=== PATIENT | female | born 1975 | race Caucasian/White ===

== ENCOUNTER 2020-12-04 10:48 | Observation (INO) ==
--- NOTE | 2020-11-29 11:26 | Anesthesiology Consultation ---
Date of Service November 29, 2020 Assessment & Plan (1) Encounter for pre-operative examination: COVID Status: As of 11/29 nurse assessment, patient denies travel to endemic area, known exposure/sick contacts, or symptoms of COVID19. Preoperative COVID19 testing completed on 11/28 , results pending. EKG AM DOS (BMI > 40) Chart Review Chart Review: Acceptable Risk for Surgery and Patient NOT seen in Pre Admission Testing History Surgery Operation Date: 12/04/20 15:15 Proposed Procedures p Right Ankle Fracture Open Reduction Internal Fixation - Kal Faulkner, Height/Weight Height: 5 ft 7.5 in Weight: 142.882 kg Allergies Allergy/AdvReac Type Severity Reaction Status Date / Time aripiprazole [From Abiliy] Allergy Severe TARDIVE Verified 11/29/20 10:05 DYSKINESIA--FACIAL TIC strawberry Allergy Mild LARGE Verified 11/29/20 10:05 VOLUMES CAUSE MOUTH ULCERS tomato Allergy Mild LARGE Verified 11/29/20 10:05 VOLUMES CAUSE MOUTH ULCERS Medications Home Medications Medication Instructions Recorded Confirmed Last Taken acyclovir 400 mg PO BID 09/30/19 11/29/20 11/24/20 08:00 albuterol sulfate 2.5 mg INHALATION DIRECTED PRN 09/30/19 11/29/20 Unknown bupropion HCl 150 mg PO QAM 09/30/19 11/29/20 11/24/20 cholecalciferol (vitamin D3) 5,000 unit PO DAILY 09/30/19 11/29/20 11/24/20 [Vitamin D3] citalopram [Celexa] 40 mg PO QAM 09/30/19 11/29/20 11/24/20 cyanocobalamin (vitamin B-12) 1,000 mcg PO QPM 09/30/19 11/29/20 11/23/20 [Vitamin B-12] folic acid 800 mcg PO DAILY 09/30/19 11/29/20 11/24/20 lamotrigine 100 mg PO BID 09/30/19 11/29/20 11/24/20 08:00 levothyroxine 50 mcg PO DAILYBB 09/30/19 11/29/20 11/24/20 lithium carbonate 1,200 mg PO HS 09/30/19 11/29/20 11/23/20 loratadine [Claritin] 10 mg PO QAM 09/30/19 11/29/20 10/08/19 oxcarbazepine [Trileptal] 300 mg PO BID 09/30/19 11/29/20 11/24/20 08:00 pantoprazole [Protonix] 20 mg PO QAM 09/30/19 11/29/20 11/24/20 clobetasol 1 applic TOPICAL DAILY PRN 11/24/20 11/29/20 Unknown nystatin 1 applic TOPICAL DIRECTED PRN 11/24/20 11/29/20 Unknown oxycodone 5 mg PO Q6H PRN #10 tab 11/24/20 11/29/20 Unknown warfarin 10 mg PO QPM 11/24/20 11/29/20 11/23/20 Wheelchair (Manual or Powered) #1 ea 11/28/20 11/28/20 Unknown clonazepam 0.5 - 1 mg PO HS 11/29/20 11/29/20 Unknown Past Medical History Medical History (Updated 11/29/20 @ 11:25 by Redd Finch) Ankle fracture RT Asthma HAS NOT USED INHALER FOR A LONG TIME Back pain Bipolar 2 disorder Compound heterozygous MTHFR mutation [id number] Fracture of fourth metacarpal bone of right hand GERD (gastroesophageal reflux disease) Head injury, closed, without LOC 2013 History of DVT (deep vein thrombosis) 2011 History of pulmonary embolism 2011 (REASON FOR COUMADIN) Hypothyroidism Migraine Morbid obesity Rheumatoid arthritis Sleep apnea CPAP Temporomandibular joint disorder Past Family History Family History (Updated 11/29/20 @ 10:21 by Anna Conteh RN) Mother Family history of diabetes mellitus Other No family history of adverse response to anesthesia Past Surgical History Surgical History (Updated 11/29/20 @ 10:20 by Anna Conteh RN) H/O laparoscopy History of dilatation and curettage History of endometrial ablation [place] teeth removed Social History Smoking Status: Never smoker Hx Alcohol Use: No substance use type: does not use Testing Laboratory Results 11/28/20 WBC: 8.48 H/H: 13.2/40.9 PLATELETS: 220 SODIUM: 139 POTASSIUM: 3.9 CHLORIDE: 105 CO2: 30 BUN: 10 CREATININE: 0.92 GLUCOSE: 93
--- NOTE | 2020-12-04 09:44 | History & Physical Report ---
Date of Service December 04, 2020 Assessment & Plan (1) Ankle fracture: We will proceed with an open reduction internal fixation of the left ankle. Postoperatively she will be placed in a trauma splint. We will see how she is doing postoperatively before we determine if she will stay overnight or not. History of Present Illness Chief Complaint: Left ankle fracture. Primary Care Provider: Aleksandra Feliz MD Rody is a pleasant 45-year-old female who was on a road trip a few days ago. She stopped on the side of the road and walked into the [place]. Unfortunate she slipped on an embankment and twisted her left ankle. She had immediate pain. She went to the emergency room where radiographs demonstrated a left distal fibula fracture with possible syndesmotic injury. She was placed in a splint came to my office. After discussions in the office, she elected to proceed with an open reduction internal fixation of the left ankle Allergies Allergy/AdvReac Type Severity Reaction Status Date / Time aripiprazole [From Abilify] Allergy Severe TARDIVE Verified 11/29/20 10:05 DYSKINESIA--FACIAL TIC strawberry Allergy Mild LARGE Verified 11/29/20 10:05 VOLUMES CAUSE MOUTH ULCERS tomato Allergy Mild LARGE Verified 11/29/20 10:05 VOLUMES CAUSE MOUTH ULCERS Home Medications Medication Instructions Recorded Confirmed Type acyclovir 400 mg PO BID 09/30/19 11/29/20 History albuterol sulfate 2.5 mg INHALATION DIRECTED PRN 09/30/19 11/29/20 History bupropion HCl 150 mg PO QAM 09/30/19 11/29/20 History cholecalciferol (vitamin D3) 5,000 unit PO DAILY 09/30/19 11/29/20 History [Vitamin D3] citalopram [Celexa] 40 mg PO QAM 09/30/19 11/29/20 History cyanocobalamin (vitamin B-12) 1,000 mcg PO QPM 09/30/19 11/29/20 History [Vitamin B-12] folic acid 800 mcg PO DAILY 09/30/19 11/29/20 History lamotrigine 100 mg PO BID 09/30/19 11/29/20 History levothyroxine 50 mcg PO DAILYBB 09/30/19 11/29/20 History lithium carbonate 1,200 mg PO HS 09/30/19 11/29/20 History loratadine [Claritin] 10 mg PO QAM 09/30/19 11/29/20 History oxcarbazepine [Trileptal] 300 mg PO BID 09/30/19 11/29/20 History pantoprazole [Protonix] 20 mg PO QAM 09/30/19 11/29/20 History clobetasol 1 applic TOPICAL DAILY PRN 11/24/20 11/29/20 History nystatin 1 applic TOPICAL DIRECTED PRN 11/24/20 11/29/20 History oxycodone 5 mg PO Q6H PRN #10 tab 11/24/20 11/29/20 Rx warfarin 10 mg PO QPM 11/24/20 11/29/20 History Wheelchair (Manual or Powered) #1 ea 11/29/20 Rx clonazepam 0.5 - 1 mg PO HS 11/29/20 11/29/20 History Past Med/Surg History Medical History Ankle fracture RT Asthma HAS NOT USED INHALER FOR A LONG TIME Back pain Bipolar 2 disorder Compound heterozygous MTHFR mutation [id number] Fracture of fourth metacarpal bone of right hand GERD (gastroesophageal reflux disease) Head injury, closed, without LOC 2014 History of DVT (deep vein thrombosis) 2011 History of pulmonary embolism 2011 (REASON FOR COUMADIN) Hypothyroidism Migraine Morbid obesity Rheumatoid arthritis Sleep apnea CPAP Temporomandibular joint disorder Surgical History H/O laparoscopy History of dilatation and curettage History of endometrial ablation [place] teeth removed Family History Mother Family history of diabetes mellitus Other No family history of adverse response to anesthesia Social History Smoking Status: Never smoker Second Hand Exposure: No; Hx Alcohol Use: No Preferred Language: [place] 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 Physical Exam On physical examination of the left ankle, there is no deformity in the office. She is in a trauma splint. She has motion of her toes. Her toes feel warm.. Constitutional WD/WN, vitals as above Eyes PERRL, conjunctivae normal, anicteric sclerae ENMT external ear and nose normal, oropharynx normal Neck trachea midline, no thyromegaly Respiratory normal respiratory effort Cardiovascular RRR, no murmur, no edema Gastrointestinal (Abdomen) normal bowel sounds, soft, nontender, no hepatosplenomegaly Psychiatric A+Ox3, euthymic affect Results & Data Results & Data Laboratory Results . Diagnostic Findings X-rays of the left ankle do show a fibular fracture. There is also some widening of the syndesmosis.. PG Care Time/CCT Total # of Minutes Spent Total Time Spent with Patient: Total time spent is greater than 50% in coordination of care (as documented) at patient's floor/unit and/or counseling patient: Coding Level of Care Code None Diagnoses Ankle fracture S82.891A Encounter type: initial encounter Fracture type: closed Laterality: right (1) Ankle fracture Encounter type: initial encounter Fracture type: closed Laterality: right Qualified Code(s): S82.891A - Other fracture of right lower leg, initial encounter for closed fracture
[~2020-12-04 10:48] MED LIST: LR 15ML/HR IV SCH; LR 60ML/HR IV SCH; ROPIVACAINE 0.5% 5 MG/ML 30 ML VIAL ONE
[2020-12-04 11:34] LABS: INR 1.1 (0.9-1.1); Partial Thromboplastin Ratio 0.9; Partial Thromboplastin Time 24.2 Seconds (21.0-31.0); Prothrombin Time 10.7 Seconds (9.0-12.0)
[2020-12-04] MEDS ORDERED: fentaNYL citrate 100 MCG/2 ML VIAL IV PRN (13:01)
[2020-12-04] MEDS ORDERED: ONDANSETRON INJ 2 MG/ML 2 ML VIAL IV PRN ×2 (13:01→16:55)
[2020-12-04] MEDS ORDERED: HYDROmorphone INJ 1 MG/ML SYRINGE IV PRN (13:01)
[2020-12-04] MEDS ORDERED: ATROPINE SULFATE 0.1 MG/ML 10ML SYR IV PRN (13:01)
[2020-12-04] MEDS ORDERED: ePHEDrine sulfate 50 MG/ML AMP IV PRN (13:01)
[2020-12-04] MEDS ORDERED: PROPOFOL IV EMULSION 10 MG/ML 20 ML VIAL IV ONE (13:26)
[2020-12-04] MEDS ORDERED: MIDAZOLAM HCL 1 MG/ML 2ML VIAL ONE (13:26)
[2020-12-04] MEDS ORDERED: fentaNYL citrate 100 MCG/2 ML VIAL ONE ×2 (13:26→14:37)
[2020-12-04] MEDS ORDERED: LIDOCAINE HCL 2% 2 ML VIAL/AMP(20MG/ML) INFIL ONE (13:26)
[2020-12-04] MEDS ORDERED: BUPIVACAINE/EPINEPHRINE 0.5% MPF 1:200,000 30 ML VIAL ONE (13:52)
[2020-12-04] MEDS ORDERED: BACITRACIN INJ 50,000 UNIT VIAL ONE (13:52)
[2020-12-04] MEDS ORDERED: DEXAMETHASONE SOD INJ 4 MG/ML VIAL ONE ×2 (14:47→14:48)
[2020-12-04] MEDS ORDERED: ONDANSETRON INJ 2 MG/ML 2 ML VIAL ONE ×2 (14:47)
--- NOTE | 2020-12-04 15:16 | Electrocardiogram Report ---
Test Reason : Blood Pressure : / mmHG Vent. Rate : 083 BPM Atrial Rate : 083 BPM P-R Int : 184 ms QRS Dur : 094 ms QT Int : 410 ms P-R-T Axes : 041 002 041 degrees QTc Int : 481 ms Normal sinus rhythm Diffuse Minor Nonspecific T wave abnormality Abnormal ECG When compared with ECG of 21-FEB-2015 14:44, No significant change Confirmed by Isael Hutson ([id number]) on 12/04/2020 3:15:28 PM Referred By: Kal Faulkner Confirmed By:Isael Hutson
--- NOTE | 2020-12-04 15:48 | Fluoroscopy Report ---
FL ankle RT min 3V RTN CLINICAL HISTORY: Right ankle fracture. Internal fixation. COMPARISON STUDY: Right ankle 11/24/2020. FLUOROSCOPY TIME: 44 seconds. FINDINGS: 5 fluoroscopic spot images of the right ankle demonstrate a lateral cortical plate transfix ed with screws bridging the distal fibular fracture. The hardware appears intact. Alignment is near-a natomic. There are 2 syndesmotic anchors identified. IMPRESSION: Fluoroscopy provided for internal fixation of a right ankle fracture. Alignment is near-a natomic. ACT 112: Negative or not required by law. Electronically signed by: Pritesh Parada M.D. 12/04/2020 3:46 PM
--- NOTE | 2020-12-04 15:54 | Operative Report ---
PG Post Operative Report Pre & Post Diagnosis Operation Date: 12/04/20 13:15 Pre-Op Diagnosis: Distal fibula ankle fracture with syndesmotic injury Post-Op Diagnosis: Distal fibula ankle fracture with syndesmotic injury I identified the patient and participated in the time-out.: Yes Procedure Operation Date: 12/04/20 13:15 Actual Procedures p Open reduction internal fixation of the right fibula with fixation of the syndesmosis (Right) - Kal Faulkner DO Surgeon Kal Faulkner DO Multineedle Shirrer Kal Coleman PAC Estimated Blood Loss 10 Findings Consistent with Post-Op Diagnosis Specimens None Complications none Disposition Disposition: Recovery Room Indications Rody is a pleasant 45-year-old female who fell and fractured her right ankle about a week ago. She came to my office and radiographs demonstrated a fibular shaft fracture with syndesmotic injury. After discussions in the office, she elected proceed with an open reduction internal fixation of the fibula with syndesmotic fixation. Description of Procedure On December 04, 2020 Rody arrived at [facility] for the above procedure. She was seen in the preoperative holding area and the operative extremity was identified and signed. She was given a preoperative antibiotic. She was taken back to the operating room and laid on the table in supine position. She was put under general anesthesia. The right ankle was prepped and draped in sterile fashion. A timeout was done. The patient and the operative extremity was properly identified. A longitudinal incision was made directly over the fibula. Dissection was taken down through the fascia. Care was taken not to disrupt the neurovascular structures. The fibular shaft was exposed. The fracture was reduced with a reduction clamp. A 12 hole Synthes one third tubular locking plate was then placed.Appropriate placement of the plate was checked under fluoroscopic imaging. A locking screw was placed both proximally and distally. I was happy with the overall alignment of the plate. 3 additional locking screws were placed proximally and 2 additional locking screws were placed distally. This gave near anatomic alignment of the fibular shaft. A stress x-ray was done and there was still widening of the syndesmosis. 2 Synthes tight rope buttons were placed across the syndesmosis. These were tightened with the ankle mortise and compression. After the 2 Synthes tight ropes were placed a stress view was done of the ankle and there was no more instability of the syndesmosis. The wounds were then irrigated. The deep fascial layer was closed with #0 Vicryl suture. Skin was closed with 2-0 Vicryl and shi. She was then placed in a trauma splint. She was then extubated and transferred to a hospital bed. She was taken to the post anesthesia care unit in stable condition. She tolerated the procedure well. Kal oCleman PA-C, was present for the entire procedure. He was critical for patient positioning, prepping, draping, retraction exposure, wound closure and application of sterile dressing. I attest to the content of the Intraoperative Record and any orders documented therein. Any exceptions are noted below.
--- NOTE | 2020-12-04 16:53 | Anesthesiology Progress Note ---
Date of Service December 04, 2020 Anesthesia Post Procedure Vital Signs Vital Signs: Temp Pulse Pulse Resp BP Pulse Ox 12/04/20 16:40 37.0 C 85 16 128/75 95 12/04/20 16:30 85 16 129/76 95 12/04/20 16:20 88 17 128/73 96 12/04/20 16:10 88 14 122/83 97 12/04/20 16:04 37.0 C 100 H 15 125/55 L 96 12/04/20 12:22 37.1 C 80 18 134/73 97 12/04/20 11:34 37.5 C 78 18 127/88 98 Pain Intensity Right Knee: Pain Intensity: 3 Right Medial Ankle: Pain Intensity: 3 Transfer of Care Handoff Completed per policy Notes Mental Status: alert / awake / arousable Patient Amnestic to Procedure: Yes Nausea / Vomiting: adequately controlled Pain: adequately controlled Airway Patency, RR, SpO2: stable & adequate BP & HR: stable & adequate Hydration State: stable & adequate Anesthetic Complications: no major complications apparent
[2020-12-04] MEDS ORDERED: NON-FORMULARY MEDICATION (Clobetasol 0.05 % Cream) TOP PRN (16:55)
[2020-12-04] MEDS ORDERED: ALBUTEROL 0.083% NEBU SOLN 3 ML VIAL INH PRN (16:55)
[2020-12-04] MEDS: oxyCODONE/ACETAMINOPHEN 5mg/325mg TAB PO PRN (17:43)
[2020-12-04] MEDS: lamoTRIgine 100 MG TAB PO SCH (20:09)
[2020-12-04] MEDS: WARFARIN SOD 10 MG TAB PO SCH (20:09)
[2020-12-04] MEDS: ACYCLOVIR 400 MG TAB PO SCH (20:10)
[2020-12-04] MEDS: OXcarbazepine 150 MG TABLET PO SCH (20:10)
[2020-12-04] MEDS: clonazePAM 1 MG TAB PO SCH (20:10)
[2020-12-04] MEDS: LITHIUM CARBONATE 300 MG TAB PO SCH (20:11)
[2020-12-04] MEDS: ACETAMINOPHEN 325 MG TAB PO PRN (22:25)
[2020-12-05] MEDS: LEVOTHYROXINE SODIUM 50 MCG TABLET PO SCH (06:00)
[2020-12-05 06:17] LABS: Prothrombin Time 10.5 Seconds (9.0-12.0)
--- NOTE | 2020-12-05 06:42 | Orthopedic Progress Note ---
Date of Service December 05, 2020 Assessment & Plan (1) Status post ORIF of fracture of ankle: Overall she is doing well. She got into much pain in the right ankle. She will be seen by physical therapy today for ambulation. She will be nonweightbearing on that right leg for about 6 weeks. She is on Coumadin for DVT prophylaxis. She can be discharged home later today. She will follow-up in my office in 2 weeks. Nona Fine was seen and examined at bedside this morning. Overall she is doing fairly well. She is having too much pain in the right ankle. Her ankle is elevated. She was able to get some sleep last night. She has no complaints. . Review of Systems All systems reviewed & are unremarkable except as noted in HPI & below. Physical Exam On physical examination of the right ankle, she is able to flex her toes but unable to extend them. The nerve blocks are still working. Her trauma splint is in place. Her right ankle is elevated.. Results & Data Results & Data Laboratory Results . Diagnostic Findings . PG Care Time/CCT Total # of Minutes Spent Total Time Spent with Patient: Total time spent is greater than 50% in coordination of care (as documented) at patient's floor/unit and/or counseling patient: Coding Level of Care Code 78716 Post Operative Follow-Up Diagnoses Status post ORIF of fracture of ankle Z98.890; Z87.81
--- NOTE | 2020-12-05 06:43 | Discharge Summary ---
Date of Service December 05, 2020 Admission HPI (Per Admitting) Rody is a pleasant 45-year-old female who was on a road trip a few days ago. She stopped on the side of the road and walked [place] the [place] Unfortunate she slipped on an embankment and twisted her left ankle. She had immediate pain. She went to the emergency room where radiographs demonstrated a left distal fibula fracture with possible syndesmotic injury. She was placed in a splint came to my office. After discussions in the office, she elected to proceed with an open reduction internal fixation of the left ankle Admission Exam (Per Admitting) On physical examination of the left ankle, there is no deformity in the office. She is in a trauma splint. She has motion of her toes. Her toes feel warm.. Principal Diagnosis Same as "Discharge Diagnosis" noted below under Discharge Instructions. Discharge Exam On physical examination of the right ankle, she is able to flex her toes but unable to extend them. The nerve blocks are still working. Her trauma splint is in place. Her right ankle is elevated.. Discharge Data Consultations 12/04/20 16:55 Consult Case Management - Discharge Planning Routine Procedures Performed Operation Date: 12/04/20 13:15 Actual Procedures p Open reduction internal fixation of the right fibula with fixation of the syndesmosis(Right) - Kal Faulkner DO Ordered Studies 12/04/20 05:00 US - OR guided needle placemen Routine 12/04/20 13:15 FL ankle RT min 3V RTN Routine FL fluoroscopy <1hr Routine Hospital Course (1) Status post ORIF of fracture of ankle: On December 04, 2020 on the end arrived at [facility] and underwent an open reduction internal fixation of her right ankle without complication. She had a general anesthetic. Postoperatively she was placed in a trauma splint and transferred to the general orthopedic floors. Her hospital course was uneventful. On postop day #1 her pain was well controlled. She was able to participate well with physical therapy. She was able to be compliant with the nonweightbearing instructions. She was on Coumadin for DVT prophylaxis. She was then discharged home. She will follow-up with orthopedics in 2 weeks. PG Care Time/CCT Total # of Minutes Spent Total Time Spent with Patient: Total time spent is greater than 50% in coordination of care (as documented) at patient's floor/unit and/or counseling patient: Discharge Plan Discharge Items Patient Disposition: Home - Self-Care Reason For Visit: POST OP Discharge Diagnosis: Status post fixation of the right ankle Activity: As commented below Non-emergency contact: Surgeon Call non-emergency contact if: your wound has increased redness and your wound has increased drainage Follow-up/Referrals: Aleksandra Feliz MD [Primary Care Provider] - Diet: Regular Addtl Attending Provider Instructions: ORTHOPEDIC INSTRUCTIONS Activity Recommendations: Nonweightbearing on the right leg Medications: Continue Coumadin for DVT prophylaxis. Dressing Care: Leave the trauma splint in place until seen in the office at your 2-week follow- up appointment. Showering: You may bathe but do not get the trauma splint wet. Things To Watch For: 1. Drainage from the Splint 2. Change in color of the toes 3. Fever above 102 degrees Fahrenheit. 4. Unusual chest pain or shortness of breath. 5. Call [facility] at with any of the above problems Follow-Up Visit: Follow-up with Dr. Faulkner's PA (Kal Coleman) 2-3 weeks after your day of surgery. He will remove your shi and answer any questions. If you have any additional questions or concerns, Dr Faulkner is usually in the office at the same time and will be available An appointment was probably scheduled when you signed-up for surgery in the office. If you have any questions call Pending Studies at Discharge: No Stand-Alone Forms: My [facility] [employer] [facility], Smoking Cessation Medications and DC Order Prescriptions: Continued (DME) Wheelchair (Manual) Device See Rx Instructions .MEDSUPPLY Qty: 1 RF: 0 nystatin 100,000 unit/gram Ointment 1 applic TOPICAL DIRECTED PRN (Reason: Skin Irritation) RF: 0 clobetasol 0.05 % Cream 1 applic TOPICAL DAILY PRN (Reason: NEEDED) RF: 0 warfarin 5 mg Tablet 10 mg PO QPM RF: 0 clonazepam 1 mg Tablet 0.5 - 1 mg PO HS RF: 0 oxycodone 5 mg tablet 5 mg PO Q6H PRN (Reason: pain) Qty: 30 RF: 0 albuterol sulfate 2.5 mg /3 mL (0.083 %) Solution For Nebulization 2.5 mg INHALATION DIRECTED PRN (Reason: Shortness Of Breath Or Wheezing) RF: 0 citalopram [Celexa] 40 mg Tablet 40 mg PO QAM RF: 0 cyanocobalamin (vitamin B-12) [Vitamin B-12] 1,000 mcg Tablet 1,000 mcg PO QPM RF: 0 oxcarbazepine [Trileptal] 300 mg Tablet 300 mg PO BID RF: 0 acyclovir 400 mg Tablet 400 mg PO BID RF: 0 pantoprazole [Protonix] 20 mg Tablet,Delayed Release (Dr/Ec) 20 mg PO QAM RF: 0 levothyroxine 50 mcg Tablet 50 mcg PO DAILYBB RF: 0 lithium carbonate 300 mg Tablet 1,200 mg PO HS RF: 0 lamotrigine 100 mg tablet 100 mg PO BID RF: 0 loratadine [Claritin] 10 mg Tablet 10 mg PO QAM RF: 0 bupropion HCl 150 mg Tablet Extended Release 24 Hr 150 mg PO QAM RF: 0 folic acid 0.8 mg Capsule 800 mcg PO DAILY RF: 0 cholecalciferol (vitamin D3) [Vitamin D3] 125 mcg (5,000 unit) Tablet 5,000 unit PO DAILY RF: 0 Discharge Orders: Discharge Order (Routine); Ordered 12/05/20 Ordered By: Kal Faulkner Admission Data Admit Date/Time: 12/04/20 16:07 Attending Provider: Kal Faulkner Admit Provider: Kal Faulkner Primary Care Provider: Aleksandra Feliz
[2020-12-05] MEDS: ACYCLOVIR 400 MG TAB PO SCH ×2 (08:37→21:37)
[2020-12-05] MEDS: PANTOprazole 40 MG TAB PO SCH (08:38)
[2020-12-05] MEDS: LORATADINE 10 MG TAB PO SCH (08:38)
[2020-12-05] MEDS: CITALOPRAM 40 MG TAB PO SCH (08:38)
[2020-12-05] MEDS: FOLIC ACID 400 MCG TAB PO SCH (08:39)
[2020-12-05] MEDS: lamoTRIgine 100 MG TAB PO SCH ×2 (08:39→21:35)
[2020-12-05] MEDS: OXcarbazepine 150 MG TABLET PO SCH ×2 (08:40→21:36)
[2020-12-05] MEDS: buPROPion XL 150 MG TABCR PO SCH (08:40)
[2020-12-05] MEDS: oxyCODONE/ACETAMINOPHEN 5mg/325mg TAB PO PRN ×2 (10:33→16:05)
[2020-12-05] MEDS ORDERED: DOCUSATE SODIUM 100 MG CAP PO ONE (11:08)
[2020-12-05] MEDS ORDERED: HYDROmorphone INJ 0.5 MG/0.5 ML SYR IV PRN (12:19)
[2020-12-05] MEDS: HYDROmorphone INJ 1 MG/ML SYRINGE IV PRN ×2 (12:41→20:13)
[2020-12-05] MEDS: WARFARIN SOD 10 MG TAB PO SCH (21:34)
[2020-12-05] MEDS: LITHIUM CARBONATE 300 MG TAB PO SCH (21:36)
[2020-12-05] MEDS: clonazePAM 1 MG TAB PO SCH (21:57)
[2020-12-06] MEDS: oxyCODONE/ACETAMINOPHEN 5mg/325mg TAB PO PRN ×3 (02:52→12:03)
[2020-12-06] MEDS: LEVOTHYROXINE SODIUM 50 MCG TABLET PO SCH (06:03)
[2020-12-06 06:37] LABS: INR 1.1 (0.9-1.1); Prothrombin Time 10.7 Seconds (9.0-12.0)
--- NOTE | 2020-12-06 06:37 | Orthopedic Progress Note ---
Date of Service December 06, 2020 Assessment & Plan (1) Status post ORIF of fracture of ankle: Unfortunate she is having a lot of pain in her right ankle. She will be seen by physical therapy today for ambulation. She will be nonweightbearing on her right ankle. She will likely be nonweightbearing for at least 6 weeks. I am going to give her Dilaudid orally for discharge to home. She is already on Coumadin for DVT prophylaxis. She is to stay nonweightbearing on her right ankle and follow-up in my office in 2 weeks for suture removal. Nona Fine was seen and examined at bedside this morning. Unfortunate she has been having a lot of pain. She was having too much pain yesterday to be discharged home. She said she was having some pain overnight. She said the Percocet is not helping with her pain. She feels better with the Dilaudid. She has had no acute events or other issues.. Review of Systems All systems reviewed & are unremarkable except as noted in HPI & below. Physical Exam On physical examination of the right foot there is some ecchymosis in her toes. She can wiggle her toes. She is feeling in her toes. She has a well fitting splint.. Results & Data Results & Data Laboratory Results . Diagnostic Findings . PG Care Time/CCT Total # of Minutes Spent Total Time Spent with Patient: Total time spent is greater than 50% in coordination of care (as documented) at patient's floor/unit and/or counseling patient: Coding Level of Care Code 50176 Post Operative Follow-Up Diagnoses Status post ORIF of fracture of ankle Z98.890; Z87.81
[2020-12-06] MEDS: FOLIC ACID 400 MCG TAB PO SCH (08:47)
[2020-12-06] MEDS: ACYCLOVIR 400 MG TAB PO SCH (08:47)
[2020-12-06] MEDS: OXcarbazepine 150 MG TABLET PO SCH (08:47)
[2020-12-06] MEDS: buPROPion XL 150 MG TABCR PO SCH (08:48)
[2020-12-06] MEDS: lamoTRIgine 100 MG TAB PO SCH (08:48)
[2020-12-06] MEDS: CITALOPRAM 40 MG TAB PO SCH (08:48)
[2020-12-06] MEDS: PANTOprazole 40 MG TAB PO SCH (08:48)
[2020-12-06] MEDS: LORATADINE 10 MG TAB PO SCH (08:48)
[2020-12-06] MEDS: ACETAMINOPHEN 325 MG TAB PO PRN (11:29)
[2020-12-06] MEDS ORDERED: DOCUSATE SODIUM 100 MG CAP PO ONE (11:30)
== END 2020-12-06 12:55 | disposition home or self-care (01) ==
LOC: 3E 10:48 → ASU 10:48
DX: Z86.711 Personal history of pulmonary embolism; Z79.01 Long term (current) use of anticoagulants; G47.30 Sleep apnea, unspecified; W17.81XA Fall down embankment (hill), initial encounter; S82.491A Other fracture of shaft of right fibula, initial encounter for closed fracture; Z79.890 Hormone replacement therapy; E66.01 Morbid (severe) obesity due to excess calories; Z91.018 Allergy to other foods; F31.81 Bipolar II disorder; J45.909 Unspecified asthma, uncomplicated; E72.12 Methylenetetrahydrofolate reductase deficiency; E03.9 Hypothyroidism, unspecified; Z79.899 Other long term (current) drug therapy; Z86.718 Personal history of other venous thrombosis and embolism; Z88.8 Allergy status to other drugs, medicaments and biological substances

== ENCOUNTER 2023-09-08 23:34 | Inpatient (IN) ==
[2023-09-08] MEDS ORDERED: SODIUM CHLORIDE 0.9% 1,000 ML IV STA (23:48)
[2023-09-09 00:24] LABS: Basophils # (auto) 0.02 K/uL (0.00-0.20); Basophils % (auto) 0.2 %; Eosinophils # (auto) 0.07 K/uL (0.00-0.50); Eosinophils % (auto) 0.5 %; Hematocrit (blood only) 41.5 % (37.0-47.0); Immature Granulocytes # (auto) 0.07 K/uL (0.01-0.20); Immature Granulocytes % (auto) 0.5 %; Lymphocytes # (auto) 0.79 K/uL (1.20-3.40); Mean Corpuscular Hemoglobin 32.4 pg (25.0-34.0); Mean Corpuscular Hgb Conc 33.7 g/dL (32.0-36.0); Mean Corpuscular Volume 96.1 fL (80.0-100.0); Mean Platelet Volume 9.8 fL (9.4-12.4); Monocytes # (auto) 0.88 K/uL (0.11-0.59); Monocytes % (auto) 6.7 %; Neutrophils # (auto) 11.28 K/uL (1.40-6.50); Neutrophils % (auto) 86.1 %; Platelet Count 169 K/uL (130-400); RDW Coefficient of Variation 12.3 % (11.5-14.5); RDW Standard Deviation 43.8 fL (36.4-46.3); Red Blood Count 4.32 M/uL (4.20-5.40); White Blood Count 13.11 K/ul (4.8-10.8)
[2023-09-09 00:42] LABS: Alanine Aminotransferase 21 U/L (7-52); Albumin Globulin Ratio 1.7 (0.9-2); Albumin Level 4.3 gm/dl (3.4-5.0); Alkaline Phosphatase 50 U/L (34-104); Anion Gap 6 (3-11); Aspartate Aminotransferase 18 U/L (13-39); Blood Urea Nitrogen 10 mg/dl (6-23); Calcium 9.6 mg/dl (8.6-10.3); Carbon Dioxide 26 mmol/L (21-32); Chloride 103 mmol/L (98-107); Creatinine Clr Calc Pharmacy 101.4 ml/min; Est GFR (African American) 86.5 ml/min; Est GFR (Non-African American) 74.6 ml/min; Globulin 2.6 gm/dl (2.5-4.0); Glucose 106 mg/dl (70-99(Fasting)); Potassium 3.9 mmol/L (3.5-5.1); Sodium 135 mmol/L (136-145); Total Protein 6.9 gm/dl (6.0-8.3)
--- NOTE | 2023-09-09 00:47 | Emergency Department Note ---
Impression & Plan Aspiration pneumonia, Fever and chills, Shortness of breath ED Provider Note CHIEF COMPLAINT: Cough, shortness of breath, fever/chills HISTORY OF PRESENT ILLNESS: This 48-year-old female patient presents to the emergency department via private vehicle for evaluation of cough, shortness of breath, fever and chills which started earlier this evening. The patient states this morning, she was seen at the surgery center for a colonoscopy. Shortly after receiving anesthesia, the patient vomited and aspirated a small amount of gastric contents/liquid. Patient states her O2 saturation dropped into the 50% and an LMA was placed. She required being bagged. She was ultimately taken to PACU and downgraded to a facemask oxygen and ultimately weaned to room air after she woke up from the anesthesia. The patient's O2 saturation remained in the 90s to 100% on room air for at least 1 hour and was ultimately discharged to home with ER precautions. Patient states after returning home, she developed some shortness of breath, coughing, chest and throat pain, and wheezing. She did a nebulizer treatment at home with some improvement in her symptoms. REVIEW OF SYSTEMS: A 10 system review of systems was performed with positives and pertinent negatives listed in the history of present illness. All other systems were reviewed and are negative. ALLERGIES: Tomato, strawberry, Abilify PHYSICAL EXAM: VITALS: Vitals are noted on the nurse's note and reviewed by myself. Vital signs stable. GENERAL: This is a 48-year-old female, in no acute distress, nondiaphoretic, well-developed well-nourished. SKIN: The skin was without rashes, erythema, edema, or bruising. There is no tenting of the skin. Capillary refill less than 2 seconds. HEAD: Normocephalic atraumatic. EYES: Conjunctivae without injection, sclerae without icterus. NOSE: Patent, turbinates without inflammation or discharge. No sinus tenderness. MOUTH: Mucous membranes moist. Tonsils are not enlarged. Superficial abrasions noted on the hard palate and in the pharynx with mild erythema but no exudate. No active bleeding or discharge. Uvula midline. Airway patent. Tongue does not deviate. NECK: Supple without nuchal rigidity. No lymphadenopathy. No JVD. HEART: Regular rate and rhythm without murmurs gallops or rubs. LUNGS: Clear to auscultation bilaterally without wheezes, rales or rhonchi. No retractions or accessory muscle use. ABDOMEN: Positive bowel sounds x 4. Soft, nontender, without masses or organomegaly. No guarding or rebound tenderness. MUSCULOSKELETAL: No muscle atrophy, erythema, or edema noted. Full range of motion without joint tenderness in all extremities. No tenderness to palpation. Normal gait. Strength 5/5 throughout. NEURO: Patient was alert and oriented to person place and time. No focal neurological deficits. An order was placed for continuous quality assurance monitor body. The monitor showed a normal sinus rhythm at a ventricular rate of 97 bpm, per my interpretation. EKG, per my interpretation: Normal sinus rhythm with a ventricular rate of [address] elevation or depression. No T wave inversion. No significant change when compared to EKG completed 12/04/2020. EMERGENCY DEPARTMENT COURSE: This 48-year-old female patient presents to the emergency department today for evaluation of shortness of breath and chest discomfort after an episode of aspiration and hypoxia during an outpatient colonoscopy. Patient did not have the outpatient colonoscopy completed due to the aspiration. I did review outside medical records including the anesthesiology note from the procedure earlier today which indicated that the patient had an LMA placed, was monitored in PACU and weaned to room air. Work-up completed as above. IV access was obtained, labs were drawn mild leukocytosis of 13,000. No anemia or thrombocytopenia. INR 1.0. Troponin less than 2.3. Renal, hepatic function and electrolytes without significant abnormality. Chest x-ray, per my interpretation: Consolidation in the left lower lobe. The patient was medicated with IV Zosyn. She was medicated with IV fluids while here in the emergency department I discussed case with my attending physician. I discussed the case with the respiratory therapy manager. I discussed the case with Dr. Askew, [facility] hospitalist. He did agree to see and evaluate the patient for admission. Please see hospitalist dictation regarding ongoing management care of this patient Differential diagnosis includes aspiration, reactive airway disease, pneumonia, pneumothorax, COPD, CHF, infections, cardiac ischemia, pulmonary embolism, musculoskeletal, gastrointestinal, as well as other pathologies. I attest that I have personally reviewed the patient's current medication list. Patient was found to have normal blood pressure on screening and does not require follow-up. The chart was completed utilizing Dragon Speech voice recognition software. Grammatical errors, random word insertions, pronoun errors, and incomplete sentences are an occasional consequence of this system due to software limitations, ambient noise, and hardware issues. Any formal questions or concerns about the content, text, or information contained within the body of this dictation should be directly addressed to the provider for clarification. Past Med/Surg History Medical History Morbid obesity Ankle fracture RT Back pain Rheumatoid arthritis GERD (gastroesophageal reflux disease) Hypothyroidism Bipolar 2 disorder Temporomandibular joint disorder Compound heterozygous MTHFR mutation [id number] Migraine Sleep apnea CPAP History of pulmonary embolism 2011 (REASON FOR COUMADIN) History of DVT (deep vein thrombosis) 2011 Asthma HAS NOT USED INHALER FOR A LONG TIME Head injury, closed, without LOC 2013 Fracture of fourth metacarpal bone of right hand Surgical History H/O laparoscopy History of dilatation and curettage History of endometrial ablation Status post ORIF of fracture of ankle (~11/2020) [place] teeth removed Family History Mother Family history of diabetes mellitus Other No family history of adverse response to anesthesia Social History Smoking Status: Never smoker Second Hand Exposure: No; Hx Alcohol Use: No Preferred Language: Icelandic Communication Ability: Effective Spa Director Required: No Beliefs That Will Affect Care: None Current Living Situation: Alone current occupational status: employed Feels Safe at Home: Yes Assistive Devices: Glasses and Walker Allergies Allergies Allergy/AdvReac Type Severity Reaction Status Date / Time aripiprazole [From Abilify] Allergy Severe TARDIVE Verified 03/14/22 02:26 DYSKINESIA--FACIAL TIC strawberry Allergy Mild LARGE Verified 03/14/22 02:26 VOLUMES CAUSE MOUTH ULCERS tomato Allergy Mild LARGE Verified 03/14/22 02:26 VOLUMES CAUSE MOUTH ULCERS Home Meds Home Medications Medication Instructions Recorded Confirmed acyclovir 400 mg tablet 400 mg PO BID 09/30/19 09/09/23 albuterol sulfate 2.5 mg/3 mL 2.5 mg inhalation DIRECTED PRN 09/30/19 09/09/23 (0.083 %) solution for nebulization Shortness Of Breath Or Wheezing bupropion HCl 150 mg 24 hr tablet, 150 mg PO QAM 09/30/19 09/09/23 extended release cholecalciferol (vitamin D3) 125 5,000 unit PO DAILY 09/30/19 09/09/23 mcg (5,000 unit) tablet (Vitamin D3) citalopram 40 mg tablet (Celexa) 40 mg PO QAM 09/30/19 09/09/23 cyanocobalamin (vitamin B-12) 1,000 mcg PO QAM 09/30/19 09/09/23 1,000 mcg tablet (Vitamin B-12) folic acid 0.8 mg capsule 800 mcg PO QAM 09/30/19 09/09/23 lamotrigine 100 mg tablet 100 mg PO BID 09/30/19 09/09/23 lithium carbonate 300 mg tablet 900 mg PO HS 09/30/19 09/09/23 loratadine 10 mg tablet (Claritin) 10 mg PO QAM 09/30/19 09/09/23 oxcarbazepine 300 mg tablet 300 mg PO BID 09/30/19 09/09/23 (Trileptal) warfarin 5 mg tablet 10 mg PO QPM 11/24/20 03/14/22 clonazepam 0.5 mg tablet 0.5 - 1 mg PO HS 03/14/22 09/09/23 spironolactone 50 mg tablet 50 mg PO UD 03/14/22 09/09/23 sumatriptan succinate 50 mg tablet 50 mg PO UD PRN Headache 03/14/22 09/09/23 amoxicillin 875 mg-potassium 1 tab PO BID 09/09/23 09/09/23 clavulanate 125 mg tablet levothyroxine 88 mcg tablet 88 mcg PO DAILYBB 09/09/23 09/09/23 Previous Rx's Medication Instructions Recorded Wheelchair (Manual) #1 ea 11/29/20 Wheeled Walker #1 ea 12/06/20 Results & Data (ED) Vital Signs Vital Signs - 24 hr 09/08/23 23:41 09/09/23 00:00 09/09/23 00:06 Temperature 37.1 C 37.9 C H Temperature Source Temporal Artery Scan Oral Pulse Rate 91 H Pulse Rate [Finger] 99 H Respiratory Rate 14 20 Respiratory Effort / Characteristics Non-Labored Spontaneous Non-Labored Spontaneous Respiratory Depth Normal Normal Blood Pressure 135/75 Blood Pressure [Right Arm] 121/69 Blood Pressure Mean 95 Blood Pressure Mean [Right Arm] 86 Blood Pressure Position [Right Arm] Sitting Pulse Oximetry 97 97 Oxygen Delivery Method Room Air Room Air Sepsis Recent Fever Within 48 Hours No Sepsis New/Unexplained Change in Mental Status No Sepsis Action Taken by Nursing No Action Required 09/09/23 00:11 Temperature Temperature Source Pulse Rate 97 H Pulse Rate [Finger] Respiratory Rate Respiratory Effort / Characteristics Respiratory Depth Blood Pressure Blood Pressure [Right Arm] Blood Pressure Mean Blood Pressure Mean [Right Arm] Blood Pressure Position [Right Arm] Pulse Oximetry Oxygen Delivery Method Sepsis Recent Fever Within 48 Hours Sepsis New/Unexplained Change in Mental Status Sepsis Action Taken by Nursing Laboratory Data 09/09/23 00:12 09/09/23 00:12 Lab Results 09/09/23 Range/Units 00:12 WBC 13.11 H (4.8-10.8) K/ul RBC 4.32 (4.20-5.40) M/uL Hgb 14.0 (12.0-16.0) g/dl Hct 41.5 (37.0-47.0) % MCV 96.1 (80.0-100.0) fL MCH 32.4 (25.0-34.0) pg MCHC 33.7 (32.0-36.0) g/dL RDW Std Deviation 43.8 (36.4-46.3) fL RDW Coeff of [place] 12.3 (11.5-14.5) % Plt Count 169 (130-400) K/uL MPV 9.8 (9.4-12.4) fL Immature Gran % (Auto) 0.5 % Neut % (Auto) 86.1 % Lymph % (Auto) 6.0 % Thomas % (Auto) 6.7 % Eos % (Auto) 0.5 % Baso % (Auto) 0.2 % Neut # (Auto) 11.28 H (1.40-6.50) K/uL Lymph # (Auto) 0.79 L (1.20-3.40) K/uL Thomas # (Auto) 0.88 H (0.11-0.59) K/uL Eos # (Auto) 0.07 (0.00-0.50) K/uL Baso # (Auto) 0.02 (0.00-0.20) K/uL Immature Gran # (Auto) 0.07 (0.01-0.20) K/uL PT 11.4 (9.0-12.0) Seconds INR 1.0 (0.9-1.1) Sodium 135 L (136-145) mmol/L Potassium 3.9 (3.5-5.1) mmol/L Chloride 103 (98-107) mmol/L Carbon Dioxide 26 (21-32) mmol/L Anion Gap 6 (3-11) BUN 10 (6-23) mg/dl Creatinine 0.91 (0.6-1.2) mg/dl Est Cr Clr Drug Dosing 101.4 ml/min Est GFR ( Amer) 86.5 ml/min Est GFR (Non-Af Amer) 74.6 ml/min BUN/Creatinine Ratio 11.0 (10-20) Glucose 106 H (70-99(Fasting)) mg/dl Calcium 9.6 (8.6-10.3) mg/dl Total Bilirubin 1.0 (0.2-1.0) mg/dl AST 18 (13-39) U/L ALT 21 (7-52) U/L Alkaline Phosphatase 50 (34-104) U/L Troponin I High Sens < 2.3 (0-14) pg/ml Total Protein 6.9 (6.0-8.3) gm/dl Albumin 4.3 (3.4-5.0) gm/dl Globulin 2.6 (2.5-4.0) gm/dl Albumin/Globulin Ratio 1.7 (0.9-2) Procalcitonin 0.13 (0-0.5) ng/ml Administered Medications Discontinued Medications Sodium Chloride (Nss) 1,000 mls @ 999 mls/hr IV .Q1H1M STA Stop: 09/09/23 00:48 Last Infusion: 09/09/23 01:16 Dose: Infused Documented By: Admin: 09/09/23 00:11 Dose: 999 mls/hr Documented By: CELINA Discharge Plan Visit Data Chief Complaint: Fever Stated Complaint: FEVER,CHILLS,BODY ACHES,SOB,CHEST TIGHTNESS ED Provider: Amadeo Queen ED Midlevel Provider: Rody Frias Discharge Problem: Aspiration pneumonia, Fever and chills, Shortness of breath Patient Disposition: Admitted As Inpatient Forms Stand Alone Forms: [facility] Prescriptions Prescriptions: No Action (DME) Wheelchair (Manual) Device See Rx Instructions .MEDSUPPLY Qty: 1 0RF Rx Instructions: As directed (DME) Wheeled Walker Misc See Rx Instructions .MEDSUPPLY Qty: 1 0RF Rx Instructions: As directed warfarin 5 mg Tablet 10 mg PO QPM Patient Comments: CHANGES PER COAG CLINIC ([facility]) albuterol sulfate 2.5 mg /3 mL (0.083 %) Solution For Nebulization 2.5 mg INHALATION DIRECTED PRN (Reason: Shortness Of Breath Or Wheezing) citalopram [Celexa] 40 mg Tablet 40 mg PO QAM cyanocobalamin (vitamin B-12) [Vitamin B-12] 1,000 mcg Tablet 1,000 mcg PO QAM oxcarbazepine [Trileptal] 300 mg Tablet 300 mg PO BID acyclovir 400 mg Tablet 400 mg PO BID lithium carbonate 300 mg Tablet 900 mg PO HS lamotrigine 100 mg tablet 100 mg PO BID loratadine [Claritin] 10 mg Tablet 10 mg PO QAM bupropion HCl 150 mg Tablet Extended Release 24 Hr 150 mg PO QAM folic acid 0.8 mg Capsule 800 mcg PO QAM cholecalciferol (vitamin D3) [Vitamin D3] 125 mcg (5,000 unit) Tablet 5,000 unit PO DAILY amoxicillin-pot clavulanate 875-125 mg tablet 1 tab PO BID levothyroxine 88 mcg Tablet 88 mcg PO DAILYBB sumatriptan succinate 50 mg tablet 50 mg PO UD PRN (Reason: Headache) spironolactone 50 mg tablet 50 mg PO UD Rx Instructions: 50 mg in the morning take 100 mg at night clonazepam 0.5 mg tablet 0.5 - 1 mg PO HS Referrals Referrals: Ginna Power MD [Primary Care Provider] -
[2023-09-09 00:49] LABS: Troponin I High Sensitivity < 2.3 pg/ml (0-14)
[2023-09-09 00:59] LABS: Prothrombin Time 11.4 Seconds (9.0-12.0)
[2023-09-09] MEDS ORDERED: PIPERACILLIN/TAZOBACTAM 4.5 GM/120 ML BAG IV ONE (01:25)
[2023-09-09 02:14] LABS: Appearance Urine Clear (Clear); Bacteria Urine Automated Negative (Negative); Bilirubin Urine Negative (Negative); Blood Urine Negative (Negative); Cast Urine Automated 0 /lpf (0-5); Color Urine Yellow; Epithelial Cell Urine Auto 0-5 /lpf (0-5); Glucose Urine UA Negative (Negative); Ketones Urine Negative (Negative); Leukocyte Esterase Urine Trace (Negative); Nitrite Urine Negative (Negative); Protein Urine Negative (Negative); RBC Urine Automated 0-4 /hpf (0-4); Specific Gravity Urine 1.003 (1.000-1.030); Urobilinogen Urine Negative (Negative)
[2023-09-09] MEDS ORDERED: LEVALBUTEROL 1.25 MG/3 ML NEB NEB STA (02:28)
--- NOTE | 2023-09-09 02:59 | History & Physical Report ---
Date of Service September 09, 2023 Assessment & Plan (1) Aspiration pneumonia: Plan: 48-year-old female with past medical history significant for MTHFR mutation, mild intermittent asthma, obstructive sleep apnea on CPAP, chronic allergic rhinitis, morbid obesity, herpes genitalia, history of recurrent vaginitis, HPV infection, endometriosis, anxiety, bipolar 2 disorder, bulimia nervosa, history of PE, depression, who aspirated today when she had anesthesia for colonoscopy. Aspiration Possible aspiration pneumonia History of asthma Having temp spike Cough Chest pain with taking deep breaths Possible mild asthma exasperation IV steroids short course IV Unasyn Nebs [id number] and as needed Close monitor Abnormal EKG A flutter Prolonged QTc We will repeat EKG Follow serial enzymes Echo Consult cardiology Obstructive sleep apnea On CPAP nightly History of MTHFR mutation History of PE Was on Lovenox bridge Restarted Coumadin tonight Follow PT/INR May need Lovenox bridge until INR therapeutic Anxiety Bipolar 2 disorder Bulimia nervosa Continue home medications DVT prophylaxis On Coumadin Follow PT/INR SCDs Disposition med/telemetry Full code History of Present Illness Chief Complaint: Aspiration Primary Care Provider: Ginna Power MD 48-year-old female with past medical history significant for MTHFR mutation, mild intermittent asthma, obstructive sleep apnea on CPAP, chronic allergic rhinitis, morbid obesity, herpes genitalia, history of recurrent vaginitis, HPV infection, endometriosis, anxiety, bipolar 2 disorder, bulimia nervosa, history of PE, depression, who aspirated today when she had anesthesia for colonoscopy. As per anesthesia notes patient vomited a large amount of clear fluid during the procedure and likely had a small amount of aspiration. She had some laryngospasm which was broken by succinylcholine. Her oxygen saturation dropped down to 50% so she was mask ventilated and an LMA placed until she woke up from the anesthetic. Then she was transferred to PACU on facemask oxygen but soon weaned off oxygen to room air. She was given a DuoNeb treatment in the PACU. Her oxygen saturation remained in the high 90s to 100% on room air. And she was discharged home and advised to go to ER if she develops wheezing or fever or short of breath. At home she developed wheezing, had fever, had cough, and was having a lot of chest pain taking deep breaths which prompted her to come to the ER. In ER had temp spike. Saturating okay on room air. Complains of a headache. Some blurred vision. Some runny nose. Sore throat from the procedure today. Did not eat much today. Feeling short of breath. Has some nausea. Has some abdominal discomfort. Currently resting comfortably and hemodynamically stable. Past med history. As mentioned above. Past surgical history. Hemorrhoidectomy. Lab ablation of uterine fibroids. Laparoscopy for endometriosis for biopsy. Sacroiliac joint injection. Social history. Tobacco use vaporizer. Alcohol rarely. As per epic smokes marijuana 4 times per week. Family history. Mother had cervical cancer. Pulmonary embolism. Stroke. Maternal grandmother had a blood disorder. Allergies Allergy/AdvReac Type Severity Reaction Status Date / Time aripiprazole [From [facility]] Allergy Severe TARDIVE Verified 03/14/22 02:26 DYSKINESIA--FACIAL TIC strawberry Allergy Mild LARGE Verified 03/14/22 02:26 VOLUMES CAUSE MOUTH ULCERS tomato Allergy Mild LARGE Verified 03/14/22 02:26 VOLUMES CAUSE MOUTH ULCERS Home Medications Medication Instructions Recorded Confirmed Type acyclovir 400 mg tablet 400 mg PO BID 09/30/19 09/09/23 History albuterol sulfate 2.5 mg/3 mL 2.5 mg inhalation DIRECTED PRN 09/30/19 09/09/23 History (0.083 %) solution for nebulization Shortness Of Breath Or Wheezing bupropion HCl 150 mg 24 hr tablet, 150 mg PO QAM 09/30/19 09/09/23 History extended release cholecalciferol (vitamin D3) 125 5,000 unit PO DAILY 09/30/19 09/09/23 History mcg (5,000 unit) tablet (Vitamin D3) citalopram 40 mg tablet (Celexa) 40 mg PO QAM 09/30/19 09/09/23 History cyanocobalamin (vitamin B-12) 1,000 mcg PO QAM 09/30/19 09/09/23 History 1,000 mcg tablet (Vitamin B-12) folic acid 0.8 mg capsule 800 mcg PO QAM 09/30/19 09/09/23 History lamotrigine 100 mg tablet 100 mg PO BID 09/30/19 09/09/23 History lithium carbonate 300 mg tablet 900 mg PO HS 09/30/19 09/09/23 History loratadine 10 mg tablet (Claritin) 10 mg PO QAM 09/30/19 09/09/23 History oxcarbazepine 300 mg tablet 300 mg PO BID 09/30/19 09/09/23 History (Trileptal) Wheelchair (Manual) #1 ea 11/29/20 09/09/23 Rx Wheeled Walker #1 ea 12/06/20 09/09/23 Rx clonazepam 0.5 mg tablet 0.5 - 1 mg PO HS 03/14/22 09/09/23 History spironolactone 50 mg tablet 50 mg PO UD 03/14/22 09/09/23 History sumatriptan succinate 50 mg tablet 50 mg PO UD PRN Headache 03/14/22 09/09/23 History albuterol sulfate 90 mcg/actuation 2 puff inhalation UD PRN Shortness 09/09/23 09/09/23 History aerosol inhaler Of Breath Or Wheezing amoxicillin 875 mg-potassium 1 tab PO BID 09/09/23 09/09/23 History clavulanate 125 mg tablet enoxaparin 120 mg/0.8 mL 120 mg subcut UD 09/09/23 09/09/23 History subcutaneous syringe levothyroxine 88 mcg tablet 88 mcg PO DAILYBB 09/09/23 09/09/23 History warfarin 10 mg tablet 10 mg PO UD 09/09/23 09/09/23 History Past Med/Surg History Medical History Morbid obesity Ankle fracture RT Back pain Rheumatoid arthritis GERD (gastroesophageal reflux disease) Hypothyroidism Bipolar 2 disorder Temporomandibular joint disorder Compound heterozygous MTHFR mutation [id number] Migraine Sleep apnea CPAP History of pulmonary embolism 2011 (REASON FOR COUMADIN) History of DVT (deep vein thrombosis) 2011 Asthma HAS NOT USED INHALER FOR A LONG TIME Head injury, closed, without LOC 2013 Fracture of fourth metacarpal bone of right hand Surgical History H/O laparoscopy History of dilatation and curettage History of endometrial ablation Status post ORIF of fracture of ankle (~11/2020) [place] teeth removed Family History Mother Family history of diabetes mellitus Other No family history of adverse response to anesthesia Social History Smoking Status: Never smoker Second Hand Exposure: No; Hx Alcohol Use: No Hx Substance Use: No Preferred Language: Ugandan Communication Ability: Effective 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 Head- atraumatic Eyes- PERRL. ENT- oropharynx clear Neck- supple, no JVD. Lungs- diminished b/l breath sounds, no wheezing or crackles. Heart- regular rhythm; no murmur, no gallop. Abdomen- normal bowel sounds, soft, nontender, no distension. Extremities- no pretibial edema, no erythema Neuro- alert, oriented x 3; PERRL, no facial palsy; no dysarthria; moves extremities. Skin- warm & dry Results & Data Results & Data Vital Signs (Past 12 Hours) Vital Signs Temp Pulse Pulse Resp BP BP Pulse Ox 09/09/23 02:00 90 20 121/69 98 09/09/23 00:11 97 H 09/09/23 00:06 99 H 20 121/69 97 09/09/23 00:00 37.9 C H 09/08/23 23:41 37.1 C 91 H 14 135/75 97 O2 Del Method 09/09/23 02:00 Room Air 09/09/23 00:11 09/09/23 00:06 Room Air 09/09/23 00:00 09/08/23 23:41 Room Air Diagnostic Findings Laboratory Results WBC 13.11 K/ul (4.8-10.8) H 09/09/23 00:12 RBC 4.32 M/uL (4.20-5.40) 09/09/23 00:12 Hgb 14.0 g/dl (12.0-16.0) 09/09/23 00:12 Hct 41.5 % (37.0-47.0) 09/09/23 00:12 MCV 96.1 fL (80.0-100.0) 09/09/23 00:12 MCH 32.4 pg (25.0-34.0) 09/09/23 00:12 MCHC 33.7 g/dL (32.0-36.0) 09/09/23 00:12 RDW Std Deviation 43.8 fL (36.4-46.3) 09/09/23 00:12 RDW Coeff of Enrico 12.3 % (11.5-14.5) 09/09/23 00:12 Plt Count 169 K/uL (130-400) 09/09/23 00:12 MPV 9.8 fL (9.4-12.4) 09/09/23 00:12 Immature Gran % (Auto) 0.5 % 09/09/23 00:12 Neut % (Auto) 86.1 % 09/09/23 00:12 Lymph % (Auto) 6.0 % 09/09/23 00:12 [place] % (Auto) 6.7 % 09/09/23 00:12 Eos % (Auto) 0.5 % 09/09/23 00:12 Baso % (Auto) 0.2 % 09/09/23 00:12 Neut # (Auto) 11.28 K/uL (1.40-6.50) H 09/09/23 00:12 Lymph # (Auto) 0.79 K/uL (1.20-3.40) L 09/09/23 00:12 [place] # (Auto) 0.88 K/uL (0.11-0.59) H 09/09/23 00:12 Eos # (Auto) 0.07 K/uL (0.00-0.50) 09/09/23 00:12 Baso # (Auto) 0.02 K/uL (0.00-0.20) 09/09/23 00:12 Immature Gran # (Auto) 0.07 K/uL (0.01-0.20) 09/09/23 00:12 PT 11.4 Seconds (9.0-12.0) 09/09/23 00:12 INR 1.0 (0.9-1.1) 09/09/23 00:12 Sodium 135 mmol/L (136-145) L 09/09/23 00:12 Potassium 3.9 mmol/L (3.5-5.1) 09/09/23 00:12 Chloride 103 mmol/L (98-107) 09/09/23 00:12 Carbon Dioxide 26 mmol/L (21-32) 09/09/23 00:12 Anion Gap 6 (3-11) 09/09/23 00:12 BUN 10 mg/dl (6-23) 09/09/23 00:12 Creatinine 0.91 mg/dl (0.6-1.2) 09/09/23 00:12 Est Cr Clr Drug Dosing 101.4 ml/min 09/09/23 00:12 Est GFR ( Amer) 86.5 ml/min 09/09/23 00:12 Est GFR (Non-Af Amer) 74.6 ml/min 09/09/23 00:12 BUN/Creatinine Ratio 11.0 (10-20) 09/09/23 00:12 Glucose 106 mg/dl (70-99(Fasting)) H 09/09/23 00:12 Calcium 9.6 mg/dl (8.6-10.3) 09/09/23 00:12 Total Bilirubin 1.0 mg/dl (0.2-1.0) 09/09/23 00:12 AST 18 U/L (13-39) 09/09/23 00:12 ALT 21 U/L (7-52) 09/09/23 00:12 Alkaline Phosphatase 50 U/L (34-104) 09/09/23 00:12 Troponin I High Sens < 2.3 pg/ml (0-14) 09/09/23 00:12 Total Protein 6.9 gm/dl (6.0-8.3) 09/09/23 00:12 Albumin 4.3 gm/dl (3.4-5.0) 09/09/23 00:12 Globulin 2.6 gm/dl (2.5-4.0) 09/09/23 00:12 Albumin/Globulin Ratio 1.7 (0.9-2) 09/09/23 00:12 Procalcitonin 0.13 ng/ml (0-0.5) 09/09/23 00:12 Urine Color Yellow 09/09/23 Unknown Urine Appearance Clear (Clear) 09/09/23 Unknown Urine pH 7.0 (4.5-7.5) 09/09/23 Unknown Ur Specific [place] 1.003 (1.000-1.030) 09/09/23 Unknown Urine Protein Negative (Negative) 09/09/23 Unknown Urine Glucose (UA) Negative (Negative) 09/09/23 Unknown Urine Ketones Negative (Negative) 09/09/23 Unknown Urine Blood Negative (Negative) 09/09/23 Unknown Urine Nitrite Negative (Negative) 09/09/23 Unknown Urine Bilirubin Negative (Negative) 09/09/23 Unknown Urine Urobilinogen Negative (Negative) 09/09/23 Unknown Ur Leukocyte Esterase Trace (Negative) H 09/09/23 Unknown Urine WBC (Auto) 1-5 /hpf (0-5) 09/09/23 Unknown Urine RBC (Auto) 0-4 /hpf (0-4) 09/09/23 Unknown U Hyaline Cast (Auto) 0 /lpf (0-5) 09/09/23 Unknown U Epithel Cells (Auto) 0-5 /lpf (0-5) 09/09/23 Unknown Urine Bacteria (Auto) Negative (Negative) 09/09/23 Unknown ECG Additional Comments: ECG. A flutter with a rate of 85. Prolonged QT Code Status & VTE Plan VTE Prophylaxis Plan VTE Prophylaxis will be ordered: Yes
[2023-09-09] MEDS ORDERED: SUMAtriptan succinate 50 MG TAB PO PRN (03:57)
[2023-09-09] MEDS ORDERED: SODIUM CHLORIDE 0.9% 1,000 ML IV SCH (03:57)
[2023-09-09] MEDS ORDERED: LEVALBUTEROL 1.25 MG/3 ML NEB NEB PRN (03:57)
[2023-09-09] MEDS ORDERED: ALBUTEROL HFA 8 GM INHALER INH PRN (03:57)
[2023-09-09] MEDS ORDERED: NITROGLYCERIN SL 0.4 MG/TAB TAB SL PRN (03:57)
[2023-09-09] MEDS ORDERED: ONDANSETRON INJ 2 MG/ML 2 ML VIAL IV PRN (03:57)
[2023-09-09] MEDS: ACETAMINOPHEN 325 MG TAB PO PRN (04:32)
--- NOTE | 2023-09-09 07:04 | XRay Report ---
XR chest 1V portable CLINICAL HISTORY: Fever, aspiration during colonoscopy this am TECHNIQUE: Single frontal radiograph of the chest was obtained. Comparison: Comparison is made to chest radiograph 09/26/2018 FINDINGS: No lines and tubes are seen. The cardiomediastinal silhouette is normal. There is faint airspace opac ity in the left lower lobe, new from prior exam. Previously noted atelectasis in the right lung base has resolved. No evidence of pleural effusion or pneumothorax. IMPRESSION: Left lower lung airspace opacities. which may represent atelectasis, pneumonia, and/or aspiration. ACT 112: Negative or not required by law. Electronically signed by: Liban Juares M.D. 09/09/2023 7:01 AM
[2023-09-09] MEDS: LEVOTHYROXINE SODIUM 88 MCG TABLET PO SCH (07:09)
[2023-09-09] MEDS: LEVALBUTEROL 1.25 MG/3 ML NEB NEB SCH ×4 (07:13→19:31)
[2023-09-09] MEDS: IPRATROPIUM BROMIDE NEB SOLN 0.02% 2.5 ML VIAL INH SCH ×4 (07:13→19:31)
[2023-09-09 07:21] LABS: Hemoglobin 14.8 g/dl (12.0-16.0); Mean Corpuscular Hemoglobin 32.5 pg (25.0-34.0); Mean Corpuscular Hgb Conc 33.6 g/dL (32.0-36.0); Mean Corpuscular Volume 96.7 fL (80.0-100.0); Mean Platelet Volume 9.8 fL (9.4-12.4); Platelet Count 193 K/uL (130-400); RDW Coefficient of Variation 12.7 % (11.5-14.5); RDW Standard Deviation 45.6 fL (36.4-46.3); Red Blood Count 4.55 M/uL (4.20-5.40); White Blood Count 12.46 K/ul (4.8-10.8)
[2023-09-09 07:38] LABS: BUN Creatinine Ratio 8.9 (10-20); Calcium 9.9 mg/dl (8.6-10.3); Creatinine Clr Calc Pharmacy 102.6 ml/min; Est GFR (African American) 87.6 ml/min; Est GFR (Non-African American) 75.6 ml/min; Magnesium 2.2 mg/dl (1.7-2.4); Potassium 4.5 mmol/L (3.5-5.1)
[2023-09-09 07:44] LABS: Troponin I High Sensitivity 2.6 pg/ml (0-14)
[2023-09-09 07:52] LABS: Basophils # (auto) 0.02 K/uL (0.00-0.20); Basophils % (auto) 0.2 %; Eosinophils # (auto) 0.03 K/uL (0.00-0.50); Eosinophils % (auto) 0.2 %; Immature Granulocytes # (auto) 0.05 K/uL (0.01-0.20); Immature Granulocytes % (auto) 0.4 %; Lymphocytes # (auto) 0.47 K/uL (1.20-3.40); Lymphocytes % (auto) 3.8 %; Monocytes # (auto) 0.38 K/uL (0.11-0.59); Neutrophils # (auto) 11.51 K/uL (1.40-6.50); Neutrophils % (auto) 92.4 %
[2023-09-09] MEDS: buPROPion XL 150 MG TABCR PO SCH (08:06)
[2023-09-09] MEDS: lamoTRIgine 100 MG TAB PO SCH ×2 (08:06→20:38)
[2023-09-09] MEDS: SPIRONOLACTONE 25 MG TAB PO SCH (08:06)
[2023-09-09] MEDS: FOLIC ACID 400 MCG TAB PO SCH (08:07)
[2023-09-09] MEDS: LORATADINE 10 MG TAB PO SCH (08:07)
[2023-09-09] MEDS: CYANOCOBALAMIN (B-12) 500 MCG TABLET PO SCH (08:07)
[2023-09-09] MEDS: OXcarbazepine 150 MG TABLET PO SCH ×2 (08:07→20:38)
[2023-09-09] MEDS: CHOLECALCIFEROL 5,000 UNITS 125 MCG TAB PO SCH (08:08)
[2023-09-09] MEDS: ACYCLOVIR 400 MG TAB PO SCH ×2 (08:08→20:37)
[2023-09-09] MEDS: methylPREDNISolone 40 MG in SYRINGE 0 ML IV SCH (08:11)
[2023-09-09] MEDS: AMPICILLIN/SULBACTAM SOD 3,000 MG in SODIUM CHLOR 0.9% MINI-B 100 ML IV SCH ×3 (08:21→19:30)
[2023-09-09] MEDS: CITALOPRAM 40 MG TAB PO SCH (08:23)
[2023-09-09 08:34] LABS: INR 1.1 (0.9-1.1); Prothrombin Time 12.2 Seconds (9.0-12.0)
[2023-09-09] MEDS ORDERED: XOPENEX/ATROVENT 1.25mg/0.5MG NEB COMBO NEB SCH (09:00)
[2023-09-09] MEDS ORDERED: FAMOTIDINE 10 MG TABLET PO PRN (09:36)
--- NOTE | 2023-09-09 10:22 | Electrocardiogram Report ---
Test Reason : Blood Pressure : / mmHG Vent. Rate : 085 BPM Atrial Rate : 255 BPM P-R Int : 000 ms QRS Dur : 092 ms QT Int : 466 ms P-R-T Axes : 077 036 037 degrees QTc Int : 554 ms Poor data quality, interpretation may be adversely affected Baseline artifact Sinus rhythm Borderline ECG When compared with ECG of 04-DEC-2020 11:27, No significant change Confirmed by Isael Hutson ([id number]) on 09/09/2023 10:22:19 AM Referred By: REFERRED SELF Confirmed By:Isael Hutson
--- NOTE | 2023-09-09 10:23 | Electrocardiogram Report ---
Test Reason : Blood Pressure : / mmHG Vent. Rate : 085 BPM Atrial Rate : 085 BPM P-R Int : 192 ms QRS Dur : 096 ms QT Int : 438 ms P-R-T Axes : 019 001 025 degrees QTc Int : 521 ms Normal sinus rhythm Diffuse Minor Nonspecific T wave abnormality Abnormal ECG When compared with ECG of 09-SEP-2023 00:20, No significant change Confirmed by Isael Hutson ([id number]) on 09/09/2023 10:23:17 AM Referred By: REFERRED SELF Confirmed By:Isael Hutson
--- NOTE | 2023-09-09 10:23 | Electrocardiogram Report ---
Test Reason : Blood Pressure : / mmHG Vent. Rate : 090 BPM Atrial Rate : 090 BPM P-R Int : 186 ms QRS Dur : 100 ms QT Int : 396 ms P-R-T Axes : 033 -06 026 degrees QTc Int : 484 ms Normal sinus rhythm Diffuse Minor Nonspecific T wave abnormality When compared with ECG of 09-SEP-2023 00:06, Artifact less pronounced Otherwise no significant change Confirmed by Isael Hutson ([id number]) on 09/09/2023 10:23:00 AM Referred By: REFERRED SELF Confirmed By:Isael Hutson
--- NOTE | 2023-09-09 11:31 | Cardiology Consultation ---
Date of Consultation September 09, 2023 Assessment & Plan (1) Aspiration pneumonia: (2) GERD (gastroesophageal reflux disease): (3) Chest pain at rest: Supervising Physician Co-Signing Physician Notes Attending Staff: Pt seen and evaluated with [facility] staff Concur with observations and plans 48 yo woman presenting post colonoscopy Noted to potentially aspirate Colonoscopy aborted Represented to ED with sore throat and wheezing Initial EKG: question of flutter. Review of EKG - appears to be most consistent with artifact. ECHO performed LVEF 60-65% No WMA No major valvular pathology Normal RV function No mention of pericardial effusion or pulmonary hypertension K+ WNL Troponin - WNL CXR - infiltrate. Plans: LVEF WNL No WMA Concerning EKG appears to be most consistent with artifact. Follow up as needed Ori Fairchild History of Present Illness Reason for Consultation: ? Atrial flutter Requesting Physician: Dr. Askew Attending Physician: Dr. Mays History of Present Illness 48-year-old female, without prior cardiac history, who presented to the [facility] ER with cough, throat and chest discomfort, dyspnea, wheezing, fever and chills after observed aspiration during colonoscopy procedure earlier in the day on 09/08/2023. Symptoms notably improved somewhat following nebulizer treatment prior to presentation. EKG on presentation raised concern for atrial flutter however personal review reveals poor data quality with marked artifact, sinus rhythm at 85 bpm. A 2nd EKG revealed normal sinus at 90 bpm with diffuse minor nonspecific T wave abnormality. A 3rd EKG revealed NSR at 85 with diffuse minor nonspecific T wave abnormality. Telemetry: Sinus throughout, currently in the 80's. TTE: Normal LV systolic function. EF 60-65%. Normal RV function. Normal LA size. No significant valve pathology. No prior cardiac history. Allergies Allergy/AdvReac Type Severity Reaction Status Date / Time aripiprazole [From Abilify] Allergy Severe TARDIVE Verified 03/14/22 02:26 DYSKINESIA--FACIAL TIC strawberry Allergy Mild LARGE Verified 03/14/22 02:26 VOLUMES CAUSE MOUTH ULCERS tomato Allergy Mild LARGE Verified 03/14/22 02:26 VOLUMES CAUSE MOUTH ULCERS Home Medications Medication Instructions Recorded Confirmed Type acyclovir 400 mg tablet 400 mg PO BID 09/30/19 09/09/23 History albuterol sulfate 2.5 mg/3 mL 2.5 mg inhalation DIRECTED PRN 09/30/19 09/09/23 History (0.083 %) solution for nebulization Shortness Of Breath Or Wheezing bupropion HCl 150 mg 24 hr tablet, 150 mg PO QAM 09/30/19 09/09/23 History extended release cholecalciferol (vitamin D3) 125 5,000 unit PO DAILY 09/30/19 09/09/23 History mcg (5,000 unit) tablet (Vitamin D3) citalopram 40 mg tablet (Celexa) 40 mg PO QAM 09/30/19 09/09/23 History cyanocobalamin (vitamin B-12) 1,000 mcg PO QAM 09/30/19 09/09/23 History 1,000 mcg tablet (Vitamin B-12) folic acid 0.8 mg capsule 800 mcg PO QAM 09/30/19 09/09/23 History lamotrigine 100 mg tablet 100 mg PO BID 09/30/19 09/09/23 History lithium carbonate 300 mg tablet 900 mg PO HS 09/30/19 09/09/23 History loratadine 10 mg tablet (Claritin) 10 mg PO QAM 09/30/19 09/09/23 History oxcarbazepine 300 mg tablet 300 mg PO BID 09/30/19 09/09/23 History (Trileptal) Wheelchair (Manual) #1 ea 11/29/20 09/09/23 Rx Wheeled Walker #1 ea 12/06/20 09/09/23 Rx clonazepam 0.5 mg tablet 0.5 - 1 mg PO HS 03/14/22 09/09/23 History spironolactone 50 mg tablet 50 mg PO UD 03/14/22 09/09/23 History sumatriptan succinate 50 mg tablet 50 mg PO UD PRN Headache 03/14/22 09/09/23 History albuterol sulfate 90 mcg/actuation 2 puff inhalation UD PRN Shortness 09/09/23 09/09/23 History aerosol inhaler Of Breath Or Wheezing amoxicillin 875 mg-potassium 1 tab PO BID 09/09/23 09/09/23 History clavulanate 125 mg tablet enoxaparin 120 mg/0.8 mL 120 mg subcut UD 09/09/23 09/09/23 History subcutaneous syringe levothyroxine 88 mcg tablet 88 mcg PO DAILYBB 09/09/23 09/09/23 History warfarin 10 mg tablet 10 mg PO UD 09/09/23 09/09/23 History Patient History Medical History Morbid obesity Ankle fracture RT Back pain Rheumatoid arthritis GERD (gastroesophageal reflux disease) Hypothyroidism Bipolar 2 disorder Temporomandibular joint disorder Compound heterozygous MTHFR mutation [id number] Migraine Sleep apnea CPAP History of pulmonary embolism 2011 (REASON FOR COUMADIN) History of DVT (deep vein thrombosis) 2011 Asthma HAS NOT USED INHALER FOR A LONG TIME Head injury, closed, without LOC 2013 Fracture of fourth metacarpal bone of right hand Surgical History Status post ORIF of fracture of ankle (~11/2020) History of endometrial ablation History of dilatation and curettage H/O laparoscopy Guys teeth removed Family History Mother Family history of diabetes mellitus Other No family history of adverse response to anesthesia Social History Smoking Status: Never smoker Second Hand Exposure: No; Hx Alcohol Use: No Hx Substance Use: No Preferred Language: Latvian Communication Ability: Effective Repair Order Clerk Required: No Beliefs That Will Affect Care: None Current Living Situation: Alone current occupational status: employed Feels Safe at Home: Yes Safety Concerns: Feels Safe At This Time Assistive Devices: CPAP, Walker and Wheelchair Review of Systems Review of Systems: Complete Review of Systems is as stated above, negative, or noncontributory Physical Exam Physical Exam: Obesity JVP at base of neck S1S2 No murmur No C/C/E Warm and perfused Results & Data Vital Signs (Past 12 Hours) Vital Signs Temp Pulse Pulse Resp BP BP Pulse Ox 09/09/23 11:16 80 21 98 09/09/23 10:36 77 18 115/72 93 09/09/23 07:47 09/09/23 07:45 36.9 C 09/09/23 07:15 71 21 98 09/09/23 07:11 83 09/09/23 07:00 78 16 115/72 95 09/09/23 04:10 09/09/23 04:10 84 20 121/69 93 09/09/23 04:02 09/09/23 04:02 90 20 121/69 93 09/09/23 02:00 90 20 121/69 98 09/09/23 00:11 97 H 09/09/23 00:06 99 H 20 121/69 97 09/09/23 00:00 37.9 C H 09/08/23 23:41 37.1 C 91 H 14 135/75 97 Pulse Ox O2 Del Method O2 Del Method FiO2 09/09/23 11:16 Room Air 09/09/23 10:36 Room Air 09/09/23 07:47 Room Air 09/09/23 07:45 09/09/23 07:15 Room Air 09/09/23 07:11 09/09/23 07:00 Room Air 09/09/23 04:10 Room Air 09/09/23 04:10 Room Air 09/09/23 04:02 93 Room Air 09/09/23 04:02 Room Air 09/09/23 02:00 Room Air 09/09/23 00:11 09/09/23 00:06 Room Air 09/09/23 00:00 09/08/23 23:41 Room Air Laboratory Results Cardiac Enzymes 09/09/23 09/09/23 Range/Units 00:12 06:58 AST 18 (13-39) U/L Troponin I High Sens < 2.3 2.6 (0-14) pg/ml Coagulation 09/09/23 09/09/23 Range/Units 00:12 06:58 PT 11.4 12.2 H (9.0-12.0) Seconds CBC 09/09/23 09/09/23 Range/Units 00:12 06:58 WBC 13.11 H 12.46 H (4.8-10.8) K/ul RBC 4.32 4.55 (4.20-5.40) M/uL Hgb 14.0 14.8 (12.0-16.0) g/dl Hct 41.5 44.0 (37.0-47.0) % Plt Count 169 193 (130-400) K/uL Neut # (Auto) 11.28 H 11.51 H (1.40-6.50) K/uL Lymph # (Auto) 0.79 L 0.47 L (1.20-3.40) K/uL [place] # (Auto) 0.88 H 0.38 (0.11-0.59) K/uL Eos # (Auto) 0.07 0.03 (0.00-0.50) K/uL Baso # (Auto) 0.02 0.02 (0.00-0.20) K/uL Comprehensive Metabolic Panel 09/09/23 09/09/23 Range/Units 00:12 06:58 Sodium 135 L 139 (136-145) mmol/L Potassium 3.9 4.5 (3.5-5.1) mmol/L Chloride 103 108 H (98-107) mmol/L Carbon Dioxide 26 26 (21-32) mmol/L BUN 10 8 (6-23) mg/dl Creatinine 0.91 0.90 (0.6-1.2) mg/dl Glucose 106 H 147 H (70-99(Fasting)) mg/dl Calcium 9.6 9.9 (8.6-10.3) mg/dl AST 18 (13-39) U/L ALT 21 (7-52) U/L Alkaline Phosphatase 50 (34-104) U/L Total Protein 6.9 (6.0-8.3) gm/dl Albumin 4.3 (3.4-5.0) gm/dl Intake and Output 09/08/23 09/09/23 09/09/23 22:59 06:59 14:59 Intake Total 1620 / 1620 100 / 100 Balance 1620 / 1620 100 / 100 Intake: IV 1120 / 1120 100 / 100 Ampicillin/Sulbactam Sod 3,000 100 / 100 mg In Sodium Chlor 0.9% Mini-B 100 ml @ 100 mls/hr IV Q6H CANDY Rx#:[id number] Piperacillin/Tazobactam 4.5 gm 120 / 120 In 120 ml @ 240 mls/hr IV NOW ONE Rx#:[id number] Sodium Chloride 0.9% 1,000 ml @ 1000 / 1000 999 mls/hr IV .Q1H1M STA Rx#: [id number] Oral 500 / 500 Other: # Unmeasured Voids 3 Weight 120.1 kg Weight Measurement Method Built in [facility] (1) Aspiration pneumonia Aspiration pneumonia type: due to gastric secretions Laterality: unspecified laterality Lung location: unspecified part of lung Qualified Code(s): J69.0 - Pneumonitis due to inhalation of food and vomit (2) GERD (gastroesophageal reflux disease) Esophagitis presence: esophagitis presence not specified Qualified Code(s): K21.9 - Gastro-esophageal reflux disease without esophagitis
--- NOTE | 2023-09-09 15:10 | Electrocardiogram Report ---
Test Reason : Blood Pressure : / mmHG Vent. Rate : 077 BPM Atrial Rate : 077 BPM P-R Int : 186 ms QRS Dur : 108 ms QT Int : 390 ms P-R-T Axes : 037 001 004 degrees QTc Int : 441 ms Normal sinus rhythm Nonspecific T wave abnormality Anterior leads Abnormal ECG When compared with ECG of 09-SEP-2023 04:04, QT has shortened Confirmed by Isael Hutson ([id number]) on 09/09/2023 3:10:27 PM Referred By: REFERRED SELF Confirmed By:Isael Hutson
[2023-09-09] MEDS ORDERED: WARFARIN SOD 10 MG TAB PO SCH (16:00)
[2023-09-09] MEDS ORDERED: ENOXAPARIN 1 MG/KG SQ SCH (19:15)
[2023-09-09] MEDS ORDERED: ENOXAPARIN INJ 120 MG/0.8 ML SYR SQ SCH (19:15)
[2023-09-09] MEDS ORDERED: clonazePAM 0.5 MG TAB PO SCH (21:00)
[2023-09-09] MEDS ORDERED: clonazePAM 0.25 MG TAB PO SCH (21:00)
[2023-09-09] MEDS ORDERED: LITHIUM CARBONATE 300 MG TAB PO SCH (21:00)
--- NOTE | 2023-09-09 22:19 | Communication Note ---
Date of Service: September 09, 2023 Pt seen in the AM. Had episode of chest pain or tightness, EKG ordered, unremarkable . Requesting pepcid. Also advised that she has been using a Lovenox bridge with her warfarin, requesting. Lovenox bridge ordered, warfarin restarted. Asking to advance diet. Continue to monitor.
[2023-09-10] MEDS: AMPICILLIN/SULBACTAM SOD 3,000 MG in SODIUM CHLOR 0.9% MINI-B 100 ML IV SCH ×2 (01:51→07:42)
[2023-09-10] MEDS: LEVOTHYROXINE SODIUM 88 MCG TABLET PO SCH (06:10)
[2023-09-10 06:27] LABS: Basophils # (auto) 0.02 K/uL (0.00-0.20); Basophils % (auto) 0.2 %; Eosinophils # (auto) 0.27 K/uL (0.00-0.50); Eosinophils % (auto) 2.6 %; Hematocrit (blood only) 37.9 % (37.0-47.0); Hemoglobin 12.7 g/dl (12.0-16.0); Immature Granulocytes # (auto) 0.05 K/uL (0.01-0.20); Immature Granulocytes % (auto) 0.5 %; Lymphocytes # (auto) 1.97 K/uL (1.20-3.40); Lymphocytes % (auto) 19.1 %; Mean Corpuscular Hemoglobin 32.4 pg (25.0-34.0); Mean Corpuscular Hgb Conc 33.5 g/dL (32.0-36.0); Mean Corpuscular Volume 96.7 fL (80.0-100.0); Mean Platelet Volume 10.4 fL (9.4-12.4); Monocytes # (auto) 0.81 K/uL (0.11-0.59); Monocytes % (auto) 7.9 %; Neutrophils # (auto) 7.19 K/uL (1.40-6.50); Neutrophils % (auto) 69.7 %; Platelet Count 171 K/uL (130-400); RDW Coefficient of Variation 13.2 % (11.5-14.5); Red Blood Count 3.92 M/uL (4.20-5.40); White Blood Count 10.31 K/ul (4.8-10.8)
[2023-09-10 06:45] LABS: INR 1.8 (0.9-1.1); Prothrombin Time 19.1 Seconds (9.0-12.0)
[2023-09-10 06:53] LABS: Albumin Globulin Ratio 1.5 (0.9-2); Albumin Level 3.8 gm/dl (3.4-5.0); Bilirubin,Total 0.4 mg/dl (0.2-1.0); Calcium 9.4 mg/dl (8.6-10.3); Creatinine Clr Calc Pharmacy 123.1 ml/min; Est GFR (African American) 109.2 ml/min; Est GFR (Non-African American) 94.3 ml/min; Globulin 2.5 gm/dl (2.5-4.0); Phosphorus 3.2 mg/dl (2.5-4.9); Potassium 3.7 mmol/L (3.5-5.1); Total Protein 6.3 gm/dl (6.0-8.3)
[2023-09-10] MEDS: LEVALBUTEROL 1.25 MG/3 ML NEB NEB SCH ×2 (07:05→11:32)
[2023-09-10] MEDS: IPRATROPIUM BROMIDE NEB SOLN 0.02% 2.5 ML VIAL INH SCH ×2 (07:05→11:32)
[2023-09-10] MEDS: ACETAMINOPHEN 325 MG TAB PO PRN (07:43)
[2023-09-10] MEDS: lamoTRIgine 100 MG TAB PO SCH (08:44)
[2023-09-10] MEDS: methylPREDNISolone 40 MG in SYRINGE 0 ML IV SCH (08:44)
[2023-09-10] MEDS: OXcarbazepine 150 MG TABLET PO SCH (08:44)
[2023-09-10] MEDS: LORATADINE 10 MG TAB PO SCH (08:44)
[2023-09-10] MEDS: CITALOPRAM 40 MG TAB PO SCH (08:44)
[2023-09-10] MEDS: buPROPion XL 150 MG TABCR PO SCH (08:44)
[2023-09-10] MEDS: CHOLECALCIFEROL 5,000 UNITS 125 MCG TAB PO SCH (08:44)
[2023-09-10] MEDS: CYANOCOBALAMIN (B-12) 500 MCG TABLET PO SCH (08:44)
[2023-09-10] MEDS: FOLIC ACID 400 MCG TAB PO SCH (08:44)
[2023-09-10] MEDS: SPIRONOLACTONE 25 MG TAB PO SCH (08:44)
[2023-09-10] MEDS: ACYCLOVIR 400 MG TAB PO SCH (08:44)
[2023-09-10] MEDS ORDERED: ENOXAPARIN INJ 120 MG/0.8 ML SYR SQ SCH (09:30)
--- NOTE | 2023-09-10 13:40 | Discharge Summary ---
Discharge Summary Date of Service September 10, 2023 Notes For Next Care Provider Coumadin clinic follow up needed Medication Changes From Visit Augmentin BID for 8 more days Xoponex nebules for use prn with nebulizer at home Prednisone 40mg daily for 3 more days Admission HPI Per Admitting Provider 48-year-old female with past medical history significant for MTHFR mutation, mild intermittent asthma, obstructive sleep apnea on CPAP, chronic allergic rhinitis, morbid obesity, herpes genitalia, history of recurrent vaginitis, HPV infection, endometriosis, anxiety, bipolar 2 disorder, bulimia nervosa, history of PE, depression, who aspirated today when she had anesthesia for colonoscopy. As per anesthesia notes patient vomited a large amount of clear fluid during the procedure and likely had a small amount of aspiration. She had some laryngospasm which was broken by succinylcholine. Her oxygen saturation dropped down to 50% so she was mask ventilated and an LMA placed until she woke up from the anesthetic. Then she was transferred to PACU on facemask oxygen but soon weaned off oxygen to room air. She was given a DuoNeb treatment in the PACU. Her oxygen saturation remained in the high 90s to 100% on room air. And she was discharged home and advised to go to ER if she develops wheezing or fever or short of breath. At home she developed wheezing, had fever, had cough, and was having a lot of chest pain taking deep breaths which prompted her to come to the ER. In ER had temp spike. Saturating okay on room air. Complains of a headache. Some blurred vision. Some runny nose. Sore throat from the procedure today. Did not eat much today. Feeling short of breath. Has some nausea. Has some abdominal discomfort. Currently resting comfortably and hemodynamically stable. Past med history. As mentioned above. Past surgical history. Hemorrhoidectomy. Lab ablation of uterine fibroids. Laparoscopy for endometriosis for biopsy. Sacroiliac joint injection. Social history. Tobacco use vaporizer. Alcohol rarely. As per epic smokes marijuana 4 times per week. Family history. Mother had cervical cancer. Pulmonary embolism. Stroke. Maternal grandmother had a blood disorder. Principal Dx & Hospital Course #1 = Principal Diagnosis (1) Aspiration pneumonia: 48-year-old female with past medical history significant for MTHFR mutation, mild intermittent asthma, obstructive sleep apnea on CPAP, chronic allergic rhinitis, morbid obesity, herpes genitalia, history of recurrent vaginitis, HPV infection, endometriosis, anxiety, bipolar 2 disorder, bulimia nervosa, history of PE, depression, who aspirated today when she had anesthesia for colonoscopy. Aspiration Possible aspiration pneumonia History of asthma Having temp spike Cough Chest pain with taking deep breaths Possible mild asthma exasperation IV steroids short course IV Unasyn Nebs [id number] and as needed Close monitor Abnormal EKG A flutter Prolonged QTc We will repeat EKG Follow serial enzymes Echo Consult cardiology Obstructive sleep apnea On CPAP nightly History of MTHFR mutation History of PE Was on Lovenox bridge Restarted Coumadin tonight Follow PT/INR May need Lovenox bridge until INR therapeutic Anxiety Bipolar 2 disorder Bulimia nervosa Continue home medications DVT prophylaxis On Coumadin Follow PT/INR SCDs Disposition med/telemetry Full code Updated Medication List Medication Instructions Recorded Confirmed Type acyclovir 400 mg tablet 400 mg PO BID 09/30/19 09/09/23 History albuterol sulfate 2.5 mg/3 mL 2.5 mg inhalation DIRECTED PRN 09/30/19 09/09/23 History (0.083 %) solution for nebulization Shortness Of Breath Or Wheezing bupropion HCl 150 mg 24 hr tablet, 150 mg PO QAM 09/30/19 09/09/23 History extended release cholecalciferol (vitamin D3) 125 5,000 unit PO DAILY 09/30/19 09/09/23 History mcg (5,000 unit) tablet (Vitamin D3) citalopram 40 mg tablet (Celexa) 40 mg PO QAM 09/30/19 09/09/23 History cyanocobalamin (vitamin B-12) 1,000 mcg PO QAM 09/30/19 09/09/23 History 1,000 mcg tablet (Vitamin B-12) folic acid 0.8 mg capsule 800 mcg PO QAM 09/30/19 09/09/23 History lamotrigine 100 mg tablet 100 mg PO BID 09/30/19 09/09/23 History lithium carbonate 300 mg tablet 900 mg PO HS 09/30/19 09/09/23 History loratadine 10 mg tablet (Claritin) 10 mg PO QAM 09/30/19 09/09/23 History oxcarbazepine 300 mg tablet 300 mg PO BID 09/30/19 09/09/23 History (Trileptal) Wheelchair (Manual) #1 ea 11/29/20 09/09/23 Rx Wheeled Walker #1 ea 12/06/20 09/09/23 Rx clonazepam 0.5 mg tablet 0.5 - 1 mg PO HS 03/14/22 09/09/23 History spironolactone 50 mg tablet 50 mg PO UD 03/14/22 09/09/23 History sumatriptan succinate 50 mg tablet 50 mg PO UD PRN Headache 03/14/22 09/09/23 History albuterol sulfate 90 mcg/actuation 2 puff inhalation UD PRN Shortness 09/09/23 09/09/23 History aerosol inhaler Of Breath Or Wheezing amoxicillin 875 mg-potassium 1 tab PO BID 09/09/23 09/09/23 History clavulanate 125 mg tablet enoxaparin 120 mg/0.8 mL 120 mg subcut UD 09/09/23 09/09/23 History subcutaneous syringe levothyroxine 88 mcg tablet 88 mcg PO DAILYBB 09/09/23 09/09/23 History warfarin 10 mg tablet 10 mg PO UD 09/09/23 09/09/23 History amoxicillin 875 mg-potassium 1 tab PO BID #16 tabs 09/10/23 Rx clavulanate 125 mg tablet levalbuterol HCl 1.25 mg/3 mL 1.25 mg (3 mL) NEB QIDR PRN 09/10/23 Rx solution for nebulization shortness of breath or wheezing #75 mL prednisone 20 mg tablet 40 mg (2 x 20 mg) PO DAILY #6 tabs 09/10/23 Rx Hospital Stay Data Consultations 09/09/23 01:36 ED Decision to Admit Stat 09/09/23 08:00 Consult Cardiology Routine Pending Results Patient Have Any Pending Studies at Discharge: No Discharge Instructions Given to Patient (Per Discharging Provider) Ms. Jean Baptiste, You were admitted with trouble breathing after an aspiration event while having a colonoscopy. We treated you with IV antibiotics and we are discharging you with 8 more days of oral antibiotic treatment. We also treated you with IV steroids and we are discharging you with 3 more days of that. You noted that you have a nebulizer at home and we discharged you with xoponex nebules for use at home. You noted that you had your home Lovenox doses and you were arranging follow up with the Coumadin clinic. We tested you and determined that you did not need supplemental oxygen for use at home. Please also keep follow up with your primary care provider, preferably within the next week after discharge. Should your symptoms return or worsen, please do not hesitate to return to the emergency room. It was a pleasure taking care of you during your time here.
[2023-09-10] MEDS ORDERED: WARFARIN SOD 10 MG TAB PO SCH (16:00)
--- OUTSIDE RECORDS SUMMARY | 2023-09-11 00:09 | External Medical Summary | Summary of Care ---
Author Name Unknown Organization [facility] Address [address] [facility] [place] [address] Phone [phone] Care Team Providers Care Radio Adjuster Name Role Phone Ginna Power MD Primary Care Provider [phone] Reason for Visit * Reason Comments Dosage Adjustment Via Phone (anticoag Cl inic) Procedure Encounter Details Date Type Department Care Team (Latest Contact Info) Description 09/04/2023 5:10 PM EST Anticoagulation Pharmacy, [place] [address] [place] [address] [facility] [address] [place] [address] MTHFR mutation (methylenetetrahydro folate reductase)*; History of pulmonary embolism; Coagulation defect (HCC) Allergies Active Allergy Reactions Criticality Noted Date Comments Aripiprazole Neuro complications (Please comment) High 09/30/2019 Tardive dyskinesia Rickman (Diagnostic) Low 03/10/2015 Other reaction(s): STRAWBERRIES/TOMATO ES IN LARGE VOLUMES-ULCERS IIN MOUTH Tomato Low 09/30/2019 documented as of this encounter (statuses as of 09/04/2023) Medications Medication Sig Dispensed Refills Start Date End Date Status CELEXA 40 MG PO TABS Take 1 Tablet by mouth in the morning. 0 Active buPROPion HCl ER (XL) 150 MG Oral Tablet Extended Release 24 HourIndications:Ot her depression Take 1 Tablet by mouth in the morning. 30 Tab 5 10/23/2016 Active lamoTRIgine 100 MG Oral TabletIndications: Bipolar 2 disorder (HCC) Take 1 Tablet by mouth in the morning and 1 Tablet before bedtime. 0 12/24/2016 Active KlonoPIN 0.5 MG Oral Tablet Take 1 Tablet by mouth in the morning. 30 Tab 0 2017 Active acetaminophen (TYLENOL) 500 MG TabletIndications: Acute midline low back pain without sciatica,Pain in both knees, unspecified chronicity Take 2 Tabs by mouth every 8 hours. 100 Tab 0 2017 Active Additional Information Patient taking differently:1,000 mg [id number] PRN, Pain, Fever, Reported on 12/16/2022 Nebulizers (NEBULIZER COMPRESSOR) MISC Inhale via nebulizer. Use as directed. 1 Each 1 10/06/2018 Active albuterol-ipratrop ium (DUONEB) 2.5-0.5 MG/3ML nebulizer solution Inhale 3 mL via nebulizer 4 times a day. 360 Vial 0 04/16/2019 Active loratadine (RA LORATADINE) 10 MG TabletIndications: Chronic frontal sinusitis Take 1 Tab by mouth daily. 90 Tab 0 04/16/2019 Active [place] Carbonate 300 MG Oral Capsule (Eskalith) Take 3 Capsules by mouth at bedtime. 0 12/16/2021 Active Diclofenac Sodium 1 % External Gel (Voltaren) Apply 1 g topically to affected area in the morning and 1 g at noon and 1 g before bedtime. 100 g 3 11/21/2022 Active CPAP every night at bedtime. Autopap 6-10 cm 0 Active Albuterol Sulfate HFA 108 (90 Base) MCG/ACT Inhalation Aerosol SolutionIndication s:Mild intermittent asthma without complication INHALE 2 PUFFS BY MOUTH NEEDED SHORT OF BREATH Strength: 108 (90 BASE) MCG/ACT 25.5 g 1 02/24/2023 Active Multivitamins Oral Capsule Take 1 Capsule by mouth in the morning. 0 Active Probiotic & Acidophilus Ex St Oral Capsule Take 1 Capsule by mouth in the morning and 1 Capsule at noon and 1 Capsule in the evening. Take with meals. 0 Active SUMAtriptan Succinate 50 MG Oral Tablet (Imitrex)Indicatio ns:Migraine variant, intractable TAKE 2 TABLETS AT ONSET MIGRAINE MAY REPEAT 1 TABLET IN 2 HOURS- MAX OF 5 IN 24 HOURS 9 Tablet 1 06/24/2023 Active Warfarin Sodium 10 MG Oral Tablet (Coumadin)Indicati ons:MTHFR mutation (methylenetetrahyd rofolate reductase) Take 1.5 Tablets by mouth every evening. As directed. 135 Tablet 1 07/04/2023 Active Spironolactone 50 MG Oral Tablet (Aldactone)Indicat ions:Hidradenitis 1.5 tablets twice daily w/food 270 Tablet 3 07/04/2023 Active OXcarbazepine 300 MG Oral Tablet (Trileptal) Take 1 Tablet by mouth in the morning and 1 Tablet before bedtime. 0 Active Acyclovir 400 MG Oral Tablet (Zovirax)Indicatio ns:Herpes genitalia Take 1 Tablet by mouth in the morning and 1 Tablet before bedtime. 180 Tablet 3 08/19/2023 Active Levothyroxine Sodium 88 MCG Oral Tablet (Levoxyl) Take 1 Tablet by mouth in the morning. (at least 30 min prior to breakfast or other meds). 30 Tablet 2 09/04/2023 Active Enoxaparin Sodium 120 MG/0.8ML Injection Solution Prefilled Syringe (Lovenox)Indicatio ns:MTHFR mutation (methylenetetrahyd rofolate reductase),History of pulmonary embolism,Coagulati on defect (HCC) Inject full contents of 1 syringe subcutaneously every 12 hours as instructed by anticoagulation clinic for upcoming procedure. 8 mL 0 09/04/2023 Active Hospital, Clinic, or Other Facility Administered Medication Ordered Dose Route Frequency Start Date End Date Status Albuterol Sulfate (Proventil) (2.5 MG/3ML) 0.083% inhalation solution 2.5 mgIndications:Mild intermittent asthma without complication 2.5 mg NEBULIZER ONCE PRN 09/04/2023 09/03/2024 Acti ve albuterol (VENTOLIN HFA/PROVENTIL HFA) inhalerIndications:Mild intermittent asthma without complication 3 Puff IN ONCE 09/04/2023 09/05/2023 Acti ve documented as of this encounter (statuses as of 09/04/2023) Active Problems Problem Noted Date Diagnosed Date Body mass index (BMI) of 40.0 to 44.9 in adult 1 Overview: Per Obesity protocol - Per Obesity protocol - Per Obesity protocol - Per Obesity protocol - - ASCUS with positive high risk HPV cervical 04/23 Vaginal itching 04/23/2023 Recurrent vaginitis 04/23/2023 Chronic allergic rhinitis 11/21/2022 Coagulation defect 11/21/2022 Mild intermittent asthma without complication Cervical high 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 MERYL on CPAP 09/05/2021 Sacroiliac joint disease 09/02/2018 Trochanteric bursitis of both hips 09/02/2018 Mild single current episode of major depressive disorder 09/19/2017 History of pulmonary embolism 07/24/2017 Bulimia nervosa 11/06/2014 MTHFR mutation (methylenetetrahydrofolate reduct ase) 06/03/2013 Endometriosis Anxiety Mild intermittent asthma without complication Bipolar 2 disorder Herpes genitalia HPV (human papilloma virus) infection Asthma flare documented as of this encounter (statuses as of 09/04/2023) Resolved Problems Problem Noted Date Diagnosed Date Resolved Date Body mass index (BMI) of 45. 0 to 49.9 in adult 06/09/2023 08/07/2023 Overview: Per Obesity protocol - Per Obesity protocol - Per Obesity protocol - - Body mass index (BMI) of 50. 0 to 59.9 in adult 04/07/2023 06/12/2023 Overview: Per Obesity protocol - Per Obesity protocol - - Body mass index (BMI) of 45. 0 to 49.9 in adult 01/06/2023 04/10/2023 Overview: Per Obesity protocol - - Chondromalacia patellae, left knee 09/05/2021 04/09/2023 Other fracture of shaft of r ight fibula, initial encounter for closed fracture 09/05/2021 Morbid obesity with BMI of 50.0-59.9, adult 08/03/2018 01/08/2023 Overview: Per Obesity protocol #1 - Body mass index (BMI) of 40. 0 to 44.9 in adult 07/28/2017 08/10/2018 Overview: Per Obesity protocol #1 Gastroesophageal reflux dise ase without esophagitis 12/24/2016 04/09/2023 TMJ (dislocation of temporomandibular joint) 6 11/21/2022 Pulmonary embolus (HCC) (aka PULMONARY EMBOLUS (HCC)) 06/07/2015 07/24/2017 Pulmonary embolism 05/25/2013 7 Pulmonary embolism 3 Depression 09/19/2017 documented as of this encounter (statuses as of 09/04/2023) Immunizations Name Administration Dates Next Due COVID-19 mRNA, LNP-s, No Pre serve, 2-Dose Series (Moderna) 03/06/2021,02/06/2021 HepA Inact/HepB Recomb>=18yrs old 06/02/2012,,08/07/2011 Pneumococcal Conjugate Vacci ne, 20-valent ([id number]) 07/24/2022 Pneumococcal Polysaccharide PPV23 (Pneumovax) 07/29/2013 SEASONAL INFLUENZA, PF, 6 M & Above, IM , (FLULAVAL or FLUZONE) 07/21/2023,07/24/2022,09/05/2021,07/28 Seasonal Influenza Virus Vac cine, Unspecified Formulation 09/05/2021,07/28/2020,07/19/2019,06/27,06/25/2018,07/27/2017,06/25/2017 ,07/25/2016,07/21/2014,07/29/2013 Seasonal Influenza, Quadriva lent, No Preserve, IM 07/19/2019,06/25/2018,07/25/2016,08/17 Seasonal Influenza, Split, I IV3, With Preserve, Inj 06/27/2018,07/27/2017,07/21/2014,07/29 TD, Preservative Free 09/04/2023 TDAP (age 10 and older)(Boostrix) 09/02/2013 documented as of this encounter Social History Tobacco Use Types Packs/Day Years Used Date Smoking Tobacco: Former Vaporizer Smokeless Tobacco: Never Alcohol Use Standard Drinks/Week Comments No 0 (1 standard drink = 0.6 oz pur e alcohol) maybe once a year PHQ-2 Answer Date Recorded PHQ Adult Total Score 10 11/21/2022 Hunger Vital Sign Answer Date Recorded Worried About Running Out of Food in the Last Ye ar Never true 07/28/2020 Ran Out of Food in the Last Year Never true 07/28/2020 Sex and Gender Information Value Date Recorded Sex Assigned at Female 07/28/2020 11:19 AM EDT Gender Identity Female 07/28/2020 11:19 AM EDT Sexual Orientation Bisexual 07/28/2020 11 :19 AM EDT Job Start Date Occupation Industry Not on file Not on file Not on file documented as of this encounter Functional Status Functional Status Response Date of Assess ment Are you deaf or do you have serious difficulty h earing? No 07/22/2018 Are you blind or do you have serious difficulty seeing, even when wearing glasses? No 07/22/2018 Do you have serious difficul ty walking or climbing stairs? (5 years old or older) No 07/22/2018 Do you have difficulty dress ing or bathing? (5 years old or older) No 07/22/2018 Because of a physical, menta l, or emotional condition, do you have difficulty doing errands alone such as visiting a doctor s office or shopping? (15 years old or older) No 07/22/20 18 Cognitive Status Response Date of Assessm ent Because of a physical, menta l, or emotional condition, do you have serious difficulty concentrating, remembering, or making decisions? (5 years old or older No 07/22/2018 documented as of this encounter Progress Notes * Jennifer Chandler, [facility] - 09/04/2023 3:36 PM EST Medication Therapy Disease Management - Anticoagulation Patient: Rody Jean Baptiste | : 1975 Subjective Contacts Type Contact Phone/Fax 09/04/2023 03:54 PM EST Phone (Outgoing) Rody Jean Baptiste (Self) [phone] (M) Spoke to Patient Patient is having a colonoscopy on Sep 08. Patient has MTHFR mutation (methylenetetrahydrofolate reductase) and History of pulmonary embolism and requires Lovenox bridging. Patient used Lovenox in the past. See letters section for specific lovenox bridge instructions. PDF sent to patient for step by step instructions, as well as copy of lovenox bridge letter. Actual Body Weight 120 kg Serum creatinine: 1 mg/dL 08/18/23 0925 Estimated creatinine clearance: 93.4 mL/min Hemoglobin Results: Recent Labs Units 08/18/23 0925 05/19/23 0933 12/17/21 0855 [facility] g/dL 14.1 14.7 13.7 Platelets: Recent Labs Units 08/18/23 0925 05/19/23 0933 12/17/21 0855 PLATELET AUTO - [facility] K/uL 196 222 210 Lovenox Dose: 120 mg Q12 hr Electronically sent Lovenox to [id number] and Sent bridging instructions (letter) to Pt via attachment in [place] Repeat PT/INR in 10 days after procedure, as weekly dose is still being adjusted. Jennifer Chandler [facility] Clinical Pharmacist Medication Therapy Disease Management 09/04/2023, 3:38 PM documented in this encounter Plan of Treatment Upcoming Encounters Date Type Department Care Team (Late st Contact Info) Description 09/08/2023 11:45 AM EST Hospital Encounter ENDO [facility], Endoscopy Room [facility] [address] [place] [phone] Ortiz Arnold MD [address] [place] [phone] 09/08/2023 11:45 AM EST - 09/08/2023 12:15 PM EST Surgery ENDO OSS, Endoscopy Room [facility] [address] [place] [phone] Ortiz Arnold MD [address] [place] [address] COLONOSCOPY FLEXIBLE PROXIMAL DIAGNOSTIC 09/17/2023 1:40 PM EST Anticoagulation Pharm[facility] [place] [address] [place] [address] [facility] [address] 09/23/2023 8:30 AM EST PulmDiagnostic Pulmonary Function Lab, [facility] [address] [facility] [address] [place] [address] [facility] [address] 10/16/2023 7:40 AM EST Laboratory [facility], [place] [address] [facility] [phone] [place], Laboratory [address] [place] [facility] [place] [address] 11/04/2023 11:00 AM EST Imaging Radiology [address] [facility] [address] 01/07/2024 11:15 AM EDT Imaging Radiology [address] [facility] [address] 01/19/2024 11:00 AM EDT Telemedicine [facility] C[facility] [address] [facility] [phone] Lynsey Kam, DO [address] [facility] [address] 02/16/2024 10:30 AM EDT Office Visit [facility] [address] [place] [address] Uri Quintana, DO [address] [facility], [place] [address] 03/04/2024 9:20 AM EDT Office Visit General Internal Medicine [facility] [address] [place] [address] Ginna Power MD [address] [place] [address] 04/23/2024 2:00 PM EDT Office Visit Neurology [facility] [address] [place] [address] Vannesa Crouch, DO [address] [place] [address] 06/11/2024 11:20 AM EDT Office Visit Sleep Disorders Ctr [facility] [address] [place] [phone] Lynsey Kam, DO [address] [place] [address] 07/02/2024 9:40 AM EDT Telemedicine Dermatology [facility] [address] [place] [address] Cece Leary PA-C [address] [facility] [place] [phone] Scheduled Procedures Name Priority Associated Diagnoses Date/Ti me COLONOSCOPY FLEXIBLE PROXIMAL DIAGNOSTIC Special screening for malignant neoplasms, colon 09/08/2023 11:45 AM EST Health Maintenance Due Date Last Done Comments Cologuard 2020 Colonoscopy 2020 Colorectal Cancer Screening 2020 Fecal Occult Blood Test 2020 Sigmoidoscopy 2020 *SPIROMETRY ONCE FOR ASTHMA-ADULT 09/19/2022 Depression, Most Recent Score >= 10 (will fire each visit until score < 10) 11/22/2022 11/21/2022 COVID-19 Vaccine (2022- season) 2023 03/06/2021, 02/06/2021 Mammogram 01/07/2024 01/06/2023, 10/27, 11/07/2020, Additional history exists TSH 08/27/2024 08/27/2023, 01/26, 08/07/2022, Additional history exists Pap Smear 04/23/2026 04/23/2023, 11/28, 07/13/2020, Additional history exists Diabetes Screening 08/18/2026 08/18/2023, 0 05/19/2023, 08/07/2022, Additional history exists Lipid Panel 09/05/2026 09/05/2021, 08/0 06/2018, 12/07/2013 Cervical Cancer Screening 04/23/2028 HPV/Co-Test 04/23/2028 04/23/2023 DTaP,Tdap,and Td Vaccines (3 - Td or Tdap) 09/04/2033 09/04/2023, 09/02/2013 Pneumococcal Vaccine: Pediatrics (0 to 5 Years) and At-Risk Patients (6 to 64 Years) Completed 07/24/2022, 07/29/2013 Influenza Vaccine (FLU shot) Completed , 07/24/2022, 09/05/2021, Additional history exists GARDASIL-HPV IMMUNIZATION SERIES Aged Out No longer eligible based on patient's age to complete this topic MENINGOCOCCAL (MENACTRA/MENVEO) Aged Out No longer eligible based on patient's age to complete this topic documented as of this encounter Medical Devices Not on filedocumented as of this encounter Visit Diagnoses Diagnosis MTHFR mutation (methylenetetrahydrofolate reductase)- Primary Disturbances of sulphur-bearing amino-acid metabolism History of pulmonary embolism Personal history of pulmonary embolism Coagulation defect (HCC) Other and unspecified coagulation defects Special screening for malignant neoplasms, colon documented in this encounter Advance Directives Latest Code Status on File Code Status Date Activated Date Inactivated Comments Full Code 09/19/2020 10:03 AM 09/19/2020 2:36 PM Th is order reflects the patients wishes and were consensually agreed upon. Question Answer Comments Discussion of Advance Directives occurred with: Patient Does the patient have a Living Will? No Does the patient have Health Care Power of Drafter Cartographic? No Code Status History Code Status Date Activated Date Inactivated Comments Full Code 09/19/2020 9:51 AM 09/19/2020 10:03 AM Th is order reflects the patients wishes and were consensually agreed upon. Question Answer Comments Discussion of Advance Directives occurred with: Patient Does the patient have a Living Will? No Does the patient have Health Care Power of Drafter Cartographic? No Full Code 08/18/2020 9:52 AM 08/18/2020 2:40 PM Thi s order reflects the patients wishes and were consensually agreed upon. Question Answer Comments Discussion of Advance Directives occurred with: Patient Does the patient have a Living Will? No Does the patient have Health Care Power of Drafter Cartographic? No Care Teams Radio Adjuster Relationship Specialty Start Date End Date Ginna Power MD [address] [place] [address] PCP - General Internal Medicine 09/04/23 documented as of this encounter"
--- OUTSIDE RECORDS SUMMARY | 2023-09-11 00:10 | External Medical Summary | Summary of Care ---
Author Name Unknown Organization [facility] Address [address] [facility] [place] [address] Phone [phone] Care Team Providers Care Laundrette Owner Name Role Phone Connie Navarro MD Primary Care Provider Reason for Visit * Reason Comments Outpatient Testing Encounter Details Date Type Department Care Team ([facility] st Contact Info) Description 08/27/2023 10:20 AM EDT Laboratory Laboratory, [place] [address] [place] [address] [place], Laboratory [address] [place] [address] Encounter for long-term (current) use of other medications Allergies Active Allergy Reactions Criticality Noted Date Comments Aripiprazole Neuro complications (Please comment) High 09/30/2019 Tardive dyskinesia [place] (Diagnostic) Low 03/10/2015 Other reaction(s): STRAWBERRIES/TOMATO ES IN LARGE VOLUMES-ULCERS IIN MOUTH Tomato Low 09/30/2019 documented as of this encounter (statuses as of 08/27/2023) Medications Medication Sig Dispensed Refills Start Date End Date Status TRILEPTAL 300 MG PO TABS Take 1 Tablet by mouth in the morning and 1 Tablet before bedtime. 0 Active CELEXA 40 MG PO TABS Take 1 [...] Active Additional Information Patient taking differently:1,000 mg [id number] PRN, Pain, Fever, Reported on 12/16/2022 Nebulizers (NEBULIZER COMPRESSOR) MIS Inhale via nebulizer. Use as directed. 1 Each 1 10/06/2018 Active albuterol-ipratrop ium (DUONEB) 2.5-0.5 MG/3ML nebulizer solution Inhale 3 mL via nebulizer 4 times a day. 360 Vial 0 04/16/2019 Active loratadine (RA LORATADINE) 10 MG TabletIndications: Chronic frontal sinusitis Take 1 Tab by mouth daily. 90 Tab 0 04/16/2019 Active [place] Carbonate 300 MG Oral Capsule (Eskalith) Take [...] BASE) MCG/ACT 25.5 g 1 02/24/2023 Active metroNIDAZOLE 0.75 % Vaginal Gel (Metrogel-Vaginal) Insert applicator into the vagina and administer before bed. Use twice a week for 4-6 months. Start after oral metronidazole completed. 140 g 5 04/19/2023 Active Multivitamins Oral Capsule Take 1 Capsule [...] daily w/food 270 Tablet 3 07/04/2023 Active Efinaconazole 10 % External SolutionIndication s:Onychomycosis Apply topically to affected area every evening. Apply to nails daily for 48 weeks. Ensure complete coverage of nail, nailfolds, nailbed, surrounding skin, under surface of nail. 8 mL 6 07/24/2023 Active Terbinafine HCl 250 MG Oral Tablet (Lamisil)Indicatio ns:Onychomycosis Take 1 Tablet by mouth in the morning. For 6 weeks for fingernail fungus. 42 Tablet 0 07/24/2023 Active OXcarbazepine 300 MG Oral Tablet (Trileptal) Take 1 Tablet by mouth in the morning and 1 Tablet before bedtime. 0 Active Levothyroxine Sodium 75 MCG Oral Tablet (Levoxyl)Indicatio ns:Hypothyroidism, unspecified type Take 1 Tablet by mouth daily first thing in the morning. on an empty stomach. 90 Tablet 1 08/16/2023 Active Acyclovir 400 MG Oral Tablet (Zovirax)Indicatio ns:Herpes genitalia Take 1 Tablet by mouth in the morning and 1 Tablet before bedtime. 180 Tablet 3 08/19/2023 Active documented as of this encounter (statuses as of 08/27/2023) Active Problems Problem Noted Date Diagnosed Date [...] mutation (methylenetetrahydrofolate reduct ase) 06/03/2013 Endometriosis Anxiety Asthma Bipolar 2 disorder Herpes genitalia HPV (human papilloma virus) infection Asthma flare documented as of this encounter (statuses as of 08/27/2023) Resolved Problems Problem Noted Date Diagnosed Date [...] as of this encounter (statuses as of 08/27/2023) Immunizations Name Administration Dates Next Due COVID-19 mRNA, LNP-s, No Pre serve, 2-Dose Series (Moderna) 03/06/2021,02/06/2021 HepA Inact/HepB Recomb>=18yrs old 06/02/2012,,08/07/2011 Pneumococcal Conjugate Vacci ne, 20-valent ([id number]) 07/24/2022 Pneumococcal Polysaccharide PPV23 (Pneumovax) 07/29/2013 SEASONAL INFLUENZA, PF, 6 M & Above, IM , (FLULAVAL or FLUZONE) 07/21/2023,07/24/2022,09/05/2021,07/28 Seasonal Influenza Virus Vac cine, Unspecified Formulation 09/05/2021,07/28/2020,07/19/2019,06/27,06/25/2018,07/27/2017,06/25/2017 ,07/25/2016,07/21/2014,07/29/2013 Seasonal Influenza, Quadriva lent, No Preserve, IM 07/19/2019,06/25/2018,07/25/2016,08/17 Seasonal Influenza, Split, I IV3, With Preserve, Inj 06/27/2018,07/27/2017,07/21/2014,07/29 TDAP (age 10 and older)(Boostrix) 09/02/2013 documented [...] No 07/22/2018 documented as of this encounter Plan of Treatment Upcoming Encounters Date Type Department Care Team (Late st Contact Info) Description 2023 3:10 PM EST [facility] [place] [address] [facility] [address] [place] [address] [facility] [address] 09/05/2023 8:00 AM EST Office Visit Family Practice [facility] [address] [place] [address] Connie Navarro MD [address] [place] [address] 11/04/2023 11:00 AM EST Imaging Radiology [facility] [place] [address] [facility] [place] [address] 01/07/2024 11:15 AM EDT Imaging Radiology [address], [place] [address] [facility] [place] [address] 01/19/2024 11:00 AM EDT Telemedicine Sleep Disorders Ctr [facility] [address] [facility] [place] [phone] Lysney Kam, DO [address] [facility] [place] [address] 02/16/2024 10:30 AM EDT Office Visit [facility] [address] [address] Uri Quintana, DO [address] [place] [address] 04/23/2024 2:00 PM EDT Office Visit Neurology [facility] [address] [place] [address] Vannesa Crouch, DO [address] [place] [address] 06/11/2024 11:20 AM EDT Office Visit Sleep Disorders Ctr [facility] [address] [facility] [place] [phone] Lynsey Kam, DO [address] [facility] [place] [address] 07/02/2024 9:40 AM EDT Telemedicine Dermatology [facility] [address] [place] [address] Cece Leary PA-C [address] [place] [phone] (work) Pending Results Name Type Priority Associated Diagnoses Date /Time TSH Lab Routine Encounter for long-term (current) use of other medications 08/27/2023 10:30 AM EDT LITHIUM LEVEL Lab Routine Encounter for long-term (current) use of other medications 08/27/2023 10:30 AM EDT Health Maintenance Due Date Last Done Comments Cologuard 2020 Colonoscopy 2020 Colorectal Cancer Screening 2020 Fecal Occult Blood Test 2020 Sigmoidoscopy 2020 *SPIROMETRY ONCE FOR ASTHMA-ADULT 09/19/2022 Depression, Most Recent Score >= 10 (will fire each visit until score < 10) 11/22/2022 11/21/2022 COVID-19 Vaccine ( season) 2023 03/06/2021, 02/06/2021 DTaP,Tdap,and Td Vaccines (2 - Td or Tdap) 09/02/2023 09/02/2013 Mammogram 01/07/2024 01/06/2023, 10/27, 11/07/2020, Additional history exists TSH 02/19/2024 02/18/2023, 07/27, 07/24/2022, Additional history exists Pap Smear 04/23/2026 04/23/2023, 11/28, 07/13/2020, Additional history exists Diabetes Screening 08/18/2026 08/18/2023, 0 05/19/2023, 08/07/2022, Additional history exists Lipid Panel 09/05/2026 09/05/2021, 08/0 06/2018, 12/07/2013 Cervical Cancer Screening 04/23/2028 HPV/Co-Test 04/23/2028 04/23/2023 Pneumococcal Vaccine: Pediatrics (0 to 5 Years) [...] as of this encounter Visit Diagnoses Diagnosis Encounter for long-term (current) use of other medications documented in this encounter Advance Directives Latest [...] the patient have Health Care Power of Linoleum Tile Layer? No Code Status History Code Status Date Activated Date Inactivated Comments Full Code 09/19/2020 9:51 AM 09/19/2020 10:03 AM Th is order reflects the patients wishes and were consensually agreed upon. Question Answer Comments Discussion of Advance Directives occurred with: Patient Does the patient have a Living Will? No Does the patient have Health Care Power of Linoleum Tile Layer? No Full Code 08/18/2020 9:52 AM 08/18/2020 2:40 PM Thi s order reflects the patients wishes and were consensually agreed upon. Question Answer Comments Discussion of Advance Directives occurred with: Patient Does the patient have a Living Will? No Does the patient have Health Care Power of Linoleum Tile Layer? No Care Teams Laundrette Owner Relationship Specialty Start Date End Date Connie Navarro MD [address] [place] [address] PCP - General Internal Medicine 08/11/23 documented as of this encounter
--- OUTSIDE RECORDS SUMMARY | 2023-09-11 00:10 | External Medical Summary | Summary of Care ---
Author Name Unknown Organization [facility] Address [address] , [place] Care Team Providers Care Machine I Engraver Name Role Phone Ginna Power MD Primary Care Provider [phone] Reason for Visit * Reason Onset Date Comments Colonoscopy 09/04/2023 Encounter Details Date Type Department Care Team (Late st Contact Info) Description 09/04/2023 Telephone Pharmacy, [facility] [place] [address] [facility] [place] [address] [facility] [address] [facility] [phone] Colonoscopy Allergies Active Allergy Reactions Criticality Noted Date Comments Aripiprazole Neuro complications (Please comment) High 09/30/2019 Tardive dyskinesia [place] (Diagnostic) Low 03/10/2015 Other reaction(s): STRAWBERRIES/TOMATO ES IN LARGE VOLUMES-ULCERS IIN MOUTH Tomato Low 09/30/2019 documented as of this encounter (statuses as of 09/04/2023) Medications Medication Sig Dispensed Refills Start Date End Date Status CELEXA 40 MG PO TABS Take 1 Tablet by mouth in the morning. 0 Active buPROPion HCl ER (XL) 150 MG Oral Tablet Extended Release 24 HourIndications:Oth er depression Take 1 Tablet by mouth in the morning. 30 Tab 5 10/23/2016 Active lamoTRIgine 100 MG Oral TabletIndications:B ipolar 2 disorder (HCC) Take 1 Tablet by mouth in the morning and 1 Tablet before bedtime. 0 12/24/2016 Active KlonoPIN 0.5 MG Oral Tablet Take 1 Tablet by mouth in the morning. 30 Tab 0 2017 Active acetaminophen (TYLENOL) 500 MG TabletIndications:A cute midline low back pain without sciatica,Pain in both knees, unspecified chronicity Take 2 Tabs by mouth every 8 hours. 100 Tab 0 2017 Active Additional Information Patient taking differently:1,000 mg [id number] PRN, Pain, Fever, Reported on 12/16/2022 Nebulizers (NEBULIZER COMPRESSOR) [facility] Inhale via nebulizer. Use as directed. 1 Each 1 10/06/2018 Active albuterol-ipratropi um (DUONEB) 2.5-0.5 MG/3ML nebulizer solution Inhale 3 mL via nebulizer 4 times a day. 360 Vial 0 04/16/2019 Active loratadine (RA LORATADINE) 10 MG TabletIndications:C hronic frontal sinusitis Take 1 Tab by mouth daily. 90 Tab 0 04/16/2019 Active [place] Carbonate 300 MG Oral Capsule (Eskalith) Take [...] HFA 108 (90 Base) MCG/ACT Inhalation Aerosol SolutionIndications :Mild intermittent asthma without complication INHALE 2 PUFFS [...] Active SUMAtriptan Succinate 50 MG Oral Tablet (Imitrex)Indication s:Migraine variant, intractable TAKE 2 TABLETS AT ONSET MIGRAINE MAY REPEAT 1 TABLET IN 2 HOURS- MAX OF 5 IN 24 HOURS 9 Tablet 1 06/24/2023 Active Warfarin Sodium 10 MG Oral Tablet (Coumadin)Indicatio ns:MTHFR mutation (methylenetetrahydr ofolate reductase) Take 1.5 Tablets by mouth every evening. As directed. 135 Tablet 1 07/04/2023 Active Spironolactone 50 MG Oral Tablet (Aldactone)Indicati ons:Hidradenitis 1.5 tablets twice daily w/food 270 Tablet 3 07/04/2023 Active OXcarbazepine 300 MG Oral Tablet (Trileptal) Take 1 Tablet by mouth in the morning and 1 Tablet before bedtime. 0 Active Acyclovir 400 MG Oral Tablet (Zovirax)Indication s:Herpes genitalia Take 1 Tablet by mouth in the morning and 1 Tablet before bedtime. 180 Tablet 3 08/19/2023 Active Levothyroxine Sodium 88 MCG Oral Tablet (Levoxyl) Take 1 Tablet by mouth in the morning. (at least 30 min prior to breakfast or other meds). 30 Tablet 2 09/04/2023 Active Hospital, Clinic, or Other Facility [...] old 06/02/2012,,08/07/2011 Pneumococcal Conjugate Vacci ne, 20-valent ([id number]) 07/24/2022 Pneumococcal Polysaccharide PPV23 (Pneumovax) 07/29/2013 SEASONAL [...] No 07/22/2018 documented as of this encounter Miscellaneous Notes * Telephone Encounter - Jennifer Chandler RPh - 09/04/2023 3:35 PM EST Noted. Patient requires lovenox bridging. Will contact patient. Jennifer Chandler PharmD Clinical Pharmacist Medication Therapy Disease Management 09/04/2023, 3:35 PM * Telephone Encounter - Akila Leon fur floor worker - 09/04/2023 3:08 PM EST Caller's name: Rody Preferred call back number(OFFICE NUMBER FOR ): [phone] Reason for call: patient scheduled for Colonoscopy on Friday09/08/2023 and was told to begin holding the warfarin tonight. Akila Leon MA Awning Maker I [facility] (formerly [facility]) [address] [facility] [phone] [place] [address] ext [phone] documented in this encounter Plan of Treatment Upcoming Encounters Date Type Department Care Team (Late st Contact Info) Description 09/04/2023 5:10 PM EST Anticoagulation Pharmacy, [place] [address] [address] [facility], [place] [address] [facility] [address] [facility], [place] [address] MTHFR mutation (methylenetetrahyd rofolate reductase)*; History of pulmonary embolism; Coagulation defect (HCC) 09/08/2023 11:45 AM EST Hospital Encounter ENDO OSS, Endoscopy Room [facility] [address] [facility] [place] [address] Ortiz Arnold MD [address] [place] [address] 09/08/2023 11:45 AM EST - 09/08/2023 12:15 PM EST Surgery ENDO OSSC, Endoscopy Room [facility] [address] [place] [phone] Ortiz Arnold MD [address] [place], [place] [address] COLONOSCOPY FLEXIBLE PROXIMAL DIAGNOSTIC 09/17/2023 1:40 PM EST Anticoagulation Pharmacy, [place] [address] [address] [facility] [address] [facility] [address] [facility], [place] [address] 09/23/2023 8:30 AM EST PulmDiagnostic Pulmonary Function Lab, [facility] [address] [place] [address] [place], [address] [facility] [place] [address] 10/16/2023 7:40 AM EST Laboratory Laboratory, [place] [address] [place] [address] [facility] [address] [place] [address] 11/04/2023 11:00 AM EST Imaging Radiology [facility], [address] [place] [address] 01/07/2024 11:15 AM EDT Imaging Radiology [address], [address] [place] [address] 01/19/2024 11:00 AM EDT Telemedicine Sleep Disorders Ctr [address] [place] [phone] Lynsey Kam, [address] [place] [address] 02/16/2024 10:30 AM EDT Office Visit [address] [address] Uri Quintana, [address] [place] [address] 03/04/2024 9:20 AM EDT Office Visit General Internal Medicine [facility] [address] [place] [address] Ginna Power MD [address] [place] [address] 04/23/2024 2:00 PM EDT Office Visit Neurology [facility] [address] [place] [address] Vannesa Crouch, DO [address] [place] [address] 06/11/2024 11:20 AM EDT Office Visit Sleep Disorders Ctr [address] [place] [phone] Lynsey Kamaret, [address] [place] [address] 07/02/2024 9:40 AM EDT Telemedicine Dermatology [facility] [address] [place] [address] Cece Leary PA-C [address] [facility] [place] [phone] Scheduled Procedures Name Priority Associated Diagnoses Date/Ti [...] Not on filedocumented as of this encounter Advance Directives Latest Code Status on File Code Status Date Activated Date Inactivated Comments Full Code 09/19/2020 10:03 AM 09/19/2020 2:36 PM Th is order reflects the patients wishes and were consensually agreed upon. Question Answer Comments Discussion of Advance Directives occurred with: Patient Does the patient have a Living Will? No Does the patient have Health Care Power of Prop Making Supervisor? No Code Status History Code Status Date Activated Date Inactivated Comments Full Code 09/19/2020 9:51 AM 09/19/2020 10:03 AM Th is order reflects the patients wishes and were consensually agreed upon. Question Answer Comments Discussion of Advance Directives occurred with: Patient Does the patient have a Living Will? No Does the patient have Health Care Power of Prop Making Supervisor? No Full Code 08/18/2020 9:52 AM 08/18/2020 2:40 PM Thi s order reflects the patients wishes and were consensually agreed upon. Question Answer Comments Discussion of Advance Directives occurred with: Patient Does the patient have a Living Will? No Does the patient have Health Care Power of Prop Making Supervisor? No Care Teams Machine I Engraver Relationship Specialty Start Date End Date Ginna Power MD [address] [place] [address], [place] [address] PCP - General Internal Medicine 09/04/23 documented as of this encounter
--- OUTSIDE RECORDS SUMMARY | 2023-09-11 00:10 | External Medical Summary | Summary of Care ---
Author Name Unknown Organization [facility] Address [address] [facility] [place] [address] Phone [phone] Care Team Providers Care Clinical Nurse Reviewer Name Role Phone Connie Navarro MD Primary Care Provider Reason for Visit * Reason Comments Dosage Adjustment In Person (Anticoag Cl inic) Encounter Details Date Type Department Care Team (Latest Contact Info) Description 2023 3:10 PM EST Anticoagulation Pharmacy, [place] [address] [place] [address] [facility] [address] [place] [address] MTHFR mutation (methylenetetrahydro folate reductase)* Allergies Active Allergy Reactions Criticality Noted Date Comments Aripiprazole Neuro complications (Please comment) High 09/30/2019 Tardive dyskinesia [place] (Diagnostic) Low 03/10/2015 Other reaction(s): STRAWBERRIES/TOMATO ES IN LARGE VOLUMES-ULCERS IIN MOUTH Tomato Low 09/30/2019 documented as of this encounter (statuses as of 2023) Medications Medication Sig Dispensed Refills Start Date [...] Active Additional Information Patient taking differently:1,000 mg [id number] PRN, Pain, Fever, Reported on 12/16/2022 Nebulizers (NEBULIZER COMPRESSOR) MIS Inhale via nebulizer. Use as directed. 1 Each 1 10/06/2018 Active albuterol-ipratrop ium (DUONEB) 2.5-0.5 MG/3ML nebulizer solution Inhale 3 mL via nebulizer 4 times a day. 360 Vial 0 04/16/2019 Active loratadine (RA LORATADINE) 10 MG TabletIndications: Chronic frontal sinusitis Take 1 Tab by mouth daily. 90 Tab 0 04/16/2019 Active [place] Carbonate 300 MG Oral Capsule (Eskalith) Take [...] as of this encounter (statuses as of 2023) Active Problems Problem Noted Date Diagnosed Date Body mass index (BMI) of 40.0 to 44.9 in adult 1 Overview: Per Obesity protocol - Per Obesity protocol - Per Obesity protocol - Per Obesity protocol - - ASCUS with positive high risk HPV cervical 06/28 /2023 Vaginal itching 04/23/2023 Recurrent vaginitis 04/23/2023 Chronic [...] as of this encounter (statuses as of 2023) Resolved Problems Problem Noted Date Diagnosed Date [...] as of this encounter (statuses as of 2023) Immunizations Name Administration Dates Next Due COVID-19 mRNA, LNP-s, No Pre serve, 2-Dose Series (Moderna) 03/06/2021,02/06/2021 HepA Inact/HepB Recomb>=18yrs old 06/02/2012,,08/07/2011 Pneumococcal Conjugate Vacci ne, 20-valent ([id number]) 07/24/2022 Pneumococcal Polysaccharide PPV23 (Pneumovax) 07/29/2013 SEASONAL [...] this encounter Progress Notes * Jennifer Chandler, [facility] - 2023 3:08 PM EST Images from the original note were not included. Medication Therapy Disease Management - Anticoagulation Patient: Rody Jean Baptiste | : 1975 Subjective Patient-Reported Symptoms: Patient Findings Negatives: Signs/symptoms of thrombosis, Signs/symptoms of bleeding, Change in health, Change in alcohol use, Change in activity, Upcoming invasive procedure, Missed doses, Extra doses, Change in medications, Change in diet/appetite, Bruising Objective Current Warfarin Dose As of 2023 Warfarin maintenance plan: 10 mg (5 mg x 2) every Sun; 15 mg (5 mg x 3) all other days INR Result As of 2023 INR goal: 2.0-3.0 INR used for dosin.4 (2023) Assessment & Plan Warfarin Plan As of 2023 Full warfarin instructions: 09/01: 20 mg; 09/02: 20 mg; Otherwise 20 mg every Mon, Fri; 15 mg all other days Next INR check: 09/12/2023 Repeat PT/INR in 10 day(s) Weekly dose: increased Additional Dosing Information: Description 10 mg tablets sent to pharmacy 07/04/23 to help reduce patient's pill burden. Counseling given thattablets will now be white. MG ONLY ON COAG CARD Jennifer Chandler [facility] Clinical Pharmacist 2023, 3:08 PM documented in this encounter Plan of Treatment Upcoming Encounters Date Type Department Care Team (Late st Contact Info) Description 09/04/2023 11:40 AM EST Office Visit General Internal Medicine [facility] [address] [place] [address] Ginna Power MD 200 [facility] [address] [place] [address] 09/12/2023 10:20 AM EST Anticoagulation Pharmacy, [place] [address] [place] [address] [facility] [place] [address] 11/04/2023 11:00 AM EST Imaging Radiology [address] [place] [address] 01/07/2024 11:15 AM EDT Imaging Radiology [address] 132 [facility] [place] [address] 01/19/2024 11:00 AM EDT Telemedicine Sleep Disorders Ctr [address] [place] [phone] Lynsey Kam, DO [address] [place] [address] 02/16/2024 10:30 AM EDT Office Visit [facility] [address] [place] [address] Uri Quintana, DO [address], [place] [phone] 04/23/2024 2:00 PM EDT Office Visit Neurology [facility] [address] [place] [address] Vannesa Crouch, DO [address] [place], [place] [phone] 06/11/2024 11:20 AM EDT Office Visit Sleep Disorders Ctr [facility] [address] [place] [phone] Lynsey Kam, DO [address] [place] [address] 07/02/2024 9:40 AM EDT Telemedicine Dermatology [facility] [address] [place] [address] Cece Leary PA-C 200 [facility] [place] [phone] Health Maintenance Due Date Last Done Comments Cologuard 2020 Colonoscopy 2020 Colorectal Cancer Screening 2020 Fecal Occult Blood Test 2020 Sigmoidoscopy 2020 *SPIROMETRY ONCE FOR ASTHMA-ADULT 09/19/2022 Depression, Most Recent Score >= 10 (will fire each visit until score < 10) 11/22/2022 11/21/2022 COVID-19 Vaccine (3 - 2022- season) 2023 03/06/2021, 02/06/2021 DTaP,Tdap,and Td Vaccines (2 - Td or Tdap) 09/02/2023 09/02/2013 Mammogram 01/07/2024 01/06/2023, 10/27, 11/07/2020, Additional history exists TSH 08/27/2024 08/27/2023, 01/26, 08/07/2022, Additional history exists Pap Smear 04/23/2026 04/23/2023, 11/28, 07/13/2020, Additional history exists Diabetes Screening 08/18/2026 08/18/2023, 0 05/19/2023, 08/07/2022, Additional history exists Lipid Panel 09/05/2026 09/05/2021, 08/06/2018, 12/07/2013 Cervical Cancer Screening 04/23/2028 HPV/Co-Test 04/23/2028 [...] Not on filedocumented as of this encounter Procedures Procedure Name Priority Date/Time Associated Diagnosis Comments INR FINGERSTICK, POINT OF CARE STAT 2023 3:14 PM EST MTHFR mutation (methylenetetrahydr ofolate reductase) documented in this encounter Results * INR FINGERSTICK, POINT OF CARE (2023 3:14 PM EST) Fingerstick INR 1.4 INR 3:15 PM EST [facility] 2023 3:14 PM EST 2023 3:15 PM EST Narrative [facility] - 2023 3:15 PM EST Therapeutic ranges for non-operative patients: Prophylaxsis/treatment of DVT: (Range:2.0-3.0) Treatment of pulmonary embolism:(Range:2.0-3.0) Prevention of systemic embolism from: -tissue heart valves -acute myocardial infarction -valvular heart disease -atrial fibrillation (Range: 2.0-3.0) Mechanical prosthetic valves: (Range: 2.5-3.5) Thuan Barajas [facility] LAB POINT OF CAR E TEST DOCKED DEVICE UNSOLICITED RESULTS [facility] [address] [facility] [place] [address] documented in this encounter Visit Diagnoses Diagnosis MTHFR mutation (methylenetetrahydrofolate reductase)- Primary Disturbances of sulphur-bearing amino-acid metabolism documented in this encounter Advance Directives Latest [...] the patient have Health Care Power of Osteologist? No Code Status History Code Status Date Activated Date Inactivated Comments Full Code 09/19/2020 9:51 AM 09/19/2020 10:03 AM Th is order reflects the patients wishes and were consensually agreed upon. Question Answer Comments Discussion of Advance Directives occurred with: Patient Does the patient have a Living Will? No Does the patient have Health Care Power of Osteologist? No Full Code 08/18/2020 9:52 AM 08/18/2020 2:40 PM Thi s order reflects the patients wishes and were consensually agreed upon. Question Answer Comments Discussion of Advance Directives occurred with: Patient Does the patient have a Living Will? No Does the patient have Health Care Power of Osteologist? No Care Teams Clinical Nurse Reviewer Relationship Specialty Start Date End Date Connie Navarro MD [address] [place] [place] [address] PCP - General Internal Medicine 08/11/23 documented as of this encounter"
--- OUTSIDE RECORDS SUMMARY | 2023-09-11 00:10 | External Medical Summary ---
Author Name Unknown Address Unknown Organization [id number]:LABORATORY [facility] - [address] [place] [address] Laboratory Report Ordering Provider Test Date Status PRAFUL SIMMONS 08/27/2023 10:30:16 Final Observation Date Value Abnormality Reference (Units ) Status [place] [Moles/volume] in Blood 08/27/2023 10:30:16 0.7 0.6-1.2 (mmol/L) Final Performing Location LABORATORY [facility] - [address] [place] [address]
--- OUTSIDE RECORDS SUMMARY | 2023-09-11 00:10 | External Medical Summary | Summary of Care ---
Author Name Unknown Organization [facility] Address [address] [place] [address] Phone [phone] Care Team Providers Care Shoe Worker Name Role Phone Connie Navarro MD Primary Care Provider Reason for Referral * Precert (Within 10 days (routine)) - Pending Review Specialty Diagnoses / Procedures Referred By Contac t Referred To Contact Radiology Diagnoses Diplopia Procedures MRI ORBITS WITH/WITHOUT CONTRAST America Brantley MD [address] [place] [address] Referral ID Status Reason Start Date Expiration Date V isits Requested Visits Authorized [id number] Pending Review 08/11/2023 999 999 Reason for Visit * Reason Comments Follow Up Diplopia fu Encounter Details Date Type Department Care Team (Late st Contact Info) Description 08/11/2023 8:00 AM EDT Office Visit [address] [address] Uri Quintana, DO [address] [place], [place] [phone] Diplopia* Allergies Active Allergy Reactions Criticality Noted Date Comments Aripiprazole Neuro complications (Please comment) High 09/30/2019 Tardive dyskinesia [place] (Diagnostic) Low 03/10/2015 Other reaction(s): STRAWBERRIES/TOMATO ES IN LARGE VOLUMES-ULCERS IIN MOUTH Tomato Low 09/30/2019 documented as of this encounter (statuses as of 09/02/2023) Medications Medication Sig Dispensed Refills Start Date End Date Status TRILEPTAL 300 MG PO TABS Take 1 Tablet by mouth in the morning and 1 Tablet before bedtime. 0 Active CELEXA 40 MG PO TABS Take 1 Tablet by mouth in the morning. 0 Active buPROPion HCl ER (XL) 150 MG Oral Tablet Extended Release 24 HourIndications: Other depression Take 1 Tablet by mouth in the morning. 30 Tab 5 6 Active lamoTRIgine 100 MG Oral TabletIndication s:Bipolar 2 disorder (HCC) Take 1 Tablet by mouth in the morning and 1 Tablet before bedtime. 0 7 Active KlonoPIN 0.5 MG Oral Tablet Take 1 Tablet by mouth in the morning. 30 Tab 0 7 Active acetaminophen (TYLENOL) 500 MG TabletIndication s:Acute midline low back pain without sciatica,Pain in both knees, unspecified chronicity Take 2 Tabs by mouth every 8 hours. 100 Tab 0 7 Active Additional Information Patient taking differently:1,000 mg [id number] PRN, Pain, Fever, Reported on 12/16/2022 Nebulizers (NEBULIZER COMPRESSOR) [facility] Inhale via nebulizer. Use as directed. 1 Each 1 8 Active albuterol-ipratr opium (DUONEB) 2.5-0.5 MG/3ML nebulizer solution Inhale 3 mL via nebulizer 4 times a day. 360 Vial 0 9 Active loratadine (RA LORATADINE) 10 MG TabletIndication s:Chronic frontal sinusitis Take 1 Tab by mouth daily. 90 Tab 0 9 Active [place] Carbonate 300 MG Oral Capsule (Eskalith) Take 3 Capsules by mouth at bedtime. 0 2 Active Diclofenac Sodium 1 % External Gel (Voltaren) Apply 1 g topically to affected area in the morning and 1 g at noon and 1 g before bedtime. 100 g 3 3 Active CPAP every night at bedtime. Autopap 6-10 cm 0 Active Albuterol Sulfate HFA 108 (90 Base) MCG/ACT Inhalation Aerosol SolutionIndicati ons:Mild intermittent asthma without complication INHALE 2 PUFFS BY MOUTH NEEDED SHORT OF BREATH Strength: 108 (90 BASE) MCG/ACT 25.5 g 1 3 Active metroNIDAZOLE 0.75 % Vaginal Gel (Metrogel-Vagina l) Insert applicator into the vagina and administer before bed. Use twice a week for 4-6 months. Start after oral metronidazole completed. 140 g 5 3 Active Multivitamins Oral Capsule Take 1 Capsule by mouth in the morning. 0 Active Probiotic & Acidophilus Ex St Oral Capsule Take 1 Capsule by mouth in the morning and 1 Capsule at noon and 1 Capsule in the evening. Take with meals. 0 Active SUMAtriptan Succinate 50 MG Oral Tablet (Imitrex)Indicat ions:Migraine variant, intractable TAKE 2 TABLETS AT ONSET MIGRAINE MAY REPEAT 1 TABLET IN 2 HOURS- MAX OF 5 IN 24 HOURS 9 Tablet 1 3 Active Warfarin Sodium 10 MG Oral Tablet (Coumadin)Indica tions:MTHFR mutation (methylenetetrah ydrofolate reductase) Take 1.5 Tablets by mouth every evening. As directed. 135 Tablet 1 3 Active Spironolactone 50 MG Oral Tablet (Aldactone)Indic ations:Hidradeni tis 1.5 tablets twice daily w/food 270 Tablet 3 3 Active Efinaconazole 10 % External SolutionIndicati ons:Onychomycosi s Apply topically to affected area every evening. Apply to nails daily for 48 weeks. Ensure complete coverage of nail, nailfolds, nailbed, surrounding skin, under surface of nail. 8 mL 6 3 Active Terbinafine HCl 250 MG Oral Tablet (Lamisil)Indicat ions:Onychomycos is Take 1 Tablet by mouth in the morning. For 6 weeks for fingernail fungus. 42 Tablet 0 3 023 Active OXcarbazepine 300 MG Oral Tablet (Trileptal) Take 1 Tablet by mouth in the morning and 1 Tablet before bedtime. 0 Active Levothyroxine Sodium 75 MCG Oral Tablet (Levoxyl)Indicat ions:Hypothyroid ism, unspecified type Take 1 Tablet by mouth daily first thing in the morning. on an empty stomach. 30 Tablet 5 3 023 Discontinued(Re fill) Acyclovir 400 MG Oral Tablet (Zovirax)Indicat ions:Herpes genitalia Take 1 Tablet by mouth in the morning and 1 Tablet before bedtime. 180 Tablet 0 3 023 Discontinued documented as of this encounter (statuses as of 09/02/2023) Active Problems Problem Noted Date Diagnosed Date [...] as of this encounter (statuses as of 09/02/2023) Resolved Problems Problem Noted Date Diagnosed Date [...] as of this encounter (statuses as of 09/02/2023) Immunizations Name Administration Dates Next Due COVID-19 mRNA, LNP-s, No Pre serve, 2-Dose Series (Moderna) 03/06/2021,02/06/2021 HepA Inact/HepB Recomb>=18yrs old 06/02/2012,,08/07/2011 Pneumococcal Conjugate Vacci ne, 20-valent ([id number]) 07/24/2022 Pneumococcal Polysaccharide PPV23 (Pneumovax) 07/29/2013 SEASONAL [...] as of this encounter Progress Notes * Uri Quintana, - 09/02/2023 11:16 PM EST I have discussed the patient's management with the medical trainee and agree with the note. Please refer to the documented findings and plan of care. This patient's visit today consisted of an evaluation. I was present and confirmed the findings of the history and exam. Uri Quintana DO * America Brantley MD - 08/11/2023 9:49 AM EDT 08/11/2023: Resident Neuro HPI: Rody Jean Baptiste is a 47 year old pt who presents for follow up diplopia. Work up unremarkable.No longer noticing diplopia in primary, worse in left gaze Past Ocular History: glasses FOHx: none Eye Medications: none ROS: Refer to HPI, otherwise negative unless noted. Past Medical History: Diagnosis Date Anxiety Asthma flare Bipolar 2 disorder (HCC) Depression Endometriosis Gastroesophageal reflux disease without esophagitis 12/24/2016 Herpes genitalia HPV (human papilloma virus) infection Intention tremor MTHFR mutation on Warfarin Pulmonary embolism (HCC) 04/2013 Sleep apnea, obstructive Outpatient Medications Marked as Taking for the 08/11/23 encounter (Office Visit) with Uri Quintana DO Medication Sig OXcarbazepine 300 MG Oral Tablet (Trileptal) Take 1 Tablet by mouth in the morning and 1 Tablet before bedtime. Past Surgical History: Procedure Laterality Date ANORECTAL EXAM ,DIAG, REQUIRING ANESTHESIA N/A 08/18/2020 ANORECTAL EXAM UNDER ANESTHESIA performed by Moises Mcfarlane MD at [facility] ANORECTAL EXAM ,DIAG, REQUIRING ANESTHESIA N/A 09/19/2020 ANORECTAL EXAM UNDER ANESTHESIA performed by Moises Mcfarlane MD at [facility] D&C.EDU. 2002 HEMORRHOIDECTOMY, SIMPLE, 1 COLUMN N/A 08/18/2020 HEMORRHOIDECTOMY EXTERNAL AND INTERNAL SIMPLE performed by Moises Mcfarlane MD at [facility] HEMORRHOIDECTOMY, SIMPLE, 1 COLUMN N/A 09/19/2020 HEMORRHOIDECTOMY EXTERNAL AND INTERNAL SIMPLE performed by Moises Mcfarlane MD at [facility] LAP ABLATION UTERINE FIBROIDS W/INTRAOP US GUIDE 2014 LAPAROSCOPY;WITH BIOPSY 1997 endometreosis SACROILIAC JOINT INJECT W/GUIDANCE 08/06/2018 INJECTION SACROILIAC JOINT performed by Torito Orta DO at OR [facility] SACROILIAC JOINT INJECT W/GUIDANCE 10/15/2018 INJECTION SACROILIAC JOINT performed by Torito Orta DO at OR [facility] Nursing notes reviewed. Base Eye Exam Visual Acuity (Snellen - Linear) Right Left Dist cc 20/20-2 20/25 Correction: Glasses Tonometry (Non-contact air puff, 9:14 AM) Right Left Pressure 15 14 Pupils Dark Light Shape React APD Right 6 3 Round Brisk None Left 6 3 Round Brisk None Visual Brody (Counting fingers) Right Left Full Full Extraocular Movement Right Left Full Full Additional Tests Color Right Left Ishihara 06/03 88 Keratometry (Automated) K1 Delmont K2 [place]mont Right 44.25 0 44.25 90 Left 44.50 4 45.00 94 Refraction Wearing Rx Sphere Cylinder [place] Add Right -2.50 +0.75 013 +2.00 Left -3.00 +1.25 136 +2.00 Age: 1yr Type: PAL Manifest Refraction (Auto) Sphere Cylinder Delmont Dist VA Right -2.25 +0.50 163 20/30 Left -3.25 +0.75 119 20/30 08/11/23 8PD primary 12PD left gaze 6PD right gaze ASSESSMENT/PLAN ET on left gaze Measuring 8PD - Initially Possibly due to a decompensation of a phoria - MG / Thyroid labs done and were normal, lyme was normal - MRI was done and was normal - refused dilation today - 05/12: 4PD over the right eye, base out prism - 6 PD on right head turn with left gaze - 2PD on right gaze - overall measurements are stable RTC 6 months months or sooner prn. Patient seen and discussed with Dr. Quintana. A/P explained, patient verbalized understanding. Patient understands to f/u immediately with questions, concerns, or any ophthalmic issues. Amreica Brantley MD 08/11/2023 9:50 AM Ophthalmology Resident, PGY-3 documented in this encounter Nursing Notes * Kassie Rehman TECH - 08/11/2023 9:00 AM EDT Rody Jean Baptiste is a 47 year old female who presents for fu diplopia . Last Visit: 05/12/2023 (in office), Visit date not found (telemedicine) She currently states she feels her vision has improved no double vision of lately , states she doesfeel she need to up date her glasses ,at the present time she denies any other eye issues Are you diabetic? No Current Ophthalmic Medications: None Vision ,pressure, color plates, and glasses can be found in ophth exam. documented in this encounter Plan of Treatment Upcoming Encounters Date Type Department Care Team (Late st Contact Info) Description 09/04/2023 11:40 AM EST Office Visit General Internal Medicine [facility] [address] [place] [address] Ginna Power MD [address] [place] [address] 09/12/2023 10:20 AM EST Anticoagulation Pharmacy, [place] [address] [place] [address] [facility] [address] [place] [address] 11/04/2023 11:00 AM EST Imaging Radiology [address] 132 [facility] [place] [address] 01/07/2024 11:15 AM EDT Imaging Radiology [address] [facility] [place] [address] 01/19/2024 11:00 AM EDT Telemedicine Sleep Disorders Ctr [facility] 132 [facility] [place] [phone] Lynsey Kam, [address] [place] [address] 02/16/2024 10:30 AM EDT Office Visit [facility] Eye [facility] [address] [place] [address] Uri Quintana, DO [address] [place], [place] [phone] 04/23/2024 2:00 PM EDT Office Visit Neurology [facility] [address] [place] [address] Vannesa Crouch, DO [address] [place] [address] 06/11/2024 11:20 AM EDT Office Visit Sleep Disorders Ctr [facility] 132 [facility] [place] [phone] Lynsey Kam, 132 [facility] [place] [address] 07/02/2024 9:40 AM EDT Telemedicine Dermatology [facility] [address] [place] [address] Cece Leary PA-C 200 [facility] [place] [phone] Scheduled Orders Name Type Priority Associated Diagnoses Orde r Schedule MRI ORBITS WITH/WITHOUT CONTRAST Medical Imaging Routine Diplopia Ordered: 08/11/2023 Health Maintenance Due Date Last Done Comments Cologuard 2020 Colonoscopy 2020 Colorectal Cancer Screening 2020 Fecal Occult Blood Test 2020 Sigmoidoscopy 2020 *SPIROMETRY ONCE FOR ASTHMA-ADULT 09/19/2022 Depression, Most Recent Score >= 10 (will fire each visit until score < 10) 11/22/2022 11/21/2022 COVID-19 Vaccine (3 - season) 2023 03/06/2021, 02/06/2021 DTaP,Tdap,and Td Vaccines [...] as of this encounter Visit Diagnoses Diagnosis Diplopia- Primary documented in this encounter Advance Directives Latest [...] the patient have Health Care Power of Bowstring Maker? No Code Status History Code Status Date Activated Date Inactivated Comments Full Code 09/19/2020 9:51 AM 09/19/2020 10:03 AM Th is order reflects the patients wishes and were consensually agreed upon. Question Answer Comments Discussion of Advance Directives occurred with: Patient Does the patient have a Living Will? No Does the patient have Health Care Power of Bowstring Maker? No Full Code 08/18/2020 9:52 AM 08/18/2020 2:40 PM Thi s order reflects the patients wishes and were consensually agreed upon. Question Answer Comments Discussion of Advance Directives occurred with: Patient Does the patient have a Living Will? No Does the patient have Health Care Power of Bowstring Maker? No Care Teams Shoe Worker Relationship Specialty Start Date End Date Connie Navarro MD [address] [place] [address] PCP - General Internal Medicine 08/11/23 documented as of this encounter
--- OUTSIDE RECORDS SUMMARY | 2023-09-11 00:10 | External Medical Summary ---
Author Name Unknown Address Unknown Organization K01:LABORATORY [facility] - [address] [place] [address] Laboratory Report Ordering Provider Test Date Status PRAFUL SIMMONS 08/27/2023 10:30:16 Final Observation Date Value Abnormality Reference (Units ) Status TSH 08/27/2023 10:30:16 5.47 Above high normal 0. 27-4.20 (uIU/mL) Final Performing Location LABORATORY [facility] - [address] [place] [address]
--- OUTSIDE RECORDS SUMMARY | 2023-09-11 00:10 | External Medical Summary ---
Author Name Unknown Address Unknown Organization : Laboratory Report Ordering Provider Test Date Status LORRI BARAHONA 2023 15:14:19 Final Therapeutic ranges for non-o perative patients:
Prophylaxsis/treatment of DVT: (Range:2.0-3.0)
Treatment of pulmonary embolism:(Range:2.0-3.0)
Prevention of systemic embolism from:
-tissue heart valves
-acute myocardial infarction
-valvular heart disease
-atrial fibrillation
(Range: 2.0-3.0)
Mechanical prosthetic valves: (Range: 2.5-3.5) Observation Date Value Abnormality Reference (Units ) Status INR in Capillary blood by Coagulation assay 2023 15:14:19 1.4 (INR) Final Performing Location
--- OUTSIDE RECORDS SUMMARY | 2023-09-11 00:11 | External Medical Summary ---
Author Name Unknown Address Unknown Organization K01:LAB[facility]ATORY [facility] - [address] [facility] [address] Laboratory Report Ordering Provider Test Date Status LESTER VILLAGRAN 08/18/2023 09:25:44 Final Observation Date Value Abnormality Reference (Units ) Status BUN 08/18/2023 09:25:44 10 6-20 (mg/dL) Final Creatinine 08/18/2023 09:25:44 1.0 0.5-1.0 (mg/dL) Final Glomerular filtration rate/1.73 sq M.predicted [Volume Rate/Area] in Serum, Plasma or Blood by Creatinine-based formula (CKD-EPI) 08/18/2023 09:25:44 72 >=60 (mL/min) Final eGFR is calculated based on the CKD-EPI 2020 equation SODIUM 08/18/2023 09:25:44 140 135-146 (m mol/L) Final Potassium 08/18/2023 09:25:44 4.7 3.5-5.1 (m mol/L) Final Cl 08/18/2023 09:25:44 104 98-107 (mm ol/L) Final CO2 08/18/2023 09:25:44 26 22-32 (mmo l/L) Final Anion gap 08/18/2023 09:25:44 10 7-15 (mmol /L) Final Glucose 08/18/2023 09:25:44 104 70-120 (mg /dL) Final Albumin 08/18/2023 09:25:44 4.4 3.8-5.0 (g /dL) Final AST (Aspartate aminotransferase) 08/18/2023 09:25:44 14 10-35 (U/L) Final Alk Phos 08/18/2023 09:25:44 58 35-130 (U/ L) Final Bilirubin, Total 08/18/2023 09:25:44 0.5 <=1 .2 (mg/dL) Final Calcium 08/18/2023 09:25:44 9.6 8.4-10.2 ( mg/dL) Final Protein 08/18/2023 09:25:44 6.2 6.0-8.3 (g /dL) Final ALT (Alanine aminotransferase) 08/18/2023 09:25:44 23 10-35 (U/L) Final Performing Location [facility] - [facility] [address]. [facility] [address]
--- OUTSIDE RECORDS SUMMARY | 2023-09-11 00:11 | External Medical Summary | Summary of Care ---
Author Name Unknown Organization [facility] Address [address] [facility] [place] [address] Phone [phone] Care Team Providers Care Pocket Cutter Name Role Phone Connie Navarro MD Primary Care Provider Reason for Visit * Reason Comments Outpatient Testing Encounter Details Date Type Department Care Team (Late st Contact Info) Description 08/18/2023 9:10 AM EDT Laboratory Laboratory, [place] [address] [place] [address] [place] [address] [place] [address] Onychomycosis Allergies Active Allergy Reactions Criticality Noted Date Comments Aripiprazole Neuro complications (Please comment) High 09/30/2019 Tardive dyskinesia [place] (Diagnostic) Low 03/10/2015 Other reaction(s): STRAWBERRIES/TOMATO ES IN LARGE VOLUMES-ULCERS IIN MOUTH Tomato Low 09/30/2019 documented as of this encounter (statuses as of 08/18/2023) Medications Medication Sig Dispensed Refills Start Date [...] Active Additional Information Patient taking differently:1,000 mg [id number] PRN, Pain, Fever, Reported on 12/16/2022 Nebulizers (NEBULIZER COMPRESSOR) MISC Inhale via nebulizer. Use as directed. 1 Each 1 10/06/2018 Active albuterol-ipratrop ium (DUONEB) 2.5-0.5 MG/3ML nebulizer solution Inhale 3 mL via nebulizer 4 times a day. 360 Vial 0 04/16/2019 Active loratadine (RA LORATADINE) 10 MG TabletIndications: Chronic frontal sinusitis Take 1 Tab by mouth daily. 90 Tab 0 04/16/2019 Active [place] Carbonate 300 MG Oral Capsule (Eskalith) Take [...] for fingernail fungus. 42 Tablet 0 07/24/2023 3 Active OXcarbazepine 300 MG Oral Tablet (Trileptal) Take 1 Tablet by mouth in the morning and 1 Tablet before bedtime. 0 Active Acyclovir 400 MG Oral Tablet (Zovirax)Indicatio ns:Herpes genitalia TAKE ONE TABLET BY MOUTH TWICE DAILY 60 Tablet 11 08/14/2023 Active Levothyroxine Sodium 75 MCG Oral Tablet (Levoxyl)Indicatio ns:Hypothyroidism, unspecified type Take 1 Tablet by mouth daily first thing in the morning. on an empty stomach. 90 Tablet 1 08/16/2023 Active documented as of this encounter (statuses as of 08/18/2023) Active Problems Problem Noted Date Diagnosed Date [...] as of this encounter (statuses as of 08/18/2023) Resolved Problems Problem Noted Date Diagnosed Date [...] as of this encounter (statuses as of 08/18/2023) Immunizations Name Administration Dates Next Due COVID-19 mRNA, LNP-s, No Pre serve, 2-Dose Series (Moderna) 03/06/2021,02/06/2021 HepA Inact/HepB Recomb>=18yrs old 06/02/2012,,08/07/2011 Pneumococcal Conjugate Vacci ne, 20-valent ([id number]) 07/24/2022 Pneumococcal Polysaccharide PPV23 (Pneumovax) 07/29/2013 SEASONAL [...] Care Team (Late st Contact Info) Description 08/18/2023 11:10 AM EDT Anticoagulation Pharmacy, [place] [address] [place] [facility] [place] [address] [facility] [address] [address] MTHFR mutation (methylenetetrahydr ofolate reductase)* 2023 3:10 PM EST Anticoagulation Pharmacy, [place] [address] [address] [facility] [address] [address] 09/05/2023 8:00 AM EST Office Visit Family Practice [facility] [address] [facility] [place] [address] Connie Navarro MD [address] [facility] [place] [address] 11/04/2023 11:00 AM EST [facility]st [facility], [place] [address] [facility] [place] [address] 01/07/2024 11:15 AM EDT Imaging Radiology [address], [address] [place] [address] 01/19/2024 11:00 AM EDT Telemedicine Sleep Disorders Ctr [facility] [address] [facility] [place] [phone] Lynsey Kam, DO [address] [facility] [place] [address] 02/16/2024 10:30 AM EDT Office Visit [facility] Eye [address] [address] Uri Quintana, DO [address] [place] [address] 04/23/2024 2:00 PM EDT Office Visit Neurology [facility] [address] [facility] [place] [address] Vannesa Crouch, DO [address] [place] [address] 06/11/2024 11:20 AM EDT Office Visit Sleep Disorders Ctr [facility] [address] [facility] [place] [phone] Lynsey Kam, DO [address] [facility] [place] [address] 07/02/2024 9:40 AM EDT [facility]icine [facility] [place] [address] [place] [address] Cece Leary PA-C [address] [place] [phone] Pending Results Name Type Priority Associated Diagnoses Date /Time CBC WITH WBC DIFFERENTIAL Lab STAT Onychomycosis 08/18/2023 9:25 AM EDT COMPREHENSIVE METABOLIC PANEL Lab STAT Onychomycosis 08/18/2023 9:25 AM EDT CBC Lab STAT Onychomycosis 08/18/2023 9:25 AM EDT DIFFERENTIAL, AUTOMATED Lab STAT Onychomycosis 08/18/2023 9:25 AM EDT Health Maintenance Due Date Last [...] 11/28, 07/13/2020, Additional history exists Diabetes Screening 05/19/2026 05/19/2023, 1 , 08/07/2022, Additional history exists Lipid Panel 09/05/2026 [...] reductase)- Primary Disturbances of sulphur-bearing amino-acid metabolism Onychomycosis Dermatophytosis of nail documented in this encounter Advance Directives Latest [...] the patient have Health Care Power of Roof Bolting Coal Miner? No Code Status History Code Status Date Activated Date Inactivated Comments Full Code 09/19/2020 9:51 AM 09/19/2020 10:03 AM Th is order reflects the patients wishes and were consensually agreed upon. Question Answer Comments Discussion of Advance Directives occurred with: Patient Does the patient have a Living Will? No Does the patient have Health Care Power of Roof Bolting Coal Miner? No Full Code 08/18/2020 9:52 AM 08/18/2020 2:40 PM Thi s order reflects the patients wishes and were consensually agreed upon. Question Answer Comments Discussion of Advance Directives occurred with: Patient Does the patient have a Living Will? No Does the patient have Health Care Power of Roof Bolting Coal Miner? No Care Teams Pocket Cutter Relationship Specialty Start Date End Date Connie Navarro MD [address] [place] [address] PCP - General Internal Medicine 08/11/23 documented as of this encounter
--- OUTSIDE RECORDS SUMMARY | 2023-09-11 00:11 | External Medical Summary ---
Author Name Unknown Address Unknown Organization K01:[facility]ORY [facility] [address] Laboratory Report Ordering Provider Test Date Status LESTER VILLAGRAN 08/18/2023 09:25:44 Final Observation Date Value Abnormality Reference (Units ) Status WBC, Total 08/18/2023 09:25:44 5.90 4.00-10.80 (K/uL) Final RBC 08/18/2023 09:25:44 4.32 3.85-5.15 (M/uL) Final Hemoglobin 08/18/2023 09:25:44 14.1 12.0-15.3 (g/dL) Final HCT 08/18/2023 09:25:44 45.9 Above high normal 36.0-45.2 (%) Final MCV 08/18/2023 09:25:44 106.3 81.5-97.5 (fL) Final MCH 08/18/2023 09:25:44 32.6 27.0-34.0 (pg) Final MCHC 08/18/2023 09:25:44 30.7 32.0-36.0 (g/dL) Final RDW 08/18/2023 09:25:44 13.2 11.5-15.5 (%) Final Platelets 08/18/2023 09:25:44 196 140-400 (K/uL) Final MPV 08/18/2023 09:25:44 10.5 6.6-11.1 (fL) Final Nucleated erythrocytes/100 leukocytes [Ratio] in Blood by Automated count 08/18/2023 09:25:44 0 <=0 (/100 WBCs) Final Performing Location [facility] - [facility] [address] [facility] [address]
--- OUTSIDE RECORDS SUMMARY | 2023-09-11 00:11 | External Medical Summary | Summary of Care ---
Author Name Unknown Organization [facility] Address [address] [place] [address] Phone [phone] Care Team Providers Care Boring Machine Set Up Operator Name Role Phone Connie Navarro MD Primary Care Provider Encounter Details Date Type Department Care Team (Late st Contact Info) Description 08/19/2023 Orders Only Laboratory, [facility] [address] [facility] [place] [phone] Ronal Day, DO [address] [place] [address] Encounter for long-term (current) use of other medications* Allergies Active Allergy Reactions Criticality Noted Date Comments Aripiprazole Neuro complications (Please comment) High 09/30/2019 Tardive dyskinesia [place] (Diagnostic) Low 03/10/2015 Other reaction(s): STRAWBERRIES/TOMATO ES IN LARGE VOLUMES-ULCERS IIN MOUTH Tomato Low 09/30/2019 documented as of this encounter (statuses as of 08/19/2023) Medications Medication Sig Dispensed Refills Start Date [...] Active Additional Information Patient taking differently:1,000 mg [id number] PRN, Pain, Fever, Reported on 12/16/2022 Nebulizers (NEBULIZER COMPRESSOR) [facility] Inhale via nebulizer. Use as directed. 1 Each 1 10/06/2018 Active albuterol-ipratrop ium (DUONEB) 2.5-0.5 MG/3ML nebulizer solution Inhale 3 mL via nebulizer 4 times a day. 360 Vial 0 04/16/2019 Active loratadine (RA LORATADINE) 10 MG TabletIndications: Chronic frontal sinusitis Take 1 Tab by mouth daily. 90 Tab 0 04/16/2019 Active [place] Carbonate 300 MG Oral Capsule (Eskalith) Take [...] as of this encounter (statuses as of 08/19/2023) Active Problems Problem Noted Date Diagnosed Date [...] as of this encounter (statuses as of 08/19/2023) Resolved Problems Problem Noted Date Diagnosed Date [...] as of this encounter (statuses as of 08/19/2023) Immunizations Name Administration Dates Next Due COVID-19 mRNA, LNP-s, No Pre serve, 2-Dose Series (Moderna) 03/06/2021,02/06/2021 HepA Inact/HepB Recomb>=18yrs old 06/02/2012,,08/07/2011 Pneumococcal Conjugate Vacci ne, 20-valent ([id number]) 07/24/2022 Pneumococcal Polysaccharide PPV23 (Pneumovax) 07/29/2013 SEASONAL [...] Description 2023 3:10 PM EST [facility] [place] [address] [facility] [address] [facility] [address] [facility] [place] [address] 09/05/2023 8:00 AM EST Office Visit Family Practice [facility] [address] [place] [address] Connie Navarro MD [address] [place] [address] 11/04/2023 11:00 AM EST Imaging Radiology [facility]st [facility] [place] [address] [facility] [place] [address] 01/07/2024 11:15 AM EDT Imaging Radiology [address], [address] [place] [address] 01/19/2024 11:00 AM EDT [facility] [address] [facility] [place] [phone] Lynsey Kam, DO [address] [facility] [place] [address] 02/16/2024 10:30 AM EDT Office Visit [facility] Eye [address] [address] Uri Quintana, DO [address] [place] [address] 04/23/2024 2:00 PM EDT Office Visit Neurology [facility] [address] [place] [address] Vannesa Crouch, DO [address] [place] [address] 06/11/2024 11:20 AM EDT Office Visit Sleep Disorders Ctr [facility] [place] [address] [facility] [place] [phone] Lynsey Kam, DO [address] [facility] [place] [address] 07/02/2024 9:40 AM EDT Telemedicine Dermatology [facility] [place] [address] [place] [address] Cece Leray PA-C [address] [place] [phone] Scheduled Orders Name Type Priority Associated Diagnoses Orde r Schedule TSH Lab Routine Encounter for long-term (current) use of other medications Expected: 08/19/2023, Expires: 08/19/2024 LITHIUM LEVEL Lab Routine Encounter for long-term (current) use of other medications Expected: 08/19/2023, Expires: 08/19/2024 Health Maintenance Due Date Last Done Comments Cologuard 2020 Colonoscopy 2020 Colorectal Cancer Screening 2020 Fecal Occult Blood Test 2020 Sigmoidoscopy 2020 *SPIROMETRY ONCE FOR ASTHMA-ADULT 09/19/2022 Depression, Most Recent Score >= 10 (will fire each visit until score < 10) 11/22/2022 11/21/2022 COVID-19 Vaccine ( - season) 2023 03/06/2021, 02/06/2021 DTaP,Tdap,and Td [...] Encounter for long-term (current) use of other medications- Primary documented in this encounter Advance Directives [...] the patient have Health Care Power of Etl Software Engineer? No Code Status History Code Status Date Activated Date Inactivated Comments Full Code 09/19/2020 9:51 AM 09/19/2020 10:03 AM Th is order reflects the patients wishes and were consensually agreed upon. Question Answer Comments Discussion of Advance Directives occurred with: Patient Does the patient have a Living Will? No Does the patient have Health Care Power of Etl Software Engineer? No Full Code 08/18/2020 9:52 AM 08/18/2020 2:40 PM Thi s order reflects the patients wishes and were consensually agreed upon. Question Answer Comments Discussion of Advance Directives occurred with: Patient Does the patient have a Living Will? No Does the patient have Health Care Power of Etl Software Engineer? No Care Teams Boring Machine Set Up Operator Relationship Specialty Start Date End Date Connie Navarro MD [address] [place] [address] PCP - General Internal Medicine 08/11/23 documented as of this encounter
--- OUTSIDE RECORDS SUMMARY | 2023-09-11 00:11 | External Medical Summary ---
Author Name Unknown Address Unknown Organization : Laboratory Report Ordering Provider Test Date Status LORRI BARAHONA 08/18/2023 09:16:28 Final Therapeutic ranges for non-o perative patients:
Prophylaxsis/treatment of DVT: (Range:2.0-3.0)
Treatment of pulmonary embolism:(Range:2.0-3.0)
Prevention of systemic embolism from:
-tissue heart valves
-acute myocardial infarction
-valvular heart disease
-atrial fibrillation
(Range: 2.0-3.0)
Mechanical prosthetic valves: (Range: 2.5-3.5) Observation Date Value Abnormality Reference (Units ) Status INR in Capillary blood by Coagulation assay 08/18/2023 09:16:28 1.5 (INR) Final Performing Location
--- OUTSIDE RECORDS SUMMARY | 2023-09-11 00:11 | External Medical Summary | Summary of Care ---
Author Name Unknown Organization [facility] Address [address] [facility] [address] Phone [phone] Care Team Providers Care Rod Hanger Name Role Phone Connie Navarro MD Primary Care Provider Reason for Visit * Reason Comments eRx-Medication Refill Encounter Details Date Type Department Care Team Description 08/13/2023 Refill Family Practice [facility] [address] [place] [id number] Connie Navarro MD [address] [place] [address] Herpes genitalia Allergies Active Allergy Reactions Severity Noted Date Comments Aripiprazole Neuro complications (Please comment) High 09/30/2019 Tardive dyskinesia [place] (Diagnostic) Low 03/10/2015 Other reaction(s): STRAWBERRIES/TOMATOE S IN LARGE VOLUMES-ULCERS IIN MOUTH Tom[place] Low 09/30/2019 documented as of this encounter (statuses as of 08/14/2023) Medications Medication Sig Dispensed Refills Start Date End Date Status TRILEPTAL 300 MG PO TABS Take 1 Tablet by mouth in the morning and 1 Tablet before bedtime. 0 Active CELEXA 40 MG PO TABS Take 1 Tablet by mouth in the morning. 0 Active buPROPion HCl ER (XL) 150 MG Oral Tablet Extended Release 24 HourIndications:O ther depression Take 1 Tablet by mouth in the morning. 30 Tab 5 6 Active lamoTRIgine 100 MG Oral TabletIndications :Bipolar 2 disorder (HCC) Take 1 Tablet by mouth in the morning and 1 Tablet before bedtime. 0 7 Active KlonoPIN 0.5 MG Oral Tablet Take 1 Tablet by mouth in the morning. 30 Tab 0 7 Active acetaminophen (TYLENOL) 500 MG TabletIndications :Acute midline low back pain without sciatica,Pain in both knees, unspecified chronicity Take 2 Tabs by mouth every 8 hours. 100 Tab 0 7 Active Additional Information Patient taking differently:1,000 mg [id number] PRN, Pain, Fever, Reported on 12/16/2022 Nebulizers (NEBULIZER COMPRESSOR) MIS Inhale via nebulizer. Use as directed. 1 Each 1 8 Active albuterol-ipratro pium (DUONEB) 2.5-0.5 MG/3ML nebulizer solution Inhale 3 mL via nebulizer 4 times a day. 360 Vial 0 9 Active loratadine (RA LORATADINE) 10 MG TabletIndications :Chronic frontal sinusitis Take 1 Tab by mouth daily. 90 Tab 0 9 Active [place] Carbonate 300 MG Oral Capsule (Eskalith) Take [...] HFA 108 (90 Base) MCG/ACT Inhalation Aerosol SolutionIndicatio ns:Mild intermittent asthma without complication INHALE 2 PUFFS BY MOUTH NEEDED SHORT OF BREATH Strength: 108 (90 BASE) MCG/ACT 25.5 g 1 3 Active Levothyroxine Sodium 75 MCG Oral Tablet (Levoxyl)Indicati ons:Hypothyroidis m, unspecified type Take 1 Tablet by mouth daily first thing in the morning. on an empty stomach. 30 Tablet 5 3 Active metroNIDAZOLE 0.75 % Vaginal Gel (Metrogel-Vaginal ) Insert applicator into the vagina and administer [...] Active SUMAtriptan Succinate 50 MG Oral Tablet (Imitrex)Indicati ons:Migraine variant, intractable TAKE 2 TABLETS AT ONSET MIGRAINE MAY REPEAT 1 TABLET IN 2 HOURS- MAX OF 5 IN 24 HOURS 9 Tablet 1 3 Active Warfarin Sodium 10 MG Oral Tablet (Coumadin)Indicat ions:MTHFR mutation (methylenetetrahy drofolate reductase) Take 1.5 Tablets by mouth every evening. As directed. 135 Tablet 1 3 Active Spironolactone 50 MG Oral Tablet (Aldactone)Indica tions:Hidradeniti s 1.5 tablets twice daily w/food 270 Tablet 3 3 Active Efinaconazole 10 % External SolutionIndicatio ns:Onychomycosis Apply topically to affected area every evening. Apply to nails daily for 48 weeks. Ensure complete coverage of nail, nailfolds, nailbed, surrounding skin, under surface of nail. 8 mL 6 3 Active Terbinafine HCl 250 MG Oral Tablet (Lamisil)Indicati ons:Onychomycosis Take 1 Tablet by mouth in the morning. For 6 weeks for fingernail fungus. 42 Tablet 0 3 09/04/20 23 Active OXcarbazepine 300 MG Oral Tablet (Trileptal) Take 1 Tablet by mouth in the morning and 1 Tablet before bedtime. 0 Active Acyclovir 400 MG Oral Tablet (Zovirax)Indicati ons:Herpes genitalia TAKE ONE TABLET BY MOUTH TWICE DAILY 60 Tablet 11 3 Active Acyclovir 400 MG Oral Tablet (Zovirax)Indicati ons:Herpes genitalia Take 1 Tablet by mouth in the morning and 1 Tablet before bedtime. 180 Tablet 0 3 08/14/20 23 Discontinued documented as of this encounter (statuses as of 08/14/2023) Active Problems Problem Noted Date Body mass index (BMI) of 40.0 to 44.9 in adult 08/04/2023 Overview: Per Obesity protocol - Per Obesity protocol - Per Obesity protocol - Per Obesity protocol - - ASCUS with positive high risk HPV cervic al 04/23/2023 Vaginal itching 04/23/2023 Recurrent vaginitis 04/23/2023 Chronic allergic rhinitis 11/21/2022 Coagulation defect 11/21/2022 Mild intermittent asthma without complic ation 11/21/2022 Cervical high risk human papillomavirus (HPV) DNA test positive 12/29/2021 Overview: 06/2020 and with ASCUS pap 11/2021 Needs colposcopy. MERYL on CPAP 09/05/2021 Sacroiliac joint disease 09/02/2018 Trochanteric bursitis of both hips 09/02 Mild single current episode of major dep ressive disorder 09/19/2017 History of pulmonary embolism 07/24/2017 Bulimia nervosa 11/06/2014 MTHFR mutation (methylenetetrahydrofolat e reductase) 06/03/2013 Endometriosis Anxiety Asthma Bipolar 2 disorder Herpes genitalia HPV (human papilloma virus) infection Asthma flare documented as of this encounter (statuses as of 08/14/2023) Resolved Problems Problem Noted Date Resolved Date Body mass index (BMI) of 45.0 to 49.9 in adult 0 06/09/2023 08/07/2023 Overview: Per Obesity protocol - Per Obesity protocol - Per Obesity protocol - - Body mass index (BMI) of 50.0 to 59.9 in adult 0 04/07/2023 06/12/2023 Overview: Per Obesity protocol - Per Obesity protocol - - Body mass index (BMI) of 45.0 to 49.9 in adult 0 01/06/2023 04/10/2023 Overview: Per Obesity protocol - - Chondromalacia patellae, left knee 09/05/2021 04/09/2023 Other fracture of shaft of r ight fibula, initial encounter for closed fracture 09/05/2021 04/09/2023 Morbid obesity with BMI of 50.0-59.9, adult 10/0 05/201801/08/2023 Overview: Per Obesity protocol #1 - Body mass index (BMI) of 40.0 to 44.9 in adult 1 08/10/2018 Overview: Per Obesity protocol #1 Gastroesophageal reflux disease without esophagi tis 12/24/2016 04/09/2023 TMJ (dislocation of temporomandibular joint) 11/21/2022 Pulmonary embolus (HCC) (aka PULMONARY EMBOLUS ( HCC)) 06/07/2015 07/24/2017 Pulmonary embolism 05/25/2013 07/24/2017 Pulmonary embolism 07/29/2013 Depression 09/19/2017 documented as of this encounter (statuses as of 08/14/2023) Immunizations Name Administration Dates Next Due COVID-19 mRNA, LNP-s, No Pre serve, 2-Dose Series (Moderna) 03/06/2021,02/06/2021 HepA Inact/HepB Recomb>=18yrs old 06/02/2012,,08/07/2011 Pneumococcal Conjugate Vacci ne, 20-valent ([id number]) 07/24/2022 Pneumococcal Polysaccharide PPV23 (Pneumovax) 07/29/2013 SEASONAL [...] pur e alcohol) maybe once a year Food Insecurity Answer Date Recorded Within the past 12 months, y ou worried that your food would run out before you got money to buy more. Never true 07/28/2020 Within the past 12 months, t he food you bought just didn't last and you didn't have money to get more. Never true 07/28/2020 Sex Assigned at Date Recorded Female 07/28/2020 11:19 AM EDT Job Start Date Occupation Industry [...] encounter Miscellaneous Notes * Telephone Encounter - Kal Bravo [facility] - 08/14/2023 10:37 AM EDTSigned Prescriptions: Disp Refills Acyclovir 400 MG Oral Tablet (Zovirax) 60 Tab*11 Sig: TAKE ONE TABLET BY MOUTH TWICE DAILYAuthorizing Provider: CONNIE NAVARRO User: KAL BRAVO documented in this encounter Plan of Treatment Upcoming Encounters Date Type Specialty Care Team Description 08/18/2023 Anticoagulation Pharmacy [place], [facility] [address] [facility] [place] [address] 09/05/2023 Office Visit Family Medicine Connie Navarro MD [address] [place] [address] 11/04/2023 Imaging Radiology 01/07/2024 Imaging Radiology 01/19/2024 Telemedicine Sleep Disorders Lynsey Kam, DO [address] [place] [address] 02/16/2024 Office Visit Ophthalmology Uri Quintana, DO [address] [place] [address] 04/23/2024 Office Visit Neurology Vannesa Crouch, DO [address] [place] [address] 06/11/2024 Office Visit Sleep Disorders Lynsey Kam, DO [address] [place] [address] 07/02/2024 Telemedicine Dermatology Cece Leary PA-C [address] [place] [phone] Health Maintenance Due Date [...] as of this encounter Visit Diagnoses Diagnosis Herpes genitalia Genital herpes, unspecified documented in this encounter Advance Directives Latest [...] the patient have Health Care Power of Mortgage Loan Assistant? No Code Status History Code Status Date Activated Date Inactivated Comments Full Code 09/19/2020 9:51 AM 09/19/2020 10:03 AM Th is order reflects the patients wishes and were consensually agreed upon. Question Answer Comments Discussion of Advance Directives occurred with: Patient Does the patient have a Living Will? No Does the patient have Health Care Power of Mortgage Loan Assistant? No Full Code 08/18/2020 9:52 AM 08/18/2020 2:40 PM Thi s order reflects the patients wishes and were consensually agreed upon. Question Answer Comments Discussion of Advance Directives occurred with: Patient Does the patient have a Living Will? No Does the patient have Health Care Power of Mortgage Loan Assistant? No Care Teams Rod Hanger Relationship Specialty Start Date End Date Connie Navarro MD [address] [place] [address] PCP - General Internal Medicine 08/11/23 documented as of this encounter
--- OUTSIDE RECORDS SUMMARY | 2023-09-11 00:11 | External Medical Summary | Summary of Care ---
Author Name Unknown Organization [facility] Address [address] [facility] [address] Phone [phone] Care Team Providers Care Wood Flour Miller Name Role Phone Connie Navarro MD Primary Care Provider Reason for Visit * Reason Comments eRx-Medication Refill Encounter Details Date Type Department Care Team (Late st Contact Info) Description [facility] [address] [facility] [place] [address] Alexy Anna PA-C [address] [facility] [place] [address] Vaginal itching; Recurrent vaginitis; Herpes genitalia Allergies Active Allergy Reactions Criticality Noted Date Comments Aripiprazole Neuro complications (Please comment) High 09/30/2019 Tardive dyskinesia [place] (Diagnostic) Low 03/10/2015 Other reaction(s): STRAWBERRIES/TOMATO ES [...] Active Additional Information Patient taking differently:1,000 mg [id number] PRN, Pain, Fever, Reported on 12/16/2022 Nebulizers (NEBULIZER COMPRESSOR) [facility] Inhale via nebulizer. Use as directed. 1 Each 1 8 Active albuterol-ipratr opium (DUONEB) 2.5-0.5 MG/3ML nebulizer solution Inhale 3 mL via nebulizer 4 times a day. 360 Vial 0 9 Active loratadine (RA LORATADINE) 10 MG TabletIndication s:Chronic frontal sinusitis Take 1 Tab by mouth daily. 90 Tab 0 9 Active [place] Carbonate 300 MG Oral Capsule (Eskalith) Take [...] old 06/02/2012,,08/07/2011 Pneumococcal Conjugate Vacci ne, 20-valent ([id number]) 07/24/2022 Pneumococcal Polysaccharide PPV23 (Pneumovax) 07/29/2013 SEASONAL [...] encounter Miscellaneous Notes * Telephone Encounter - Lizeth Galarza LPN - 08/19/2023 9:14 AM EDT Patient saw Dr. Paige for vulvar biopsy as recommended by Dr. Lo if no relief after his advised treatment. Dr. Paige recommended no further irritants to be added, biopsy neg for LS. Patient should follow up with Dr. Lo or schedule New Patient appointment with Dr. Mathew if she wishes to see him. MyG sent * Telephone Encounter - Connie Navarro MD - 08/18/2023 10:45 PM EDT Refused Prescriptions: Disp Refills Clotrimazole 1 % Vaginal Cream 45 g 0 Sig: ADMINISTER ABOUT 5G INTO THE VAGINA AT BEDTIME FOR 7 DAYS.Refused By: Clayton AGUEROon for Refusal: Contraindicated-- * Telephone Encounter - Connie Navarro MD - 08/18/2023 10:42 PM EDT Patient has been following with Loan Reviewer for these concerns. Will defer to them for recommendation. * Addendum Note - Steve Aguero LPN - 08/18/2023 12:08 PM EDTAddended by: STEVE AGUERO on: 08/18/2023 12:08 PM Modules accepted: Orders * Telephone Encounter - Steve Aguero LPN - 08/18/2023 12:04 PM EDT Please review my g message regarding med request. Also asking if acyclovir Rx can be sent to [facility]. * Telephone Encounter - Steve Aguero LPN - 08/14/2023 8:07 AM EDTRefused Prescriptions: Disp Refills Clotrimazole 1 % Vaginal Cream 45 g 0 Sig: ADMINISTER ABOUT 5GINTO THE VAGINA AT BEDTIME FOR 7 DAYS.Refused By: Dayron AGUERO for Refusal: Contraindicated- * Telephone Encounter - Steve Aguero LPN - 08/14/2023 8:07 AM EDT Sent my g * Telephone Encounter - Connie Navarro MD - 08/13/2023 4:20 PM EDT Pending Prescriptions: Disp Refills Clotrimazole 1 % Vaginal Cream [Pharmacy M*45 g 0 Sig: ADMINISTER ABOUT 5G INTO THE VAGINA AT BEDTIME FOR 7 DAYS. * Telephone Encounter - Connie Navarro MD - 08/13/2023 4:19 PM EDT Please get more details regarding patient's request for clotrimazole refill. * Telephone Encounter - Zoila Gilman MD - 08/13/2023 11:34 AM EDTPending Prescriptions: Disp Refills Clotrimazole 1 % Vaginal Cream [Pharmacy M*45 g 0 Sig: ADMINISTER ABOUT 5G INTO THE VAGINA AT BEDTIME FOR 7 DAYS. documented in this encounter Plan of Treatment Upcoming Encounters Date Type Department Care Team (Late st Contact Info) Description 2023 3:10 PM EST Anticoagulation [facility] [place] [address] [facility] [address] [facility] [address] [facility] [address] 09/05/2023 8:00 AM EST Office Visit Family Practice [facility] [address] [facility] [place] [address] Connie Navarro MD [address] [facility] [place] [phone] 11/04/2023 11:00 AM EST Imaging Radiology [facility] [address]st [facility], [address] [place] [address] 01/07/2024 11:15 AM EDT Imaging Radiology [address], [address] [place] [address] 01/19/2024 11:00 AM EDT Telemedicine Sleep Disorders Ctr [facility] [address] [facility] [place] [phone] Lynsey Kam, DO [address] [facility] [place] [address] 02/16/2024 10:30 AM EDT Office Visit [facility] Eye [facility] [address] [place] [address] Uri Quintana, DO [address] [place] [address] 04/23/2024 2:00 PM EDT Office Visit Neurology [facility] [address] [place] [address] Vannesa Crouch, DO [address] [facility] [place] [address] 06/11/2024 11:20 AM EDT Office Visit Sleep Disorders [facility]tr [facility] [address] [place] [phone] Lynsey Kam, DO [address] [place] [address] 07/02/2024 9:40 AM EDT Telemedicine Dermatology [facility] [address] [place] [address] Cece Leary PA-C [address] [place] [...] as of this encounter Visit Diagnoses Diagnosis Vaginal itching Pruritus of genital organs Recurrent vaginitis Vaginitis and vulvovaginitis, unspecified Herpes genitalia Genital herpes, unspecified documented in [...] the patient have Health Care Power of Historic Sites Registrar? No Code Status History Code Status Date Activated Date Inactivated Comments Full Code 09/19/2020 9:51 AM 09/19/2020 10:03 AM Th is order reflects the patients wishes and were consensually agreed upon. Question Answer Comments Discussion of Advance Directives occurred with: Patient Does the patient have a Living Will? No Does the patient have Health Care Power of Historic Sites Registrar? No Full Code 08/18/2020 9:52 AM 08/18/2020 2:40 PM Thi s order reflects the patients wishes and were consensually agreed upon. Question Answer Comments Discussion of Advance Directives occurred with: Patient Does the patient have a Living Will? No Does the patient have Health Care Power of Historic Sites Registrar? No Care Teams Wood Flour Miller Relationship Specialty Start Date End Date Connie Navarro MD [address] [place] [address] PCP - General Internal Medicine 08/11/23 documented as of this encounter
--- OUTSIDE RECORDS SUMMARY | 2023-09-11 00:11 | External Medical Summary | Summary of Care ---
Author Name Unknown Organization [facility] Address [address] [facility] [place] [address] Phone [phone] Care Team Providers Care Atg Architect Name Role Phone Connie Navarro MD Primary Care Provider Reason for Visit * Reason Comments Dosage Adjustment In Person (Anticoag Cl inic) Encounter Details Date Type Department Care Team (Latest Contact Info) Description 08/18/2023 11:10 AM EDT Anticoagulation Pharmacy, [place] [address] [place] [address] [facility] [address] [place] [address] MTHFR mutation (methylenetetrahydro folate reductase)* Allergies Active Allergy Reactions Criticality Noted Date Comments Aripiprazole Neuro complications (Please comment) High 09/30/2019 Tardive dyskinesia [place] (Diagnostic) Low 03/10/2015 Other reaction(s): STRAWBERRIES/TOMATO ES [...] Active Additional Information Patient taking differently:1,000 mg [id number] PRN, Pain, Fever, Reported on 12/16/2022 Nebulizers (NEBULIZER COMPRESSOR) [facility] Inhale via nebulizer. Use as directed. 1 Each 1 10/06/2018 Active albuterol-ipratrop ium (DUONEB) 2.5-0.5 MG/3ML nebulizer solution Inhale 3 mL via nebulizer 4 times a day. 360 Vial 0 04/16/2019 Active loratadine (RA LORATADINE) 10 MG TabletIndications: Chronic frontal sinusitis Take 1 Tab by mouth daily. 90 Tab 0 04/16/2019 Active [place] Carbonate 300 MG Oral Capsule (Eskalith) Take [...] old 06/02/2012,,08/07/2011 Pneumococcal Conjugate Vacci ne, 20-valent ([id number]) 07/24/2022 Pneumococcal Polysaccharide PPV23 (Pneumovax) 07/29/2013 SEASONAL [...] this encounter Progress Notes * Jennifer Chandler, [facility] - 08/18/2023 9:11 AM EDT Images from the original note were not included. Medication Therapy Disease Management - Anticoagulation Patient: Rody Jean Baptiste | : 1975 Subjective Patient-Reported Symptoms: Patient Findings Positives: Change in activity (walking on the treadmill 30 mins per day), Change in medications (started terbinafine; also started Biocidin supplement), Change in diet/appetite (kale and spinnich in her smoothie, but this is not new) Negatives: Signs/symptoms of thrombosis, Signs/symptoms of bleeding, Change in health, Change in alcohol use, Upcoming invasive procedure, Missed doses, Extra doses, Bruising Objective Current Warfarin Dose As of 08/18/2023 Warfarin maintenance plan: 10 mg (5 mg x 2) every Sun; 15 mg (5 mg x 3) all other days INR Result As of 08/18/2023 INR goal: 2.0-3.0 INR used for dosin.5 (08/18/2023) Assessment & Plan Warfarin Plan As of 08/18/2023 Full warfarin instructions: 08/18: 20 mg; 08/19: 20 mg; Otherwise 10 mg every Sun; 15 mg all other days Next INR check: 2023 Repeat PT/INR in 2 week(s) Weekly dose: not changed Additional Dosing Information: Description 10 mg tablets sent to pharmacy 07/04/23 to help reduce patient's pill burden. Counseling given thattablets will now be white. Jennifer Chandler [facility] Clinical Pharmacist 08/18/2023, 9:11 AM documented in this encounter Plan of Treatment Upcoming Encounters Date Type Department Care Team (Late st Contact Info) Description 2023 3:10 PM EST Anticoagulation Pharmacy, [place] [address] [place] [address] [facility] [address] [place] [address] 09/05/2023 8:00 AM EST Office Visit Family Practice [facility] [address] [place] [address] Connie Navarro MD [address] [place] [address] 11/04/2023 11:00 AM EST Imaging Radiology [address] [place] [address] 01/07/2024 11:15 AM EDT Imaging Radiology [address] [place] [address] 01/19/2024 11:00 AM EDT [facility] [address] [facility] [place] [phone] Lynsey Kam, DO [address] [facility] [place] [address] 02/16/2024 10:30 AM EDT Office Visit [facility] [address] [address] Uri Quintana, DO [address] [place] [address] 04/23/2024 2:00 PM EDT Office Visit Neurology [facility] [address] [place] [address] Vannesa Crouch, DO [address] [place], [place] [phone] 06/11/2024 11:20 AM EDT Office Visit Sleep Disorders Ctr [facility] [place] [address] [facility] [place] [phone] Lynsey Kam, DO [address] [facility] [place] [address] 07/02/2024 9:40 AM EDT Telemedicine Dermatology [facility] [address] [place] [address] Cece Leary PA-C [address] [facility] [place] [phone] Health Maintenance Due Date Last Done Comments [...] Comments INR FINGERSTICK, POINT OF CARE STAT 08/18/2023 9:16 AM EDT MTHFR mutation (methylenetetrahydr ofolate reductase) documented in this encounter Results * INR FINGERSTICK, POINT OF CARE (08/18/2023 9:16 AM EDT) Fingerstick INR 1.5 INR 9:18 AM EDT [facility]01 Blood 08/18/2023 9:16 AM EDT 08/18/2023 9:18 AM EDT Narrative [facility]- - 08/18/2023 9:18 AM EDT Therapeutic ranges for non-operative patients: Prophylaxsis/treatment of DVT: (Range:2.0-3.0) Treatment of pulmonary embolism:(Range:2.0-3.0) Prevention of systemic embolism from: -tissue heart valves -acute myocardial infarction -valvular heart disease -atrial fibrillation (Range: 2.0-3.0) Mechanical prosthetic valves: (Range: 2.5-3.5) Thuan Barajas [facility] POINT OF CAR E TEST DOCKED DEVICE UNSOLICITED RESULTS [facility] [address] [place] [address] documented in this encounter Visit Diagnoses Diagnosis [...] the patient have Health Care Power of Tnt Powder Worker? No Code Status History Code Status Date Activated Date Inactivated Comments Full Code 09/19/2020 9:51 AM 09/19/2020 10:03 AM Th is order reflects the patients wishes and were consensually agreed upon. Question Answer Comments Discussion of Advance Directives occurred with: Patient Does the patient have a Living Will? No Does the patient have Health Care Power of Tnt Powder Worker? No Full Code 08/18/2020 9:52 AM 08/18/2020 2:40 PM Thi s order reflects the patients wishes and were consensually agreed upon. Question Answer Comments Discussion of Advance Directives occurred with: Patient Does the patient have a Living Will? No Does the patient have Health Care Power of Tnt Powder Worker? No Care Teams Atg Architect Relationship Specialty Start Date End Date Connie Navarro MD [address] [place] [address] PCP - General Internal Medicine 08/11/23 documented as of this encounter"
--- OUTSIDE RECORDS SUMMARY | 2023-09-11 00:11 | External Medical Summary ---
Author Name Unknown Address Unknown Organization K01:[facility] [place] - [address] [facility] [address] Laboratory Report Ordering Provider Test Date Status LESTER VILLAGRAN 08/18/2023 09:25:44 Final Observation Date Value Abnormality Reference (Units ) Status SYNC LEUKOCYTES IN BLOOD BY AUTOMATED COUNT 08/18/2023 09:25:44 5.90 4.00-10.80 (K/uL) Final Segs 08/18/2023 09:25:44 64.3 40.0-75.0 (%) Final Lymphs % 08/18/2023 09:25:44 22.0 18.0-42.0 (%) Final Monos 08/18/2023 09:25:44 10.2 1.0-11.0 (%) Final Eosinophils 08/18/2023 09:25:44 2.9 0.0-6.0 (%) Final Basos 08/18/2023 09:25:44 0.3 0.0-2.0 (%) Final Immature Granulocyte, Percent 08/18/2023 09:25:44 0.3 0.0-2.0 (%) Final Absolute Segs 08/18/2023 09:25:44 3.79 1.80-7.70 (K/uL) Final Lymphs, absolute 08/18/2023 09:25:44 1.30 1.00-4.80 (K/ul) Final Monos, Abs 08/18/2023 09:25:44 0.60 0.00-1.10 (K/uL) Final Eos, Abs 08/18/2023 09:25:44 0.17 0.00-0.70 (K/uL) Final Basos, Abs 08/18/2023 09:25:44 0.02 0.00-0.20 (K/uL) Final Immature Granulocytes, Number 08/18/2023 09:25:44 0.02 0.00-0.20 (K/uL) Final Performing Location [facility] [place] - [address] [facility] [address]
--- OUTSIDE RECORDS SUMMARY | 2023-09-11 00:11 | External Medical Summary | Summary of Care ---
Author Name Unknown Organization [facility] Address [address] [facility] [address] Phone [phone] Care Team Providers Care Obiee Obia Solution Architect Name Role Phone Connie Navarro MD Primary Care Provider Reason for Visit * Reason Comments eRx-Medication Refill Encounter Details Date Type Department Care Team (Late st Contact Info) Description 08/[facility] [address] [facility] [place] [phone] Alexy Anna PA-C [address] [facility] [place] [address] Vaginal itching; Recurrent vaginitis; Herpes genitalia Allergies Active Allergy Reactions Criticality Noted Date Comments Aripiprazole Neuro complications (Please comment) High 09/30/2019 Tardive dyskinesia [place] (Diagnostic) Low 03/10/2015 Other reaction(s): STRAWBERRIES/TOMATO ES [...] Active Additional Information Patient taking differently:1,000 mg [id number] PRN, Pain, Fever, Reported on 12/16/2022 Nebulizers (NEBULIZER COMPRESSOR) [facility] Inhale via nebulizer. Use as directed. 1 Each 1 8 Active albuterol-ipratr opium (DUONEB) 2.5-0.5 MG/3ML nebulizer solution Inhale 3 mL via nebulizer 4 times a day. 360 Vial 0 9 Active loratadine (RA LORATADINE) 10 MG TabletIndication s:Chronic frontal sinusitis Take 1 Tab by mouth daily. 90 Tab 0 9 Active [place] Carbonate 300 MG Oral Capsule (Eskalith) Take [...] old 06/02/2012,,08/07/2011 Pneumococcal Conjugate Vacci ne, 20-valent ([id number]) 07/24/2022 Pneumococcal Polysaccharide PPV23 (Pneumovax) 07/29/2013 SEASONAL [...] as of this encounter Miscellaneous Notes * Addendum Note - Steve Aguero LPN [...] VAGINA AT BEDTIME FOR 7 DAYS.Refused By: AMY AGUEROeason for Refusal: Contraindicated- * Telephone Encounter - Steve Aguero LPN - 08/14/2023 8:07 AM EDT Sent my g * Telephone Encounter - Connie Navraro MD - 08/13/2023 4:20 PM EDT Pending [...] Description 2023 3:10 PM EST Anticoagulation Pharmacy, [place] [address] [place] [facility] [place] [address] [facility] [address] [place] [address] 09/05/2023 8:00 AM EST Office Visit Family Practice [facility] [address] [place] [address] Connie Navarro MD [address] [place] [address] 11/04/2023 11:00 AM EST Imaging Radiology [address] [place] [address] 01/07/2024 11:15 AM EDT Imaging Radiology [address] [place] [address] 01/19/2024 11:00 AM EDT Telemedicine Sleep Disorders Ctr [facility] [address] [place] [phone] Lynsey Kam DO [address] [place] [address] 02/16/2024 10:30 AM EDT Office Visit [facility] Eye [facility] [address] [place] [address] Uri Quintana, DO [address] [place] [address] 04/23/2024 2:00 PM EDT Office Visit Neurology [facility] [address] [place] [address] Vannesa Crouch, DO [address] [place] [address] 06/11/2024 11:20 AM EDT Office Visit Sleep Disorders Ctr [facility] [address] [place] [phone] Lynsey Kam, DO [address] [place] [address] 07/02/2024 9:40 AM EDT Telemedicine Dermatology [facility] [address] [place] [address] Cece Leary PA-C 200 [facility] [place] [phone] Health Maintenance Due Date Last Done Comments [...] the patient have Health Care Power of Green Chain Worker? No Code Status History Code Status Date Activated Date Inactivated Comments Full Code 09/19/2020 9:51 AM 09/19/2020 10:03 AM Th is order reflects the patients wishes and were consensually agreed upon. Question Answer Comments Discussion of Advance Directives occurred with: Patient Does the patient have a Living Will? No Does the patient have Health Care Power of Green Chain Worker? No Full Code 08/18/2020 9:52 AM 08/18/2020 2:40 PM Thi s order reflects the patients wishes and were consensually agreed upon. Question Answer Comments Discussion of Advance Directives occurred with: Patient Does the patient have a Living Will? No Does the patient have Health Care Power of Green Chain Worker? No Care Teams Obiee Obia Solution Architect Relationship Specialty Start Date End Date Connie Navarro MD [address] [place] [phone] PCP - General Internal Medicine 08/11/23 documented as of this encounter
--- OUTSIDE RECORDS SUMMARY | 2023-09-11 00:11 | External Medical Summary | Summary of Care ---
Author Name Unknown Organization [facility] Address [address] [facility] [place] [address] Phone [phone] Care Team Providers Care Top Cutter Name Role Phone Antonella Navarro MD Primary Care Provider Reason for Visit * Reason Onset Date Comments Medication Refill 08/18/2023 Encounter Details Date Type Department Care Team (Late st Contact Info) Description 08/18/2023 Refill Family Practice [facility] [address] [facility] [place] [address] Aleksandra Feliz MD [address] [place] [address] Herpes genitalia Allergies Active Allergy Reactions Criticality Noted Date Comments Aripiprazole Neuro complications (Please comment) High 09/30/2019 Tardive dyskinesia [place] (Diagnostic) Low 03/10/2015 Other reaction(s): STRAWBERRIES/TOMATO ES [...] 5 10/23/2016 Active lamoTRIgine 100 MG Oral TabletIndications :Bipolar 2 disorder (HCC) Take 1 Tablet by mouth in the morning and 1 Tablet before bedtime. 0 12/24/2016 Active KlonoPIN 0.5 MG Oral Tablet Take 1 Tablet by mouth in the morning. 30 Tab 0 2017 Active acetaminophen (TYLENOL) 500 MG TabletIndications :Acute midline low back pain without sciatica,Pain in both knees, unspecified chronicity Take 2 Tabs by mouth every 8 hours. 100 Tab 0 2017 Active Additional Information Patient taking differently:1,000 mg [id number] PRN, Pain, Fever, Reported on 12/16/2022 Nebulizers (NEBULIZER COMPRESSOR) [facility] Inhale via nebulizer. Use as directed. 1 Each 1 10/06/2018 Active albuterol-ipratro pium (DUONEB) 2.5-0.5 MG/3ML nebulizer solution Inhale 3 mL via nebulizer 4 times a day. 360 Vial 0 04/16/2019 Active loratadine (RA LORATADINE) 10 MG TabletIndications :Chronic frontal sinusitis Take 1 Tab by mouth daily. 90 Tab 0 04/16/2019 Active [place] Carbonate 300 MG Oral Capsule (Eskalith) Take [...] 02/24/2023 Active metroNIDAZOLE 0.75 % Vaginal Gel (Metrogel-Vaginal [...] 07/04/2023 Active Spironolactone 50 MG Oral Tablet (Aldactone)Indica tions:Hidradeniti s 1.5 tablets twice daily w/food 270 Tablet 3 07/04/2023 Active Efinaconazole 10 % External SolutionIndicatio ns:Onychomycosis [...] 08/16/2023 Active Acyclovir 400 MG Oral Tablet (Zovirax)Indicati ons:Herpes genitalia Take 1 Tablet by mouth in the morning and 1 Tablet before bedtime. 180 Tablet 3 08/19/2023 Active Acyclovir 400 MG Oral Tablet (Zovirax)Indicati ons:Herpes genitalia TAKE ONE TABLET BY MOUTH TWICE DAILY 60 Tablet 11 08/14/2023 3 Discontinu ed(Refill) documented as of this encounter (statuses as [...] old 06/02/2012,,08/07/2011 Pneumococcal Conjugate Vacci ne, 20-valent ([id number]) 07/24/2022 Pneumococcal Polysaccharide PPV23 (Pneumovax) 07/29/2013 SEASONAL [...] encounter Miscellaneous Notes * Telephone Encounter - Jenniffer Friedman, [facility] - 08/19/2023 7:41 AM EDTSigned Prescriptions: Disp Refills Acyclovir 400 MG Oral Tablet (Zovirax) 180 Ta*3 Sig: Take 1 Tablet by mouth in the morning and 1 Tablet before bedtime.Authorizing Provider: ANTONELLA NAVARRO User: JENNIFFER ARENAS documented in this encounter Plan of Treatment Upcoming Encounters Date Type Department Care Team (Late st Contact Info) Description 2023 3:10 PM EST [facility]ticoagulation [facility] [place] [address] [facility] [address] [facility] [address] [facility] [address] 09/05/2023 8:00 AM EST Office Visit Family Practice [facility] 132 [facility] [place] [address] Antonella Navarro MD 132 [facility] [place] [phone] 11/04/2023 11:00 AM EST Imaging Radiology [address] 132 [facility] [place] [address] 01/07/2024 11:15 AM EDT Imaging Radiology [address] [place] [address] 01/19/2024 11:00 AM EDT Telemedicine Sleep Disorders Ctr [facility] 132 [facility] [place] [phone] Lynsey Kam, DO [address] [place] [address] 02/16/2024 10:30 AM EDT Office Visit [facility] [address] [place] [address] Uri Quintana, DO [address] [place] [address] 04/23/2024 2:00 PM EDT Office Visit Neurology [facility] [address] [place] [address] Vannesa Crouch, DO [address] [facility] [place] [address] 06/11/2024 11:20 AM EDT Office Visit Sleep Disorders Ctr [facility] [address] [place] [phone] Lynsey Kam, DO [address] [place] [address] 07/02/2024 9:40 AM EDT Telemedicine Dermatology [facility] [address] [place] [address] Cece Leary PA-C [address] [place] [...] the patient have Health Care Power of Petroleum Refining Equipment Operator? No Code Status History Code Status Date Activated Date Inactivated Comments Full Code 09/19/2020 9:51 AM 09/19/2020 10:03 AM Th is order reflects the patients wishes and were consensually agreed upon. Question Answer Comments Discussion of Advance Directives occurred with: Patient Does the patient have a Living Will? No Does the patient have Health Care Power of Petroleum Refining Equipment Operator? No Full Code 08/18/2020 9:52 AM 08/18/2020 2:40 PM Thi s order reflects the patients wishes and were consensually agreed upon. Question Answer Comments Discussion of Advance Directives occurred with: Patient Does the patient have a Living Will? No Does the patient have Health Care Power of Petroleum Refining Equipment Operator? No Care Teams Top Cutter Relationship Specialty Start Date End Date Antonella Navarro MD [address] [address] PCP - General Internal Medicine 08/11/23 documented as of this encounter
--- OUTSIDE RECORDS SUMMARY | 2023-09-11 00:11 | External Medical Summary | Summary of Care ---
Author Name Unknown Organization [facility] Address [address] [facility] [address] Phone [phone] Care Team Providers Care Guest Relations Receptionist Name Role Phone Connie Navarro MD Primary Care Provider Reason for Visit * Reason Comments eRx-Medication Refill Encounter Details Date Type Department Care Team (Late st Contact Info) Description [facility] [address] [facility] [place] [address] Alexy Anna PA-C 174 [facility] [place] [address] Vaginal itching; Recurrent vaginitis; Herpes genitalia Allergies Active Allergy Reactions Criticality Noted Date Comments Aripiprazole Neuro complications (Please comment) High 09/30/2019 Tardive dyskinesia [place] (Diagnostic) Low 03/10/2015 Other reaction(s): STRAWBERRIES/TOMATO ES [...] Active Additional Information Patient taking differently:1,000 mg [id number] PRN, Pain, Fever, Reported on 12/16/2022 Nebulizers (NEBULIZER COMPRESSOR) [facility] Inhale via nebulizer. Use as directed. 1 Each 1 8 Active albuterol-ipratr opium (DUONEB) 2.5-0.5 MG/3ML nebulizer solution Inhale 3 mL via nebulizer 4 times a day. 360 Vial 0 9 Active loratadine (RA LORATADINE) 10 MG TabletIndication s:Chronic frontal sinusitis Take 1 Tab by mouth daily. 90 Tab 0 9 Active [place] Carbonate 300 MG Oral Capsule (Eskalith) Take [...] old 06/02/2012,,08/07/2011 Pneumococcal Conjugate Vacci ne, 20-valent ([id number]) 07/24/2022 Pneumococcal Polysaccharide PPV23 (Pneumovax) 07/29/2013 SEASONAL [...] encounter Miscellaneous Notes * Telephone Encounter - Connie Navarro MD - 08/18/2023 10:45 PM EDT Refused Prescriptions: Disp Refills Clotrimazole 1 % Vaginal Cream 45 g 0 Sig: ADMINISTER ABOUT 5G INTO THE VAGINA AT BEDTIME FOR 7 DAYS.Refused By: Dayron AGUERO for Refusal: Contraindicated-- * Telephone Encounter - Connie Navarro MD - 08/18/2023 10:42 PM EDT Patient has been following with Roof Mechanic for these concerns. Will defer to them [...] 7 DAYS.Refused By: AMY AGUEROeason for Refusal: Contraindicated-- * Telephone Encounter - Steve Aguero LPN [...] Description 2023 3:10 PM EST [facility], [place] [address] [facility] [phone] [place] [address] [facility] [phone] 09/05/2023 8:00 AM EST Office Visit Family Practice [facility] 132 [facility] [place] [address] Connie Navarro MD 132 [facility] [place] [phone] 11/04/2023 11:00 AM EST Imaging Radiology [facility] 1st [facility], [address] [place] [address] 01/07/2024 11:15 AM EDT Imaging Radiology [address], [address] [place] [address] 01/19/2024 11:00 AM EDT Telemedicine Sleep Disorders Ctr [address] [phone] Lynsey Kam, DO 132 [facility] [address] 02/16/2024 10:30 AM EDT Office Visit [facility] Eye [address] [address] Uri Quintana, DO [address] [place] [address] 04/23/2024 2:00 PM EDT Office Visit Neurology [facility] 200 [place] [address] Vannesa Crouch, DO [address] [place] [address] 06/11/2024 11:20 AM EDT Office Visit Sleep Disorders Ctr [facility] 132 [facility] [place] [phone] Lynsey Kam, DO 132 [facility] [place] [address] 07/02/2024 9:40 AM EDT Telemedicine Dermatology [facility] [place] [address] [place] [address] Cece Leary PA-C [address] [place] [phone] Health Maintenance Due Date Last Done Comments [...] the patient have Health Care Power of Nurse Intern? No Code Status History Code Status Date Activated Date Inactivated Comments Full Code 09/19/2020 9:51 AM 09/19/2020 10:03 AM Th is order reflects the patients wishes and were consensually agreed upon. Question Answer Comments Discussion of Advance Directives occurred with: Patient Does the patient have a Living Will? No Does the patient have Health Care Power of Nurse Intern? No Full Code 08/18/2020 9:52 AM 08/18/2020 2:40 PM Thi s order reflects the patients wishes and were consensually agreed upon. Question Answer Comments Discussion of Advance Directives occurred with: Patient Does the patient have a Living Will? No Does the patient have Health Care Power of Nurse Intern? No Care Teams Guest Relations Receptionist Relationship Specialty Start Date End Date Connie Navarro MD 132 [facility] [place] [phone] PCP - General Internal Medicine 08/11/23 documented as of this encounter
--- OUTSIDE RECORDS SUMMARY | 2023-09-11 00:12 | External Medical Summary | Summary of Care ---
Author Name Unknown Organization [facility] Address [address] [address] Phone [phone] Care Team Providers Care Crosscutter Name Role Phone Aleksandra Feliz MD Primary Care Provider + Reason for Visit * Reason Comments Other Fingernail fungus Encounter Details Date Type Department Care Team Description 07/24/2023 [facility] [place], [address] [place] [address] [id number] Alexy Anna PA-C [address] [place] [id number] Onychomycosis* Allergies Active Allergy Reactions Severity Noted Date Comments Aripiprazole Neuro complications (Please comment) High 09/30/2019 Tardive dyskinesia [place] (Diagnostic) Low 03/10/2015 Other reaction(s): STRAWBERRIES/TOMATOE S IN LARGE VOLUMES-ULCERS IIN MOUTH Tomato Low 09/30/2019 documented as of this encounter (statuses as of 07/24/2023) Medications Medication Sig Dispensed Refills Start Date End Date Status TRILEPTAL 300 MG PO TABS twice daily 0 Active CELEXA 40 MG PO TABS 1 tab daily 0 Active buPROPion HCl ER (XL) 150 [...] Active Additional Information Patient taking differently:1,000 mg [id number] PRN, Pain, Fever, Reported on 12/16/2022 Nebulizers (NEBULIZER COMPRESSOR) [facility] [place] Inhale via nebulizer. Use as directed. 1 Each 1 10/06/2018 Active albuterol-ipratrop ium (DUONEB) 2.5-0.5 MG/3ML nebulizer solution Inhale 3 mL via nebulizer 4 times a day. 360 Vial 0 04/16/2019 Active loratadine (RA LORATADINE) 10 MG TabletIndications: Chronic frontal sinusitis Take 1 Tab by mouth daily. 90 Tab 0 04/16/2019 Active [place] Carbonate 300 MG Oral Capsule (Eskalith) Take [...] BASE) MCG/ACT 25.5 g 1 02/24/2023 Active Levothyroxine Sodium 75 MCG Oral Tablet (Levoxyl)Indicatio ns:Hypothyroidism, unspecified type Take 1 Tablet by mouth daily first thing in the morning. on an empty stomach. 30 Tablet 5 02/24/2023 Active metroNIDAZOLE 0.75 % Vaginal Gel (Metrogel-Vaginal) Insert applicator into the vagina and administer before bed. Use twice a week for 4-6 months. Start after oral metronidazole completed. 140 g 5 04/19/2023 Active Acyclovir 400 MG Oral Tablet (Zovirax)Indicatio ns:Herpes genitalia Take 1 Tablet by mouth in the morning and 1 Tablet before bedtime. 180 Tablet 0 05/21/2023 Active Multivitamins Oral Capsule Take 1 Capsule [...] fungus. 42 Tablet 0 07/24/2023 3 Active documented as of this encounter (statuses as of 07/24/2023) Active Problems Problem Noted Date Body mass index (BMI) of 45.0 to 49.9 in adult 06/09/2023 Overview: Per Obesity protocol - Per Obesity [...] as of this encounter (statuses as of 07/24/2023) Resolved Problems Problem Noted Date Resolved Date Body mass index (BMI) of 50.0 to [...] as of this encounter (statuses as of 07/24/2023) Immunizations Name Administration Dates Next Due COVID-19 mRNA, LNP-s, No Pre serve, 2-Dose Series (Moderna) 03/06/2021,02/06/2021 HepA Inact/HepB Recomb>=18yrs old 06/02/2012,,08/07/2011 Pneumococcal Conjugate Vacci ne, 20-valent (Vitpydu99) 07/24/2022 Pneumococcal Polysaccharide PPV23 (Pneumovax) 07/29/2013 Seasonal Influenza Virus Vac cine, Unspecified Formulation 09/05/2021,07/28/2020,07/19/2019,06/27,06/25/2018,07/27/2017,06/25/2017 ,07/25/2016,07/21/2014,07/29/2013 Seasonal Influenza, PF, 6 mo ns & Above, IM , (Flulaval) 07/21/2023,07/24/2022,09/05/2021,07/28 Seasonal Influenza, Quadriva lent, No Preserve, IM 07/19/2019,06/25/2018,07/25/2016,08/17 Seasonal Influenza, Split, I IV3, With Preserve, Inj 06/27/2018,07/27/2017,07/21/2014,07/29 TDAP (age 10 and older)(Boostrix) 09/02/2013 documented as of this encounter Social History Tobacco Use Types Packs/Day Years Used Date Smoking Tobacco: Former Vaporizer Smokeless Tobacco: Never Tobacco Cessation:Counseling Given: Not Answered Alcohol Use Standard Drinks/Week Comments No 0 [...] on file documented as of this encounter Last Filed Vital Signs Vital Sign Reading Time Taken Comments Blood Pressure 118/60 07/24/2023 3:06 PM EDT Pulse 70 07/24/2023 3:06 PM EDT Temperature 36.6 C (97.8 F) 07/24/2023 3:06 PM ED T Respiratory Rate 20 07/24/2023 3:06 PM EDT Oxygen Saturation 99% 07/24/2023 3:06 PM EDT Inhaled Oxygen Concentration - - Weight 131 kg (288 lb 12.8 oz) 07/24/2023 3:06 P M EDT Height 170.2 cm (5' 7") 07/24/2023 3:06 PM EDT Body Mass Index 45.23 07/24/2023 3:06 PM EDT documented in this encounter Functional Status Functional Status Response [...] No 07/22/2018 documented as of this encounter Patient Instructions * Patient Instructions* Alexy Anna PA-C - 07/24/2023 3:44 PM EDT Topical efinaconazole for 48 weeks. Oral terbinafine daily for 6 weeks. Labs in 2-4 weeks Follow-up- with PCP if no improvement in 4-6 weeks. Sooner if worsens. ER if acutely worsens. documented in this encounter Progress Notes * Alexy Anna PA-C - 07/24/2023 3:49 PM EDT Nursing Notes: Nereydapablito Gutiérrez, [employer] 07/24/23 1508 Signed Rody Jean Baptiste is a 47 year old female who presents to walk-in clinic today complaining of Chief Complaint Patient presents with Other Fingernail fungus Main Symptoms:fingernail fungus Cause: unknown How lon days when she took nail [place] off she noticed it Tried: nothing Pt accompanied by: self Subjective Rody Jean Baptiste is a 47 year old female that presents for Other (Fingernail fungus) The patient reports that she was wearing black nailpolish for several weeks. She took it off two days ago and noticed that several of her nails on both hands had pitting, lifting, discolorations, some were sore. She believes she has a fungal infection of her nails. Denies f/s/ch. She notes that she had previously helped her boyfriend cut his toenails and notes that he has "a really bad fungal infection." Of note, I saw the patient in March 2023 for recurrent yeast infection that failed topical tx and diflucan. Was successfully treated with itraconazole. Objective BP 118/60 | Pulse 70 | Temp 36.6 C (97.8 F) (Tympanic) | Resp 20 | Ht 1.702 m (5' 7") | Wt 131 kg (288 lb 12.8 oz) | SpO2 99% | BMI 45.23 kg/m | BSA 2.49 m Body mass index is 45.23 kg/m. BP Readings from Last 3 Encounters: 07/24/23 118/60 07/22/23 126/85 06/11/23 128/74 Wt Readings from Last 3 Encounters: 07/24/23 131 kg (288 lb 12.8 oz) 07/22/23 132 kg (290 lb 14.4 oz) 06/11/23 130.6 kg (288 lb) Physical Exam Vitals and nursing note reviewed. Constitutional: General: She is not in acute distress. Appearance: She is well-developed. She is not ill-appearing, toxic-appearing or diaphoretic. HENT: Head: Normocephalic and atraumatic. Eyes: Extraocular Movements: Extraocular movements intact. Neck: Vascular: No JVD. Trachea: No tracheal deviation. Cardiovascular: Rate and Rhythm: Normal rate and regular rhythm. Pulses: Radial pulses are 2+ on the right side and 2+ on the left side. Heart sounds: Normal heart sounds. No murmur heard. No friction rub. No gallop. Pulmonary: Effort: No accessory muscle usage. Breath sounds: No decreased breath sounds, wheezing, rhonchi or rales. Chest: Chest wall: No mass, deformity, tenderness or crepitus. Abdominal: General: Bowel sounds are normal. Palpations: Abdomen is soft. There is no hepatomegaly or splenomegaly. Tenderness: There is no abdominal tenderness. There is no guarding or rebound. Musculoskeletal: General: Normal range of motion. Cervical back: Normal range of motion and neck supple. Right lower leg: No tenderness. No edema. Left lower leg: No tenderness. No edema. Skin: General: Skin is warm and dry. Capillary Refill: Capillary refill takes less than 2 seconds. Nails: There is no clubbing. Comments: +fungal disease, [id number], on several digits of bilateral hands Neurological: General: No focal deficit present. Mental Status: She is alert and oriented to person, place, and time. Psychiatric: Mood and Affect: Mood normal. Mood is not anxious. Behavior: Behavior normal. Behavior is not agitated. Assessment and plan 1. Onychomycosis With h/o resistant/recurrent fungal infections in past, will do topical + oral tx Will get labs in a few weeks to check liver - Efinaconazole 10 % External Solution; Apply topically to affected area every evening. Apply to nails daily for 48 weeks. Ensure complete coverage of nail, nailfolds, nailbed, surrounding skin, under surface of nail. Dispense: 8 mL; Refill: 6 - Terbinafine HCl 250 MG Oral Tablet (Lamisil); Take 1 Tablet by mouth in the morning. For 6 weeks for fingernail fungus. Dispense: 42 Tablet; Refill: 0 - CBC WITH WBC DIFFERENTIAL; Future - COMPREHENSIVE METABOLIC PANEL; Future Follow up Topical efinaconazole for 48 weeks. Oral terbinafine daily for 6 weeks. Labs in 2-4 weeks Follow-up- with PCP if no improvement in 4-6 weeks. Sooner if worsens. ER if acutely worsens. Total time today including reviewing chart before the visit, pertinent labs, imaging reports, face to face time, and documentation time was 30 minutes. The above was discussed and understanding was expressed. Alexy Anna PA-C documented in this encounter Nursing Notes * Nereyda Gutiérrez LPN - 07/24/2023 3:04 PM EDT Rody Jean Baptiste is a 47 year old female who presents to walk-in clinic today complaining of Chief Complaint Patient presents with Other Fingernail fungus Main Symptoms:fingernail fungus Cause: unknown How lon days when she took nail [place] off she noticed it Tried: nothing Pt accompanied by: self documented in this encounter Plan of Treatment Upcoming Encounters Date Type Specialty Care Team Description 07/25/2023 Office Visit Neurology Vannesa Crouch, DO [address] [place] [address] 08/11/2023 Office Visit Ophthalmology Uri Quintana, DO [address] [place] [address] 08/18/2023 [id number] [place] [address] 09/05/2023 Office Visit Family Medicine Connie Navarro MD [address] [place] [id number] 01/07/2024 Imaging Radiology 01/19/2024 Telemedicine Sleep Disorders Lynsey Kam DO [address] [place] [id number] 06/11/2024 Office Visit Sleep Disorders Lynsey Kam DO [address] [place] [id number] 07/02/2024 Telemedicine Dermatology Cece Leary PA-C [address] [place] [id number] Scheduled Orders Name Type Priority Associated Diagnoses Orde r Schedule CBC WITH WBC DIFFERENTIAL Lab STAT Onychomycosis Expected: 07/24/2023, Expires: 08/23/2023 COMPREHENSIVE METABOLIC PANEL Lab STAT Onychomycosis Expected: 07/24/2023, Expires: 08/23/2023 Health Maintenance Due Date Last Done Comments Cologuard 2020 Colonoscopy 2020 Colorectal Cancer Screening 2020 Fecal Occult Blood Test 2020 Sigmoidoscopy 2020 COVID-19 Vaccine (3 - Moderna series) 05/01/2021 03/06/2021, 02/06/2021 *SPIROMETRY ONCE FOR ASTHMA-ADULT 09/19/2022 Depression, Most Recent Score >= 10 (will fire each visit until score < 10) 11/22/2022 11/21/2022 DTaP,Tdap,and Td Vaccines (2 - Td or [...] as of this encounter Visit Diagnoses Diagnosis Onychomycosis- Primary Dermatophytosis of nail documented in this encounter [...] the patient have Health Care Power of Baler? No Code Status History Code Status Date Activated Date Inactivated Comments Full Code 09/19/2020 9:51 AM 09/19/2020 10:03 AM Th is order reflects the patients wishes and were consensually agreed upon. Question Answer Comments Discussion of Advance Directives occurred with: Patient Does the patient have a Living Will? No Does the patient have Health Care Power of Baler? No Full Code 08/18/2020 9:52 AM 08/18/2020 2:40 PM Thi s order reflects the patients wishes and were consensually agreed upon. Question Answer Comments Discussion of Advance Directives occurred with: Patient Does the patient have a Living Will? No Does the patient have Health Care Power of Baler? No Care Teams Crosscutter Relationship Specialty Start Date End Date Aleksandra Feliz MD [address] [place] [address] PCP - General Internal Medicine 07/24/23 documented as of this encounter
--- OUTSIDE RECORDS SUMMARY | 2023-09-11 00:12 | External Medical Summary ---
Author Name Unknown Address Unknown Organization [id number]:[facility] [place] - [address] [place] [address] Laboratory Report Ordering Provider Test Date Status SHELLY REYNOLDS 07/25/2023 15:00:38 Final Deficient: <20 ng/mL
Ins ufficient: 20-29 ng/mL
Recommended/Optimum:30-50 ng/mL

Vitamin D intoxication is rare. If suspicious of Vitamin D toxicity, evaluation of serum Calcium and PTH is recommended. Observation Date Value Abnormality Reference (Units ) Status 25-OH Vitamin D total 07/25/2023 15:00:38 42 >19 (ng/mL) Final Performing Location [facility] [place] - [address] [place] [address]
--- OUTSIDE RECORDS SUMMARY | 2023-09-11 00:12 | External Medical Summary | Summary of Care ---
Author Name Unknown Organization [facility] Address [address] [place] [address] Phone [phone] Care Team Providers Care Belt Sewer Name Role Phone Ginna Power MD Primary Care Provider [phone] Reason for Visit * Reason Comments NEW PATIENT Encounter Details Date Type Department Care Team Description 07/22/2023 Office Visit Neurology, [facility] [address] [place] [address] Mahendra Del Valle MD [address] [place] [address] Drug-induced tremor* Allergies Active Allergy Reactions Severity Noted Date Comments Aripiprazole Neuro complications (Please comment) High 09/30/2019 Tardive dyskinesia [place] (Diagnostic) Low 03/10/2015 Other reaction(s): STRAWBERRIES/TOMATOE S IN LARGE VOLUMES-ULCERS IIN MOUTH Tomato Low 09/30/2019 documented as of this encounter (statuses as of 07/23/2023) Medications Medication Sig Dispensed Refills Start Date [...] Active Additional Information Patient taking differently:1,000 mg [id number] PRN, Pain, Fever, Reported on 12/16/2022 Nebulizers (NEBULIZER COMPRESSOR) [facility] [place] Inhale via nebulizer. Use as directed. 1 Each 1 10/06/2018 Active albuterol-ipratrop ium (DUONEB) 2.5-0.5 MG/3ML nebulizer solution Inhale 3 mL via nebulizer 4 times a day. 360 Vial 0 04/16/2019 Active loratadine (RA LORATADINE) 10 MG TabletIndications: Chronic frontal sinusitis Take 1 Tab by mouth daily. 90 Tab 0 04/16/2019 Active [place] Carbonate 300 MG Oral Capsule (Eskalith) Take [...] Active Levothyroxine Sodium 75 MCG Oral Tablet (Levoxyl)[place] ns:Hypothyroidism, unspecified type Take 1 Tablet by mouth daily first thing in the morning. on an empty stomach. 30 Tablet 5 02/24/2023 Active metroNIDAZOLE 0.75 % Vaginal Gel (Metrogel-Vaginal) Insert applicator into the vagina and administer before bed. Use twice a week for 4-6 months. Start after oral metronidazole completed. 140 g 5 04/19/2023 Active Acyclovir 400 MG Oral Tablet (Zovirax)[place] ns:Herpes genitalia Take 1 Tablet by mouth [...] daily w/food 270 Tablet 3 07/04/2023 Active documented as of this encounter (statuses as of 07/23/2023) Active Problems Problem Noted Date Body mass [...] as of this encounter (statuses as of 07/23/2023) Resolved Problems Problem Noted Date Resolved Date [...] Morbid obesity with BMI of 50.0-59.9, adult 1005/201801/08/2023 Overview: Per Obesity protocol #1 - Body [...] as of this encounter (statuses as of 07/23/2023) Immunizations Name Administration Dates Next Due COVID-19 mRNA, LNP-s, No Pre serve, 2-Dose Series (Moderna) 03/06/2021,02/06/2021 HepA Inact/HepB Recomb>=18yrs old 06/02/2012,,08/07/2011 Pneumococcal Conjugate Vacci ne, 20-valent ([id number]) 07/24/2022 Pneumococcal Polysaccharide PPV23 (Pneumovax) 07/29/2013 Seasonal [...] Types Packs/Day Years Used Date Smoking Tobacco: Never Smokeless Tobacco: Never Tobacco Cessation:Counseling Given: Not [...] Sign Reading Time Taken Comments Blood Pressure 126/85 07/22/2023 3:40 PM EDT Pulse 66 07/22/2023 3:40 PM EDT Temperature 36.9 C (98.5 F) 07/22/2023 3:40 PM ED T Respiratory Rate - - Oxygen Saturation 98% 07/22/2023 3:40 PM EDT Inhaled Oxygen Concentration - - Weight 132 kg (290 lb 14.4 oz) 07/22/2023 3:40 P M EDT Height - - Body Mass Index 45.56 06/11/2023 10:11 AM EDT documented in this encounter Functional Status [...] this encounter Patient Instructions * Patient Instructions* Mahendra Del Valle MD - 07/22/2023 4:12 PM EDT Call us back for a new appointment if you experience frequent falls, tremor gets worse and worse, or you become slower and stiffer. For a better communication, please call my nurse, Saige Portillo at: [phone]. documented in this encounter Progress Notes * Mahendra Del Valle MD - 07/22/2023 3:52 PM EDT Neurology Outpatient New Visit Movement Disorders Subspecialty [facility] Ref: GINNA POWER[[id number]] [address] [place] [address] (office) [phone] (fax) PCP: GINNA POWER [address] [place] [address] [phone] History provided by: patient, History of Present Illness: Ms. Rody Jean Baptiste is a 47 year old RH female, who presents on 07/22/2023 for the Chief Complaint Patient presents with NEW PATIENT Cc: tremors Onset 2-3 years Initial location hands How was the onset of the tremors? Slowly Progression over time - Slowly getting worse? yes ; has it been stable for the past 6 months? Better since her fungus infection was treated. Her Li was reduced from [address] to 900. How/ when is it present mainly with with action ? Like Eating or drinking, or with holding? Not at rest Things that make it worse or better - not sure; Does alcohol help? - she does not drink; Associated symptoms - not at this time - like slow movements (getting out of a chair, turning in bed at night, putting the seat belt), stiffness no, balance issues - better now, no recent falls. Meds ever tried? no FHx of tremors, and/or parkinsonism? no H/o depression/anxiety? Yes; H/o constipation? No; How often do you get a Bowel Movement? yes 1/day? D Do you drink coffee? Yes in the morning. Any h/x exposure to [place], Valproic Acid, Haldol, Reglan, Risperidone, Compazine? When? And for how long? Do they still take it? When do they stopped? - yes to [place] - for many years; She was having a fungus infection - she does better now, her memory got better. As per HPI otherwise all 14 systems reviewed and are negative. Current Outpatient Medications Medication Sig Dispense Refill TRILEPTAL 300 MG PO TABS twice daily CELEXA 40 MG PO TABS 1 tab daily buPROPion HCl ER (XL) 150 MG Oral Tablet Extended Release 24 Hour Take 1 Tablet by mouth in the morning. 30 Tab 5 lamoTRIgine 100 MG Oral Tablet Take 1 Tablet by mouth in the morning and 1 Tablet before bedtime. KlonoPIN 0.5 MG Oral Tablet Take 1 Tablet by mouth in the morning. 30 Tab 0 Nebulizers (NEBULIZER COMPRESSOR) MISC Inhale via nebulizer. Use as directed. 1 Each 1 albuterol-ipratropium (DUONEB) 2.5-0.5 MG/3ML nebulizer solution Inhale 3 mL via nebulizer 4 times a day. 360 Vial 0 loratadine (RA LORATADINE) 10 MG Tablet Take 1 Tab by mouth daily. 90 Tab 0 [place] Carbonate 300 MG Oral Capsule (Eskalith) Take 3 Capsules by mouth at bedtime. Diclofenac Sodium 1 % External Gel (Voltaren) Apply 1 g topically to affected area in the morning and 1 g at noon and 1 g before bedtime. 100 g 3 Albuterol Sulfate HFA 108 (90 Base) MCG/ACT Inhalation Aerosol Solution INHALE 2 PUFFS BY MOUTH NEEDED SHORT OF BREATH Strength: 108 (90 BASE) MCG/ACT 25.5 g 1 Levothyroxine Sodium 75 MCG Oral Tablet (Levoxyl) Take 1 Tablet by mouth daily first thing in the morning. on an empty stomach. 30 Tablet 5 metroNIDAZOLE 0.75 % Vaginal Gel (Metrogel-Vaginal) Insert applicator into the vagina and administer before bed. Use twice a week for 4-6 months. Start after oral metronidazole completed. 140 g 5 Acyclovir 400 MG Oral Tablet (Zovirax) Take 1 Tablet by mouth in the morning and 1 Tablet before bedtime. 180 Tablet 0 Multivitamins Oral Capsule Take 1 Capsule by mouth in the morning. Probiotic & Acidophilus Ex St Oral Capsule Take 1 Capsule by mouth in the morning and 1 Capsuleat noon and 1 Capsule in the evening. Take with meals. SUMAtriptan Succinate 50 MG Oral Tablet (Imitrex) TAKE 2 TABLETS AT ONSET MIGRAINE MAY REPEAT 1 TABLET IN 2 HOURS- MAX OF 5 IN 24 HOURS 9 Tablet 1 Warfarin Sodium 10 MG Oral Tablet (Coumadin) Take 1.5 Tablets by mouth every evening. As directed. 135 Tablet 1 Spironolactone 50 MG Oral Tablet (Aldactone) 1.5 tablets twice daily w/food 270 Tablet 3 acetaminophen (TYLENOL) 500 MG Tablet Take 2 Tabs by mouth every 8 hours. (Patient taking differently: Take 2 Tablets by mouth every 8 hours as needed for Pain or Fever.) 100 Tab 0 CPAP every night at bedtime. Autopap 6-10 cm No current facility-administered medications for this visit. Past Medical History: Diagnosis Date Anxiety Asthma flare Bipolar 2 disorder (HCC) Depression Endometriosis Gastroesophageal reflux disease without esophagitis 12/24/2016 Herpes genitalia HPV (human papilloma virus) infection Intention tremor MTHFR mutation on Warfarin Pulmonary embolism (HCC) 04/2013 Sleep apnea, obstructive Family History Problem Relation Age of Onset Cervical Cancer Mother Stroke Mother Pulmonary embolism Mother multiple Blood Disorder Grandmother (Maternal) Arthritis Brother (Half) Ankylosis Spondylitis, half sib on maternal side Blood Disorder Cousin (Unspecified) MTHFR Breast Cancer No significant family history Social History Tobacco Use Smoking Status Never Smokeless Tobacco Never Social History Substance and Sexual Activity Alcohol Use No Comment: maybe once a year Social History Substance and Sexual Activity Drug Use Yes Frequency: 4.0 times per week Types: Marijuana Comment: MEDICIAL Review of patient's allergies indicates: Allergen Reactions Aripiprazole Neuro complications (Please comment) Tardive dyskinesia [place] (Diagnostic) Other reaction(s): STRAWBERRIES/TOMATOES IN LARGE VOLUMES-ULCERS IIN MOUTH Tomato Filed Vitals: 07/22/23 1540 BP: 126/85 Pulse: 66 Temp: 36.9 C (98.5 F) SpO2: 98% Weight: 132 kg (290 lb 14.4 oz) Examination: Gen: well-developed, well-nourished. Resp: breathing nonlabored on room air. MS: Alert, oriented x3. Naming, repetition, fluency and comprehension intact. Follows multi-step commands. Recalled 3/3 items at 5 minutes. CN: Visual ortiz intact. EOMI, no nystagmus. Face symmetric. no hypomimia. no hypophonia. Hard of hearing no. Tongue protrudes midline. Shoulder shrug symmetric. Motor: strength normal, tone normal, bulk intact, tremor postural/actio n L>R. Finger taps with foot and heel taps w/o clear decremental response. Sensation: Normal light touch, temperature, vibration in all extremities. Coordination: [id number]-bz-ldny and zrtn-[id number]-aqog without dysmetria bilaterally. Rapid alternating movements were intact. Reflexes: DTRs symmetric. Gait: Able to arise from chair without using arms. Posture upright. Gait is steady, with normal base, strides, gait speed, arm swing, and turns. Vit D Metabolism Labs Phosphorus Date Value Ref Range Status 08/07/2022 2.8 2.5 - 4.8 mg/dL Final Calcium Date Value Ref Range Status 05/19/2023 9.4 8.4 - 10.2 mg/dL Final 08/07/2022 9.4 8.4 - 10.2 mg/dL Final 12/14/2019 8.9 8.4 - 10.2 mg/dL Final 06/04/2018 9.1 8.4 - 10.2 mg/dL Final No results found for: PTH No results found for: [id number] No results found for: [id number] No results found for: [id number] 25OH VITAMIN D TOTAL (ng/mL) Date Value 02/27/2015 29 25-Hydroxy Vitamin D (ng/mL) Date Value 08/07/2022 44 Vitamin D Level Interpretation deficient: <20 ng/ml insufficient: 20-30 ng/ml normal: 31-100 ng/ml Vitamin Labs Vitamin B12 Date Value Ref Range Status 07/24/2022 980 232-1,245 pg/mL Final 09/05/2021 972 232-1,245 pg/mL Final 05/31/2020 1,325 (H) 232 - 1,245 pg/mL Final 11/01/2014 852 211 - 946 pg/mL Final No results found for: METHYL Homocysteine Date Value Ref Range Status 11/01/2014 6.0 5.0 - 15.0 umol/L Final 12/07/2013 5.8 5.0 - 15.0 umol/L Final No results found for: FOLATE Immunologic, Endocrinologic & Infectious Labs No results found for: ESR No results found for: LOW SENSITIVITY CRP TSH Date Value Ref Range Status 02/18/2023 3.78 0.27 - 4.20 uIU/mL Final 08/07/2022 2.72 0.27 - 4.20 uIU/mL Final 05/31/2020 2.01 0.27 - 4.2 uIU/mL Final 12/14/2019 4.25 (H) 0.27 - 4.2 uIU/mL Final No results found for: THYROID No results found for: THYROGLOBULIN No results found for: ANTI YURI JIMMIE SCREEN Date Value Ref Range Status 06/03/2013 NEGATIVE Final Rheumatoid Factor Date Value Ref Range Status 06/03/2013 10 <14 IU/ml Final No results found for: SSA No results found for: ORESTES No results found for: ENZYME Hepatitis A Antibody IgM Date Value Ref Range Status 01/01/2014 NEGATIVE NEG Final Hepatitis B Core Antibodies IgG and IgM Date Value Ref Range Status 07/19/2017 NEGATIVE NEG Final Hepatitis B Core Antibody IgM Date Value Ref Range Status 01/01/2014 NEGATIVE NEG Final Hepatitis B Surface Antibody, Qualitative Date Value Ref Range Status 07/13/2020 48.4 mIU/mL Final 06/26/2018 77.70 mIU/mL Final Hepatitis B Surface Antigen Date Value Ref Range Status 12/17/2021 Negative Negative Final 07/13/2020 NEGATIVE NEG Final 07/07/2019 NEGATIVE NEG Final Hepatitis C Antibody Date Value Ref Range Status 12/17/2021 Negative Negative Final 07/13/2020 NEGATIVE NEG Final 07/07/2019 NEGATIVE NEG Final Lyme Disease Antibody Screen Date Value Ref Range Status 02/18/2023 Negative Negative Final Comment: Lyme screen negative, per CDC guidelines Western blot testing not ordered. No results found for: RPR No results found for: FTA-ABS No results found for: VDRL No results found for: ZIC4 Miscellaneous Labs No results found for: COPPER No results found for: CERULO Ferritin Date Value Ref Range Status 12/17/2021 29 13 - 150 ng/mL Final Comment: Postmenopausal women have higher ferritin levels than pre-menopausal women. The above reference interval is based on pre-menopausal women. 11/01/2014 9.5 (L) 13 - 150 ng/mL Final No results found for: MANGANESE [place] Level Date Value Ref Range Status 07/24/2022 1.2 0.6 - 1.2 mmol/L Final 03/13/2021 0.7 0.6 - 1.2 mmol/L Final 12/14/2019 0.8 0.6 - 1.2 mmol/L Final 01/25/2019 0.8 0.6 - 1.2 mmol/L Final No results found for: VALPROIC No results found for: FREE VALPROIC No results found for: MYCODE Impression & Plan: Drug-induced tremor (Primary) - improved since Li was decreased from 1200 to 900. Follow Up: Return if symptoms worsen or fail to improve. During this visit, total time spent taking the history and physical exam (when possible), reviewingthe labs when necessary, prior medical records, and documenting the current chart 34 min > 50% spent on counseling - regarding possible differential diagnosis, investigation methods, what to do inthe future, and potential treatment options. Please be aware of any errors regarding the spelling or even different words, probably due to the dictation, using the Modal Fluency Direct. documented in this encounter Plan of Treatment Upcoming Encounters Date Type Specialty Care Team Description 07/24/2023 Office Visit Gynecology Obstetrics Tremayne Lo MD [address] [place] [id number] 07/25/2023 Office Visit Neurology Vannesa Crouch, DO [address] [place] [address] 08/11/2023 Office Visit Ophthalmology Uri Quintana, DO [address] [place] [address] 08/18/2023 [facility] [address] [place] [address] 09/05/2023 Office Visit Family Medicine Connie Navarro MD [address] [place] [id number] 01/07/2024 Imaging Radiology 01/19/2024 Telemedicine Sleep Disorders Lynsey Kam, DO [address] [place] [id number] 06/11/2024 Office Visit Sleep Disorders Lynsey Kam, DO [address] [place] [address] 07/02/2024 Telemedicine Dermatology Cece Leary PA-C [address] [...] as of this encounter Visit Diagnoses Diagnosis Drug-induced tremor- Primary Abnormal involuntary movements documented in this encounter Advance Directives Latest [...] the patient have Health Care Power of Holter Technician? No Code Status History Code Status Date Activated Date Inactivated Comments Full Code 09/19/2020 9:51 AM 09/19/2020 10:03 AM Th is order reflects the patients wishes and were consensually agreed upon. Question Answer Comments Discussion of Advance Directives occurred with: Patient Does the patient have a Living Will? No Does the patient have Health Care Power of Holter Technician? No Full Code 08/18/2020 9:52 AM 08/18/2020 2:40 PM Thi s order reflects the patients wishes and were consensually agreed upon. Question Answer Comments Discussion of Advance Directives occurred with: Patient Does the patient have a Living Will? No Does the patient have Health Care Power of Holter Technician? No Care Teams Belt Sewer Relationship Specialty Start Date End Date Ginna Power MD [address] [facility] [place] [address] PCP - General Internal Medicine 09/05/21 documented as of this encounter
--- OUTSIDE RECORDS SUMMARY | 2023-09-11 00:12 | External Medical Summary | Summary of Care ---
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 to follow with psychiatry, continues Li, OCB , clonazepam, lamotrigine and bupropion; she is complaint with CPAP. 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 Last B12 (06/2022) and folate (06/2022) were normal. Last vitamin D (07/2022) was normal. Physical exam was normal today except for fine posture tremor in L hand, intermittent disconjugate gaze/convergence insufficiency u/l; and subtle weakness of L hip flexion. ICD-10-CM 1. Subjective cognitive impairment R41.89 2. Vitamin D deficiency E55.9 3. 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 | For: Clinic Visit Attestation: I spent a total of 60 minutes coordinating, documenting, and providing care for this patient excluding time spent in the performance of separately billed services or time spent by another provider/QHP. This note was completed using the dictation program Fluency Direct. As such, there may be misspellings, word substitutions, or other variations that should not change the essence of the clinical content of this encounter note.If there is need for further clarification, please direct questions to me. Vannesa Crouch DO Cognitive and Behavioral Neurology [facility] 07/25/2023 documented in this encounter Nursing Notes * Lucille Smith LPN - 07/25/2023 1:59 PM EDT Patient verified identity by spelling of last name and date. Chief Complaint Patient presents with Follow Up documented in this encounter Plan of Treatment Upcoming Encounters Date Type Specialty Care Team Description 08/11/2023 Office Visit Ophthalmology Uri Quintana, DO [address], [place] [id number] 08/18/2023 Anticoagulation Pharmacy [facility] [address] [place] [address] 09/05/2023 Office Visit Family Medicine Connie Navarro MD [address] [place] [phone] 01/07/2024 Imaging Radiology 01/19/2024 Telemedicine Sleep Disorders Lynsey Kam, DO [address] [place] [address] 04/23/2024 Office Visit Neurology Vannesa Crouch, DO [address] [place] [address] 06/11/2024 Office Visit Sleep Disorders Lynsey Kam, DO [address] [place] [phone] 07/02/2024 Telemedicine Dermatology Cece Leary PA-C [address] [facility] [place] [phone] Pending Results Name Type Priority Associated Diagnoses Date /Time FOLIC ACID Lab Routine 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) 07/25/2023 3:00 PM EDT 25-HYDROXY VITAMIN D Lab Routine Vitamin D deficiency 07/25/2023 3:00 PM EDT Scheduled Orders Name Type Priority Associated Diagnoses Orde r Schedule 25-HYDROXY VITAMIN D Lab Routine Vitamin D deficiency Expected: 07/26/2023, Expires: 07/25/2024 Health Maintenance Due Date Last Done Comments [...] as of this encounter Visit Diagnoses Diagnosis Subjective cognitive impairment- Primary Vitamin D deficiency Unspecified vitamin D deficiency 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 No Code Status History Code Status Date Activated Date Inactivated Comments Full Code 09/19/2020 9:51 AM 09/19/2020 10:03 AM Th is order reflects the patients wishes and were consensually agreed upon. Question Answer Comments Discussion of Advance Directives occurred with: Patient Does the patient have a Living Will? No Does the patient have Health Care Power of Rn Heart? No Full Code 08/18/2020 9:52 AM 08/18/2020 2:40 PM Thi s order reflects the patients wishes and were consensually agreed upon. Question Answer Comments Discussion of Advance Directives occurred with: Patient Does the patient have a Living Will? No Does the patient have Health Care Power of Rn Heart? No Care Teams Electric Motor Controls Assembler Relationship Specialty Start Date End Date Aleksandra Feliz MD [address] [place] [address] PCP - General Internal Medicine 07/24/23 documented as of this encounter
--- OUTSIDE RECORDS SUMMARY | 2023-09-11 00:12 | External Medical Summary | Summary of Care ---
Author Name Unknown Organization [facility] Address [address] [place] [address] Phone [phone] Care Team Providers Care System Engineer Name Role Phone Connie Navarro MD Primary Care Provider Reason for Referral * Precert (Within 10 days (routine)) - Pending Review Specialty Diagnoses / Procedures Referred By Contac t Referred To Contact Radiology Diagnoses Diplopia Procedures MRI ORBITS WITH/WITHOUT CONTRAST America Brantley MD [address] [place] [address] Referral ID Status Reason Start Date Expiration Date V isits Requested Visits Authorized [id number] Pending Review 08/11/2023 999 999 Reason for Visit * Reason Comments Follow Up Diplopia fu Encounter Details Date Type Department Care Team Description 08/11/2023 Office Visit [facility] [address] [place] [address] Uri Quintana, DO [address] [place] [address] Diplopia* Allergies Active Allergy Reactions Severity Noted Date Comments Aripiprazole Neuro complications (Please comment) High 09/30/2019 Tardive dyskinesia [place] (Diagnostic) Low 03/10/2015 Other reaction(s): STRAWBERRIES/TOMATOE S IN LARGE VOLUMES-ULCERS IIN MOUTH [place] Low 09/30/2019 documented as of this encounter (statuses as of 08/11/2023) Medications Medication Sig Dispensed Refills Start Date [...] Active Additional Information Patient taking differently:1,000 mg [id number] PRN, Pain, Fever, Reported on 12/16/2022 Nebulizers (NEBULIZER COMPRESSOR) MIS Inhale via nebulizer. Use as directed. 1 Each 1 10/06/2018 Active albuterol-ipratrop ium (DUONEB) 2.5-0.5 MG/3ML nebulizer solution Inhale 3 mL via nebulizer 4 times a day. 360 Vial 0 04/16/2019 Active loratadine (RA LORATADINE) 10 MG TabletIndications: Chronic frontal sinusitis Take 1 Tab by mouth daily. 90 Tab 0 04/16/2019 Active [place] Carbonate 300 MG Oral Capsule (Eskalith) Take [...] and 1 Tablet before bedtime. 0 Active documented as of this encounter (statuses as of 08/11/2023) Active Problems Problem Noted Date Body mass [...] as of this encounter (statuses as of 08/11/2023) Resolved Problems Problem Noted Date Resolved Date [...] as of this encounter (statuses as of 08/11/2023) Immunizations Name Administration Dates Next Due COVID-19 mRNA, LNP-s, No Pre serve, 2-Dose Series (Moderna) 03/06/2021,02/06/2021 HepA Inact/HepB Recomb>=18yrs old 06/02/2012,,08/07/2011 Pneumococcal Conjugate Vacci ne, 20-valent ([id number]) 07/24/2022 Pneumococcal Polysaccharide PPV23 (Pneumovax) 07/29/2013 SEASONAL [...] as of this encounter Progress Notes * America Brantley MD - 08/11/2023 9:49 AM EDT 08/11/2023: Resident Neuro HPI: Rody Jean Baptiste is a 47 year old pt who presents for follow up diplopia. Work up unremarkable.No longer noticing diplopia in primary, worse in left gaze Past Ocular History: glasses FOHx: none Eye Medications: none ROS: Refer to [facility], otherwise negative unless noted. Past Medical History: [...] Moises Mcfarlane MD at [facility]. 2002 HEMORRHOIDECTOMY, SIMPLE, 1 COLUMN N/A 08/18/2020 [...] Torito Orta DO at [facility] Nursing notes reviewed. Base Eye Exam [...] Full Additional Tests Color Right Left [place] 8/8 8/8 Keratometry (Automated) K1 [place] K2 [place] Right 44.25 0 44.25 90 Left 44.50 4 45.00 94 Refraction Wearing Rx Sphere Cylinder [place] Add Right -2.50 +0.75 013 +2.00 Left -3.00 +1.25 136 +2.00 Age: 1yr Type: PAL Manifest Refraction (Auto) Sphere Cylinder [place] Dist [place] Right -2.25 +0.50 163 20/30 [...] with questions, concerns, or any ophthalmic issues. America Brantley MD 08/11/2023 9:50 AM Ophthalmology Resident, PGY-3 documented in this encounter Nursing Notes * IDALIA Quick - 08/11/2023 9:00 AM EDT Rody Jean [...] Date Type Specialty Care Team Description 08/18/2023 [facility] [address] [facility] [address] 09/05/2023 Office Visit Family Medicine Connie Navarro MD [address] [place] [phone] 11/04/2023 Imaging Radiology 01/07/2024 Imaging Radiology 01/19/2024 Telemedicine Sleep Disorders Lynsey Kam, DO [address] [place] [phone] 02/16/2024 Office Visit Ophthalmology Uri Quintana, DO [address] [place], [place] [phone] 04/23/2024 Office Visit Neurology Vannesa Crouch, DO [address] [place], [place] [phone] 06/11/2024 Office Visit Sleep Disorders Lynsey Kam, DO [address] [place] [address] 07/02/2024 Telemedicine Dermatology Cece Leary PA-C [address] [place] [phone] Scheduled Orders Name Type Priority Associated Diagnoses [...] the patient have Health Care Power of Grape Cutter? No Code Status History Code Status Date Activated Date Inactivated Comments Full Code 09/19/2020 9:51 AM 09/19/2020 10:03 AM Th is order reflects the patients wishes and were consensually agreed upon. Question Answer Comments Discussion of Advance Directives occurred with: Patient Does the patient have a Living Will? No Does the patient have Health Care Power of Grape Cutter? No Full Code 08/18/2020 9:52 AM 08/18/2020 2:40 PM Thi s order reflects the patients wishes and were consensually agreed upon. Question Answer Comments Discussion of Advance Directives occurred with: Patient Does the patient have a Living Will? No Does the patient have Health Care Power of Grape Cutter? No Care Teams System Engineer Relationship Specialty Start Date End Date Connie Navarro MD [address] [place] [phone] PCP - General Internal Medicine 08/11/23 documented as of this encounter
--- OUTSIDE RECORDS SUMMARY | 2023-09-11 00:12 | External Medical Summary ---
Author Name Unknown Address Unknown Organization K01:[facility] [facility] [address] [facility] [address] Laboratory Report Ordering Provider Test Date Status SHELLY REYNOLDS 07/25/2023 15:00:38 Final Observation Date Value Abnormality Reference (Units ) Status Folic Acid 07/25/2023 15:00:38 >20.0 >4.5 (ng/ mL) Final Performing Location [facility] [place] [facility] [address] [facility] [address]
--- OUTSIDE RECORDS SUMMARY | 2023-09-11 00:12 | External Medical Summary | Summary of Care ---
Author Name Unknown Organization [facility] Address [address] [facility] [address] Phone [phone] Care Team Providers Care Construction Driver Name Role Phone Connie Navarro MD Primary Care Provider Reason for Visit * Reason Comments eRx-Medication Refill Encounter Details Date Type Department Care Team Description [facility] [address] [facility] [place] [address] Alexy Anna PA-C [address] [place] [address] Vaginal itching; Recurrent vaginitis Allergies Active Allergy Reactions Severity Noted Date Comments Aripiprazole Neuro complications (Please comment) High 09/30/2019 Tardive dyskinesia [place] (Diagnostic) Low 03/10/2015 Other reaction(s): STRAWBERRIES/TOMATOE S [...] Active Additional Information Patient taking differently:1,000 mg [id number] PRN, Pain, Fever, Reported on 12/16/2022 Nebulizers (NEBULIZER COMPRESSOR) MISC Inhale via nebulizer. Use as directed. 1 Each 1 10/06/2018 Active albuterol-ipratrop ium (DUONEB) 2.5-0.5 MG/3ML nebulizer solution Inhale 3 mL via nebulizer 4 times a day. 360 Vial 0 04/16/2019 Active loratadine (RA LORATADINE) 10 MG TabletIndications: Chronic frontal sinusitis Take 1 Tab by mouth daily. 90 Tab 0 04/16/2019 Active [place] Carbonate 300 MG Oral Capsule (Eskalith) Take [...] old 06/02/2012,,08/07/2011 Pneumococcal Conjugate Vacci ne, 20-valent ([id number]) 07/24/2022 Pneumococcal Polysaccharide PPV23 (Pneumovax) 07/29/2013 SEASONAL [...] encounter Miscellaneous Notes * Telephone Encounter - Bonnie Aguero LPN - 08/14/2023 8:07 AM EDTRefused Prescriptions: Disp Refills Clotrimazole 1 % Vaginal Cream 45 g 0 Sig: ADMINISTER ABOUT 5G INTO THE VAGINA AT BEDTIME FOR 7 DAYS.Refused By: AMY AGUEROeason for Refusal: Contraindicated-- * Telephone Encounter - Bonnie Aguero LPN - 08/14/2023 8:07 AM EDT [...] Specialty Care Team Description 08/18/2023 Anticoagulation Pharmacy [place] [address] 09/05/2023 Office Visit Family Medicine Connie Navarro MD [address] [place] [phone] 11/04/2023 Imaging Radiology 01/07/2024 Imaging Radiology 01/19/2024 Telemedicine Sleep Disorders Lynsey Kam, DO [address] [place] [phone] 02/16/2024 Office Visit Ophthalmology Uri Quintana, DO [address] [facility], [place] [phone] 04/23/2024 Office Visit Neurology Vannesa Crouch, DO [address] [place] [facility] [address] 06/11/2024 Office Visit Sleep Disorders Lynsey Kam, DO [address] [place] [phone] 07/02/2024 Telemedicine Dermatology Cece Leary PA-C [address] [facility] [place] [phone] Health Maintenance Due Date [...] organs Recurrent vaginitis Vaginitis and vulvovaginitis, unspecified documented in this encounter Advance Directives [...] the patient have Health Care Power of Quality Assurance Practice Manager? No Code Status History Code Status Date Activated Date Inactivated Comments Full Code 09/19/2020 9:51 AM 09/19/2020 10:03 AM Th is order reflects the patients wishes and were consensually agreed upon. Question Answer Comments Discussion of Advance Directives occurred with: Patient Does the patient have a Living Will? No Does the patient have Health Care Power of Quality Assurance Practice Manager? No Full Code 08/18/2020 9:52 AM 08/18/2020 2:40 PM Thi s order reflects the patients wishes and were consensually agreed upon. Question Answer Comments Discussion of Advance Directives occurred with: Patient Does the patient have a Living Will? No Does the patient have Health Care Power of Quality Assurance Practice Manager? No Care Teams Construction Driver Relationship Specialty Start Date End Date Connie Navarro MD [address] [place] [phone] PCP - General Internal Medicine 08/11/23 documented as of this encounter
--- OUTSIDE RECORDS SUMMARY | 2023-09-11 00:12 | External Medical Summary | Summary of Care ---
Author Name Unknown Organization [facility] Address [address] [place] [place] [place] [address] Phone [phone] Care Team Providers Care Head Of Marketing Analytics Name Role Phone Aleksandra Feliz MD Primary Care Provider + Reason for Visit * Reason Comments Outpatient Testing Encounter Details Date Type Department Care Team Description 07/25/2023 Laboratory Laboratory [facility] [address] [place] [address] [place], Lab Scenery [address] [place] [address] Vitamin D deficiency Allergies Active Allergy Reactions Severity Noted Date Comments Aripiprazole Neuro complications (Please comment) High 09/30/2019 Tardive dyskinesia [place] (Diagnostic) Low 03/10/2015 Other reaction(s): STRAWBERRIES/TOMATOE S [...] Active Additional Information Patient taking differently:1,000 mg [id number] PRN, Pain, Fever, Reported on 12/16/2022 Nebulizers (NEBULIZER COMPRESSOR) [facility] Inhale via nebulizer. Use as directed. 1 Each 1 10/06/2018 Active albuterol-ipratrop ium (DUONEB) 2.5-0.5 MG/3ML nebulizer solution Inhale 3 mL via nebulizer 4 times a day. 360 Vial 0 04/16/2019 Active loratadine (RA LORATADINE) 10 MG TabletIndications: Chronic frontal sinusitis Take 1 Tab by mouth daily. 90 Tab 0 04/16/2019 Active [place] Carbonate 300 MG Oral Capsule (Eskalith) Take [...] old 06/02/2012,,08/07/2011 Pneumococcal Conjugate Vacci ne, 20-valent ([id number]) 07/24/2022 Pneumococcal Polysaccharide PPV23 (Pneumovax) 07/29/2013 SEASONAL [...] Visit Ophthalmology Uri Quintana, DO [address] [place] [address] 08/18/2023 [facility] [address] [place] [address] 09/05/2023 Office Visit Family Medicine Connie Navarro MD [address] [place] [phone] 01/07/2024 Imaging Radiology 01/19/2024 Telemedicine Sleep Disorders Lynsey Kam, DO [address] [place] [phone] 04/23/2024 Office Visit Neurology Vannesa Crouch, DO [address] [place] [address] 06/11/2024 Office Visit Sleep Disorders Lynsey Kam, [address] [place] [phone] 07/02/2024 Telemedicine Dermatology Cece Leary PA-C [address] [facility] [place] [phone] Pending Results Name Type Priority Associated Diagnoses Date /Time 25-HYDROXY VITAMIN D Lab Routine Vitamin D deficiency 07/25/2023 3:00 PM EDT Health Maintenance Due Date Last Done [...] as of this encounter Visit Diagnoses Diagnosis Vitamin D deficiency Unspecified vitamin D deficiency documented in this encounter Advance Directives Latest [...] the patient have Health Care Power of [place] Pot Tender? No Code Status History Code Status Date Activated Date Inactivated Comments Full Code 09/19/2020 9:51 AM 09/19/2020 10:03 AM Th is order reflects the patients wishes and were consensually agreed upon. Question Answer Comments Discussion of Advance Directives occurred with: Patient Does the patient have a Living Will? No Does the patient have Health Care Power of [place]yan[place] Pot Tender? No Full Code 08/18/2020 9:52 AM 08/18/2020 2:40 PM Thi s order reflects the patients wishes and were consensually agreed upon. Question Answer Comments Discussion of Advance Directives occurred with: Patient Does the patient have a Living Will? No Does the patient have Health Care Power of [place]yan[place] Pot Tender? No Care Teams Head Of Marketing Analytics Relationship Specialty Start Date End Date Aleksandra Feliz MD [address] [facility] [place] [place] [address] PCP - General Internal Medicine 07/24/23 documented as of this encounter
--- OUTSIDE RECORDS SUMMARY | 2023-09-11 00:12 | External Medical Summary | Summary of Care ---
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 Use as directed. 1 Each 1 10/06/2018 Active albuterol-ipratrop ium (DUONEB) 2.5-0.5 MG/3ML nebulizer solution Inhale 3 mL via nebulizer 4 times a day. 360 Vial 0 04/16/2019 Active loratadine (RA LORATADINE) 10 MG TabletIndications: Chronic frontal sinusitis Take 1 Tab by mouth daily. 90 Tab 0 04/16/2019 Active [place] Carbonate 300 MG Oral Capsule (Eskalith) Take [...] as of this encounter (statuses as of 07/29/2023) Active Problems Problem Noted Date Body mass [...] as of this encounter (statuses as of 07/29/2023) Resolved Problems Problem Noted Date Resolved Date [...] as of this encounter (statuses as of 07/29/2023) Immunizations Name Administration Dates Next Due COVID-19 mRNA, LNP-s, No Pre serve, 2-Dose Series (Moderna) 03/06/2021,02/06/2021 HepA Inact/HepB Recomb>=18yrs old 06/02/2012,,08/07/2011 Pneumococcal Conjugate Vacci ne, 20-valent ([id number]) 07/24/2022 Pneumococcal Polysaccharide PPV23 (Pneumovax) 07/29/2013 SEASONAL [...] Crouch, DO - 07/25/2023 2:00 PM EDT [facility] Return Visit Patient: [...] mutation (on chronic warfarin). Has psychiatrist (Dr. Day). 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 Scheduling was difficult with [employer]. Has not gone to [facility]. 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 Tremor: much improved after decreasing Li from 1200 to 900 mg daily. Psychiatrist is aware. Still on OCB Remains on warfarin for MTHFR mutation (C677T mutation and one copy of [id number] mutation (tested at [facility] in 2012). INR therapeutic OBJECTIVE Medical history, [...] ANORECTAL EXAM UNDER ANESTHESIA performed by Moises Mcfralane MD at [facility] ANORECTAL EXAM ,DIAG, REQUIRING ANESTHESIA N/A 09/19/2020 ANORECTAL EXAM UNDER ANESTHESIA performed by Moises Mcfarlane MD at [facility] D&C.[facility]. 2002 HEMORRHOIDECTOMY, SIMPLE, 1 COLUMN N/A 08/18/2020 HEMORRHOIDECTOMY EXTERNAL AND INTERNAL SIMPLE performed by Moises Mcfarlane MD at [facility] HEMORRHOIDECTOMY, SIMPLE, 1 COLUMN N/A 09/19/2020 HEMORRHOIDECTOMY EXTERNAL AND INTERNAL SIMPLE performed by Moises Mcfarlane MD at [facility] LAP ABLATION UTERINE FIBROIDS W/INTRAOP US GUIDE 2014 LAPAROSCOPY;WITH BIOPSY 1996 endometreosis SACROILIAC JOINT INJECT W/GUIDANCE 08/06/2018 INJECTION SACROILIAC JOINT performed by Torito Orta DO at [facility] SACROILIAC JOINT INJECT W/GUIDANCE 10/15/2018 INJECTION SACROILIAC JOINT performed by Torito Orta DO at [facility] Social History Socioeconomic History Marital status: [...] Concern Not on file 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 30 Tablet 5 [place] Carbonate 300 MG Oral Capsule (Eskalith) Take [...] in the morning. Nebulizers (NEBULIZER COMPRESSOR) [facility] Inhale via nebulizer. Use as directed. 1 [...] Vannesa Crouch DO Cognitive and Behavioral Neurology [facility] 07/25/2023 documented in this encounter Nursing Notes * Lucille Smith LPN - 07/25/2023 1:59 PM EDT Patient verified identity by spelling of last name and date. Chief Complaint Patient presents with Follow Up documented in this encounter Plan of Treatment Upcoming Encounters Date Type Specialty Care Team Description 08/11/2023 Office Visit Ophthalmology Uri Quintana, DO [address] [place], [place] [id number] 08/18/2023 Anticoagulation Pharmacy [facility] [address] [place] [address] 09/05/2023 Office Visit Family Medicine Connie Navarro MD [address] [place] [address] 01/07/2024 Imaging Radiology 01/19/2024 Telemedicine Sleep Disorders Lynsey Kam, DO [address] [place] [address] 04/23/2024 Office Visit Neurology Vannesa Crouch, DO [address] [place] [address] 06/11/2024 Office Visit Sleep Disorders Lynsey Kam, DO [address] [place] [phone] 07/02/2024 Telemedicine Dermatology Cece Leary PA-C [address] [facility] [place] [address] Health Maintenance Due [...] Procedure Name Priority Date/Time Associated Diagnosis Comments FOLIC ACID Routine 07/25/2023 3:00 PM EDT 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 If suspicious of Vitamin D toxicity, evaluation of serum Calcium and PTH is recommended. Vannesa Crouch DO LAB BLOOD ORDERABLE S Performing Organization Address City/[facility]/ZIP Co de Phone Number LABORATORY [address] [address] * FOLIC ACID (07/25/2023 3:00 PM EDT) Folic Acid >20.0 >4.5 ng/mL 07/26/2023 6:15 AM EDT [facility] Blood Venous blood specimen / Unknown Venipuncture / Unknown 07/25/2023 3:00 PM EDT 07/25/2023 3:00 PM EDT Vannesa Crouch DO LAB BLOOD ORDERABLE S Performing Organization Address [facility] Co de Phone Number [facility]ATORY [facility] [address] [place] [address] documented in this encounter Visit Diagnoses Diagnosis Subjective cognitive [...] the patient have Health Care Power of Tire Beader Maker? No Code Status History Code Status Date Activated Date Inactivated Comments Full Code 09/19/2020 9:51 AM 09/19/2020 10:03 AM Th is order reflects the patients wishes and were consensually agreed upon. Question Answer Comments Discussion of Advance Directives occurred with: Patient Does the patient have a Living Will? No Does the patient have Health Care Power of Tire Beader Maker? No Full Code 08/18/2020 9:52 AM 08/18/2020 2:40 PM Thi s order reflects the patients wishes and were consensually agreed upon. Question Answer Comments Discussion of Advance Directives occurred with: Patient Does the patient have a Living Will? No Does the patient have Health Care Power of Tire Beader Maker? No Care Teams Sap Business Objects Consultant Relationship Specialty Start Date End Date Aleksandra Feliz MD [address] [facility] [place] [address] PCP - General Internal Medicine 07/24/23 documented as of this encounter
--- OUTSIDE RECORDS SUMMARY | 2023-09-11 00:13 | External Medical Summary | Summary of Care ---
Author Name Unknown Organization [facility] Address [address] [facility] [place] [address] Phone [phone] Care Team Providers Care Skating Rink Manager Name Role Phone Ginna Power MD Primary Care Provider [phone] Encounter Details Date Type Department Care Team Description 07/21/2023 Immunization Ancillary Department, [place] [address] [place] [address] [place] [address] [place] [address] Arrived Allergies Active Allergy Reactions Severity Noted Date Comments Aripiprazole Neuro complications (Please comment) High 09/30/2019 Tardive dyskinesia [place] (Diagnostic) Low 03/10/2015 Other reaction(s): STRAWBERRIES/TOMATOE S IN LARGE VOLUMES-ULCERS IIN MOUTH Tomato Low 09/30/2019 documented as of this encounter (statuses as of 07/21/2023) Medications Medication Sig Dispensed Refills Start Date [...] Active Additional Information Patient taking differently:1,000 mg [id number] PRN, Pain, Fever, Reported on 12/16/2022 Nebulizers (NEBULIZER COMPRESSOR) [facility] Inhale via nebulizer. Use as directed. 1 Each 1 10/06/2018 Active albuterol-ipratrop ium (DUONEB) 2.5-0.5 MG/3ML nebulizer solution Inhale 3 mL via nebulizer 4 times a day. 360 Vial 0 04/16/2019 Active loratadine (RA LORATADINE) 10 MG TabletIndications: Chronic frontal sinusitis Take 1 Tab by mouth daily. 90 Tab 0 04/16/2019 Active [place] Carbonate 300 MG Oral Capsule (Eskalith) Take [...] as of this encounter (statuses as of 07/21/2023) Active Problems Problem Noted Date Body mass [...] as of this encounter (statuses as of 07/21/2023) Resolved Problems Problem Noted Date Resolved Date [...] Morbid obesity with BMI of 50.0-59.9, adult 05/201801/08/2023 Overview: Per Obesity protocol #1 - [...] as of this encounter (statuses as of 07/21/2023) Immunizations Name Administration Dates Next Due COVID-19 mRNA, LNP-s, No Pre serve, 2-Dose Series (Moderna) 03/06/2021,02/06/2021 HepA Inact/HepB Recomb>=18yrs old 06/02/2012,,08/07/2011 Pneumococcal Conjugate Vacci ne, 20-valent ([id number]) 07/24/2022 Pneumococcal Polysaccharide PPV23 (Pneumovax) 07/29/2013 Seasonal [...] Date Smoking Tobacco: Never Smokeless Tobacco: Never Alcohol Use Standard Drinks/Week [...] No 07/22/2018 documented as of this encounter Nursing Notes * Kayla Huizar LPN - 07/21/2023 11:23 AM EDT Pre-Administration Time Out Procedure Performed: Yes Patient Identified (Ask Name/Date of ): Yes Does the patient have a fever greater than 101 degrees today? No Patient allergic to latex? No Has the patient ever fainted after receiving an injection? No VFC Stock: No Immunization(s) verified: Yes, Immunization Name: Flu, VIS Sheet(s) given: Yes Verified Side and Site: Yes Verified Shot(s) with Parent(s)/Patient: Yes documented in this encounter Plan of Treatment Upcoming Encounters Date Type Specialty Care Team Description 07/22/2023 Office Visit Neurology Mahendra Del Valle MD [address] [place] [address] 07/24/2023 Office Visit Gynecology Obstetrics Tremayne Lo MD [address] [place] [address] 07/25/2023 Office Visit Neurology Vannesa Crouch, DO [address] [place] [address] 08/11/2023 Office Visit Ophthalmology Uri Quintana, DO [address] [place] [address] 08/18/[address] [address] 09/05/2023 Office Visit Family Medicine Connie Navarro MD [address] [place], [place] [address] [address] 01/07/2024 Imaging Radiology 01/19/2024 Telemedicine Sleep Disorders Lynsey Kam, DO [address] [place] [phone] 06/11/2024 Office Visit Sleep Disorders Lynsey Kam, DO [address] [place] [address] 07/02/2024 Telemedicine Dermatology Cece Leary PA-C [address] [...] Cervical Cancer Screening 04/23/2028 HPV/Co-Test 04/23/2028 04/23/2023 Hepatitis C Screening Completed 12/17/2021 , 07/13/2020, 07/07/2019, Additional history exists Pneumococcal Vaccine: Pediatrics (0 to 5 Years) [...] the patient have Health Care Power of Application Chemist? No Code Status History Code Status Date Activated Date Inactivated Comments Full Code 09/19/2020 9:51 AM 09/19/2020 10:03 AM Th is order reflects the patients wishes and were consensually agreed upon. Question Answer Comments Discussion of Advance Directives occurred with: Patient Does the patient have a Living Will? No Does the patient have Health Care Power of Application Chemist? No Full Code 08/18/2020 9:52 AM 08/18/2020 2:40 PM Thi s order reflects the patients wishes and were consensually agreed upon. Question Answer Comments Discussion of Advance Directives occurred with: Patient Does the patient have a Living Will? No Does the patient have Health Care Power of Application Chemist? No Care Teams Skating Rink Manager Relationship Specialty Start Date End Date Ginna Power MD [address] [place] [address] [place] [address] PCP - General Internal Medicine 09/05/21 documented as of this encounter
--- OUTSIDE RECORDS SUMMARY | 2023-09-11 00:13 | External Medical Summary | Summary of Care ---
Author Name Unknown Organization [facility] Address [address] [facility] [place] [address] Phone [phone] Care Team Providers Care Dry Charge Process Attendant Name Role Phone Ginna Power MD Primary Care Provider [phone] Reason for Visit * Reason Comments Follow Up Encounter Details Date Type Department Care Team Description 07/04/2023 Telemedicine Dermatology [facility] [address] [facility] [place] [address] Kasia Holliday MD [address] [facility] [address] Hidradenitis*; Unwanted hair Allergies Active Allergy Reactions Severity Noted Date Comments Aripiprazole Neuro complications (Please comment) High 09/30/2019 Tardive dyskinesia [place] (Diagnostic) Low 03/10/2015 Other reaction(s): STRAWBERRIES/TOMATOE S IN LARGE VOLUMES-ULCERS IIN MOUTH Tomato Low 09/30/2019 documented as of this encounter (statuses as of 07/07/2023) Medications Medication Sig Dispensed Refills Start Date [...] Active Additional Information Patient taking differently:1,000 mg [id number] PRN, Pain, Fever, Reported on 12/16/2022 Nebulizers (NEBULIZER COMPRESSOR) [facility] Inhale via nebulizer. Use as directed. 1 Each 1 8 Active albuterol-ipratr opium (DUONEB) 2.5-0.5 MG/3ML nebulizer solution Inhale 3 mL via nebulizer 4 times a day. 360 Vial 0 9 Active loratadine (RA LORATADINE) 10 MG TabletIndication s:Chronic frontal sinusitis Take 1 Tab by mouth daily. 90 Tab 0 9 Active [place] Carbonate 300 MG Oral Capsule (Eskalith) Take [...] metronidazole completed. 140 g 5 3 Active Acyclovir 400 MG Oral Tablet (Zovirax)Indicat ions:Herpes genitalia Take 1 Tablet by mouth in the morning and 1 Tablet before bedtime. 180 Tablet 0 3 Active Multivitamins Oral Capsule Take 1 [...] daily w/food 270 Tablet 3 3 Active Clobetasol Propionate 0.05 % External Cream (Temovate) Apply 1 Application Dosing Unit topically to affected area in the morning and 1 Application Dosing Unit before bedtime. To affected area for up to two weeks.. 30 g 1 3 023 Discontinued Spironolactone 50 MG Oral Tablet (Aldactone)Indic ations:Hidradeni tis TAKE 1 TABLET BY MOUTH TWICE DAILY WITH FOOD 180 Tablet 0 3 023 Discontinued(Re fill) Pantoprazole Sodium 20 MG Oral Tablet Delayed Release (Protonix) TAKE 1 TABLET BY MOUTH DAILY 90 Tablet 1 3 023 Discontinued(Sammy españa preference/disc ontinuation) Spironolactone 50 MG Oral Tablet (Aldactone)Indic ations:Hidradeni tis TAKE 1 TABLET BY MOUTH TWICE DAILY WITH FOOD 180 Tablet 3 3 023 Discontinued(Re fill) documented as of this encounter (statuses as of 07/07/2023) Active Problems Problem Noted Date Body mass [...] as of this encounter (statuses as of 07/07/2023) Resolved Problems Problem Noted Date Resolved Date [...] as of this encounter (statuses as of 07/07/2023) Immunizations Name Administration Dates Next Due COVID-19 mRNA, LNP-s, No Pre serve, 2-Dose Series (Moderna) 03/06/2021,02/06/2021 HepA Inact/HepB Recomb>=18yrs old 06/02/2012,,08/07/2011 Pneumococcal Conjugate Vacci ne, 20-valent ([id number]) 07/24/2022 Pneumococcal Polysaccharide PPV23 (Pneumovax) 07/29/2013 Seasonal Influenza Virus Vac cine, Unspecified Formulation 09/05/2021,07/28/2020,07/19/2019,06/27,06/25/2018,07/27/2017,06/25/2017 ,07/25/2016,07/21/2014,07/29/2013 Seasonal Influenza, PF, 6 mo ns & Above, IM , (Flulaval) 07/24/2022,09/05/2021,07/28/2020 Seasonal Influenza, Quadriva lent, No Preserve, IM [...] as of this encounter Progress Notes * Kasia Holliday MD - 07/04/2023 4:03 PM EDT After connecting to the patient via [employer], the patient verified their identity with their date of and verbally consented to evaluation and management of their condition through telemedicine. This visit was performed through Telemedicine during the COVID-19 Health Crisis during a state of National Emergency. The patient is aware that we will bill their insurance for this visit following Medicare guidelines, but they may be responsible for some or all of the visit charges if their insurance deems this "non-covered". If pt was a minor, N/A was present. Patient location: HOME. I was in a hospital or clinic location. After connecting through [employer],patient was verified with two unique identifiers. Patient (or authorized legal warehouse representative) was then informed that this was a Telemedicine visit and being conducted confidentially over secure lines. Methods to assure confidentiality were taken. Patient acknowledged consent and understanding of pr ivacy and security of the Telemedicine visit. The patient agreed to participate. This is an established patient evaluated in my specialty within the past three years yes Visit Disposition: Routine follow-up Total call duration was 16 minutes. SUBJECTIVE: History of Present Illness: Rody Jean Baptiste is a 47 year old female seen today for follow up of several issues. Date Last Appointment: 03/20/2022 (in office), Visit date not found (telemedicine). Hx facial hair, pt could not con't hair laser b/c of cost. Hx HS ad acne, on spironolactone, generally improved, groin still sometimes flares. 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 HEME/LYMPH: No new or enlarging lumps or bumps. MEDICA TIONS: Current Outpatient Medications Medication Sig Dispense Refill Spironolactone 50 MG Oral Tablet (Aldactone) 1.5 tablets twice daily w/food 270 Tablet 3 TRILEPTAL 300 MG PO TABS twice daily [...] mouth in the morning. 30 Tab 0 acetaminophen (TYLENOL) 500 MG Tablet Take 2 Tabs by mouth every 8 hours. (Patient taking differently: Take 2 Tablets by mouth every 8 hours as needed for Pain or Fever.) 100 Tab 0 Nebulizers (NEBULIZER COMPRESSOR) [facility] Inhale via nebulizer. Use as directed. 1 Each 1 albuterol-ipratropium (DUONEB) 2.5-0.5 MG/3ML nebulizer solution Inhale 3 mL via nebulizer 4 times a day. 360 Vial 0 loratadine (RA LORATADINE) 10 MG Tablet Take 1 Tab by mouth daily. 90 Tab 0 [place] Carbonate 300 MG Oral Capsule (Eskalith) Take 3 Capsules by mouth at bedtime. Diclofenac Sodium 1 % External Gel (Voltaren) Apply 1 g topically to affected area in the morning and 1 g at noon and 1 g before bedtime. 100 g 3 CPAP every night at bedtime. Autopap 6-10 cm Albuterol Sulfate HFA 108 (90 Base) MCG/ACT [...] 1 Tablet before bedtime. 180 Tablet 0 Pantoprazole Sodium 20 MG Oral Tablet Delayed Release (Protonix) TAKE 1 TABLET BY MOUTH DAILY (Patient not taking: Reported on 06/05/2023) 90 Tablet 1 Multivitamins Oral Capsule Take 1 Capsule by [...] No current facility-administered medications for this visit. ALLERG IES: Aripiprazole, [place] (diagnostic), and Tomato OBJECTIVE: GEN: Healthy, alert, no distress, appears oriented, pleasant, and cooperative. SKIN: Detailed exam of hair, face including lids and lips, and neck completed 9images or video reviewed) and are normal except: 1. Limited exam, some hyperpigmentation; pt notes skin is recently shaved ASSESS MENT/PLAN: 1. Unwanted hair, HS/acne, PCOS cluster likely - pt aware of risks jenn and natural history, con't spironolactone, increase to 75 mg twice daily w/food, discussed SEs, mild soaps, defer other topicalsor hair laser. *Pt will call if any recalcitrant HS or acne flares or any SEs Follow-up: 9-12 months refills There were no barriers tolearning and no other pain was related to today's visit. The patient and/or person accompanying patient demonstrates understanding of the visit and treatment. Kasia Holliday MD 07/04/2023 4:12 PM Ref: SELF[[id number]] NO STREET ADDRESS AVAILABLE None (office) None (fax) PCP: [place] [address] [phone] documented in this encounter Plan of Treatment Upcoming Encounters Date Type Specialty Care Team Description 07/21/2023 [id number] [place] [address] 07/22/2023 Office Visit Neurology Mahendra Del Valle MD [address] [place] [address] 07/24/2023 Office Visit Gynecology Obstetrics Tremayne Lo MD [address] [place] [address] 07/25/2023 Office Visit Neurology Vannesa Crouch, [address] [place] [address] 08/11/2023 Office Visit Ophthalmology Uri Quintana, DO [address] [place] [address] 09/05/2023 Office Visit Family Medicine Connie Navarro MD [address] [place] [address] 01/07/2024 Imaging Radiology 01/19/2024 Telemedicine Sleep Disorders Lynsey Kam DO [address] [place] [address] 06/11/2024 Office Visit Sleep Disorders Lynsey Kam, DO [address] [place] [address] Health Maintenance Due Date Last Done Comments Cologuard 2020 Colonoscopy 2020 Colorectal Cancer Screening 2020 Fecal Occult Blood Test 2020 Sigmoidoscopy 2020 COVID-19 Vaccine (3 - Moderna series) 05/01/2021 03/06/2021, 02/06/2021 *SPIROMETRY ONCE FOR ASTHMA-ADULT 09/19/2022 Depression, Most Recent Score >= 10 (will fire each visit until score < 10) 11/22/2022 11/21/2022 Influenza Vaccine (FLU shot) (#1) 2023 07/24/2022, 09/05/2021, 09/05/2021, Additional history exists DTaP,Tdap,and Td Vaccines (2 - Td or [...] (6 to 64 Years) Completed 07/24/2022, 07/29/2013 GARDASIL-HPV IMMUNIZATION SERIES Aged Out No longer eligible based on patient's age to complete this topic MENINGOCOCCAL (MENACTRA/MENVEO) Aged Out No longer eligible based on patient's age to complete this topic documented as of this encounter Medical Devices Not on filedocumented as of this encounter Visit Diagnoses Diagnosis Hidradenitis- Primary Unwanted hair Unspecified disease of hair and hair follicles documented in this encounter Advance Directives Latest [...] the patient have Health Care Power of Hand Sprayer? No Code Status History Code Status Date Activated Date Inactivated Comments Full Code 09/19/2020 9:51 AM 09/19/2020 10:03 AM Th is order reflects the patients wishes and were consensually agreed upon. Question Answer Comments Discussion of Advance Directives occurred with: Patient Does the patient have a Living Will? No Does the patient have Health Care Power of Hand Sprayer? No Full Code 08/18/2020 9:52 AM 08/18/2020 2:40 PM Thi s order reflects the patients wishes and were consensually agreed upon. Question Answer Comments Discussion of Advance Directives occurred with: Patient Does the patient have a Living Will? No Does the patient have Health Care Power of Hand Sprayer? No Care Teams Dry Charge Process Attendant Relationship Specialty Start Date End Date Ginna Power MD [address] [facility] [place] [address] PCP - General Internal Medicine 09/05/21 documented as of this encounter
--- OUTSIDE RECORDS SUMMARY | 2023-09-11 00:13 | External Medical Summary | Summary of Care ---
Author Name Unknown Organization [facility] Address [address] [facility] [address] Phone [phone] Care Team Providers Care Collection Systems Technician Name Role Phone Ginna Power MD Primary Care Provider [phone] Reason for Visit * Reason Comments Dosage Adjustment In Person (Anticoag Cl inic) Encounter Details Date Type Department Care Team Description 07/04/2023 Anticoagulation Pharmacy, [place] [address] [place] [address] [facility] [address] [place] [address] MTHFR mutation (methylenetetrahydrof olate reductase)* Allergies Active Allergy Reactions Severity Noted Date Comments Aripiprazole Neuro complications (Please comment) High 09/30/2019 Tardive dyskinesia [place] (Diagnostic) Low 03/10/2015 Other reaction(s): STRAWBERRIES/TOMATOE S IN LARGE VOLUMES-ULCERS IIN MOUTH Tomato Low 09/30/2019 documented as of this encounter (statuses as of 07/05/2023) Medications Medication Sig Dispensed Refills Start Date [...] Active Additional Information Patient taking differently:1,000 mg [id number] PRN, Pain, Fever, Reported on 12/16/2022 Nebulizers (NEBULIZER COMPRESSOR) MIS Inhale via nebulizer. Use as directed. 1 Each 1 8 Active albuterol-ipratr opium (DUONEB) 2.5-0.5 MG/3ML nebulizer solution Inhale 3 mL via nebulizer 4 times a day. 360 Vial 0 9 Active loratadine (RA LORATADINE) 10 MG TabletIndication s:Chronic frontal sinusitis Take 1 Tab by mouth daily. 90 Tab 0 9 Active [place] Carbonate 300 MG Oral Capsule (Eskalith) Take [...] As directed. 135 Tablet 1 3 Active Warfarin Sodium 5 MG Oral Tablet (Coumadin)Indica tions:MTHFR mutation (methylenetetrah ydrofolate reductase) TAKE 2 TABLETS DAILY 180 Tablet 1 3 023 Discontinued Clobetasol Propionate 0.05 % External Cream (Temovate) [...] 1 3 023 Discontinued(Sammy españa preference/disc ontinuation) documented as of this encounter (statuses as of 07/05/2023) Active Problems Problem Noted Date Body mass [...] as of this encounter (statuses as of 07/05/2023) Resolved Problems Problem Noted Date Resolved Date [...] as of this encounter (statuses as of 07/05/2023) Immunizations Name Administration Dates Next Due COVID-19 mRNA, LNP-s, No Pre serve, 2-Dose Series (Moderna) 03/06/2021,02/06/2021 HepA Inact/HepB Recomb>=18yrs old 06/02/2012,,08/07/2011 Pneumococcal Conjugate Vacci ne, 20-valent ([id number]) 07/24/2022 Pneumococcal Polysaccharide PPV23 (Pneumovax) 07/29/2013 Seasonal [...] as of this encounter Progress Notes * Jake Chandler, [facility] - 07/04/2023 10:24 AM EDT Medication Therapy Disease Management - Anticoagulation Patient: Rody Jean Baptiste | : 1975 Subjective Patient-Reported Symptoms: Patient Findings Positives: Missed doses (missed a 15 mg dose earlier this week- Friday), Change in diet/appetite (eating more kale/spinnich but less brussel sprouts) Negatives: Signs/symptoms of thrombosis, Signs/symptoms of bleeding, Change in health, Change in alcohol use, Change in activity, Upcoming invasive procedure, Extra doses, Change in medications, Bruising Objective Current Warfarin Dose As of 07/04/2023 Warfarin maintenance plan: 10 mg (5 mg x 2) every Sun; 15 mg (5 mg x 3) all other days INR Result As of 07/04/2023 INR goal: 2.0-3.0 INR used for dosin.1 (07/04/2023) Assessment & Plan Warfarin Plan As of 07/04/2023 Full warfarin instructions: 10 mg every Sun; 15 mg all other days Next INR check: 07/21/2023 Repeat PT/INR in 3 week(s) Weekly dose: not changed Additional Dosing Information: Description 10 mg tablets sent to pharmacy 07/04/23 to help reduce patient's pill burden. Counseling given thattablets will now be white. Jake Chandler RP Clinical Pharmacist 07/04/2023, 10:24 AM documented in this encounter Miscellaneous Notes * Addendum Note - Jake Chandler RPh - 07/05/2023 9:38 AM EDTAddended by: JAKE CHANDLER on: 07/05/2023 09:38 AM Modules accepted: Orders documented in this encounter Plan of Treatment Upcoming Encounters Date Type Specialty Care Team Description 07/21/2023 Anticoagulation Pharmacy [address] [address] 07/22/2023 Office Visit Neurology Mahendra Del Valle MD [address] [place] [address] 07/24/2023 Office Visit Gynecology Obstetrics Tremayne Lo MD [address] [place] [address] 07/25/2023 Office Visit Neurology Vannesa Crouch, DO [address] [place] [address] 08/11/2023 Office Visit Ophthalmology Uri Quintana, DO [address] [place] [address] 09/05/2023 Office Visit Family Medicine Connie Navarro MD [address] [facility] [place] [address] 01/07/2024 Imaging Radiology 01/19/2024 Telemedicine Sleep Disorders KamLynsey kinsey, DO [address] [place] [id number] 06/11/2024 Office Visit Sleep Disorders Kam Lynsey Sydni, DO [address] [place] [phone] Health Maintenance Due Date Last Done Comments [...] Comments INR FINGERSTICK, POINT OF CARE STAT 07/04/2023 10:27 AM EDT MTHFR mutation (methylenetetrahydr ofolate reductase) documented in this encounter Results * INR FINGERSTICK, POINT OF CARE (07/04/2023 10:27 AM EDT) Fingerstick INR 2.1 INR 10:30 AM EDT [facility] Blood 07/04/2023 10:2 7 AM EDT 07/04/2023 10:30 AM EDT Narrative [facility] - 07/04/2023 10:30 AM EDT Therapeutic ranges for non-operative patients: Prophylaxsis/treatment of DVT: (Range:2.0-3.0) Treatment of pulmonary embolism:(Range:2.0-3.0) Prevention of systemic embolism from: -tissue heart valves -acute myocardial infarction -valvular heart disease -atrial fibrillation (Range: 2.0-3.0) Mechanical prosthetic valves: (Range: 2.5-3.5) Thuan Barajas [facility] LAB POINT OF CAR E TEST DOCKED DEVICE UNSOLICITED RESULTS [facility] [place] [address] [place] [address] documented in this encounter Visit Diagnoses [...] the patient have Health Care Power of Restoration Officer? No Code Status History Code Status Date Activated Date Inactivated Comments Full Code 09/19/2020 9:51 AM 09/19/2020 10:03 AM Th is order reflects the patients wishes and were consensually agreed upon. Question Answer Comments Discussion of Advance Directives occurred with: Patient Does the patient have a Living Will? No Does the patient have Health Care Power of Restoration Officer? No Full Code 08/18/2020 9:52 AM 08/18/2020 2:40 PM Thi s order reflects the patients wishes and were consensually agreed upon. Question Answer Comments Discussion of Advance Directives occurred with: Patient Does the patient have a Living Will? No Does the patient have Health Care Power of Restoration Officer? No Care Teams Collection Systems Technician Relationship Specialty Start Date End Date Ginna Power MD [address] [place] [address] PCP - General Internal Medicine 09/05/21 documented as of this encounter"
--- OUTSIDE RECORDS SUMMARY | 2023-09-11 00:13 | External Medical Summary ---
Author Name Unknown Address Unknown Organization : Laboratory Report Ordering Provider Test Date Status LORRI BARAHONA 07/21/2023 10:55:58 Final Therapeutic ranges for non-o perative patients:
Prophylaxsis/treatment of DVT: (Range:2.0-3.0)
Treatment of pulmonary embolism:(Range:2.0-3.0)
Prevention of systemic embolism from:
-tissue heart valves
-acute myocardial infarction
-valvular heart disease
-atrial fibrillation
(Range: 2.0-3.0)
Mechanical prosthetic valves: (Range: 2.5-3.5) Observation Date Value Abnormality Reference (Units ) Status INR in Capillary blood by Coagulation assay 07/21/2023 10:55:58 2.3 (INR) Final Performing Location
--- OUTSIDE RECORDS SUMMARY | 2023-09-11 00:13 | External Medical Summary | Summary of Care ---
Author Name Unknown Organization [facility] Address [address] [facility] [place] [address] Phone [phone] Care Team Providers Care Accounts Payable Coordinator Name Role Phone Ginna Power MD Primary Care Provider [phone] Reason for Visit * Reason Comments Dosage Adjustment In Person (Anticoag Cl inic) Encounter Details Date Type Department Care Team Description 07/21/2023 Anticoagulation Pharmacy, [place] [address] [place] [address] [facility] [address] [place] [address] MTHFR mutation (methylenetetrahydrof olate reductase)* Allergies Active Allergy Reactions Severity Noted Date Comments Aripiprazole Neuro complications (Please comment) High 09/30/2019 Tardive dyskinesia [place] (Diagnostic) Low 03/10/2015 Other reaction(s): STRAWBERRIES/TOMATOE S [...] Active Additional Information Patient taking differently:1,000 mg [id number] PRN, Pain, Fever, Reported on 12/16/2022 Nebulizers (NEBULIZER COMPRESSOR) MISC Inhale via nebulizer. Use as directed. 1 Each 1 10/06/2018 Active albuterol-ipratrop ium (DUONEB) 2.5-0.5 MG/3ML nebulizer solution Inhale 3 mL via nebulizer 4 times a day. 360 Vial 0 04/16/2019 Active loratadine (RA LORATADINE) 10 MG TabletIndications: Chronic frontal sinusitis Take 1 Tab by mouth daily. 90 Tab 0 04/16/2019 Active [place] Carbonate 300 MG Oral Capsule (Eskalith) Take [...] old 06/02/2012,,08/07/2011 Pneumococcal Conjugate Vacci ne, 20-valent ([id number]) 07/24/2022 Pneumococcal Polysaccharide PPV23 (Pneumovax) 07/29/2013 Seasonal [...] of this encounter Progress Notes * Jennifer Chandler RPh - 07/21/2023 10:52 AM EDT Medication Therapy Disease Management - Anticoagulation Patient: Rody Jean Baptiste | : 1975 Subjective Patient-Reported Symptoms: Patient Findings Negatives: Signs/symptoms of thrombosis, Signs/symptoms of bleeding, Change in health, Change in alcohol use, Change in activity, Upcoming invasive procedure, Missed doses, Extra doses, Change in medications, Change in diet/appetite, Bruising Objective Current Warfarin Dose As of 07/21/2023 Warfarin maintenance plan: 10 mg (5 mg x 2) every Sun; 15 mg (5 mg x 3) all other days INR Result As of 07/21/2023 INR goal: 2.0-3.0 INR used for dosin.3 (07/21/2023) Assessment & Plan Warfarin Plan As of 07/21/2023 Full warfarin instructions: 10 mg every Sun; 15 mg all other days No change documented: Jennifer Chandler RPh Next INR check: 08/18/2023 Repeat PT/INR in 4 week(s) Weekly dose: not changed Additional Dosing Information: Description 10 mg tablets sent to pharmacy 07/04/23 to help reduce patient's pill burden. Counseling given thattablets will now be white. Jennifer Chandler RPh Clinical Pharmacist 07/21/2023, 10:52 AM documented in this encounter Plan of Treatment Upcoming Encounters Date Type Specialty Care Team Description 07/21/2023 Immunization Ancillary [place] [address] [place] [address] Arrived 07/22/2023 Office Visit Neurology Mahendra Del Valle MD [address] [place] [address] 07/24/2023 Office Visit Gynecology Obstetrics Tremayne Lo MD [address] [place] [address] 07/25/2023 Office Visit Neurology Mona Crouchkristina Erum, DO [address] [place] [address] 08/11/2023 Office Visit Ophthalmology Ky Quintanaguilhermeike Aranda, DO [address] [place] [address] 08/18/2023 [place] [id number] [place] [address] 09/05/2023 Office Visit Family Medicine NavarroConnie MD [address] [place] [address] 01/07/2024 Imaging Radiology 01/19/2024 Telemedicine Sleep Disorders Lynsey Kam DO [address] [place] [address] 06/11/2024 Office Visit Sleep Disorders Lynsey Kam DO [address] [place] [address] 07/02/2024 Telemedicine Dermatology Cece Leary PA-C [address] [...] 11/21/2022 Influenza Vaccine (FLU shot) (#1) 2023 07/21/2023, 07/24/2022, 09/05/2021, Additional history exists DTaP,Tdap,and Td Vaccines [...] Comments INR FINGERSTICK, POINT OF CARE STAT 07/21/2023 10:55 AM EDT MTHFR mutation (methylenetetrahydr ofolate reductase) documented in this encounter Results * INR FINGERSTICK, POINT OF CARE (07/21/2023 10:55 AM EDT) Fingerstick INR 2.3 INR 10:57 AM EDT [facility] [place] 56 Blood 07/21/2023 10:5 5 AM EDT 07/21/2023 10:57 AM EDT Narrative [facility] [place] 56- - 07/21/2023 10:57 AM EDT Therapeutic ranges for non-operative patients: Prophylaxsis/treatment of DVT: (Range:2.0-3.0) Treatment of pulmonary embolism:(Range:2.0-3.0) Prevention of systemic embolism from: -tissue heart valves -acute myocardial infarction -valvular heart disease -atrial fibrillation (Range: 2.0-3.0) Mechanical prosthetic valves: (Range: 2.5-3.5) Thuan Barajas [facility] LAB POINT OF CAR E TEST DOCKED DEVICE UNSOLICITED RESULTS [facility] [place] [address] [place] [address] documented in this encounter Visit Diagnoses Diagnosis [...] the patient have Health Care Power of Database Marketing Specialist? No Code Status History Code Status Date Activated Date Inactivated Comments Full Code 09/19/2020 9:51 AM 09/19/2020 10:03 AM Th is order reflects the patients wishes and were consensually agreed upon. Question Answer Comments Discussion of Advance Directives occurred with: Patient Does the patient have a Living Will? No Does the patient have Health Care Power of Database Marketing Specialist? No Full Code 08/18/2020 9:52 AM 08/18/2020 2:40 PM Thi s order reflects the patients wishes and were consensually agreed upon. Question Answer Comments Discussion of Advance Directives occurred with: Patient Does the patient have a Living Will? No Does the patient have Health Care Power of Database Marketing Specialist? No Care Teams Accounts Payable Coordinator Relationship Specialty Start Date End Date Ginna Power MD [address] [facility] [place] [address] PCP - General Internal Medicine 09/05/21 documented as of this encounter"
--- OUTSIDE RECORDS SUMMARY | 2023-09-11 00:13 | External Medical Summary | Summary of Care ---
Author Name Unknown Organization [facility] Address [address] [facility] [place] [address] Phone [phone] Care Team Providers Care Rawhide Trimmer Name Role Phone Ginna Power MD Primary Care Provider [phone] Reason for Visit * Reason Onset Date Comments Appointment 07/07/2023 Encounter Details Date Type Department Care Team Description 07/07/2023 Telephone Dermatology [facility] Jessica Jolly [address] [place] [address] Kasia Holliday MD [address] [facility] [address] Appointment Allergies Active Allergy Reactions Severity Noted Date Comments Aripiprazole Neuro complications (Please comment) High 09/30/2019 Tardive dyskinesia [place] (Diagnostic) Low 03/10/2015 Other reaction(s): STRAWBERRIES/TOMATOE S IN LARGE VOLUMES-ULCERS IIN MOUTH Tomato Low 09/30/2019 documented as of this encounter (statuses as of 07/14/2023) Medications Medication Sig Dispensed Refills Start Date [...] Active Additional Information Patient taking differently:1,000 mg [id number] PRN, Pain, Fever, Reported on 12/16/2022 Nebulizers (NEBULIZER COMPRESSOR) [facility] Inhale via nebulizer. Use as directed. 1 Each 1 10/06/2018 Active albuterol-ipratrop ium (DUONEB) 2.5-0.5 MG/3ML nebulizer solution Inhale 3 mL via nebulizer 4 times a day. 360 Vial 0 04/16/2019 Active loratadine (RA LORATADINE) 10 MG TabletIndications: Chronic frontal sinusitis Take 1 Tab by mouth daily. 90 Tab 0 04/16/2019 Active [place] Carbonate 300 MG Oral Capsule (Eskalith) Take [...] 04/19/2023 Active Acyclovir 400 MG Oral Tablet (Zovirax)Cirilotio ns:Herpes genitalia Take 1 Tablet by mouth [...] as of this encounter (statuses as of 07/14/2023) Active Problems Problem Noted Date Body mass [...] as of this encounter (statuses as of 07/14/2023) Resolved Problems Problem Noted Date Resolved Date [...] as of this encounter (statuses as of 07/14/2023) Immunizations Name Administration Dates Next Due COVID-19 mRNA, LNP-s, No Pre serve, 2-Dose Series (Moderna) 03/06/2021,02/06/2021 HepA Inact/HepB Recomb>=18yrs old 06/02/2012,,08/07/2011 Pneumococcal Conjugate Vacci ne, 20-valent ([id number]) 07/24/2022 Pneumococcal Polysaccharide PPV23 (Pneumovax) 07/29/2013 Seasonal [...] encounter Miscellaneous Notes * Telephone Encounter - MERYL Morrison - 07/10/2023 11:49 AM EDT Called patient, left message to return call. * Telephone Encounter - MERYL Morrison - 07/07/2023 1:33 PM EDT Called patient, left message to return call. * Telephone Encounter - MERYL Morrison - 07/07/2023 1:33 PM EDT Kasia Holliday MD [facility] Dermatology Scheduling Pool/Class 9-12 months HS refills, can be virtual - Cece? documented in this encounter Plan of Treatment Upcoming Encounters Date Type Specialty Care Team Description 07/21/2023 Anticoagulation Pharmacy [facility] [address] [place] [address] 07/22/2023 Office Visit Neurology Mahendra Del Valle MD [address] [place] [address] 07/24/2023 Office Visit Gynecology Obstetrics Tremayne Lo MD [address] [place] [address] 07/25/2023 Office Visit Neurology Vannesa Crouch DO [address] [place] [address] 08/11/2023 Office Visit Ophthalmology Uri Quintana, DO [address] [facility] [place] [address] 09/05/2023 Office Visit Family Medicine Connie Navarro MD [address] [place] [address] 01/07/2024 Imaging Radiology 01/19/2024 Telemedicine Sleep Disorders Lynsey Kam DO [address] [place] [address] 06/11/2024 Office Visit Sleep Disorders Lynsey Kam DO [address] [place] [address] Health Maintenance Due Date Last Done Comments [...] the patient have Health Care Power of Reinsurance Claim Analyst? No Code Status History Code Status Date Activated Date Inactivated Comments Full Code 09/19/2020 9:51 AM 09/19/2020 10:03 AM Th is order reflects the patients wishes and were consensually agreed upon. Question Answer Comments Discussion of Advance Directives occurred with: Patient Does the patient have a Living Will? No Does the patient have Health Care Power of Reinsurance Claim Analyst? No Full Code 08/18/2020 9:52 AM 08/18/2020 2:40 PM Thi s order reflects the patients wishes and were consensually agreed upon. Question Answer Comments Discussion of Advance Directives occurred with: Patient Does the patient have a Living Will? No Does the patient have Health Care Power of Reinsurance Claim Analyst? No Care Teams Rawhide Trimmer Relationship Specialty Start Date End Date Ginna Power MD [address] [place] [address] PCP - General Internal Medicine 09/05/21 documented as of this encounter
--- OUTSIDE RECORDS SUMMARY | 2023-09-11 00:13 | External Medical Summary | Summary of Care ---
Author Name Unknown Organization [facility] Address [address] [facility] [place] [address] Phone [phone] Care Team Providers Care Photographer'S Model Name Role Phone Ginna Power MD Primary Care Provider [phone] Reason for Visit * Reason Comments Dosage Adjustment In Person (Anticoag Cl inic) Encounter Details Date Type Department Care Team Description 07/04/2023 Anticoagulation Pharmacy, [place] [address] [place] [address] [facility] [address] [place] [address] MTHFR mutation (methylenetetrahydrof olate reductase)* Allergies Active Allergy Reactions Severity Noted Date Comments Aripiprazole Neuro complications (Please comment) High 09/30/2019 Tardive dyskinesia [place] (Diagnostic) Low 03/10/2015 Other reaction(s): STRAWBERRIES/TOMATOE S IN LARGE VOLUMES-ULCERS IIN MOUTH Tomato Low 09/30/2019 documented as of this encounter (statuses as of 07/04/2023) Medications Medication Sig Dispensed Refills Start Date [...] Active Additional Information Patient taking differently:1,000 mg [id number] PRN, Pain, Fever, Reported on 12/16/2022 Nebulizers (NEBULIZER COMPRESSOR) MISC Inhale via nebulizer. Use as directed. 1 Each 1 8 Active albuterol-ipratro pium (DUONEB) 2.5-0.5 MG/3ML nebulizer solution Inhale 3 mL via nebulizer 4 times a day. 360 Vial 0 9 Active loratadine (RA LORATADINE) 10 MG TabletIndications :Chronic frontal sinusitis Take 1 Tab by mouth daily. 90 Tab 0 9 Active [place] Carbonate 300 MG Oral Capsule (Eskalith) Take [...] metronidazole completed. 140 g 5 3 Active Clobetasol Propionate 0.05 % External Cream (Temovate) Apply 1 Application Dosing Unit topically to affected area in the morning and 1 Application Dosing Unit before bedtime. To affected area for up to two weeks.. 30 g 1 3 Active Additional Information Patient not taking.Reported on 06/11/2023 Spironolactone 50 MG Oral Tablet (Aldactone)Indica tions:Hidradeniti s TAKE 1 TABLET BY MOUTH TWICE DAILY WITH FOOD 180 Tablet 0 3 Active Acyclovir 400 MG Oral Tablet (Zovirax)Indicati ons:Herpes genitalia Take 1 Tablet by mouth in the morning and 1 Tablet before bedtime. 180 Tablet 0 3 Active Pantoprazole Sodium 20 MG Oral Tablet Delayed Release (Protonix) TAKE 1 TABLET BY MOUTH DAILY 90 Tablet 1 3 Active Additional Information Patient not taking.Reported on 06/05/2023 Multivitamins Oral Capsule Take 1 Capsule by [...] Active Warfarin Sodium 5 MG Oral Tablet (Coumadin)Indicat ions:MTHFR mutation (methylenetetrahy drofolate reductase) TAKE 2 TABLETS DAILY 180 Tablet 1 3 07/04/20 23 Discontinued documented as of this encounter (statuses as of 07/04/2023) Active Problems Problem Noted Date Body mass [...] as of this encounter (statuses as of 07/04/2023) Resolved Problems Problem Noted Date Resolved Date [...] Morbid obesity with BMI of 50.0-59.9, adult 100 05/201801/08/2023 Overview: Per Obesity protocol #1 - [...] as of this encounter (statuses as of 07/04/2023) Immunizations Name Administration Dates Next Due COVID-19 mRNA, LNP-s, No Pre serve, 2-Dose Series (Moderna) 03/06/2021,02/06/2021 HepA Inact/HepB Recomb>=18yrs old 06/02/2012,,08/07/2011 Pneumococcal Conjugate Vacci ne, 20-valent ([id number]) 07/24/2022 Pneumococcal Polysaccharide PPV23 (Pneumovax) 07/29/2013 Seasonal [...] Progress Notes * Jennifer Chandler, [facility] - 07/04/2023 10:24 AM EDT Medication Therapy [...] be white. Jennifer Chandler RPh Clinical Pharmacist 07/04/2023, 10:24 AM documented in this encounter Plan of Treatment Upcoming Encounters Date Type Specialty Care Team Description 07/04/2023 Telemedicine Dermatology Kasia Holliday MD [address] [place] [address] 07/21/2023 Anticoagulation Pharmacy [address] [address] 07/22/2023 Office Visit Neurology Mahendra Del Valle MD [address] [place] [address] 07/24/2023 Office Visit Gynecology Obstetrics Tremayne Lo MD [address] [place] [address] 07/25/2023 Office Visit Neurology Vannesa Crouch, DO [address] [place] [address] 08/11/2023 Office Visit Ophthalmology Uri Quintana, DO [address] [place] [address] 09/05/2023 Office Visit Family Medicine Connie Navarro MD [address] [place] [address] 01/07/2024 Imaging Radiology 01/19/2024 Telemedicine Sleep Disorders Lynsey Kam, [address] [place] [address] 06/11/2024 Office Visit Sleep Disorders Lynsey Kam, DO [address] [place] [address] Health Maintenance Due Date Last Done Comments [...] INR 2.1 INR 10:30 AM EDT [facility] Blood 07/04/2023 10:2 7 AM EDT 07/04/2023 10:30 AM EDT Narrative [facility] - 07/04/2023 10:30 AM EDT Therapeutic ranges for non-operative patients: Prophylaxsis/treatment of DVT: (Range:2.0-3.0) Treatment of pulmonary embolism:(Range:2.0-3.0) Prevention of systemic embolism from: -tissue heart valves -acute myocardial infarction -valvular heart disease -atrial fibrillation (Range: 2.0-3.0) Mechanical prosthetic valves: (Range: 2.5-3.5) Thuan Barajas [facility] LAB POINT OF CAR E TEST DOCKED DEVICE UNSOLICITED RESULTS [facility] [address] [place] [address] documented in this encounter Visit [...] the patient have Health Care Power of Medical Center Manager? No Code Status History Code Status Date Activated Date Inactivated Comments Full Code 09/19/2020 9:51 AM 09/19/2020 10:03 AM Th is order reflects the patients wishes and were consensually agreed upon. Question Answer Comments Discussion of Advance Directives occurred with: Patient Does the patient have a Living Will? No Does the patient have Health Care Power of Medical Center Manager? No Full Code 08/18/2020 9:52 AM 08/18/2020 2:40 PM Thi s order reflects the patients wishes and were consensually agreed upon. Question Answer Comments Discussion of Advance Directives occurred with: Patient Does the patient have a Living Will? No Does the patient have Health Care Power of Medical Center Manager? No Care Teams Photographer'S Model Relationship Specialty Start Date End Date Ginna Power MD [address] [facility] [place] [address] PCP - General Internal Medicine 09/05/21 documented as of this encounter"
--- OUTSIDE RECORDS SUMMARY | 2023-09-11 00:13 | External Medical Summary ---
Author Name Unknown Address Unknown Organization : Laboratory Report Ordering Provider Test Date Status LORRI BARAHONA 07/04/2023 10:27:37 Final Therapeutic ranges for non-o perative patients:
Prophylaxsis/treatment of DVT: (Range:2.0-3.0)
Treatment of pulmonary embolism:(Range:2.0-3.0)
Prevention of systemic embolism from:
-tissue heart valves
-acute myocardial infarction
-valvular heart disease
-atrial fibrillation
(Range: 2.0-3.0)
Mechanical prosthetic valves: (Range: 2.5-3.5) Observation Date Value Abnormality Reference (Units ) Status INR in Capillary blood by Coagulation assay 07/04/2023 10:27:37 2.1 (INR) Final Performing Location
--- OUTSIDE RECORDS SUMMARY | 2023-09-11 00:13 | External Medical Summary | Summary of Care ---
Author Name Unknown Organization [facility] Address [address] [facility] [place] [address] Phone [phone] Care Team Providers Care Facility Environmental Technician Name Role Phone Ginna Power MD Primary Care Provider [phone] Encounter Details Date Type Department Care Team Description 07/21/2023 Immunization Ancillary Department, [place] [address] [place] [address] [place] [address] [place] [address] Arrived Allergies Active Allergy Reactions Severity Noted Date Comments Aripiprazole Neuro complications (Please comment) High 09/30/2019 Tardive dyskinesia [place] (Diagnostic) Low 03/10/2015 Other reaction(s): STRAWBERRIES/TOMATOE S [...] Active Additional Information Patient taking differently:1,000 mg EefdO2I PRN, Pain, Fever, Reported on 12/16/2022 Nebulizers [...] mouth daily. 90 Tab 0 04/16/2019 Active [place] Carbonate 300 MG Oral Capsule (Eskalith) Take [...] old 06/02/2012,,08/07/2011 Pneumococcal Conjugate Vacci ne, 20-valent ([id number]) 07/24/2022 Pneumococcal Polysaccharide PPV23 (Pneumovax) 07/29/2013 Seasonal [...] Neurology Mahendra Del Valle MD [address] [place] [address] 07/24/2023 Office Visit Gynecology Obstetrics Tremayne Lo MD [address] [place] [address] 07/25/2023 Office Visit Neurology Vannesa Crouch, DO [address] [place] [address] 08/11/2023 Office Visit Ophthalmology Uri Quintana, DO [address] [place] [address] 08/18/[address] [address] 09/05/2023 Office Visit Family Medicine Connie Navarro MD [address] [place], [place] [address] [address] 01/07/2024 Imaging Radiology 01/19/2024 Telemedicine Sleep Disorders Lynsey Kam, DO [address] [place] [address] 06/11/2024 Office Visit Sleep Disorders Lynsey Kam, DO [address] [place] [address] 07/02/2024 Telemedicine Dermatology Cece Leary PA-C [address] [...] the patient have Health Care Power of Save All Operator? No Code Status History Code Status Date Activated Date Inactivated Comments Full Code 09/19/2020 9:51 AM 09/19/2020 10:03 AM Th is order reflects the patients wishes and were consensually agreed upon. Question Answer Comments Discussion of Advance Directives occurred with: Patient Does the patient have a Living Will? No Does the patient have Health Care Power of Save All Operator? No Full Code 08/18/2020 9:52 AM 08/18/2020 2:40 PM Thi s order reflects the patients wishes and were consensually agreed upon. Question Answer Comments Discussion of Advance Directives occurred with: Patient Does the patient have a Living Will? No Does the patient have Health Care Power of Save All Operator? No Care Teams Facility Environmental Technician Relationship Specialty Start Date End Date Ginna Power MD [address] [place] [address] [place] [address] PCP - General Internal Medicine 09/05/21 documented as of this encounter
--- OUTSIDE RECORDS SUMMARY | 2023-09-11 00:14 | External Medical Summary | Summary of Care ---
Author Name Unknown Organization [facility] [address] [facility] [address] Phone [phone] Care Team Providers Care Transmitter Tester Name Role Phone Ginna Power MD Primary Care Provider [phone] Reason for Referral * (Within 10 days (routine)) - Authorized Specialty Diagnoses / Procedures Referred By Contac t Referred To Contact Diagnoses Diarrhea, unspecified type Procedures HLA TYPING FOR CELIAC DISEASE Connie Navarro MD [address] [employer] [place] [id number] Referral ID Status Reason Start Date Expiration Date V isits Requested Visits Authorized [id number] Authorized 06/06/2023 999 999 Reason for Visit * Reason Onset Date Comments Test Results 06/06/2023 Encounter Details Date Type Department Care Team Description 06/06/2023 Telephone Family Practice [facility] [address] [place] [address] Connie Navarro MD [address] [place] [address] Test Results Allergies Active Allergy Reactions Severity Noted Date Comments Aripiprazole Neuro complications (Please comment) High 09/30/2019 Tardive dyskinesia [place] (Diagnostic) Low 03/10/2015 Other reaction(s): STRAWBERRIES/TOMATOE S IN LARGE VOLUMES-ULCERS IIN MOUTH Tomato Low 09/30/2019 documented as of this encounter (statuses as of 06/06/2023) Medications Medication Sig Dispensed Refills Start Date [...] Active Additional Information Patient taking differently:1,000 mg [id number] PRN, Pain, Fever, Reported on 12/16/2022 Nebulizers (NEBULIZER COMPRESSOR) [facility] Inhale via nebulizer. Use as directed. 1 Each 1 10/06/2018 Active albuterol-ipratrop ium (DUONEB) 2.5-0.5 MG/3ML nebulizer solution Inhale 3 mL via nebulizer 4 times a day. 360 Vial 0 04/16/2019 Active loratadine (RA LORATADINE) 10 MG TabletIndications: Chronic frontal sinusitis Take 1 Tab by mouth daily. 90 Tab 0 04/16/2019 Active [place] Carbonate 300 MG Oral Capsule (Eskalith) Take 3 Capsules by mouth at bedtime. 0 12/16/2021 Active Diclofenac Sodium 1 % External Gel (Voltaren) Apply 1 g topically to affected area in the morning and 1 g at noon and 1 g before bedtime. 100 g 3 11/21/2022 Active CPAP every night at bedtime. 0 Active Albuterol Sulfate HFA 108 (90 Base) MCG/ACT Inhalation Aerosol SolutionIndication s:Mild intermittent asthma without complication INHALE 2 PUFFS BY MOUTH NEEDED SHORT OF BREATH Strength: 108 (90 BASE) MCG/ACT 25.5 g 1 02/24/2023 Active Warfarin Sodium 5 MG Oral Tablet (Coumadin)Indicati ons:MTHFR mutation (methylenetetrahyd rofolate reductase) TAKE 2 TABLETS DAILY 180 Tablet 1 02/25/2023 Active Levothyroxine Sodium 75 MCG Oral Tablet (Levoxyl)Indicatio ns:Hypothyroidism, unspecified type Take 1 Tablet by mouth daily first thing in the morning. on an empty stomach. 30 Tablet 5 02/24/2023 Active SUMAtriptan Succinate 50 MG Oral Tablet (Imitrex)Indicatio ns:Migraine variant, intractable TAKE 2 TABLETS AT ONSET MIGRAINE MAY REPEAT 1 TABLET IN 2 HOURS- MAX OF 5 IN 24 HOURS 9 Tablet 1 03/26/2023 Active metroNIDAZOLE 0.75 % Vaginal Gel (Metrogel-Vaginal) Insert applicator into the vagina and administer before bed. Use twice a week for 4-6 months. Start after oral metronidazole completed. 140 g 5 04/19/2023 Active Clobetasol Propionate 0.05 % External Cream (Temovate) Apply 1 Application Dosing Unit topically to affected area in the morning and 1 Application Dosing Unit before bedtime. To affected area for up to two weeks.. 30 g 1 04/23/2023 Active Spironolactone 50 MG Oral Tablet (Aldactone)Indicat ions:Hidradenitis TAKE 1 TABLET BY MOUTH TWICE DAILY WITH FOOD 180 Tablet 0 05/20/2023 Active Acyclovir 400 MG Oral Tablet (Zovirax)Indicatio ns:Herpes genitalia Take 1 Tablet by mouth in the morning and 1 Tablet before bedtime. 180 Tablet 0 05/21/2023 Active Pantoprazole Sodium 20 MG Oral Tablet Delayed Release (Protonix) TAKE 1 TABLET BY MOUTH DAILY 90 Tablet 1 05/21/2023 Active Additional Information Patient not taking.Reported on 06/05/2023 Itraconazole 100 MG Oral Capsule (Sporanox) Take 1 Capsule by mouth in the morning and 1 Capsule before bedtime. 0 Active Multivitamins Oral Capsule Take 1 Capsule by mouth in the morning. 0 Active Probiotic & Acidophilus Ex St Oral Capsule Take 1 Capsule by mouth in the morning and 1 Capsule at noon and 1 Capsule in the evening. Take with meals. 0 Active documented as of this encounter (statuses as of 06/06/2023) Active Problems Problem Noted Date ASCUS with positive high risk HPV cervic al 04/23/2023 Vaginal itching 04/23/2023 Recurrent vaginitis 04/23/2023 Body mass index (BMI) of 50.0 to 59.9 in adult 04/07/2023 Overview: Per Obesity protocol - Per Obesity protocol - - Chronic allergic rhinitis 11/21/2022 Coagulation defect 11/21/2022 [...] as of this encounter (statuses as of 06/06/2023) Resolved Problems Problem Noted Date Resolved Date [...] as of this encounter (statuses as of 06/06/2023) Immunizations Name Administration Dates Next Due COVID-19 mRNA, LNP-s, No Pre serve, 2-Dose Series (Moderna) 03/06/2021,02/06/2021 HepA Inact/HepB Recomb>=18yrs old 06/02/2012,,08/07/2011 Pneumococcal Conjugate Vacci ne, 20-valent ([id number]) 07/24/2022 Pneumococcal Polysaccharide PPV23 (Pneumovax) 07/29/2013 Seasonal Influenza Virus Vac cine, Unspecified Formulation 09/05/2021,07/28/2020,07/19/2019,06/27,06/25/2018,07/27/2017,06/25/2017 ,07/25/2016,07/21/2014,07/29/2013 Seasonal Influenza, Quadriva lent, No Preserve, 6 Mons & Above, IM 07/24/2022,09/05/2021,07/28/2020 Seasonal Influenza, Quadriva lent, No Preserve, [...] Encounters Date Type Specialty Care Team Description 06/10/2023 Office Visit Sleep Disorders Sherita Coelho, DO [address] [place] [address] 06/10/2023 Office Visit Internal Medicine Ginna Power MD [address] [place] [address] 06/11/2023 Office Visit Gynecology Obstetrics Grace Paieg MD [address] [place] [address] 07/04/2023 Telemedicine Dermatology Kasia Holliday MD [address] [place] [address] 07/22/2023 Office Visit Neurology Mahendra Del Valle MD [address] [place] [address] 07/24/2023 Office Visit Gynecology Obstetrics Tremayne Lo MD [address] [place] [address] 07/25/2023 Office Visit Neurology Vannesa Crouch, DO [address] [place] [address] 08/11/2023 Office Visit Ophthalmology Uri Quintana, DO [address] [place] [address] 09/05/2023 Office Visit Family Medicine Connie Navarro MD [address] [place] [address] 01/07/2024 Imaging Radiology 01/19/2024 Telemedicine Sleep Disorders Lynsey Kam, DO [address] [place] [address] Scheduled Orders Name Type Priority Associated Diagnoses Orde r Schedule HLA TYPING FOR CELIAC DISEASE Lab Routine Diarrhea, unspecified type Expected: 06/06/2023, Expires: 06/06/2024 Health Maintenance Due Date Last Done Comments [...] as of this encounter Visit Diagnoses Diagnosis Diarrhea, unspecified type- Primary documented in this encounter Advance Directives [...] the patient have Health Care Power of Robotic Machine Tender Production? No Code Status History Code Status Date Activated Date Inactivated Comments Full Code 09/19/2020 9:51 AM 09/19/2020 10:03 AM Th is order reflects the patients wishes and were consensually agreed upon. Question Answer Comments Discussion of Advance Directives occurred with: Patient Does the patient have a Living Will? No Does the patient have Health Care Power of Robotic Machine Tender Production? No Full Code 08/18/2020 9:52 AM 08/18/2020 2:40 PM Thi s order reflects the patients wishes and were consensually agreed upon. Question Answer Comments Discussion of Advance Directives occurred with: Patient Does the patient have a Living Will? No Does the patient have Health Care Power of Robotic Machine Tender Production? No Care Teams Transmitter Tester Relationship Specialty Start Date End Date Ginna Power MD [address] [facility] [place] [address] PCP - General Internal Medicine 09/05/21 documented as of this encounter
--- OUTSIDE RECORDS SUMMARY | 2023-09-11 00:14 | External Medical Summary ---
Author Name Unknown Address Unknown Organization [id number]:[facility] [address] [place] [address] Laboratory Report Ordering Provider Test Date Status LORRI BARAHONA 06/10/2023 11:01:42 Final Warfarin Therapy
INR: 2 .0-3.0 conventional anticoagulation
INR: 2.5- 3.5 high intensity anticoagulation Observation Date Value Abnormality Reference (Units ) Status PT 06/10/2023 11:01:42 21.7 Above high normal 11 .6-15.2 (seconds) Final INR 06/10/2023 11:01:42 1.9 Above high normal 0. 8-1.2 Final Performing Location [facility] [address] [place] [address]
--- OUTSIDE RECORDS SUMMARY | 2023-09-11 00:14 | External Medical Summary | Summary of Care ---
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 Encounter Details Date Type Department Care Team Description 06/11/2023 Office Visit Gynecology/Obstetrics [facility] 132 [facility] [place] [address] Grace Paige MD 400 [facility] [place] [address] Recurrent vaginitis*; Vaginal itching Allergies Active Allergy Reactions Severity Noted Date Comments Aripiprazole Neuro complications (Please comment) High 09/30/2019 Tardive dyskinesia [place] (Diagnostic) Low 03/10/2015 Other reaction(s): STRAWBERRIES/TOMATOE S IN LARGE VOLUMES-ULCERS IIN MOUTH Tomato Low 09/30/2019 documented as of this encounter (statuses as of 06/11/2023) Medications Medication Sig Dispensed Refills Start Date [...] Active Additional Information Patient taking differently:1,000 mg [id number] PRN, Pain, Fever, Reported on 12/16/2022 Nebulizers (NEBULIZER COMPRESSOR) [facility] via nebulizer. Use as directed. 1 Each 1 10/06/2018 Active albuterol-ipratrop ium (DUONEB) 2.5-0.5 MG/3ML nebulizer solution Inhale 3 mL via nebulizer 4 times a day. 360 Vial 0 04/16/2019 Active loratadine (RA LORATADINE) 10 MG TabletIndications: Chronic frontal sinusitis Take 1 Tab by mouth daily. 90 Tab 0 04/16/2019 Active [place] Carbonate 300 MG Oral Capsule (Eskalith) Take [...] two weeks.. 30 g 1 04/23/2023 Active Additional Information Patient not taking.Reported on 06/11/2023 Spironolactone 50 MG Oral Tablet (Aldactone)Indicat ions:Hidradenitis [...] as of this encounter (statuses as of 06/11/2023) Active Problems Problem Noted Date ASCUS with [...] and with ASCUS pap 11/2021 Needs colposcopy. MREYL on CPAP 09/05/2021 Sacroiliac joint disease 09/02/2018 Trochanteric bursitis of both hips 09/02 Mild single current episode of major dep ressive disorder 09/19/2017 History of pulmonary embolism 07/24/2017 Bulimia nervosa 11/06/2014 MTHFR mutation (methylenetetrahydrofolat e reductase) 06/03/2013 Endometriosis Anxiety Asthma Bipolar 2 disorder Herpes genitalia HPV (human papilloma virus) infection Asthma flare documented as of this encounter (statuses as of 06/11/2023) Resolved Problems Problem Noted Date Resolved Date [...] as of this encounter (statuses as of 06/11/2023) Immunizations Name Administration Dates Next Due COVID-19 mRNA, LNP-s, No Pre serve, 2-Dose Series (Moderna) 03/06/2021,02/06/2021 HepA Inact/HepB Recomb>=18yrs old 06/02/2012,,08/07/2011 Pneumococcal Conjugate Vacci ne, 20-valent ([id number]) 07/24/2022 Pneumococcal Polysaccharide PPV23 (Pneumovax) 07/29/2013 Seasonal [...] Sign Reading Time Taken Comments Blood Pressure 128/74 06/11/2023 10:11 AM EDT Pulse - - Temperature - - Respiratory Rate - - Oxygen Saturation - - Inhaled Oxygen Concentration - - Weight 130.6 kg (288 lb) 06/11/2023 10:11 AM EDT Height 170.2 cm (5' 7") 06/11/2023 10:11 AM EDT Body Mass Index 45.11 06/11/2023 10:11 AM EDT documented in this [...] as of this encounter Progress Notes * Grace Paige MD - 06/11/2023 10:00 AM EDT HPI: 47 year old here today for vulvar biopsy due to recurrent vaginitis/vulvar irritation Informed consent obtained discussing benefits, risks and alternative. Risks including but not limited to infection, bleeding, pain or discomfort, inability to obtain enough tissue resulting in the need for further biopsy or surgery, missing cancer or precancer cells Procedure Patient was placed in lithotomy position. A time out was performed by Dilip Paige prior to procedure. She is not allergic to betadine or latex. Patient voids to her left labia where most of her discomfortis, injected 2 mls of local lidocaine. #4 punch biopsy taken. Hemostasis achieved with 3-0 Vicryl and silver nitrate sticks. EBL minimal. All instruments removed. Automatic Quilling Machine Operator Documentation Provider requested music therapist public school system. Name of music therapist public school system: Radha Bishop LPN She tolerated procedure without difficulty. Patient instructed to call for severe pain, heavy bleeding. She will be notified of pathology results. Grace Paige MD, Ph.D., FACOG [address] [place] [address] [address] [facility] [place] [address] 06/11/2023 10:30 AM This chart was completed in part utilizing Fluency Speech Voice Recognition Software. Grammatical errors, random word insertions, prounoun errors, and incomplete sentences are an occasional consequence of this system due to software limitations, ambient noise, and hardware issues. Any formal questions or concerns about the content, text, or information contained within the body of this dictation should be directly addressed to the provider for clarification. documented in this encounter Nursing Notes * Paulette Bishop LPN - 06/11/2023 10:12 AM EDT Vulvar bx. documented in this encounter Plan of Treatment Upcoming Encounters Date Type Specialty Care Team Description 06/25/2023 Anticoagulation Pharmacy [address] [address] 07/04/2023 Telemedicine Dermatology Kasia Holliday MD [address] [place] [address] 07/22/2023 Office Visit Neurology Mahendra Del Valle MD [address] [place] [address] 07/24/2023 Office Visit Gynecology Obstetrics Tremayne Lo MD [address] [place] [address] 07/25/2023 Office Visit Neurology Vannesa Crouch, [address] [place] [address] 08/11/2023 Office Visit Ophthalmology Uri Quintana, DO [address] [place] [address] 09/05/2023 Office Visit Family Medicine Connie Navarro MD [address] [place] [address] 01/07/2024 Imaging Radiology 01/19/2024 Telemedicine Sleep Disorders Lynsey Kam, [address] [place] [address] 06/11/2024 Office Visit Sleep Disorders Lynsey Kam DO [address] [place] [address] Pending Results Name Type Priority Associated Diagnoses Date /Time SURGICAL PATHOLOGY Pathology Routine Recurrent vaginitis Vaginal itching 06/11/2023 10:38 AM EDT Health Maintenance Due Date Last [...] as of this encounter Visit Diagnoses Diagnosis Recurrent vaginitis- Primary Vaginitis and vulvovaginitis, unspecified Vaginal itching Pruritus of genital organs documented in this encounter Advance Directives Latest [...] the patient have Health Care Power of C Software Developer? No Code Status History Code Status Date Activated Date Inactivated Comments Full Code 09/19/2020 9:51 AM 09/19/2020 10:03 AM Th is order reflects the patients wishes and were consensually agreed upon. Question Answer Comments Discussion of Advance Directives occurred with: Patient Does the patient have a Living Will? No Does the patient have Health Care Power of C Software Developer? No Full Code 08/18/2020 9:52 AM 08/18/2020 2:40 PM Thi s order reflects the patients wishes and were consensually agreed upon. Question Answer Comments Discussion of Advance Directives occurred with: Patient Does the patient have a Living Will? No Does the patient have Health Care Power of C Software Developer? No Care Teams Mold Machine Operator Relationship Specialty Start Date End Date Ginna Power MD 200 [place] [address] PCP - General Internal Medicine 09/05/21 documented as of this encounter
--- OUTSIDE RECORDS SUMMARY | 2023-09-11 00:14 | External Medical Summary | Summary of Care ---
Author Name Unknown Organization [facility] Address [address] [facility] [address] Phone [phone] Care Team Providers Care Branch Store Manager Name Role Phone Ginna Power MD Primary Care Provider [phone] Encounter Details Date Type Department Care Team Description 06/16/2023 Telephone Gynecology/Obstetrics [facility] 132 [facility] [place] [address] Grace Paige MD 400 [facility] [place] [address] Allergies Active Allergy Reactions Severity Noted Date Comments Aripiprazole Neuro complications (Please comment) High 09/30/2019 Tardive dyskinesia [place] (Diagnostic) Low 03/10/2015 Other reaction(s): STRAWBERRIES/TOMATOE S IN LARGE VOLUMES-ULCERS IIN MOUTH Tomato Low 09/30/2019 documented as of this encounter (statuses as of 06/20/2023) Medications Medication Sig Dispensed Refills Start Date [...] Active Additional Information Patient taking differently:1,000 mg [id number] PRN, Pain, Fever, Reported on 12/16/2022 Nebulizers (NEBULIZER COMPRESSOR) [facility] Inhale via nebulizer. Use as directed. 1 Each 1 10/06/2018 Active albuterol-ipratrop ium (DUONEB) 2.5-0.5 MG/3ML nebulizer solution Inhale 3 mL via nebulizer 4 times a day. 360 Vial 0 04/16/2019 Active loratadine (RA LORATADINE) 10 MG TabletIndications: Chronic frontal sinusitis Take 1 Tab by mouth daily. 90 Tab 0 04/16/2019 Active [place] Carbonate 300 MG Oral Capsule (Eskalith) Take [...] as of this encounter (statuses as of 06/20/2023) Active Problems Problem Noted Date Body mass [...] as of this encounter (statuses as of 06/20/2023) Resolved Problems Problem Noted Date Resolved Date [...] as of this encounter (statuses as of 06/20/2023) Immunizations Name Administration Dates Next Due COVID-19 mRNA, LNP-s, No Pre serve, 2-Dose Series (Moderna) 03/06/2021,02/06/2021 HepA Inact/HepB Recomb>=18yrs old 06/02/2012,,08/07/2011 Pneumococcal Conjugate Vacci ne, 20-valent ([id number]) 07/24/2022 Pneumococcal Polysaccharide PPV23 (Pneumovax) 07/29/2013 Seasonal [...] encounter Miscellaneous Notes * Telephone Encounter - Sumi Stein RN - 06/20/2023 11:06 AM EDT Patient called and made aware. Verbalized understanding. * Telephone Encounter - Lizeth Galarza LPN - 06/16/2023 3:30 PM EDT left message for patient to call office * Telephone Encounter - Lizeth Galarza LPN - 06/16/2023 2:50 PM EDT ----- Message from Grace Paige MD sent at 06/16/2023 2:44 PM EDT ----- Please let patient know vulvar biopsy was negative for lichens. Shows contact dermatitis, and due to chronic itch cycle. Would recommend avoiding any additional irritants, patient can follow-up with her provider as already scheduled Thank you ----- Message ----- From: Camilla Foreman Automated Processing Sent: 06/16/2023 11:54 AM EDT To: Grace Paige MD documented in this encounter Plan of Treatment Upcoming Encounters Date Type Specialty Care Team Description 06/25/2023 [facility] [place] [address] 07/04/2023 Telemedicine Dermatology Kasia Holliday MD [address] [place] [address] 07/22/2023 Office Visit Neurology Mahendra Del Valle MD [address] [place] [address] 07/24/2023 Office Visit Gynecology Obstetrics Tremayne Lo MD [address] [place] [address] 07/25/2023 Office Visit Neurology Vannesa Crouch, DO [address] [place] [address] 08/11/2023 Office Visit Ophthalmology Uri Quintana, DO [address] [place] [address] 09/05/2023 Office Visit Family Medicine Connie Navarro MD [address] [place] [address] 01/07/2024 Imaging Radiology 01/19/2024 Telemedicine Sleep Disorders Lynsey Kam DO [address] [place] [address] 06/11/2024 Office Visit Sleep Disorders Lynsey Kam DO [address] [place] [address] Health Maintenance Due Date Last Done Comments [...] the patient have Health Care Power of Dairy Inspector? No Code Status History Code Status Date Activated Date Inactivated Comments Full Code 09/19/2020 9:51 AM 09/19/2020 10:03 AM Th is order reflects the patients wishes and were consensually agreed upon. Question Answer Comments Discussion of Advance Directives occurred with: Patient Does the patient have a Living Will? No Does the patient have Health Care Power of Dairy Inspector? No Full Code 08/18/2020 9:52 AM 08/18/2020 2:40 PM Thi s order reflects the patients wishes and were consensually agreed upon. Question Answer Comments Discussion of Advance Directives occurred with: Patient Does the patient have a Living Will? No Does the patient have Health Care Power of Dairy Inspector? No Care Teams Branch Store Manager Relationship Specialty Start Date End Date Ginna Power MD [address] [place] [address] PCP - General Internal Medicine 09/05/21 documented as of this encounter
--- OUTSIDE RECORDS SUMMARY | 2023-09-11 00:14 | External Medical Summary | Summary of Care ---
Author Name Unknown Organization [facility] Address [address] [facility] [address] Phone [phone] Care Team Providers Care Shear Operator Automatic Name Role Phone Ginna Power MD Primary Care Provider [phone] Reason for Visit * Reason Comments Dosage Adjustment Via Phone (anticoag Cl inic) Encounter Details Date Type Department Care Team Description 06/10/2023 Anticoagulation Pharmacy, [place] [address] [place] [address] [facility] [address] [place] [address] MTHFR mutation (methylenetetrahydrof olate reductase)* Allergies Active Allergy Reactions Severity Noted Date Comments Aripiprazole Neuro complications (Please comment) High 09/30/2019 Tardive dyskinesia [place] (Diagnostic) Low 03/10/2015 Other reaction(s): STRAWBERRIES/TOMATOE S IN LARGE VOLUMES-ULCERS IIN MOUTH Tomato Low 09/30/2019 documented as of this encounter (statuses as of 06/10/2023) Medications Medication Sig Dispensed Refills Start Date [...] Active Additional Information Patient taking differently:1,000 mg [id number] PRN, Pain, Fever, Reported on 12/16/2022 Nebulizers (NEBULIZER COMPRESSOR) [facility] Inhale via nebulizer. Use as directed. 1 Each 1 10/06/2018 Active albuterol-ipratrop ium (DUONEB) 2.5-0.5 MG/3ML nebulizer solution Inhale 3 mL via nebulizer 4 times a day. 360 Vial 0 04/16/2019 Active loratadine (RA LORATADINE) 10 MG TabletIndications: Chronic frontal sinusitis Take 1 Tab by mouth daily. 90 Tab 0 04/16/2019 Active [place] Carbonate 300 MG Oral Capsule (Eskalith) Take [...] as of this encounter (statuses as of 06/10/2023) Active Problems Problem Noted Date ASCUS with [...] as of this encounter (statuses as of 06/10/2023) Resolved Problems Problem Noted Date Resolved Date [...] as of this encounter (statuses as of 06/10/2023) Immunizations Name Administration Dates Next Due COVID-19 mRNA, LNP-s, No Pre serve, 2-Dose Series (Moderna) 03/06/2021,02/06/2021 HepA Inact/HepB Recomb>=18yrs old 06/02/2012,,08/07/2011 Pneumococcal Conjugate Vacci ne, 20-valent ([id number]) 07/24/2022 Pneumococcal Polysaccharide PPV23 (Pneumovax) 07/29/2013 Seasonal [...] this encounter Progress Notes * Jennifer Chandler [facility] - 06/10/2023 2:22 PM EDT Agree with plan as documented. Jennifer Chandler [facility] Clinical Pharmacist 06/10/2023, 2:22 PM * Martín Wilson, Pharmacy Motorcycle Deliverer - 06/10/2023 1:42 PM EDT Images from the original note were [...] Bruising Objective Current Warfarin Dose As of 06/10/2023 Warfarin maintenance plan: 10 mg (5 mg x 2) every Sun, Tue, Linda; 15 mg (5 mg x 3) all other days INR Result As of 06/10/2023 INR goal: 2.0-3.0 INR used for dosin.9 (06/10/2023) Assessment & Plan Warfarin Plan As of 06/10/2023 Full warfarin instructions: 10 mg every Sun; 15 mg all other days Next INR check: Dosing regimen change communicated via MyG Repeat PT/INR in 2 week(s) Weekly dose: increased Additional Dosing Information: Martín Wilson, Pharmacy Motorcycle Deliverer Clinical Pharmacist 06/10/2023, 1:42 PM documented in this encounter Plan of Treatment Upcoming Encounters Date Type Specialty Care Team Description 06/11/2023 Office Visit Gynecology Obstetrics Grace Paige MD [address] [place], [place] [phone] 06/25/[address] [address] 07/04/2023 Telemedicine Dermatology Kasia Holliday MD [address] [place] [address] 07/22/2023 Office Visit Neurology Mahendra Del Valle MD [address] [place] [address] 07/24/2023 Office Visit Gynecology Obstetrics Tremayne Lo MD [address] [place] [address] 07/25/2023 Office Visit Neurology Vannesa Crouch, DO [address] [place] [address] 08/11/2023 Office Visit Ophthalmology Uri Quintana, DO [address] [place] [address] 09/05/2023 Office Visit Family Medicine Connie Navarro MD [address] [place] [address] 01/07/2024 Imaging Radiology 01/19/2024 Telemedicine Sleep Disorders Lynsey Kam DO [address] [place] [address] 06/11/2024 Office Visit Sleep Disorders Lynsey Kam DO [address] [place] [address] Health Maintenance Due Date Last Done Comments [...] the patient have Health Care Power of Glove Machine Operator? No Code Status History Code Status Date Activated Date Inactivated Comments Full Code 09/19/2020 9:51 AM 09/19/2020 10:03 AM Th is order reflects the patients wishes and were consensually agreed upon. Question Answer Comments Discussion of Advance Directives occurred with: Patient Does the patient have a Living Will? No Does the patient have Health Care Power of Glove Machine Operator? No Full Code 08/18/2020 9:52 AM 08/18/2020 2:40 PM Thi s order reflects the patients wishes and were consensually agreed upon. Question Answer Comments Discussion of Advance Directives occurred with: Patient Does the patient have a Living Will? No Does the patient have Health Care Power of Glove Machine Operator? No Care Teams Shear Operator Automatic Relationship Specialty Start Date End Date Ginna Power MD [address] [place] [address] PCP - General Internal Medicine 09/05/21 documented as of this encounter"
--- OUTSIDE RECORDS SUMMARY | 2023-09-11 00:14 | External Medical Summary | Summary of Care ---
Author Name Unknown Organization [facility] Address [address] [facility] [place] [address] Phone [phone] Care Team Providers Care Skiver Welt End Name Role Phone Ginna Power MD Primary Care Provider [phone] Reason for Referral * (Within 10 days (routine)) - Authorized Specialty Diagnoses / Procedures Referred By Contac t Referred To Contact Diagnoses Diarrhea, unspecified type Procedures HLA TYPING FOR CELIAC DISEASE Connie Navarro MD [address] [place] [address] Referral ID Status Reason Start Date Expiration Date V isits Requested Visits Authorized [id number] Authorized 06/06/2023 999 999 Reason for Visit * Reason Onset Date Comments Test Results 06/06/2023 Encounter Details Date Type Department Care Team Description 06/06/2023 Telephone Family Practice [facility] [address] [place] [address] Connie Navarro MD [address] [place] [address] Test Results Allergies Active Allergy Reactions Severity Noted Date Comments Aripiprazole Neuro complications (Please comment) High 09/30/2019 Tardive dyskinesia [place] (Diagnostic) Low 03/10/2015 Other reaction(s): STRAWBERRIES/TOMATOE S [...] Active Additional Information Patient taking differently:1,000 mg [id number] PRN, Pain, Fever, Reported on 12/16/2022 Nebulizers (NEBULIZER COMPRESSOR) [facility] [place] Inhale via nebulizer. Use as directed. 1 Each 1 10/06/2018 Active albuterol-ipratro pium (DUONEB) 2.5-0.5 MG/3ML nebulizer solution Inhale 3 mL via nebulizer 4 times a day. 360 Vial 0 04/16/2019 Active loratadine (RA LORATADINE) 10 MG TabletIndications :Chronic frontal sinusitis Take 1 Tab by mouth daily. 90 Tab 0 04/16/2019 Active [place] Carbonate 300 MG Oral Capsule (Eskalith) Take [...] 03/26/2023 Active metroNIDAZOLE 0.75 % Vaginal Gel (Metrogel-Vaginal [...] 04/23/2023 Active Spironolactone 50 MG Oral Tablet (Aldactone)Indica tions:Hidradeniti s TAKE 1 TABLET BY MOUTH TWICE DAILY WITH FOOD 180 Tablet 0 05/20/2023 Active Acyclovir 400 MG Oral Tablet (Zovirax)Indicati [...] the evening. Take with meals. 0 Active Itraconazole 100 MG Oral Capsule (Sporanox) Take 1 Capsule by mouth in the morning and 1 Capsule before bedtime. 0 3 Discontinu ed(Patient preference /discontin uation) documented as of this encounter (statuses as [...] old 06/02/2012,,08/07/2011 Pneumococcal Conjugate Vacci ne, 20-valent ([id number]) 07/24/2022 Pneumococcal Polysaccharide PPV23 (Pneumovax) 07/29/2013 Seasonal [...] Visit Gynecology Obstetrics Grace Paige MD [address] [place] [address] 06/25/2023 Anticoagulation Pharmacy [facility] [address] [place], [place] [phone] 07/04/2023 Telemedicine Dermatology Kasia Holliday MD [address] [place] [address] 07/22/2023 Office Visit Neurology Mahendra Del Valle MD [address] [place] [address] 07/24/2023 Office Visit Gynecology Obstetrics Tremayne Lo MD [address] [place] [address] 07/25/2023 Office Visit Neurology Tahmina Crouchsvenkristina Erum, DO [address] [place] [address] 08/11/2023 Office Visit Ophthalmology Uri Quintana, DO [address] [place], [place] [phone] 09/05/2023 Office Visit Family Medicine Connie Navarro MD [address] [place] [address] 01/07/2024 Imaging Radiology 01/19/2024 Telemedicine Sleep Disorders Lynsey Kam DO [address] [place] [address] 06/11/2024 Office Visit Sleep Disorders Lynsey Kam DO [address] [place] [address] Pending Results Name Type Priority Associated Diagnoses Date /Time HLA TYPING FOR CELIAC DISEASE Lab Routine Diarrhea, unspecified type 06/10/2023 11:01 AM EDT Scheduled Orders Name Type Priority Associated [...] Visit Diagnoses Diagnosis Diarrhea, unspecified type- Primary Recurrent vaginitis- Primary Vaginitis and vulvovaginitis, unspecified [...] the patient have Health Care Power of Agriculture Worker? No Code Status History Code Status Date Activated Date Inactivated Comments Full Code 09/19/2020 9:51 AM 09/19/2020 10:03 AM Th is order reflects the patients wishes and were consensually agreed upon. Question Answer Comments Discussion of Advance Directives occurred with: Patient Does the patient have a Living Will? No Does the patient have Health Care Power of Agriculture Worker? No Full Code 08/18/2020 9:52 AM 08/18/2020 2:40 PM Thi s order reflects the patients wishes and were consensually agreed upon. Question Answer Comments Discussion of Advance Directives occurred with: Patient Does the patient have a Living Will? No Does the patient have Health Care Power of Agriculture Worker? No Care Teams Skiver Welt End Relationship Specialty Start Date End Date Ginna Power MD [address] [place] [address] PCP - General Internal Medicine 09/05/21 documented as of this encounter
--- OUTSIDE RECORDS SUMMARY | 2023-09-11 00:14 | External Medical Summary | Summary of Care ---
Author Name Unknown Organization [facility] Address [address] [facility] [place] [address] Phone [phone] Care Team Providers Care Television Host Name Role Phone Ginna Power MD Primary Care Provider [phone] Reason for Visit * Reason Comments Follow Up Encounter Details Date Type Department Care Team Description 06/10/2023 Office Visit Sleep Disorders Ctr [facility] [address] [place] [phone] Sherita Coelho, [address] [place] [address] Obstructive sleep apnea* Allergies Active Allergy Reactions Severity Noted Date Comments Aripiprazole Neuro complications (Please comment) High 09/30/2019 Tardive dyskinesia [place] (Diagnostic) Low 03/10/2015 Other reaction(s): STRAWBERRIES/TOMATOE S [...] Active Additional Information Patient taking differently:1,000 mg [id number] PRN, Pain, Fever, Reported on 12/16/2022 Nebulizers (NEBULIZER COMPRESSOR) [facility] Inhale via nebulizer. Use as directed. 1 Each 1 10/06/2018 Active albuterol-ipratro pium (DUONEB) 2.5-0.5 MG/3ML nebulizer solution Inhale 3 mL via nebulizer 4 times a day. 360 Vial 0 04/16/2019 Active loratadine (RA LORATADINE) 10 MG TabletIndications :Chronic frontal sinusitis Take 1 Tab by mouth daily. 90 Tab 0 04/16/2019 Active [place] Ol[place]o Carbonate 300 MG Oral Capsule (Eskalith) Take [...] morning and 1 Capsule before bedtime. 0 Discontinu ed(Patient preference /discontin uation) documented as [...] old 06/02/2012,,08/07/2011 Pneumococcal Conjugate Vacci ne, 20-valent ([id number]) 07/24/2022 Pneumococcal Polysaccharide PPV23 (Pneumovax) 07/29/2013 Seasonal [...] Sign Reading Time Taken Comments Blood Pressure 120/80 06/10/2023 10:42 AM EDT Pulse 95 06/10/2023 10:42 AM EDT Temperature - - Respiratory Rate 16 06/10/2023 10:42 AM EDT Oxygen Saturation 98% 06/10/2023 10:42 AM EDT Inhaled Oxygen Concentration - - Weight 130.6 kg (288 lb) 06/10/2023 10:42 AM EDT Height 170.2 cm (5' 7") 06/10/2023 10:42 AM EDT Body Mass Index 45.11 06/10/2023 10:42 AM EDT documented in this encounter Functional [...] as of this encounter Progress Notes * Sherita Coelho, - 06/10/2023 10:47 AM EDT Sleep Medicine Follow-Up Clinic Note HISTORY: Ms./Mr. Rody Jean Baptiste is a 47 year old female w/ a pmh of asthma, chronic allergic rhinits, and Bipolar 2 disorder who is in clinic today for follow up of Obstructive Sleep Apnea. Ms. Jean Baptiste continues to use her PAP regularly and with improvement in sleep. Her current mask is working well (previously tried TELEVISION WRITER with was uncomfortable). Denies significant leak, prolonged facialmarks from mask, aerophagia, worsening of baseline dry eyes/nose/mouth, and feeling the pressure istoo much or too little. Split night Polysomnogram 02/18/18: AHI 24 (CMS/medicare criteria used) PAP 6cmH20 PLMI 0 Sleep Schedule Bedtime: 11p-1a MERCEDEZ: 5 mins WASO: No nocturia Wake time: 6-8 am [place] Sleepiness Scale Question 06/10/2023 10:41 AM EDT - Filed by Yoanna Vizcarra LPN What is the chance you will doze off in the following situation? Sitting and reading No chance of dozing Watching TV No chance of dozing Sitting inactive in a public place, such as a theater or meeting No chance of dozing As a passenger in a car for an hour without a break No chance of dozing Lying down to rest in the afternoon when circumstances permit No chance of dozing When sitting and talking to someone No chance of dozing When sitting quietly after lunch without alcohol No chance of dozing In a car, while stopped for a few minutes in traffic No chance of dozing Score (range: 0 - 24) 0 PAP Compliance: Report date: 05/06/23 to 06/04/23 % total days used: 100% % days used > 4 hours: 90% Average hours a day: 6 hours 28 mins Large leak: 13 AHI: 0.4/hr 95% pressure: 8 cmH20 Equipment: DME Provider is [facility] 6-10 cmH20 Patient Active Problem List Diagnosis Code MTHFR mutation (methylenetetrahydrofolate reductase) Z15.89 Endometriosis N80.9 Anxiety F41.9 Asthma J45.909 Bipolar 2 disorder (HCC) F31.81 Herpes genitalia A60.00 HPV (human papilloma virus) infection B97.7 Asthma flare J45.901 Bulimia nervosa F50.2 History of pulmonary embolism Z86.711 Mild single current episode of major depressive disorder ([facility]) F32.0 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 Trochanteric bursitis of both hips M70.61, M70.62 MERYL on CPAP G47.33, Z99.89 Cervical high risk human papillomavirus (HPV) DNA test positive R87.810 Chronic allergic rhinitis J30.9 Coagulation defect ([facility]) D68.9 Mild intermittent asthma without complication J45.20 Body mass index (BMI) of 50.0 to 59.9 in adult ([facility]) Z68.43 ASCUS with positive high risk HPV cervical R87.610, R87.810 Vaginal itching N89.8 Recurrent vaginitis N76.0 Outpatient Medications Marked as Taking for the 06/10/23 encounter (Office Visit) with Sherita Coelho, Medication Sig Multivitamins Oral Capsule Take 1 Capsule by mouth in the morning. Probiotic & Acidophilus Ex St Oral Capsule Take 1 Capsule by mouth in the morning and 1 Capsuleat noon and 1 Capsule in the evening. Take with meals. Acyclovir 400 MG Oral Tablet (Zovirax) Take 1 Tablet by mouth in the morning and 1 Tablet before bedtime. Spironolactone 50 MG Oral Tablet (Aldactone) TAKE 1 TABLET BY MOUTH TWICE DAILY WITH FOOD Clobetasol Propionate 0.05 % External Cream (Temovate) Apply 1 Application Dosing Unit topically toaffected area in the morning and 1 Application Dosing Unit before bedtime. To affected area for up to two weeks.. metroNIDAZOLE 0.75 % Vaginal Gel (Metrogel-Vaginal) Insert applicator into the vagina and administer before bed. Use twice a week for 4-6 months. Start after oral metronidazole completed. SUMAtriptan Succinate 50 MG Oral Tablet (Imitrex) TAKE 2 TABLETS AT ONSET MIGRAINE MAY REPEAT 1 TABLET IN 2 HOURS- MAX OF 5 IN 24 HOURS Warfarin Sodium 5 MG Oral Tablet (Coumadin) TAKE 2 TABLETS DAILY Albuterol Sulfate HFA 108 (90 Base) MCG/ACT Inhalation Aerosol Solution INHALE 2 PUFFS BY MOUTH NEEDED SHORT OF BREATH Strength: 108 (90 BASE) MCG/ACT Levothyroxine Sodium 75 MCG Oral Tablet (Levoxyl) Take 1 Tablet by mouth daily first thing in the morning. on an empty stomach. CPAP every night at bedtime. Autopap 6-10 cm Diclofenac Sodium 1 % External Gel (Voltaren) Apply 1 g topically to affected area in the morning and 1 g at noon and 1 g before bedtime. Olmito And Olmito Carbonate 300 MG Oral Capsule (Eskalith) Take 3 Capsules by mouth at bedtime. albuterol-ipratropium (DUONEB) 2.5-0.5 MG/3ML nebulizer solution Inhale 3 mL via nebulizer 4 times a day. loratadine (RA LORATADINE) 10 MG Tablet Take 1 Tab by mouth daily. Nebulizers (NEBULIZER COMPRESSOR) MISC Inhale via nebulizer. Use as directed. acetaminophen (TYLENOL) 500 MG Tablet Take 2 Tabs by mouth every 8 hours. (Patient taking differently: Take 2 Tablets by mouth every 8 hours as needed for Pain or Fever.) KlonoPIN 0.5 MG Oral Tablet Take 1 Tablet by mouth in the morning. lamoTRIgine 100 MG Oral Tablet Take 1 Tablet by mouth in the morning and 1 Tablet before bedtime. buPROPion HCl ER (XL) 150 MG Oral Tablet Extended Release 24 Hour Take 1 Tablet by mouth in the morning. CELEXA 40 MG PO TABS 1 tab daily TRILEPTAL 300 MG PO TABS twice daily PHYSICAL EXAM: BP 120/80 | Pulse 95 | Resp 16 | Ht 1.702 m (5' 7") | Wt 130.6 kg (288 lb) | SpO2 98% | BMI 45.11 kg/m | BSA 2.48 m Constitutional: Alert, oriented in no acute distress Skin: no markings on face where mask fits Chest: Normal respiratory effort at rest Neuro: Normal speech and comprehension Psych: Appropriate mood and affect ASSESSMENT/PLAN: Obstructive Sleep Apnea Encouraged continued use of PAP every night, all night and for naps. Continue PAP at current setting Recommended routine cleaning and change of supplies as needed. Even a mild to moderate weight loss should result in significant improvement in the patients nocturnal respiratory events. Exercise should be undertaken daily, with respect given to any orthopedic limitations. Physical therapy or physical medicine consultation may be warranted. Strenuous exercise, which activates the sympathetic nervous system (adrenaline system) not only helps with weight loss, glucose, and mood, but also improves sleep quality, and upper respiratory muscle tone during sleep. Avoid driving, operating heavy machinery or engaging in any activity that requires full alertness if feeling sleepy, drowsy or otherwise impaired. Follow-up with Sleep Medicine in 1 year. Sherita Coelho DO I spent a total of 30-39 minutes (exact time 30 mins) on the date of service in preparation, delivery, and documentation of the care provided to Rody Jean Baptiste excluding any time spent in the performance of separately billed services. 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 autopap What is your current CPAP/BiPAP pressure? 6-10 cm Do you use a humidifier: yes How many hours do you use CPAP/BiPAP per night: 7 Are you using oxygen: no [place] Sleepiness Scale Question 06/10/2023 10:41 AM EDT - Filed by Yoanna Vizcarra LPN What is the chance you will doze off in the following situation? Sitting and reading No chance of dozing Watching TV No chance of dozing Sitting inactive in a public place, such as a theater or meeting No chance of dozing As a passenger in a car for an hour without a break No chance of dozing Lying down to rest in the afternoon when circumstances permit No chance of dozing When sitting and talking to someone No chance of dozing When sitting quietly after lunch without alcohol No chance of dozing In a car, while stopped for a few minutes in traffic No chance of dozing Score (range: 0 - 24) 0 Yoanna Vizcarra LPN 06/10/2023 10:38 AM documented in this encounter Plan of Treatment Upcoming Encounters Date Type Specialty Care Team Description 06/10/2023 Anticoagulation Pharmacy [facility] [address] [facility] [place], [facility] [place] [address] MTHFR mutation (methylenetetrahyd rofolate reductase)* 06/11/2023 Office Visit Gynecology Obstetrics Grace Paige MD [address] [place] [address] 06/25/2023 Anticoagulation Pharmacy [facility] [address] [facility] [place], [facility] [place] [address] 07/04/2023 Telemedicine Dermatology Kasia Holliday MD [address] [place] [address] 07/22/2023 Office Visit Neurology Mahendra Del Valle MD [address] [place] [address] 07/24/2023 Office Visit Gynecology Obstetrics Tremayne Lo MD [address] [place] [address] 07/25/2023 Office Visit Neurology Vannesa Crouch, DO [address] [place] [address] 08/11/2023 Office Visit Ophthalmology Uri Quintana, DO [address] [place], [place] [phone] 09/05/2023 Office Visit Family Medicine Connie Navarro MD [address] [place] [address] 01/07/2024 Imaging Radiology 01/19/2024 Telemedicine Sleep Disorders Lynsey Kam DO [address] [place] [address] 06/11/2024 Office Visit Sleep Disorders Lynsey Kam DO [address] [place] [address] Health Maintenance Due Date Last Done Comments [...] as of this encounter Visit Diagnoses Diagnosis Obstructive sleep apnea- Primary Obstructive sleep apnea (adult) (pediatric) MTHFR mutation (methylenetetrahydrofolate reductase)- Primary Disturbances of [...] the patient have Health Care Power of Palliative Nurse? No Code Status History Code Status Date Activated Date Inactivated Comments Full Code 09/19/2020 9:51 AM 09/19/2020 10:03 AM Th is order reflects the patients wishes and were consensually agreed upon. Question Answer Comments Discussion of Advance Directives occurred with: Patient Does the patient have a Living Will? No Does the patient have Health Care Power of Palliative Nurse? No Full Code 08/18/2020 9:52 AM 08/18/2020 2:40 PM Thi s order reflects the patients wishes and were consensually agreed upon. Question Answer Comments Discussion of Advance Directives occurred with: Patient Does the patient have a Living Will? No Does the patient have Health Care Power of Palliative Nurse? No Care Teams Television Host Relationship Specialty Start Date End Date Ginna Power MD [address] [place] [address] PCP - General Internal Medicine 09/05/21 documented as of this encounter
--- OUTSIDE RECORDS SUMMARY | 2023-09-11 00:14 | External Medical Summary | Summary of Care ---
Author Name Unknown Organization [facility] Address [address] [facility] [place] [address] Phone [phone] Care Team Providers Care Auto Suspension And Steering Mechanic Name Role Phone Ginna Power MD Primary Care Provider Reason for Visit * Reason Comments Outpatient Testing * (Within 10 days (routine)) - Authorized Specialty Diagnoses / Procedures Referred By Contac t Referred To Contact Diagnoses Diarrhea, unspecified type Procedures HLA TYPING FOR CELIAC DISEASE Connie Navarro MD [address] [place] [address] Referral ID Status Reason Start Date Expiration Date V isits Requested Visits Authorized [id number] Authorized 06/06/2023 999 999 Encounter Details Date Type Department Care Team Description 06/10/2023 Laboratory Laboratory, [facility] [address] [facility] [place] [address] RiveraMikayla pelaez [facility] [address] [facility] [place] [address] MTHFR mutation (methylenetetrahydrofo late reductase); Diarrhea, unspecified type Allergies Active Allergy Reactions Severity Noted Date Comments Aripiprazole Neuro complications (Please comment) High 09/30/2019 Tardive dyskinesia [place] (Diagnostic) Low 03/10/2015 Other reaction(s): STRAWBERRIES/TOMATOE S [...] Active Additional Information Patient taking differently:1,000 mg [id number] PRN, Pain, Fever, Reported on 12/16/2022 Nebulizers (NEBULIZER COMPRESSOR) [facility] Inhale via nebulizer. Use as directed. 1 Each 1 10/06/2018 Active albuterol-ipratrop ium (DUONEB) 2.5-0.5 MG/3ML nebulizer solution Inhale 3 mL via nebulizer 4 times a day. 360 Vial 0 04/16/2019 Active loratadine (RA LORATADINE) 10 MG TabletIndications: Chronic frontal sinusitis Take 1 Tab by mouth daily. 90 Tab 0 04/16/2019 Active [place] Carbonate 300 MG Oral Capsule (Eskalith) Take [...] old 06/02/2012,,08/07/2011 Pneumococcal Conjugate Vacci ne, 20-valent ([id number]) 07/24/2022 Pneumococcal Polysaccharide PPV23 (Pneumovax) 07/29/2013 Seasonal [...] Visit Gynecology Obstetrics Grace Paige MD [address] [place], [place] [phone] 06/20/[address] [id number] 07/04/2023 Telemedicine Dermatology Kasia Holliday MD [address] [place] [address] 07/22/2023 Office Visit Neurology Mahendra Del Valle MD [address] [place] [address] 07/24/2023 Office Visit Gynecology Obstetrics Tremayne Lo MD [address] [place], [place] [phone] 07/25/2023 Office Visit Neurology Vannesa Crouch DO [address] [place] [address] 08/11/2023 Office Visit Ophthalmology Uri Quintana, DO [address] [facility] [place] [place] [address] 09/05/2023 Office Visit Family Medicine Connie Navarro MD [address] [place] [address] 01/07/2024 Imaging Radiology 01/19/2024 Telemedicine Sleep Disorders Lynsey Kam, [address] [place] [address] 06/11/2024 Office Visit Sleep Disorders Lynsey Kam, [address] [place] [address] Pending Results Name Type Priority Associated Diagnoses Date /Time PT INR Lab Routine MTHFR mutation (methylenetetrahydrofolate reductase) 06/10/2023 11:01 AM EDT HLA TYPING FOR CELIAC DISEASE Lab Routine Diarrhea, unspecified type 06/10/2023 11:01 AM EDT Health Maintenance Due Date Last [...] encounter Visit Diagnoses Diagnosis 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 No Code Status History Code Status Date Activated Date Inactivated Comments Full Code 09/19/2020 9:51 AM 09/19/2020 10:03 AM Th is order reflects the patients wishes and were consensually agreed upon. Question Answer Comments Discussion of Advance Directives occurred with: Patient Does the patient have a Living Will? No Does the patient have Health Care Power of Sweet Potato Disintegrator? No Full Code 08/18/2020 9:52 AM 08/18/2020 2:40 PM Thi s order reflects the patients wishes and were consensually agreed upon. Question Answer Comments Discussion of Advance Directives occurred with: Patient Does the patient have a Living Will? No Does the patient have Health Care Power of Sweet Potato Disintegrator? No Care Teams Auto Suspension And Steering Mechanic Relationship Specialty Start Date End Date Ginna Power MD [address] [facility] [place] [address] PCP - General Internal Medicine 09/05/21 documented as of this encounter
--- OUTSIDE RECORDS SUMMARY | 2023-09-11 00:14 | External Medical Summary | Summary of Care ---
Author Name Unknown Organization [facility] Address [address] [facility] [address] Phone [phone] Care Team Providers Care Chenille Machine Operator Name Role Phone Ginna Power MD Primary Care Provider [phone] Reason for Visit * Reason Comments eRx-Medication Refill Encounter Details Date Type Department Care Team Description 06/23/2023 Refill General Internal Medicine [facility] [place] [address] [facility] [place] [phone] Ginna Power MD [address] [place] [address] Migraine variant, intractable Allergies Active Allergy Reactions Severity Noted Date Comments Aripiprazole Neuro complications (Please comment) High 09/30/2019 Tardive dyskinesia [place] (Diagnostic) Low 03/10/2015 Other reaction(s): STRAWBERRIES/TOMATOE S IN LARGE VOLUMES-ULCERS IIN MOUTH [place] Low 09/30/2019 documented as of this encounter (statuses as of 06/24/2023) Medications Medication Sig Dispensed Refills Start Date [...] Active Additional Information Patient taking differently:1,000 mg [id number] PRN, Pain, Fever, Reported on 12/16/2022 Nebulizers (NEBULIZER COMPRESSOR) [facility] Inhale via nebulizer. Use as directed. 1 Each 1 8 Active albuterol-ipratro pium (DUONEB) 2.5-0.5 MG/3ML nebulizer solution Inhale 3 mL via nebulizer 4 times a day. 360 Vial 0 9 Active loratadine (RA LORATADINE) 10 MG TabletIndications :Chronic frontal sinusitis Take 1 Tab by mouth daily. 90 Tab 0 9 Active [employer] Carbonate 300 MG Oral Capsule (Eskalith) Take [...] BASE) MCG/ACT 25.5 g 1 3 Active Warfarin Sodium 5 MG Oral Tablet (Coumadin)Indicat ions:MTHFR mutation (methylenetetrahy drofolate reductase) TAKE 2 TABLETS DAILY 180 Tablet 1 3 Active Levothyroxine Sodium 75 MCG [...] 24 HOURS 9 Tablet 1 3 Active SUMAtriptan Succinate 50 MG Oral Tablet (Imitrex)Indicati ons:Migraine variant, intractable TAKE 2 TABLETS AT ONSET MIGRAINE MAY REPEAT 1 TABLET IN 2 HOURS- MAX OF 5 IN 24 HOURS 9 Tablet 1 3 06/24/20 23 Discontinued documented as of this encounter (statuses as of 06/24/2023) Active Problems Problem Noted Date Body mass [...] as of this encounter (statuses as of 06/24/2023) Resolved Problems Problem Noted Date Resolved Date [...] as of this encounter (statuses as of 06/24/2023) Immunizations Name Administration Dates Next Due COVID-19 mRNA, LNP-s, No Pre serve, 2-Dose Series (Moderna) 03/06/2021,02/06/2021 HepA Inact/HepB Recomb>=18yrs old 06/02/2012,,08/07/2011 Pneumococcal Conjugate Vacci ne, 20-valent ([id number]) 07/24/2022 Pneumococcal Polysaccharide PPV23 (Pneumovax) 07/29/2013 Seasonal [...] encounter Miscellaneous Notes * Telephone Encounter - Amelie Bravo RPh - 06/24/2023 10:01 AM EDTSigned Prescriptions: Disp Refills SUMAtriptan Succinate 50 MG Oral Tablet (I*9 Tabl*1 Sig: TAKE 2 TABLETS AT ONSET MIGRAINE MAY REPEAT 1 TABLET IN 2 HOURS- MAX OF 5 IN 24 HOURSAuthorizing Provider: Lilian POWER User: AMELIE BRAVO documented in this encounter Plan of Treatment Upcoming Encounters Date Type Specialty Care Team Description 07/04/2023 Telemedicine Dermatology Kasia Holliday MD [address] [place] [address] 07/22/2023 Office Visit Neurology Mahendra Del Valle MD [address] [place] [address] 07/24/2023 Office Visit Gynecology Obstetrics Tremayne Lo MD [address] [place] [address] 07/25/2023 Office Visit Neurology Willa Vannesa Danielson, DO [address] [place] [address] 08/11/2023 Office Visit Ophthalmology Uri Quintana, DO [address] [place] [address] 09/05/2023 Office Visit Family Medicine Connie Navarro MD [address] [place] [address] 01/07/2024 Imaging Radiology 01/19/2024 Telemedicine Sleep Disorders Lynsey Kam DO [address] [place] [address] 06/11/2024 Office Visit Sleep Disorders Lynsey Kam DO [address] [place] [address] Health Maintenance Due Date Last Done Comments [...] Additional history exists Lipid Panel 09/05/2026 09/05/2021, 06/2018, 12/07/2013 Cervical Cancer Screening 04/23/2028 HPV/Co-Test [...] as of this encounter Visit Diagnoses Diagnosis Migraine variant, intractable Variants of migraine, not elsewhere classified, with intractable migraine, so stated, without mention of status migrainosus documented in this encounter Advance Directives Latest [...] the patient have Health Care Power of Histopathologist? No Code Status History Code Status Date Activated Date Inactivated Comments Full Code 09/19/2020 9:51 AM 09/19/2020 10:03 AM Th is order reflects the patients wishes and were consensually agreed upon. Question Answer Comments Discussion of Advance Directives occurred with: Patient Does the patient have a Living Will? No Does the patient have Health Care Power of Histopathologist? No Full Code 08/18/2020 9:52 AM 08/18/2020 2:40 PM Thi s order reflects the patients wishes and were consensually agreed upon. Question Answer Comments Discussion of Advance Directives occurred with: Patient Does the patient have a Living Will? No Does the patient have Health Care Power of Histopathologist? No Care Teams Chenille Machine Operator Relationship Specialty Start Date End Date Ginna Power MD [address] [place] [address] PCP - General Internal Medicine 09/05/21 documented as of this encounter
--- OUTSIDE RECORDS SUMMARY | 2023-09-11 00:14 | External Medical Summary ---
Author Name Unknown Address Unknown Organization : Laboratory Report Ordering Provider Test Date Status JENNY BERMAN 06/10/2023 11:01:42 Final Observation Date Value Abnormality Reference (Units ) Status HLA Ag [Interpretation] 06/10/2023 11:01:42 SEE BELOW Final The patient does not have th e HLA-DQ variants
associated with celiac disease.
More than 97% of celiac patients carry either
HLA-DQ2(DQA1*05/DQB1*02) or HLA-DQ8(DQA1*03/DQB1*0302)
or both. Genetic counseling as needed. HLA-DQ2 [Presence] 06/10/2023 11:01:42 Negative Final HLA-DQ8 [Presence] 06/10/2023 11:01:42 Negative Final HLA-DQA1 [Presence] 06/10/2023 11:01:42 03 Final HLA-DQA1 [Presence] 06/10/2023 11:01:42 04 Final HLA-DQB1 [Presence] 06/10/2023 11:01:42 0301 Final HLA-DQB1 [Presence] 06/10/2023 11:01:42 0402 Final RESULTS REVIEWED BY: 06/10/2023 11:01:42 SEE BELOW Final Sridevi Cullen, Ph.D., [facility] Director,
Molecular Genetics.
Typing performed by PCR and hybridization with sequence
specific oligonucleotide probes (SSO) using the
FDA-cleared LABType(R) SSO Kit.

Test Performed at:
[facility]
[address]
[place] [address]
Pritesh Harrell M.D., Ph.D.,Director of Laboratories Performing Location
--- OUTSIDE RECORDS SUMMARY | 2023-09-11 00:14 | External Medical Summary | Summary of Care ---
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 Details Date Type Department Care Team Description 06/11/2023 Office Visit Gynecology/Obstetrics [facility] [address] [facility] [place] [address] Grace Paige MD [address] [facility] [place] [address] Recurrent vaginitis*; Vaginal itching Allergies Active Allergy Reactions Severity Noted Date Comments Aripiprazole Neuro complications (Please comment) High 09/30/2019 Tardive dyskinesia [place] (Diagnostic) Low 03/10/2015 Other reaction(s): STRAWBERRIES/TOMATOE S [...] Active Additional Information Patient taking differently:1,000 mg [id number] PRN, Pain, Fever, Reported on 12/16/2022 Nebulizers (NEBULIZER COMPRESSOR) [facility] [place] Inhale via nebulizer. Use as directed. 1 Each 1 10/06/2018 Active albuterol-ipratrop ium (DUONEB) 2.5-0.5 MG/3ML nebulizer solution Inhale 3 mL via nebulizer 4 times a day. 360 Vial 0 04/16/2019 Active loratadine (RA LORATADINE) 10 MG TabletIndications: Chronic frontal sinusitis Take 1 Tab by mouth daily. 90 Tab 0 04/16/2019 Active [place] Carbonate 300 MG Oral Capsule (Eskalith) Take [...] old 06/02/2012,,08/07/2011 Pneumococcal Conjugate Vacci ne, 20-valent ([id number]) 07/24/2022 Pneumococcal Polysaccharide PPV23 (Pneumovax) 07/29/2013 Seasonal [...] nitrate sticks. EBL minimal. All instruments removed. Certified Wellness Program Coordinator Documentation Provider requested word processor technician. Name of word processor technician: Radha Bishop LPN She tolerated procedure without difficulty. Patient instructed to call for severe pain, heavy bleeding. She will be notified of pathology results. Grace Paige MD, Ph.D., FACOG [address] [place] [address] [address] [facility] [place] [address] 06/11/2023 10:30 AM This [...] Specialty Care Team Description 06/25/2023 Anticoagulation Pharmacy [address] [address] 07/04/2023 Telemedicine Dermatology Kasia Holliday MD [address] [place] [address] 07/22/2023 Office Visit Neurology Mahendra Del Valle MD [address] [place] [address] 07/24/2023 Office Visit Gynecology Obstetrics Tremayne Lo MD [address] [place] [address] 07/25/2023 Office Visit Neurology Vannesa Crouch, [address] [place] [address] 08/11/2023 Office Visit Ophthalmology Uri Quintana, DO [address] [place] [address] 09/05/2023 Office Visit Family Medicine Connie Navarro MD [address] [place] [phone] 01/07/2024 Imaging Radiology 01/19/2024 Telemedicine Sleep Disorders Lynsey Kam, [address] [place] [address] 06/11/2024 Office Visit Sleep Disorders Lynsey Kam DO [address] [place] [address] Pending Results Name Type Priority Associated Diagnoses [...] the patient have Health Care Power of Bundle Tier And Labeler? No Code Status History Code Status Date Activated Date Inactivated Comments Full Code 09/19/2020 9:51 AM 09/19/2020 10:03 AM Th is order reflects the patients wishes and were consensually agreed upon. Question Answer Comments Discussion of Advance Directives occurred with: Patient Does the patient have a Living Will? No Does the patient have Health Care Power of Bundle Tier And Labeler? No Full Code 08/18/2020 9:52 AM 08/18/2020 2:40 PM Thi s order reflects the patients wishes and were consensually agreed upon. Question Answer Comments Discussion of Advance Directives occurred with: Patient Does the patient have a Living Will? No Does the patient have Health Care Power of Bundle Tier And Labeler? No Care Teams Tracer Clerk Relationship Specialty Start Date End Date Ginna Power MD [address] [place] [address] PCP - General Internal Medicine 09/05/21 documented as of this encounter
--- OUTSIDE RECORDS SUMMARY | 2023-09-11 00:14 | External Medical Summary | Summary of Care ---
Author Name Unknown Organization [facility] [address] [facility] [address] Phone [phone] Care Team Providers Care Ring Facer Name Role Phone Ginna Power MD Primary Care Provider [phone] Reason for Referral * (Within 10 days (routine)) - Authorized Specialty Diagnoses / Procedures Referred By Contac t Referred To Contact Diagnoses Diarrhea, unspecified type Procedures HLA TYPING FOR CELIAC DISEASE Connie Navarro MD [address] [place] [phone] Referral ID Status Reason Start Date Expiration Date V isits Requested Visits Authorized [id number] Authorized 06/06/2023 999 999 Reason for Visit * Reason Onset Date Comments Test Results 06/06/2023 Encounter Details Date Type Department Care Team Description 06/06/2023 Telephone Family Practice [facility] [address] [place] [address] Connie Navarro MD [address] [place] [address] Test Results Allergies Active Allergy Reactions Severity Noted Date Comments Aripiprazole Neuro complications (Please comment) High 09/30/2019 Tardive dyskinesia [place] (Diagnostic) Low 03/10/2015 Other reaction(s): STRAWBERRIES/TOMATOE S [...] Active Additional Information Patient taking differently:1,000 mg [id number] PRN, Pain, Fever, Reported on 12/16/2022 Nebulizers (NEBULIZER COMPRESSOR) [facility] [place] Inhale via nebulizer. Use as directed. 1 Each 1 10/06/2018 Active albuterol-ipratro pium (DUONEB) 2.5-0.5 MG/3ML nebulizer solution Inhale 3 mL via nebulizer 4 times a day. 360 Vial 0 04/16/2019 Active loratadine (RA LORATADINE) 10 MG TabletIndications :Chronic frontal sinusitis Take 1 Tab by mouth daily. 90 Tab 0 04/16/2019 Active [place] Carbonate 300 MG Oral Capsule (Eskalith) Take [...] old 06/02/2012,,08/07/2011 Pneumococcal Conjugate Vacci ne, 20-valent ([id number]) 07/24/2022 Pneumococcal Polysaccharide PPV23 (Pneumovax) 07/29/2013 Seasonal [...] encounter Miscellaneous Notes * Telephone Encounter - TAWANNA Landeros - 06/11/2023 11:41 AM EDT Lab(s) still pending documented in this encounter Plan of Treatment Upcoming Encounters Date Type Specialty Care Team Description 06/25/2023 Anticoagulation Pharmacy [facility] [address] [place] [address] 07/04/2023 Telemedicine Dermatology Kasia Holliday MD [address] [place] [address] 07/22/2023 Office Visit Neurology Mahendra Del Valle MD [address] [place] [address] 07/24/2023 Office Visit Gynecology Obstetrics Tremayne Lo MD [address] [place] [address] 07/25/2023 Office Visit Neurology Willa Vannesa Danielson, DO [address] [place] [address] 08/11/2023 Office Visit Ophthalmology Uri Quintana, DO [address] [place] [address] 09/05/2023 Office Visit Family Medicine NavarroConnie escalona MD [address] [place] [phone] 01/07/2024 Imaging Radiology 01/19/2024 Telemedicine Sleep Disorders Lynsey Kam, DO [address] [place] [address] 06/11/2024 Office Visit Sleep Disorders Lynsey Kam, [address] [place] [address] Pending Results Name Type Priority Associated Diagnoses [...] the patient have Health Care Power of Malariologist? No Code Status History Code Status Date Activated Date Inactivated Comments Full Code 09/19/2020 9:51 AM 09/19/2020 10:03 AM Th is order reflects the patients wishes and were consensually agreed upon. Question Answer Comments Discussion of Advance Directives occurred with: Patient Does the patient have a Living Will? No Does the patient have Health Care Power of Malariologist? No Full Code 08/18/2020 9:52 AM 08/18/2020 2:40 PM Thi s order reflects the patients wishes and were consensually agreed upon. Question Answer Comments Discussion of Advance Directives occurred with: Patient Does the patient have a Living Will? No Does the patient have Health Care Power of Malariologist? No Care Teams Ring Facer Relationship Specialty Start Date End Date [facility]inna Power MD [facility] [address] PCP - General Internal Medicine 09/05/21 documented as of this encounter
--- OUTSIDE RECORDS SUMMARY | 2023-09-11 00:15 | External Medical Summary ---
Author Name Unknown Address Unknown Organization K01:[facility] [place] [facility] [address] [place] [address] Laboratory Report Ordering Provider Test Date Status ANTONELLAJENNY 06/05/2023 09:12:56 Final Observation Date Value Abnormality Reference (Units ) Status Tissue transglutaminase IgA Ab [Presence] in Serum by Immunoassay 06/05/2023 09:12:56 Negative Negative Final Tissue transglutaminase IgA Ab [Units/volume] in Serum by Immunoassay 06/05/2023 09:12:56 <0.2 <7 (U/mL) Final Performing Location LAB[facility]ATORY [facility] [place] [address]
--- OUTSIDE RECORDS SUMMARY | 2023-09-11 00:15 | External Medical Summary | Summary of Care ---
Author Name Unknown Organization [facility] Address [address] [place] [facility] [place] [address] Phone [phone] Care Team Providers Care Ring Striker Name Role Phone Ginna Power MD Primary Care Provider [phone] Reason for Visit * Reason Comments Outpatient Testing Encounter Details Date Type Department Care Team Description 05/19/2023 Laboratory Laboratory, [place] [address] [place] [address] [place] [address] [place] [address] Encounter for long-term (current) use of other medications; MTHFR mutation (methylenetetrahydrofol ate reductase); Memory change Allergies Active Allergy Reactions Severity Noted Date Comments Aripiprazole Neuro complications (Please comment) High 09/30/2019 Tardive dyskinesia [place] (Diagnostic) Low 03/10/2015 Other reaction(s): STRAWBERRIES/TOMATOE S IN LARGE VOLUMES-ULCERS IIN MOUTH Tomato Low 09/30/2019 documented as of this encounter (statuses as of 05/19/2023) Medications Medication Sig Dispensed Refills Start Date End Date Status VITAMIN B-12 500 MCG PO TABS 2 tablets daily 0 07/29/2013 Active TRILEPTAL 300 MG PO TABS twice daily 0 Active CELEXA 40 MG PO TABS 1 tab daily 0 Active FOLIC ACID 1 MG PO TABS 800 mcg 30 Tab 11 03/29/2014 Active Cholecalciferol (VITAMIN D3) 5000 UNITS Tablet Take 1 Capsule by mouth in the [...] Active Additional Information Patient taking differently:1,000 mg [id number] PRN, Pain, Fever, Reported on 12/16/2022 Nebulizers (NEBULIZER COMPRESSOR) [facility] Inhale via nebulizer. Use as directed. 1 Each 1 10/06/2018 Active albuterol-ipratrop ium (DUONEB) 2.5-0.5 MG/3ML nebulizer solution Inhale 3 mL via nebulizer 4 times a day. 360 Vial 0 04/16/2019 Active loratadine (RA LORATADINE) 10 MG TabletIndications: Chronic frontal sinusitis Take 1 Tab by mouth daily. 90 Tab 0 04/16/2019 Active [place] Carbonate 300 MG Oral Capsule (Eskalith) Take 3 Capsules by mouth at bedtime. 0 12/16/2021 Active Pantoprazole Sodium 20 MG Oral Tablet Delayed Release (Protonix) TAKE ONE TABLET BY MOUTH DAILY. 90 Tablet 0 09/02/2022 Active Diclofenac Sodium 1 % External Gel [...] BASE) MCG/ACT 25.5 g 1 02/24/2023 Active Acyclovir 400 MG Oral Tablet (Zovirax)Indicatio ns:Herpes genitalia Take 1 Tablet by mouth in the morning and 1 Tablet before bedtime. 180 Tablet 0 02/25/2023 Active Warfarin Sodium 5 MG Oral Tablet (Coumadin)Indicati ons:MTHFR mutation (methylenetetrahyd rofolate reductase) TAKE 2 TABLETS DAILY 180 Tablet 1 02/25/2023 Active Spironolactone 50 MG Oral Tablet (Aldactone)Indicat ions:Hidradenitis 1 tablet twice daily w/food 180 Tablet 0 02/24/2023 Active Levothyroxine Sodium 75 MCG Oral [...] two weeks.. 30 g 1 04/23/2023 Active documented as of this encounter (statuses as of 05/19/2023) Active Problems Problem Noted Date ASCUS with [...] as of this encounter (statuses as of 05/19/2023) Resolved Problems Problem Noted Date Resolved Date [...] as of this encounter (statuses as of 05/19/2023) Immunizations Name Administration Dates Next Due COVID-19 mRNA, LNP-s, No Pre serve, 2-Dose Series (Moderna) 03/06/2021,02/06/2021 HepA Inact/HepB Recomb>=18yrs old 06/02/2012,,08/07/2011 Pneumococcal Conjugate Vacci ne, 20-valent ([id number]) 07/24/2022 Pneumococcal Polysaccharide PPV23 (Pneumovax) 07/29/2013 Seasonal [...] Encounters Date Type Specialty Care Team Description 05/19/2023 [facility] [address] [place] [address] 06/10/2023 Office Visit Sleep Disorders Sherita Coelho, [address] [place] [address] 06/10/2023 Office Visit Internal Medicine Ginna Power MD [address] [place] [address] 06/20/2023 Office Visit Family Medicine Connie Navarro MD [address] [place] [address] 07/22/2023 Office Visit Neurology Mahendra Del Valle MD [address] [place] [address] 07/24/2023 Office Visit Gynecology Obstetrics Tremayne Lo MD [address] [place] [address] 07/25/2023 Office Visit Neurology Vannesa Crouch, DO [address] [place] [address] 08/11/2023 Office Visit Ophthalmology Uri Quintana DO [address] [place] [address] 01/07/2024 Imaging Radiology 01/19/2024 Telemedicine Sleep Disorders Lynsey Kam, DO [address] [place] [address] Pending Results Name Type Priority Associated Diagnoses Date /Time CBC Lab Routine Encounter for long-term (current) use of other medications 05/19/2023 9:33 AM EDT PT INR Lab Routine MTHFR mutation (methylenetetrahydrofola te reductase) 05/19/2023 9:33 AM EDT COMPREHENSIVE METABOLIC PANEL Lab Routine Memory change 05/19/2023 9:33 AM EDT Health Maintenance Due Date Last [...] 02/19/2024 02/18/2023, 07/27, 07/24/2022, Additional history exists Diabetes Screening 08/07/2025 08/07/2022, 1 , 07/24/2022, Additional history exists Lipid Panel 09/05/2026 09/05/2021, 08/0 06/2018, 12/07/2013 Pap Smear 04/23/2028 04/23/2023, /10/2021, 07/13/2020, Additional history exists Hepatitis C Screening Completed 12/17/2021 , 07/13/2020, [...] for long-term (current) use of other medications MTHFR mutation (methylenetetrahydrofolate reductase) Disturbances of sulphur-bearing amino-acid metabolism Memory change Memory loss documented in this encounter Advance Directives Latest [...] the patient have Health Care Power of Sewing Machine Maintenance Mechanic? No Code Status History Code Status Date Activated Date Inactivated Comments Full Code 09/19/2020 9:51 AM 09/19/2020 10:03 AM Th is order reflects the patients wishes and were consensually agreed upon. Question Answer Comments Discussion of Advance Directives occurred with: Patient Does the patient have a Living Will? No Does the patient have Health Care Power of Sewing Machine Maintenance Mechanic? No Full Code 08/18/2020 9:52 AM 08/18/2020 2:40 PM Thi s order reflects the patients wishes and were consensually agreed upon. Question Answer Comments Discussion of Advance Directives occurred with: Patient Does the patient have a Living Will? No Does the patient have Health Care Power of Sewing Machine Maintenance Mechanic? No Care Teams Ring Striker Relationship Specialty Start Date End Date Ginan Power MD [address] [place] [address], [place] [address] PCP - General Internal Medicine 09/05/21 documented as of this encounter
--- OUTSIDE RECORDS SUMMARY | 2023-09-11 00:15 | External Medical Summary ---
Author Name Unknown Address Unknown Organization : Laboratory Report Ordering Provider Test Date Status LORRI BARAHONA 05/27/2023 10:57:42 Final Therapeutic ranges for non-o perative patients:
Prophylaxsis/treatment of DVT: (Range:2.0-3.0)
Treatment of pulmonary embolism:(Range:2.0-3.0)
Prevention of systemic embolism from:
-tissue heart valves
-acute myocardial infarction
-valvular heart disease
-atrial fibrillation
(Range: 2.0-3.0)
Mechanical prosthetic valves: (Range: 2.5-3.5) Observation Date Value Abnormality Reference (Units ) Status INR in Capillary blood by Coagulation assay 05/27/2023 10:57:42 1.6 (INR) Final Performing Location
--- OUTSIDE RECORDS SUMMARY | 2023-09-11 00:15 | External Medical Summary | Summary of Care ---
Author Name Unknown Organization [facility] Address [address] [facility] [place] [address] Phone [phone] Care Team Providers Care Seed Mill Superintendent Name Role Phone Ginna Hester MD Primary Care Provider [phone] Reason for Visit * Reason Comments eRx-Medication Refill Encounter Details Date Type Department Care Team Description 05/20/2023 Refill General Internal Medicine Jose Shanae [place] [address] [facility] [place] [id number] Aleksandra Feliz MD [address] [place] [address] Allergies Active Allergy Reactions Severity Noted Date Comments Aripiprazole Neuro complications (Please comment) High 09/30/2019 Tardive dyskinesia [place] (Diagnostic) Low 03/10/2015 Other reaction(s): STRAWBERRIES/TOMATOE S IN LARGE VOLUMES-ULCERS IIN MOUTH Tomato Low 09/30/2019 documented as of this encounter (statuses as of 05/21/2023) Medications Medication Sig Dispensed Refills Start Date End Date Status VITAMIN B-12 500 MCG PO TABS 2 tablets daily 0 3 Active TRILEPTAL 300 MG PO TABS twice daily 0 Active CELEXA 40 MG PO TABS 1 tab daily 0 Active FOLIC ACID 1 MG PO TABS 800 mcg 30 Tab 11 4 Active Cholecalciferol (VITAMIN D3) 5000 UNITS Tablet [...] Active Additional Information Patient taking differently:1,000 mg [id number] PRN, Pain, Fever, Reported on 12/16/2022 Nebulizers (NEBULIZER COMPRESSOR) [facility] [place]hale via nebulizer. Use as directed. 1 Each 1 8 Active albuterol-ipratro pium (DUONEB) 2.5-0.5 MG/3ML nebulizer solution Inhale 3 mL via nebulizer 4 times a day. 360 Vial 0 9 Active loratadine (RA LORATADINE) 10 MG TabletIndications :Chronic frontal sinusitis Take 1 Tab by mouth daily. 90 Tab 0 9 Active [place] Carbonate 300 MG Oral Capsule (Eskalith) Take 3 Capsules by mouth at bedtime. 0 2 Active Diclofenac Sodium 1 % External Gel (Voltaren) Apply 1 g topically to affected area in the morning and 1 g at noon and 1 g before bedtime. 100 g 3 3 Active CPAP every night at bedtime. 0 Active Albuterol Sulfate HFA 108 (90 Base) MCG/ACT Inhalation Aerosol SolutionIndicatio ns:Mild intermittent asthma without complication INHALE 2 PUFFS BY MOUTH NEEDED SHORT OF BREATH Strength: 108 (90 BASE) MCG/ACT 25.5 g 1 3 Active Acyclovir 400 MG Oral Tablet (Zovirax)Indicati ons:Herpes genitalia Take 1 Tablet by mouth in the morning and 1 Tablet before bedtime. 180 Tablet 0 3 Active Warfarin Sodium 5 MG Oral Tablet (Coumadin)Indicat ions:MTHFR mutation (methylenetetrahy drofolate reductase) TAKE 2 TABLETS DAILY 180 Tablet 1 3 Active Levothyroxine Sodium 75 MCG Oral Tablet (Levoxyl)Indicati ons:Hypothyroidis m, unspecified type Take 1 Tablet by mouth daily first thing in the morning. on an empty stomach. 30 Tablet 5 3 Active SUMAtriptan Succinate 50 MG Oral Tablet (Imitrex)Indicati ons:Migraine variant, intractable TAKE 2 TABLETS AT ONSET MIGRAINE MAY REPEAT 1 TABLET IN 2 HOURS- MAX OF 5 IN 24 HOURS 9 Tablet 1 3 Active metroNIDAZOLE 0.75 % Vaginal [...] two weeks.. 30 g 1 3 Active Spironolactone 50 MG Oral Tablet (Aldactone)Indica tions:Hidradeniti s TAKE 1 TABLET BY MOUTH TWICE DAILY WITH FOOD 180 Tablet 0 3 Active Pantoprazole Sodium 20 MG Oral Tablet Delayed Release (Protonix) TAKE 1 TABLET BY MOUTH DAILY 90 Tablet 1 3 Active Pantoprazole Sodium 20 MG Oral Tablet Delayed Release (Protonix) TAKE ONE TABLET BY MOUTH DAILY. 90 Tablet 0 2 05/21/20 23 Discontinued documented as of this encounter (statuses as of 05/21/2023) Active Problems Problem Noted Date ASCUS with [...] as of this encounter (statuses as of 05/21/2023) Resolved Problems Problem Noted Date Resolved Date [...] as of this encounter (statuses as of 05/21/2023) Immunizations Name Administration Dates Next Due COVID-19 mRNA, LNP-s, No Pre serve, 2-Dose Series (Moderna) 03/06/2021,02/06/2021 HepA Inact/HepB Recomb>=18yrs old 06/02/2012,,08/07/2011 Pneumococcal Conjugate Vacci ne, 20-valent ([id number]) 07/24/2022 Pneumococcal Polysaccharide PPV23 (Pneumovax) 07/29/2013 Seasonal [...] encounter Miscellaneous Notes * Telephone Encounter - Danelle Bishop [facility] - 05/21/2023 1:21 PM EDTSigned Prescriptions: Disp Refills Pantoprazole Sodium 20 MG Oral Tablet Yvonne*90 Tab*1 Sig: TAKE 1 TABLET BY MOUTH DAILYAuthorizing Provider: Lilian HESTER User: DANELLE BISHOP-------- documented in this encounter Plan of Treatment Upcoming Encounters Date Type Specialty Care Team Description 05/27/2023 [facility] [address] [address] 06/05/2023 Office Visit Family Medicine Connie Navarro MD [address] [place] [address] 06/10/2023 Office Visit Sleep Disorders Sherita Coelho DO [address] [place] [address] 06/10/2023 Office Visit Internal Medicine Ginna Hester MD [address] [place] [address], [place] [address] 07/04/2023 Telemedicine Dermatology Kasia Holliday MD [address] [place] [address] 07/22/2023 Office Visit Neurology Mahendra Del Valle MD [address] [place] [address] 07/24/2023 Office Visit Gynecology Obstetrics Tremayne Lo MD [address] [place] [address] 07/25/2023 Office Visit Neurology Vannesa Crouch, DO [address] [place], [place] [address] 08/11/2023 Office Visit Ophthalmology Uri Quintana, DO [address] [place], [place] [phone] 01/07/2024 Imaging Radiology 01/19/2024 Telemedicine Sleep Disorders Lynsey Kam, DO [address] [place] [address] Health Maintenance Due Date Last Done Comments [...] 07/27, 07/24/2022, Additional history exists Diabetes Screening 05/19/2026 05/19/2023, 1 , 08/07/2022, Additional history exists Lipid Panel 09/05/2026 09/05/2021, 08/0 06/2018, 12/07/2013 Pap Smear 04/23/2028 04/23/2023, 11/28, 07/13/2020, Additional history exists Hepatitis C Screening [...] the patient have Health Care Power of Band Shover? No Code Status History Code Status Date Activated Date Inactivated Comments Full Code 09/19/2020 9:51 AM 09/19/2020 10:03 AM Th is order reflects the patients wishes and were consensually agreed upon. Question Answer Comments Discussion of Advance Directives occurred with: Patient Does the patient have a Living Will? No Does the patient have Health Care Power of Band Shover? No Full Code 08/18/2020 9:52 AM 08/18/2020 2:40 PM Thi s order reflects the patients wishes and were consensually agreed upon. Question Answer Comments Discussion of Advance Directives occurred with: Patient Does the patient have a Living Will? No Does the patient have Health Care Power of Band Shover? No Care Teams Seed Mill Superintendent Relationship Specialty Start Date End Date Ginna Hester MD [address] [place] [address] PCP - General Internal Medicine 09/05/21 documented as of this encounter
--- OUTSIDE RECORDS SUMMARY | 2023-09-11 00:15 | External Medical Summary | Summary of Care ---
Author Name Unknown Organization [facility] Address [address] [facility] [address] Phone [phone] Care Team Providers Care Meteorologist Liaison Name Role Phone Ginna Hester MD Primary Care Provider [phone] Reason for Visit * Reason Comments eRx-Medication Refill Encounter Details Date Type Department Care Team Description 05/20/2023 Refill General Internal Medicine [facility] [place] [address] [facility] [place] [id number] Ginna Hester MD [address] [place] [address] Herpes genitalia Allergies Active Allergy Reactions Severity Noted Date Comments Aripiprazole Neuro complications (Please comment) High 09/30/2019 Tardive dyskinesia [place] (Diagnostic) Low 03/10/2015 Other reaction(s): STRAWBERRIES/TOMATOE S [...] Active Additional Information Patient taking differently:1,000 mg [id number] PRN, Pain, Fever, Reported on 12/16/2022 Nebulizers (NEBULIZER COMPRESSOR) [facility] Inhale via nebulizer. Use as directed. 1 Each 1 8 Active albuterol-ipratro pium (DUONEB) 2.5-0.5 MG/3ML nebulizer solution Inhale 3 mL via nebulizer 4 times a day. 360 Vial 0 9 Active loratadine (RA LORATADINE) 10 MG TabletIndications :Chronic frontal sinusitis Take 1 Tab by mouth daily. 90 Tab 0 9 Active [place] Carbonate 300 MG Oral Capsule (Eskalith) Take [...] MOUTH DAILY 90 Tablet 1 3 Active Acyclovir 400 MG Oral Tablet (Zovirax)Indicati ons:Herpes genitalia Take 1 Tablet by mouth in the morning and 1 Tablet before bedtime. 180 Tablet 0 3 05/21/20 23 Discontinued documented as of this [...] old 06/02/2012,,08/07/2011 Pneumococcal Conjugate Vacci ne, 20-valent ([id number]) 07/24/2022 Pneumococcal Polysaccharide PPV23 (Pneumovax) 07/29/2013 Seasonal [...] encounter Miscellaneous Notes * Telephone Encounter - Debra Albarran RP - 05/21/2023 2:55 PM EDT RX authorized. Zero refills given until upcoming OV in 05/2023 Thank you, Debra Albarran [facility] Clinical Pharmacist TelePharmacy 05/21/23 2:54 PM [phone] * Telephone Encounter - Debra Albarran RP - 05/21/2023 2:55 PM EDTSigned Prescriptions: Disp Refills Acyclovir 400 MG Oral Tablet (Zovirax) 180 Ta*0 Sig: Take 1 Tablet by mouth in the morning and 1 Tablet before bedtime. Authorizing Provider: GINNA HESTER User: DEBRA ALBARRAN documented in this encounter Plan of Treatment Upcoming Encounters Date Type Specialty Care Team Description 05/27/2023 [facility] [place], [address] [address] 06/05/2023 Office Visit Family Medicine Connie Navarro MD [address] [place] [phone] 06/10/2023 Office Visit Sleep Disorders Sherita Coelho, DO [address] [place] [address] 06/10/2023 Office Visit Internal Medicine Ginna Hester MD [address] [place] [address] 07/04/2023 Telemedicine Dermatology Kasia Holliday MD [address] [place], [place] [phone] 07/22/2023 Office Visit Neurology Mahendra Del Valle MD [address] [place] [address] 07/24/2023 Office Visit Gynecology Obstetrics Tremayne Lo MD [address] [place] [address] 07/25/2023 Office Visit Neurology Vannesa Crouch, DO [address] [place] [address] 08/11/2023 Office Visit Ophthalmology Uri Quintana, DO [address] [place], [place] [address] 01/07/2024 Imaging Radiology 01/19/2024 Telemedicine Sleep Disorders Lynsey Kam, DO [address] [place] [phone] Health Maintenance Due Date Last Done Comments HPV/Co-Test 2005 Cologuard 2020 Colonoscopy 2020 Colorectal Cancer Screening [...] 02/19/2024 02/18/2023, 07/27, 07/24/2022, Additional history exists Cervical Cancer Screening 04/23/2026 Pap Smear 04/23/2026 04/23/2023, 11/28, 07/13/2020, Additional history exists Diabetes Screening 05/19/2026 05/19/2023, 1 , 08/07/2022, Additional history exists Lipid Panel 09/05/2026 09/05/2021, 08/0 06/2018, 12/07/2013 Hepatitis C Screening Completed 12/17/2021 , 07/13/2020, [...] the patient have Health Care Power of Business Integration Analyst? No Code Status History Code Status Date Activated Date Inactivated Comments Full Code 09/19/2020 9:51 AM 09/19/2020 10:03 AM Th is order reflects the patients wishes and were consensually agreed upon. Question Answer Comments Discussion of Advance Directives occurred with: Patient Does the patient have a Living Will? No Does the patient have Health Care Power of Business Integration Analyst? No Full Code 08/18/2020 9:52 AM 08/18/2020 2:40 PM Thi s order reflects the patients wishes and were consensually agreed upon. Question Answer Comments Discussion of Advance Directives occurred with: Patient Does the patient have a Living Will? No Does the patient have Health Care Power of Business Integration Analyst? No Care Teams Meteorologist Liaison Relationship Specialty Start Date End Date Ginna Hester MD [address] [place] [address] PCP - General Internal Medicine 09/05/21 documented as of this encounter
--- OUTSIDE RECORDS SUMMARY | 2023-09-11 00:15 | External Medical Summary ---
Author Name Unknown Address Unknown Organization [id number]:[facility] [place] [address] [facility] [address] Laboratory Report Ordering Provider Test Date Status KACIE ANSARI 05/19/2023 09:33:00 Final Observation Date Value Abnormality Reference (Units ) Status BUN 05/19/2023 09:33:00 10 6-20 (mg/dL) Final Creatinine 05/19/2023 09:33:00 0.9 0.5-1.0 (mg/dL) Final Glomerular filtration rate/1.73 sq M.predicted [Volume Rate/Area] in Serum, Plasma or Blood by Creatinine-based formula (CKD-EPI) 05/19/2023 09:33:00 83 >=60 (mL/min) Final eGFR is calculated based on the CKD-EPI 2020 equation SODIUM 05/19/2023 09:33:00 137 135-146 (m mol/L) Final Potassium 05/19/2023 09:33:00 4.6 3.5-5.1 (m mol/L) Final Cl 05/19/2023 09:33:00 101 98-107 (mm ol/L) Final CO2 05/19/2023 09:33:00 23 22-32 (mmo l/L) Final Anion gap 05/19/2023 09:33:00 13 7-15 (mmol /L) Final Glucose 05/19/2023 09:33:00 107 70-120 (mg /dL) Final Albumin 05/19/2023 09:33:00 4.5 3.8-5.0 (g /dL) Final AST (Aspartate aminotransferase) 05/19/2023 09:33:00 20 10-35 (U/L) Final Alk Phos 05/19/2023 09:33:00 60 35-130 (U/ L) Final Bilirubin, Total 05/19/2023 09:33:00 0.4 <=1 .2 (mg/dL) Final Calcium 05/19/2023 09:33:00 9.4 8.4-10.2 ( mg/dL) Final Protein 05/19/2023 09:33:00 6.7 6.0-8.3 (g /dL) Final ALT (Alanine aminotransferase) 05/19/2023 09:33:00 33 10-35 (U/L) Final Performing Location [facility] [place] [facility] [address] [facility] [address]
--- OUTSIDE RECORDS SUMMARY | 2023-09-11 00:15 | External Medical Summary | Summary of Care ---
Author Name Unknown Organization [facility] Address [address] [place] [address] Phone [phone] Care Team Providers Care Strategic Procurement Manager Name Role Phone Ginna Power MD Primary Care Provider [phone] Reason for Visit * Reason Comments Follow Up Diplopia F/U. Encounter Details Date Type Department Care Team Description 05/12/2023 Office Visit [address] [phone] Uri Quintana, DO [address] [place], [place] [phone] Diplopia* Allergies Active Allergy Reactions Severity Noted Date Comments Aripiprazole Neuro complications (Please comment) High 09/30/2019 Tardive dyskinesia [place] (Diagnostic) Low 03/10/2015 Other reaction(s): STRAWBERRIES/TOMATOE S IN LARGE VOLUMES-ULCERS IIN MOUTH Tomato Low 09/30/2019 documented as of this encounter (statuses as of 05/12/2023) Medications Medication Sig Dispensed Refills Start Date [...] Active Additional Information Patient taking differently:1,000 mg [id number] PRN, Pain, Fever, Reported on 12/16/2022 Nebulizers (NEBULIZER COMPRESSOR) [facility] Inhale via nebulizer. Use as directed. 1 Each 1 10/06/2018 Active albuterol-ipratrop ium (DUONEB) 2.5-0.5 MG/3ML nebulizer solution Inhale 3 mL via nebulizer 4 times a day. 360 Vial 0 04/16/2019 Active loratadine (RA LORATADINE) 10 MG TabletIndications: Chronic frontal sinusitis Take 1 Tab by mouth daily. 90 Tab 0 04/16/2019 Active [place] Carbonate 300 MG Oral Capsule (Eskalith) Take [...] as of this encounter (statuses as of 05/12/2023) Active Problems Problem Noted Date ASCUS with [...] as of this encounter (statuses as of 05/12/2023) Resolved Problems Problem Noted Date Resolved Date [...] as of this encounter (statuses as of 05/12/2023) Immunizations Name Administration Dates Next Due COVID-19 mRNA, LNP-s, No Pre serve, 2-Dose Series (Moderna) 03/06/2021,02/06/2021 HepA Inact/HepB Recomb>=18yrs old 06/02/2012,,08/07/2011 Pneumococcal Conjugate Vacci ne, 20-valent ([id number]) 07/24/2022 Pneumococcal Polysaccharide PPV23 (Pneumovax) 07/29/2013 Seasonal [...] this encounter Patient Instructions * Patient Instructions* Arlen Aguayo DO - 05/12/2023 11:09 AM EDT Warm compresses to eyelids 1-2 times per day for 5-10 minutes. Use ocusoft pads or dilute baby shampoo to clean the eyelids at the eyelashes daily Use artificial tears (refresh systane or genteal) four times daily. At night, use a lubricating ointment (refresh PM is an example) in both eyes as needed documented in this encounter Progress Notes * Uri Quintana DO - 05/12/2023 4:59 PM EDT I have discussed the patient's management with the medical trainee and agree with the note. Please refer to the documented findings and plan of care. This patient's visit today consisted of an evaluation. I was present and confirmed the findings of the history and exam. Uri Quintana DO * Arlen Aguayo DO - 05/12/2023 10:31 AM EDT 05/12/2023: Resident Neuro HPI: Rody Jean Baptiste is a 47 year old pt who presents for follow up diplopia. Notes diplopia in herperipheral vision (side to side). Notes dizziness when she is having these sypmtoms. Not sure if the diplopia has gotten better or if she is just adjusting to it. Had a one time occurrence of a whitesquare in the vision. Balance has improved since last visit and the brain fog has lifted. Has not noticed any significant changes in the double, but overall does not notice it in primary. Past Ocular History: glasses FOHx: none Eye Medications: none ROS: Refer to HPI, otherwise negative unless noted. Past Medical History: Diagnosis Date Anxiety Asthma flare Bipolar 2 disorder (HCC) Depression Endometriosis Gastroesophageal reflux disease without esophagitis 12/24/2016 Herpes genitalia HPV (human papilloma virus) infection Intention tremor MTHFR mutation on Warfarin Pulmonary embolism (HCC) 04/2013 Sleep apnea, obstructive No outpatient medications have been marked as taking for the 05/12/23 encounter (Office Visit) with Uri Quintana DO. Past Surgical History: Procedure Laterality Date ANORECTAL EXAM ,DIAG, REQUIRING ANESTHESIA N/A 08/18/2020 ANORECTAL EXAM UNDER ANESTHESIA performed by Moises Mcfarlane MD at [facility] ANORECTAL EXAM ,DIAG, REQUIRING ANESTHESIA N/A 09/19/2020 ANORECTAL EXAM UNDER ANESTHESIA performed by Moises Mcfarlane MD at [facility] D&C.EDU. 2002 HEMORRHOIDECTOMY, SIMPLE, 1 COLUMN N/A 08/18/2020 HEMORRHOIDECTOMY EXTERNAL AND INTERNAL SIMPLE performed by Moises Mcfarlane MD at [facility] HEMORRHOIDECTOMY, SIMPLE, 1 COLUMN N/A 09/19/2020 HEMORRHOIDECTOMY EXTERNAL AND INTERNAL SIMPLE performed by Moises Mcfarlane MD at OR [facility] LAP ABLATION UTERINE FIBROIDS W/INTRAOP US GUIDE 2014 LAPAROSCOPY;WITH BIOPSY 1996 endometreosis SACROILIAC JOINT INJECT W/GUIDANCE 08/06/2018 INJECTION SACROILIAC JOINT performed by Torito Orta DO at [facility] SACROILIAC JOINT INJECT W/GUIDANCE 10/15/2018 INJECTION SACROILIAC JOINT performed by Torito Orta DO at OR [facility] Nursing notes reviewed. Base Eye Exam Visual Acuity (Snellen - Linear) Right Left Dist cc 20/20 20/40 Dist ph cc 20/25 -2 Correction: Glasses Tonometry (Non-contact air puff, 10:19 AM) Right Left Pressure 17 16 Pupils Dark Light Shape React APD Right 6 4 Round Brisk None Left 6 4 Round Brisk None Visual Brody (Counting fingers) Right Left Full Full Extraocular Movement Right Left Full Full Neuro/Psych Oriented x3: Yes Mood/Affect: Normal Additional Tests Color Right Left Ishihara 09/06 09/06 Keratometry K1 Mullens K2 Mullens Right 44.25 0 44.25 90 Left 44.50 10 45.00 100 Slit Lamp and Fundus Exam External Exam Right Left External Normal Normal Slit Lamp Exam Right Left Lids/Lashes Normal Normal Conjunctiva/Sclera White and quiet White and quiet Cornea Clear Clear Anterior Chamber Deep and quiet Deep and quiet Iris Round and reactive Round and reactive Lens Clear Clear Fundus Exam Right Left Disc Normal Normal C/D Ratio 0.3 0.3 Macula Normal Normal Refraction Wearing Rx Sphere Cylinder Mullens Add Right -2.50 +0.50 017 +2.00 Left -3.00 +1.25 136 +2.00 Age: 1yr Type: PAL Manifest Refraction (Auto) Sphere Cylinder Mullens Dist VA Right -2.25 +0.25 168 20/50 Left -3.25 +1.00 123 20/30 ASSESSMENT/PLAN ET on left gaze Measuring 8PD [...] gaze - overall measurements are stable RTC 3 - 4 months months or sooner prn. Patient seen and discussed with Dr. Quintana. A/P explained, patient verbalized understanding. Patient understands to f/u immediately with questions, concerns, or any ophthalmic issues. Arlen Aguayo DO documented in this encounter Nursing Notes * Izabela Kapadia CPhT - 05/12/2023 9:53 AM EDT Rody Jean Baptiste is a 47 year old female who presents for diplopia F/U. Last Visit: 02/17/2023 (in office), Visit date not found (telemedicine) She currently states she's had a increase in floaters. She's unsure if the double vision in her peripherals has subsided or if she's adapted to it. Since last appt she saw a white square in OS that flipped, but only occurred once. Otherwise balance has significantly improved and her brain fog has lifted Are you diabetic? No Current Ophthalmic Medications: None Vision ,pressure, color plates, and glasses can be found in ophth exam. documented in this encounter Plan of Treatment Upcoming Encounters Date Type Specialty Care Team Description 05/19/[address] [address] 06/10/2023 Office Visit Sleep Disorders Sherita Coelho, DO [address] [place] [address] 06/10/2023 Office Visit Internal Medicine Ginna Power MD [address] [place] [address] 06/20/2023 Office Visit Family Medicine Connie Navarro MD [address] [place] [address] 07/22/2023 Office Visit Neurology Mahendra Del Valle MD [address] [place] [address] 07/24/2023 Office Visit Gynecology Obstetrics Tremayne Lo MD [address] [place] [address] 07/25/2023 Office Visit Neurology Vannesa Crouch, DO [address] [place], [place] [phone] 08/11/2023 Office Visit Ophthalmology Uri Quintana, DO [address] [place] [address] 01/07/2024 Imaging Radiology 01/19/2024 Telemedicine Sleep Disorders Lynsey Kam, DO [address] [place] [address] Health Maintenance Due Date Last Done Comments [...] the patient have Health Care Power of Manager Mortgage? No Code Status History Code Status Date Activated Date Inactivated Comments Full Code 09/19/2020 9:51 AM 09/19/2020 10:03 AM Th is order reflects the patients wishes and were consensually agreed upon. Question Answer Comments Discussion of Advance Directives occurred with: Patient Does the patient have a Living Will? No Does the patient have Health Care Power of Manager Mortgage? No Full Code 08/18/2020 9:52 AM 08/18/2020 2:40 PM Thi s order reflects the patients wishes and were consensually agreed upon. Question Answer Comments Discussion of Advance Directives occurred with: Patient Does the patient have a Living Will? No Does the patient have Health Care Power of Manager Mortgage? No Care Teams Strategic Procurement Manager Relationship Specialty Start Date End Date Ginna Power MD [address] [place] [address], [place] [address] PCP - General Internal Medicine 09/05/21 documented as of this encounter
--- OUTSIDE RECORDS SUMMARY | 2023-09-11 00:15 | External Medical Summary | Summary of Care ---
Author Name Unknown Organization [facility] Address [address] [facility] [place] [address] Phone [phone] Care Team Providers Care Party Plan Sales Agent Name Role Phone Ginna Power MD Primary Care Provider [phone] Reason for Visit * Reason Comments Dosage Adjustment Via Phone (anticoag Cl inic) Encounter Details Date Type Department Care Team Description 05/20/2023 Anticoagulation Pharmacy, [place] [address] [place] [address] [facility] [address] [place] [address] MTHFR mutation (methylenetetrahydrof olate reductase)* Allergies Active Allergy Reactions Severity Noted Date Comments Aripiprazole Neuro complications (Please comment) High 09/30/2019 Tardive dyskinesia [place] (Diagnostic) Low 03/10/2015 Other reaction(s): STRAWBERRIES/TOMATOE S IN LARGE VOLUMES-ULCERS IIN MOUTH Tomato Low 09/30/2019 documented as of this encounter (statuses as of 05/20/2023) Medications Medication Sig Dispensed Refills Start Date [...] Active Additional Information Patient taking differently:1,000 mg [id number] PRN, Pain, Fever, Reported on 12/16/2022 Nebulizers (NEBULIZER COMPRESSOR) [facility] Inhale via nebulizer. Use as directed. 1 Each 1 10/06/2018 Active albuterol-ipratrop ium (DUONEB) 2.5-0.5 MG/3ML nebulizer solution Inhale 3 mL via nebulizer 4 times a day. 360 Vial 0 04/16/2019 Active loratadine (RA LORATADINE) 10 MG TabletIndications: Chronic frontal sinusitis Take 1 Tab by mouth daily. 90 Tab 0 04/16/2019 Active [place] Carbonate 300 MG Oral Capsule (Eskalith) Take [...] WITH FOOD 180 Tablet 0 05/20/2023 Active documented as of this encounter (statuses as of 05/20/2023) Active Problems Problem Noted Date ASCUS with [...] as of this encounter (statuses as of 05/20/2023) Resolved Problems Problem Noted Date Resolved Date [...] as of this encounter (statuses as of 05/20/2023) Immunizations Name Administration Dates Next Due COVID-19 mRNA, LNP-s, No Pre serve, 2-Dose Series (Moderna) 03/06/2021,02/06/2021 HepA Inact/HepB Recomb>=18yrs old 06/02/2012,,08/07/2011 Pneumococcal Conjugate Vacci ne, 20-valent ([id number]) 07/24/2022 Pneumococcal Polysaccharide PPV23 (Pneumovax) 07/29/2013 Seasonal [...] Progress Notes * Jennifer Chandler RPh - 05/20/2023 8:15 AM EDT Images from the original note were not included. Medication Therapy Disease Management - Anticoagulation Patient: Rody Jean Baptiste : 1975 Current Warfarin Dose As of 05/20/2023 Warfarin maintenance plan: 10 mg (5 mg x 2) every day Patient-Reported Symptoms: Patient Findings Positives: Change in diet/appetite (continuing with diet high in protein and veggies) Negatives: Signs/symptoms of thrombosis, Signs/symptoms of bleeding, Change in health, Change in alcohol use, Change in activity, Upcoming invasive procedure, Missed doses, Extra doses, Change in medications, Bruising INR Result As of 05/20/2023 INR goal: 2.0-3.0 INR used for dosin.2 (05/19/2023) Warfarin Plan As of 05/20/2023 Full warfarin instructions: 05/20: 20 mg; 05/21: 20 mg; Otherwise 15 mg every Mon, Fri; 10 mg all other days Next INR check: 05/27/2023 Additional Dosing Information: Repeat PT/INR in 1 week(s) Weekly dose: increased Jennifer Chandler RPh Clinical Pharmacist 05/20/2023, 8:15 AM documented in this encounter Plan of Treatment Upcoming Encounters Date Type Specialty Care Team Description 05/27/2023 Anticoagulation Pharmacy [facility] [address] [facility] [place] [address] 06/10/2023 Office Visit Sleep Disorders Sherita Coelho DO [address] [place] [address] 06/10/2023 Office Visit Internal Medicine Ginna Power MD [address] [place] [address] 06/20/2023 Office Visit Family Medicine Connie Navarro MD [address] [place] [address] 07/22/2023 Office Visit Neurology Mahendra Del Valle MD [address] [place] [address] 07/24/2023 Office Visit Gynecology Obstetrics Tremayne Lo MD [address] [place] [address] 07/25/2023 Office Visit Neurology Vannesa Crouch, DO [address] [place] [address] 08/11/2023 Office Visit Ophthalmology Uri Quintana, DO [address] [place] [address] 01/07/2024 Imaging Radiology 01/19/2024 Telemedicine Sleep Disorders Lynsey Kam DO [address] [place] [address] Health Maintenance Due Date Last Done Comments [...] exists Lipid Panel 09/05/2026 09/05/2021, 06/2018, 12/07/2013 Pap Smear 04/23/2028 04/23/2023, 11/28, [...] the patient have Health Care Power of Finish Grinder? No Code Status History Code Status Date Activated Date Inactivated Comments Full Code 09/19/2020 9:51 AM 09/19/2020 10:03 AM Th is order reflects the patients wishes and were consensually agreed upon. Question Answer Comments Discussion of Advance Directives occurred with: Patient Does the patient have a Living Will? No Does the patient have Health Care Power of Finish Grinder? No Full Code 08/18/2020 9:52 AM 08/18/2020 2:40 PM Thi s order reflects the patients wishes and were consensually agreed upon. Question Answer Comments Discussion of Advance Directives occurred with: Patient Does the patient have a Living Will? No Does the patient have Health Care Power of Finish Grinder? No Care Teams Party Plan Sales Agent Relationship Specialty Start Date End Date Ginna Power MD [address] [place] [id number] PCP - General Internal Medicine 09/05/21 documented as of this encounter
--- OUTSIDE RECORDS SUMMARY | 2023-09-11 00:15 | External Medical Summary ---
Author Name Unknown Address Unknown Organization K01:[facility] - [address] [place] [address] Laboratory Report Ordering Provider Test Date Status JENNY BERMAN 06/05/2023 09:12:56 Final Observation Date Value Abnormality Reference (Units ) Status IgA 06/05/2023 09:12:56 109 70-400 (mg /dL) Final Performing Location [facility] - [address] [place] [address]
--- OUTSIDE RECORDS SUMMARY | 2023-09-11 00:15 | External Medical Summary | Summary of Care ---
Author Name Unknown Organization [facility] Address [address] [facility] [place] [address] Phone [phone] Care Team Providers Care Metal Sponge Making Machine Operator Name Role Phone Ginna Power MD Primary Care Provider [phone] Reason for Visit * Reason Comments Outpatient Testing Encounter Details Date Type Department Care Team Description 06/05/2023 Laboratory Laboratory, [facility] [address] [facility] [address] [facility] [address] [facility] [address] Diarrhea, unspecified type Allergies Active Allergy Reactions Severity Noted Date Comments Aripiprazole Neuro complications (Please comment) High 09/30/2019 Tardive dyskinesia [place] (Diagnostic) Low 03/10/2015 Other reaction(s): STRAWBERRIES/TOMATOE S IN LARGE VOLUMES-ULCERS IIN MOUTH Tomato Low 09/30/2019 documented as of this encounter (statuses as of 06/05/2023) Medications Medication Sig Dispensed Refills Start Date [...] Active Additional Information Patient taking differently:1,000 mg [id number] PRN, Pain, Fever, Reported on 12/16/2022 Nebulizers (NEBULIZER COMPRESSOR) MIS Inhale via nebulizer. Use as directed. 1 Each 1 10/06/2018 Active albuterol-ipratrop ium (DUONEB) 2.5-0.5 MG/3ML nebulizer solution Inhale 3 mL via nebulizer 4 times a day. 360 Vial 0 04/16/2019 Active loratadine (RA LORATADINE) 10 MG TabletIndications: Chronic frontal sinusitis Take 1 Tab by mouth daily. 90 Tab 0 04/16/2019 Active [place] Carbonate 300 MG Oral Capsule (Eskalith) Take [...] as of this encounter (statuses as of 06/05/2023) Active Problems Problem Noted Date ASCUS with [...] as of this encounter (statuses as of 06/05/2023) Resolved Problems Problem Noted Date Resolved Date [...] as of this encounter (statuses as of 06/05/2023) Immunizations Name Administration Dates Next Due COVID-19 mRNA, LNP-s, No Pre serve, 2-Dose Series (Moderna) 03/06/2021,02/06/2021 HepA Inact/HepB Recomb>=18yrs old 06/02/2012,,08/07/2011 Pneumococcal Conjugate Vacci ne, 20-valent ([id number]) 07/24/2022 Pneumococcal Polysaccharide PPV23 (Pneumovax) 07/29/2013 Seasonal [...] Encounters Date Type Specialty Care Team Description 06/05/2023 Anticoagulation Pharmacy [place], [facility] [address] [place] [address] 06/10/2023 Office Visit Sleep Disorders Sherita Coelho, DO [address] [place] [address] 06/10/2023 Office Visit Internal Medicine Ginna Power MD [address] [place] [address] 06/11/2023 Office Visit Gynecology Obstetrics Grace Paige MD [address] [place] [address] 07/04/2023 Telemedicine Dermatology Kasia Holliday MD [address] [place] [address] 07/22/2023 Office Visit Neurology Mahendra Del Valle MD [address] [place] [address] 07/24/2023 Office Visit Gynecology Obstetrics Tremayne Lo MD [address] [place] [address] 07/25/2023 Office Visit Neurology Vannesa Crouch DO [address] [place] [address] 08/11/2023 Office Visit Ophthalmology [facility] Quintana, DO [address] [facility] [address] 09/05/2023 Office Visit Family Medicine Connie Navarro MD [address] [place] [address] 01/07/2024 Imaging Radiology 01/19/2024 Telemedicine Sleep Disorders Lynsey Kam DO [address] [place] [address] Pending Results Name Type Priority Associated Diagnoses Date /Time TISSUE TRANSGLUTAMINASE IGA ANTIBODY Lab Routine Diarrhea, unspecified type 06/05/2023 9:12 AM EDT IGA Lab Routine Diarrhea, unspecified type 06/05/2023 9:12 AM EDT Health Maintenance Due Date Last [...] this encounter Visit Diagnoses Diagnosis Diarrhea, unspecified type documented in this encounter [...] the patient have Health Care Power of Major League Baseball Umpire? No Code Status History Code Status Date Activated Date Inactivated Comments Full Code 09/19/2020 9:51 AM 09/19/2020 10:03 AM Th is order reflects the patients wishes and were consensually agreed upon. Question Answer Comments Discussion of Advance Directives occurred with: Patient Does the patient have a Living Will? No Does the patient have Health Care Power of Major League Baseball Umpire? No Full Code 08/18/2020 9:52 AM 08/18/2020 2:40 PM Thi s order reflects the patients wishes and were consensually agreed upon. Question Answer Comments Discussion of Advance Directives occurred with: Patient Does the patient have a Living Will? No Does the patient have Health Care Power of [employer] League Baseball Umpire? No Care Teams Metal Sponge Making Machine Operator Relationship Specialty Start Date End Date Ginna Power MD [address] [place] [address] PCP - General Internal Medicine 09/05/21 documented as of this encounter
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
--- OUTSIDE RECORDS SUMMARY | 2023-09-11 00:15 | External Medical Summary ---
Author Name Unknown Address Unknown Organization [id number]:[facility] [address] Laboratory Report Ordering Provider Test Date Status MALISSA PETERS 05/19/2023 09:33:00 Final Observation Date Value Abnormality Reference (Units ) Status WBC, Total 05/19/2023 09:33:00 6.20 4.00-10.80 (K/uL) Final RBC 05/19/2023 09:33:00 4.61 3.85-5.15 (M/uL) Final Hemoglobin 05/19/2023 09:33:00 14.7 12.0-15.3 (g/dL) Final HCT 05/19/2023 09:33:00 46.0 Above high normal 36.0-45.2 (%) Final MCV 05/19/2023 09:33:00 99.8 81.5-97.5 (fL) Final MCH 05/19/2023 09:33:00 31.9 27.0-34.0 (pg) Final MCHC 05/19/2023 09:33:00 32.0 32.0-36.0 (g/dL) Final RDW 05/19/2023 09:33:00 13.7 11.5-15.5 (%) Final Platelets 05/19/2023 09:33:00 222 140-400 (K/uL) Final MPV 05/19/2023 09:33:00 10.4 6.6-11.1 (fL) Final Nucleated erythrocytes/100 leukocytes [Ratio] in Blood by Automated count 05/19/2023 09:33:00 0 <=0 (/100 WBCs) Final Performing Location [facility] [address] [facility] [address]
--- OUTSIDE RECORDS SUMMARY | 2023-09-11 00:15 | External Medical Summary | Summary of Care ---
Author Name Unknown Organization [facility] Address [address] [facility] [place] [address] Phone [phone] Care Team Providers Care Towel Weaver Name Role Phone Ginna Power MD Primary Care Provider [phone] Reason for Visit * Reason Comments Dosage Adjustment In Person (Anticoag Cl inic) Encounter Details Date Type Department Care Team Description 05/27/2023 Anticoagulation Pharmacy, [place] [address] [place] [address] [facility] [address] [place] [address] MTHFR mutation (methylenetetrahydrof olate reductase)* Allergies Active Allergy Reactions Severity Noted Date Comments Aripiprazole Neuro complications (Please comment) High 09/30/2019 Tardive dyskinesia [place] (Diagnostic) Low 03/10/2015 Other reaction(s): STRAWBERRIES/TOMATOE S IN LARGE VOLUMES-ULCERS IIN MOUTH Tomato Low 09/30/2019 documented as of this encounter (statuses as of 05/27/2023) Medications Medication Sig Dispensed Refills Start Date [...] Active Additional Information Patient taking differently:1,000 mg [id number] PRN, Pain, Fever, Reported on 12/16/2022 Nebulizers (NEBULIZER COMPRESSOR) MISC Inhale via nebulizer. Use as directed. 1 Each 1 10/06/2018 Active albuterol-ipratrop ium (DUONEB) 2.5-0.5 MG/3ML nebulizer solution Inhale 3 mL via nebulizer 4 times a day. 360 Vial 0 04/16/2019 Active loratadine (RA LORATADINE) 10 MG TabletIndications: Chronic frontal sinusitis Take 1 Tab by mouth daily. 90 Tab 0 04/16/2019 Active [place] Carbonate 300 MG Oral Capsule (Eskalith) Take [...] MOUTH DAILY 90 Tablet 1 05/21/2023 Active documented as of this encounter (statuses as of 05/27/2023) Active Problems Problem Noted Date ASCUS with [...] as of this encounter (statuses as of 05/27/2023) Resolved Problems Problem Noted Date Resolved Date [...] as of this encounter (statuses as of 05/27/2023) Immunizations Name Administration Dates Next Due COVID-19 mRNA, LNP-s, No Pre serve, 2-Dose Series (Moderna) 03/06/2021,02/06/2021 HepA Inact/HepB Recomb>=18yrs old 06/02/2012,,08/07/2011 Pneumococcal Conjugate Vacci ne, 20-valent ([id number]) 07/24/2022 Pneumococcal Polysaccharide PPV23 (Pneumovax) 07/29/2013 Seasonal [...] Progress Notes * Jennifer Chandler RPh - 05/27/2023 10:54 AM EDT Images from the original note were not included. Medication Therapy Disease Management - Anticoagulation Patient: Rody Jean Baptiste : 1975 Current Warfarin Dose As of 05/27/2023 Warfarin maintenance plan: 15 mg (5 mg x 3) every Mon, Fri; 10 mg (5 mg x 2) all other days Patient-Reported Symptoms: Patient Findings Negatives: Signs/symptoms of thrombosis, Signs/symptoms of bleeding, Change in health, Change in alcohol use, Change in activity, Upcoming invasive procedure, Missed doses, Extra doses, Change in medications, Change in diet/appetite, Bruising INR Result As of 05/27/2023 INR goal: 2.0-3.0 INR used for dosin.6 (05/27/2023) Warfarin Plan As of 05/27/2023 Full warfarin instructions: 05/27: 20 mg; Otherwise 10 mg every Fri, Fri, Fri; 15 mg all other days Next INR check: 06/05/2023 Additional Dosing Information: Repeat PT/INR in 1 week(s) Weekly dose: increased Jennifer Chandler [facility] Clinical Pharmacist 05/27/2023, 10:54 AM documented in this encounter Plan of Treatment Upcoming Encounters Date Type Specialty Care Team Description 06/05/2023 Office Visit Family Medicine Connie Navarro MD [address] [address] 06/05/2023 Anticoagulation Pharmacy Michael [address] [place] [address] 06/06/2023 Office Visit Gynecology Obstetrics Geno Coelho MD [address] [place] [address] [place] [address] 06/10/2023 Office Visit Sleep Disorders Sherita Coelho, DO [address] [place] [address] 06/10/2023 Office Visit Internal Medicine Ginna Power MD [address] [place] [address] 07/04/2023 Telemedicine Dermatology Kasia Holliday MD [address] [place] [address] 07/22/2023 Office Visit Neurology Mahendra Del Valle MD [address] [place] [address] 07/24/2023 Office Visit Gynecology Obstetrics Tremayne Lo MD [address] [place] [address] 07/25/2023 Office Visit Neurology Vannesa Crouch, DO [address] [place], [place] [phone] 08/11/2023 Office Visit Ophthalmology Uri Quintana, DO [address] [place] [address] 01/07/2024 Imaging Radiology 01/19/2024 Telemedicine Sleep Disorders Lynsey Kam, DO [address] [place] [address] Health Maintenance Due Date Last Done Comments [...] Comments INR FINGERSTICK, POINT OF CARE STAT 05/27/2023 10:57 AM EDT MTHFR mutation (methylenetetrahydr ofolate reductase) documented in this encounter Results * INR FINGERSTICK, POINT OF CARE (05/27/2023 10:57 AM EDT) Fingerstick INR 1.6 INR 10:59 AM EDT [facility]- Blood 05/27/2023 10:5 7 AM EDT 05/27/2023 10:59 AM EDT Narrative [facility]- - 05/27/2023 10:59 AM EDT Therapeutic ranges for non-operative patients: Prophylaxsis/treatment of DVT: (Range:2.0-3.0) Treatment of pulmonary embolism:(Range:2.0-3.0) Prevention of systemic embolism from: -tissue heart valves -acute myocardial infarction -valvular heart disease -atrial fibrillation (Range: 2.0-3.0) Mechanical prosthetic valves: (Range: 2.5-3.5) Thuan Barajas [facility] POINT OF CAR E TEST DOCKED DEVICE UNSOLICITED RESULTS [facility]- [address] [place] [address] documented in this encounter Visit Diagnoses [...] the patient have Health Care Power of Project Assistant? No Code Status History Code Status Date Activated Date Inactivated Comments Full Code 09/19/2020 9:51 AM 09/19/2020 10:03 AM Th is order reflects the patients wishes and were consensually agreed upon. Question Answer Comments Discussion of Advance Directives occurred with: Patient Does the patient have a Living Will? No Does the patient have Health Care Power of Project Assistant? No Full Code 08/18/2020 9:52 AM 08/18/2020 2:40 PM Thi s order reflects the patients wishes and were consensually agreed upon. Question Answer Comments Discussion of Advance Directives occurred with: Patient Does the patient have a Living Will? No Does the patient have Health Care Power of Project Assistant? No Care Teams Towel Weaver Relationship Specialty Start Date End Date Ginna Power MD [address] [place] [address] PCP - General Internal Medicine 09/05/21 documented as of this encounter
--- OUTSIDE RECORDS SUMMARY | 2023-09-11 00:15 | External Medical Summary ---
Author Name Unknown Address Unknown Organization [id number]:[facility] [place] [address] [place] [address] Laboratory Report Ordering Provider Test Date Status LORRI BARAHONA 05/19/2023 09:33:00 Final Warfarin Therapy
INR: 2 .0-3.0 conventional anticoagulation
INR: 2.5- 3.5 high intensity anticoagulation Observation Date Value Abnormality Reference (Units ) Status PT 05/19/2023 09:33:00 15.8 Above high normal 11 .6-15.2 (seconds) Final INR 05/19/2023 09:33:00 1.2 0.8-1.2 Final Performing Location [facility] [place] [address] [place] [address]
--- OUTSIDE RECORDS SUMMARY | 2023-09-11 00:15 | External Medical Summary | Summary of Care ---
Author Name Unknown Organization [facility] Address [address] [place] [facility] [place] [address] Phone [phone] Care Team Providers Care Sales Planning Coordinator Name Role Phone Ginna Power MD Primary Care Provider [phone] Reason for Visit * Reason Comments Appointment Encounter Details Date Type Department Care Team Description 05/19/2023 Anticoagulation Pharmacy, [place] [address] [place] [address] [facility] [address] [place] [address] MTHFR mutation (methylenetetrahydrof olate reductase)* Allergies Active Allergy Reactions Severity Noted Date Comments Aripiprazole Neuro complications (Please comment) High 09/30/2019 Tardive dyskinesia [place] (Diagnostic) Low 03/10/2015 Other reaction(s): STRAWBERRIES/TOMATOE S [...] Active Additional Information Patient taking differently:1,000 mg [id number] PRN, Pain, Fever, Reported on 12/16/2022 Nebulizers (NEBULIZER COMPRESSOR) [facility] Inhale via nebulizer. Use as directed. 1 Each 1 10/06/2018 Active albuterol-ipratrop ium (DUONEB) 2.5-0.5 MG/3ML nebulizer solution Inhale 3 mL via nebulizer 4 times a day. 360 Vial 0 04/16/2019 Active loratadine (RA LORATADINE) 10 MG TabletIndications: Chronic frontal sinusitis Take 1 Tab by mouth daily. 90 Tab 0 04/16/2019 Active [place] Carbonate 300 MG Oral Capsule (Eskalith) Take [...] old 06/02/2012,,08/07/2011 Pneumococcal Conjugate Vacci ne, 20-valent ([id number]) 07/24/2022 Pneumococcal Polysaccharide PPV23 (Pneumovax) 07/29/2013 Seasonal [...] Progress Notes * Jennifer Chandler RPh - 05/19/2023 4:07 PM EDT Patient had INR drawn with other labs. Follow up tomorrow with results. Jennifer Chandler, BasiliaD Clinical Pharmacist Medication Therapy Disease Management 05/19/2023, 4:08 PM documented in this encounter Plan of Treatment Upcoming Encounters Date Type Specialty Care Team Description 05/20/2023 Anticoagulation Pharmacy [address] [address] 06/10/2023 Office Visit Sleep Disorders Sherita Coelho DO [address] [place] [address] 06/10/2023 Office Visit Internal Medicine Ginna Power MD [address] [place] [address] 06/20/2023 Office Visit Family Medicine Connie Navarro MD [address] [place] [address] 07/22/2023 Office Visit Neurology Mahendra Del Valle MD [address] [place] [address] 07/24/2023 Office Visit Gynecology Obstetrics Tremayne Lo MD [address] [place] [address] 07/25/2023 Office Visit Neurology Willa Monakristina Erum, DO [address] [place] [address] 08/11/2023 Office Visit Ophthalmology Uri Quintana, DO [address] [place] [address] 01/07/2024 Imaging Radiology 01/19/2024 Telemedicine Sleep Disorders Lynsey Kam, DO [address] [place] [address] Health Maintenance Due Date Last Done Comments [...] the patient have Health Care Power of Vocational Rehabilitation Teacher? No Code Status History Code Status Date Activated Date Inactivated Comments Full Code 09/19/2020 9:51 AM 09/19/2020 10:03 AM Th is order reflects the patients wishes and were consensually agreed upon. Question Answer Comments Discussion of Advance Directives occurred with: Patient Does the patient have a Living Will? No Does the patient have Health Care Power of Vocational Rehabilitation Teacher? No Full Code 08/18/2020 9:52 AM 08/18/2020 2:40 PM Thi s order reflects the patients wishes and were consensually agreed upon. Question Answer Comments Discussion of Advance Directives occurred with: Patient Does the patient have a Living Will? No Does the patient have Health Care Power of Vocational Rehabilitation Teacher? No Care Teams Sales Planning Coordinator Relationship Specialty Start Date End Date Ginna Power MD [address] [facility] [place], [place] [address] PCP - General Internal Medicine 09/05/21 documented as of this encounter
--- OUTSIDE RECORDS SUMMARY | 2023-09-11 00:16 | External Medical Summary | Summary of Care ---
Author Name Unknown Organization [facility] Address [address] [facility] [address] Phone [phone] Care Team Providers Care Grizzly Worker Name Role Phone Ginna Power MD Primary Care Provider [phone] Reason for Visit * Reason Comments Dosage Adjustment In Person (Anticoag Cl inic) Encounter Details Date Type Department Care Team Description 05/05/2023 Anticoagulation Pharmacy, [place] [address] [place] [address] [facility] [address] [place] [address] MTHFR mutation (methylenetetrahydrof olate reductase)* Allergies Active Allergy Reactions Severity Noted Date Comments Aripiprazole Neuro complications (Please comment) High 09/30/2019 Tardive dyskinesia [place] (Diagnostic) Low 03/10/2015 Other reaction(s): STRAWBERRIES/TOMATOE S IN LARGE VOLUMES-ULCERS IIN MOUTH [place] Low 09/30/2019 documented as of this encounter (statuses as of 05/05/2023) Medications Medication Sig Dispensed Refills Start Date [...] Active Additional Information Patient taking differently:1,000 mg [id number] PRN, Pain, Fever, Reported on 12/16/2022 Nebulizers (NEBULIZER COMPRESSOR) [facility] Inhale via nebulizer. Use as directed. 1 Each 1 10/06/2018 Active albuterol-ipratrop ium (DUONEB) 2.5-0.5 MG/3ML nebulizer solution Inhale 3 mL via nebulizer 4 times a day. 360 Vial 0 04/16/2019 Active loratadine (RA LORATADINE) 10 MG TabletIndications: Chronic frontal sinusitis Take 1 Tab by mouth daily. 90 Tab 0 04/16/2019 Active [place] Carbonate 300 MG Oral Capsule (Eskalith) Take [...] as of this encounter (statuses as of 05/05/2023) Active Problems Problem Noted Date ASCUS with [...] as of this encounter (statuses as of 05/05/2023) Resolved Problems Problem Noted Date Resolved Date [...] as of this encounter (statuses as of 05/05/2023) Immunizations Name Administration Dates Next Due COVID-19 mRNA, LNP-s, No Pre serve, 2-Dose Series (Moderna) 03/06/2021,02/06/2021 HepA Inact/HepB Recomb>=18yrs old 06/02/2012,,08/07/2011 Pneumococcal Conjugate Vacci ne, 20-valent ([id number]) 07/24/2022 Pneumococcal Polysaccharide PPV23 (Pneumovax) 07/29/2013 Seasonal [...] Sign Reading Time Taken Comments Blood Pressure - - Pulse - - Temperature - - Respiratory Rate - - Oxygen Saturation - - Inhaled Oxygen Concentration - - Weight 139.9 kg (308 lb 8 oz) 05/05/2023 1:14 PM EDT Height - - Body Mass Index 48.3 04/16/2023 12:34 PM EDT documented in this [...] Progress Notes * Jennifer Chandler RPh - 05/05/2023 1:11 PM EDT Medication Therapy Disease Management - Anticoagulation Patient: Rody Jean Baptiste : 1975 Current Warfarin Dose As of 05/05/2023 Warfarin maintenance plan: 10 mg (5 mg x 2) every day Patient-Reported Symptoms: Patient Findings Positives: Change in diet/appetite (massive change in diet- eating more greens) Negatives: Signs/symptoms of thrombosis, Signs/symptoms of bleeding, Change in health, Change in alcohol use, Change in activity, Upcoming invasive procedure, Missed doses, Extra doses, Change in medications, Bruising INR Result As of 05/05/2023 INR goal: 2.0-3.0 INR used for dosin.0 (05/05/2023) Warfarin Plan As of 05/05/2023 Full warfarin instructions: 10 mg every day No change documented: Jennifer Chandler RPh Next INR check: 05/19/2023 Additional Dosing Information: Repeat PT/INR in 2 week(s) Weekly dose: not changed Jennifer Chandler RPh Clinical Pharmacist 05/05/2023, 1:11 PM documented in this encounter Plan of Treatment Upcoming Encounters Date Type Specialty Care Team Description 05/12/2023 Office Visit Ophthalmology Uri Quintana, DO [address] [place] [address] 05/19/2023 [facility] [address] [place] [address] 06/10/2023 Office Visit Sleep Disorders Sherita Coelho, DO [address] [place] [address] 06/10/2023 Office Visit Internal Medicine Ginna Power MD [address] [place] [address] 06/20/2023 Office Visit Family Medicine Connie Navarro MD [address] [place] [address] 07/22/2023 Office Visit Neurology DipikaulesMahendra joshi MD [address] [place] [address] 07/24/2023 Office Visit Gynecology Obstetrics Tremayne Lo MD [address] [place] [address] 07/25/2023 Office Visit Neurology Vannesa Crouch DO [address] [place] [address] 01/07/2024 Imaging Radiology 01/19/2024 Telemedicine Sleep Disorders Lynsey Kam, [address] [place] [address] Health Maintenance Due Date Last Done Comments [...] Comments INR FINGERSTICK, POINT OF CARE STAT 05/05/2023 1:16 PM EDT MTHFR mutation (methylenetetrahydr ofolate reductase) documented in this encounter Results * INR FINGERSTICK, POINT OF CARE (05/05/2023 1:16 PM EDT) Fingerstick INR 2.0 INR 3 1:18 PM EDT [facility] Blood 05/05/2023 1:16 PM EDT 05/05/2023 1:18 PM EDT Narrative [facility] - 05/05/2023 1:18 PM EDT Therapeutic ranges for non-operative patients: Prophylaxsis/treatment of DVT: (Range:2.0-3.0) Treatment of pulmonary embolism:(Range:2.0-3.0) Prevention of systemic embolism from: -tissue heart valves -acute myocardial infarction -valvular heart disease -atrial fibrillation (Range: 2.0-3.0) Mechanical prosthetic valves: (Range: 2.5-3.5) Thuan Barajas [facility] POINT OF CAR E TEST DOCKED DEVICE UNSOLICITED RESULTS [facility] [place] [address] [place] [address] documented in this encounter Visit Diagnoses Diagnosis [...] the patient have Health Care Power of Nursing Attendant? No Code Status History Code Status Date Activated Date Inactivated Comments Full Code 09/19/2020 9:51 AM 09/19/2020 10:03 AM Th is order reflects the patients wishes and were consensually agreed upon. Question Answer Comments Discussion of Advance Directives occurred with: Patient Does the patient have a Living Will? No Does the patient have Health Care Power of Nursing Attendant? No Full Code 08/18/2020 9:52 AM 08/18/2020 2:40 PM Thi s order reflects the patients wishes and were consensually agreed upon. Question Answer Comments Discussion of Advance Directives occurred with: Patient Does the patient have a Living Will? No Does the patient have Health Care Power of Nursing Attendant? No Care Teams Grizzly Worker Relationship Specialty Start Date End Date Ginna Power MD [address] [place] [address] PCP - General Internal Medicine 09/05/21 documented as of this encounter
--- OUTSIDE RECORDS SUMMARY | 2023-09-11 00:16 | External Medical Summary | Summary of Care ---
Author Name Unknown Organization [facility] Address [address] [place] [address] Phone [phone] Care Team Providers Care General Superintendent Name Role Phone Ginna Power MD Primary Care Provider Reason for Visit * Reason Comments Follow Up Diplopia F/U. Encounter Details Date Type Department Care Team Description 05/12/2023 Office Visit [address] [id number] Uri Quintana, DO [address] [place], [place] [phone] Diplopia* Allergies Active Allergy Reactions Severity Noted Date Comments Aripiprazole Neuro complications (Please comment) High 09/30/2019 Tardive dyskinesia [place] (Diagnostic) Low 03/10/2015 Other reaction(s): STRAWBERRIES/TOMATOE S [...] Active Additional Information Patient taking differently:1,000 mg [id number] PRN, Pain, Fever, Reported on 12/16/2022 Nebulizers (NEBULIZER COMPRESSOR) [facility] Inhale via nebulizer. Use as directed. 1 Each 1 10/06/2018 Active albuterol-ipratrop ium (DUONEB) 2.5-0.5 MG/3ML nebulizer solution Inhale 3 mL via nebulizer 4 times a day. 360 Vial 0 04/16/2019 Active loratadine (RA LORATADINE) 10 MG TabletIndications: Chronic frontal sinusitis Take 1 Tab by mouth daily. 90 Tab 0 04/16/2019 Active [employer] Carbonate 300 MG Oral Capsule (Eskalith) Take [...] old 06/02/2012,,08/07/2011 Pneumococcal Conjugate Vacci ne, 20-valent ([id number]) 07/24/2022 Pneumococcal Polysaccharide PPV23 (Pneumovax) 07/29/2013 Seasonal [...] documented in this encounter Progress Notes * Arlen Aguayo DO - 05/12/2023 10:31 [...] ANESTHESIA performed by Moises Mcfarlane MD at [facility] ANORECTAL EXAM ,DIAG, REQUIRING ANESTHESIA N/A 09/19/2020 ANORECTAL EXAM UNDER ANESTHESIA performed by Moises Mcfarlane MD at [facility] D&C.EDU. 2002 HEMORRHOIDECTOMY, SIMPLE, 1 COLUMN N/A 08/18/2020 HEMORRHOIDECTOMY EXTERNAL AND INTERNAL SIMPLE performed by Moises Mcfarlane MD at [facility] HEMORRHOIDECTOMY, SIMPLE, 1 COLUMN N/A 09/19/2020 HEMORRHOIDECTOMY EXTERNAL AND INTERNAL SIMPLE performed by Moises Mcfarlane MD at [facility] LAP ABLATION UTERINE FIBROIDS W/INTRAOP US GUIDE 2014 LAPAROSCOPY;WITH BIOPSY 1996 endometreosis SACROILIAC JOINT INJECT W/GUIDANCE 08/06/2018 INJECTION SACROILIAC JOINT performed by Torito Orta DO at [facility] SACROILIAC JOINT INJECT W/GUIDANCE 10/15/2018 INJECTION SACROILIAC JOINT performed by Torito Orta DO at [facility] Nursing notes reviewed. Base Eye [...] Right Left [place] 09/06 09/06 Keratometry K1 [place] K2 [place] Right 44.25 0 44.25 90 Left 44.50 [...] Normal Normal Refraction Wearing Rx Sphere Cylinder [place] Add Right -2.50 +0.50 017 +2.00 Left -3.00 +1.25 136 +2.00 Age: 1yr Type: PAL Manifest Refraction (Auto) Sphere Cylinder [place] Dist [place] Right -2.25 +0.25 168 20/50 [...] Date Type Specialty Care Team Description 05/19/2023 [facility] [place] [address] [facility] [place] [place] [address] 06/10/2023 Office Visit Sleep Disorders Sherita Coelho DO [address] [place] [address] 06/10/2023 Office Visit Internal Medicine Ginna Power MD [address] [facility] [place] [address] 06/20/2023 Office Visit Family Medicine Connie Navarro MD [address] [place] [address] 07/22/2023 Office Visit Neurology Mahendra Del Valle MD [address] [place] [address] 07/24/2023 Office Visit Gynecology Obstetrics Tremayne Lo MD [address] [place] [address] 07/25/2023 Office Visit Neurology Vannesa Crouch, DO [address] [place] [facility] [place] [address] 08/11/2023 Office Visit Ophthalmology Uri Quintana, DO [address] [place], [place] [phone] 01/07/2024 Imaging Radiology 01/19/2024 Telemedicine Sleep Disorders Lynsey Kam DO [address] [place] [address] Health Maintenance Due Date Last Done Comments [...] the patient have Health Care Power of Infantry Indirect Fire Crewmember? No Code Status History Code Status Date Activated Date Inactivated Comments Full Code 09/19/2020 9:51 AM 09/19/2020 10:03 AM Th is order reflects the patients wishes and were consensually agreed upon. Question Answer Comments Discussion of Advance Directives occurred with: Patient Does the patient have a Living Will? No Does the patient have Health Care Power of Infantry Indirect Fire Crewmember? No Full Code 08/18/2020 9:52 AM 08/18/2020 2:40 PM Thi s order reflects the patients wishes and were consensually agreed upon. Question Answer Comments Discussion of Advance Directives occurred with: Patient Does the patient have a Living Will? No Does the patient have Health Care Power of Infantry Indirect Fire Crewmember? No Care Teams General Superintendent Relationship Specialty Start Date End Date Ginna Power MD [address] [place] [id number] PCP - General Internal Medicine 09/05/21 documented as of this encounter
--- OUTSIDE RECORDS SUMMARY | 2023-09-11 00:16 | External Medical Summary | Summary of Care ---
Author Name Unknown Organization [facility] Address [address] [facility] [place] [address] Phone [phone] Care Team Providers Care Automotive Parts Salesperson Name Role Phone Ginna Hester MD Primary Care Provider Reason for Visit * Reason Comments Window Caser Return * Evaluate & Treat - Unlimited Visits (Within 10 days (routine)) - Authorized Specialty Diagnoses / Procedures Referred By Sheri martinez Referred To Contact Obstetrics/Gynecology / Gynecology Obstetrics Diagnoses Bacterial vaginosis Recurrent vaginitis Ivory Cobb PA-C [address] [place] [address] Referral ID Status Reason Start Date Expiration Date Visits Requested Visits Authorized [id number] Authorized Specialty Services Required 04/19/[phone] Encounter Details Date Type Department Care Team Description 04/23/2023 Office Visit Gynecology/Obstetics [address] [phone] Tremayne Lo MD [address] [place] [address] ASCUS with positive high risk HPV cervical*; Vaginal itching; Recurrent vaginitis Allergies Active Allergy Reactions Severity Noted Date Comments Aripiprazole Neuro complications (Please comment) High 09/30/2019 Tardive dyskinesia [place] (Diagnostic) Low 03/10/2015 Other reaction(s): STRAWBERRIES/TOMATOE S IN LARGE VOLUMES-ULCERS IIN MOUTH Tomato Low 09/30/2019 documented as of this encounter (statuses as of 04/23/2023) Medications Medication Sig Dispensed Refills Start Date [...] Active Additional Information Patient taking differently:1,000 mg [id number] PRN, Pain, Fever, Reported on 12/16/2022 Nebulizers (NEBULIZER COMPRESSOR) [facility] Inhale via nebulizer. Use as directed. 1 Each 1 10/06/2018 Active albuterol-ipratrop ium (DUONEB) 2.5-0.5 MG/3ML nebulizer solution Inhale 3 mL via nebulizer 4 times a day. 360 Vial 0 04/16/2019 Active loratadine (RA LORATADINE) 10 MG TabletIndications: Chronic frontal sinusitis Take 1 Tab by mouth daily. 90 Tab 0 04/16/2019 Active [place] Carbonate 300 MG Oral Capsule (Eskalith) Take [...] 24 HOURS 9 Tablet 1 03/26/2023 Active Clotrimazole 1 % Vaginal CreamIndications:V aginal itching,Recurrent vaginitis Administer into the vagina at bedtime for 7 days. Use about 5g per dose. For 7 days. 45 g 0 04/16/2023 3 Active metroNIDAZOLE 500 MG Oral Tablet (Flagyl) Take 1 Tablet by mouth in the morning and 1 Tablet before bedtime. Do all this for 7 days. 14 Tablet 0 04/19/2023 3 Active metroNIDAZOLE 0.75 % Vaginal Gel (Metrogel-Vaginal) [...] two weeks.. 30 g 1 04/23/2023 Active metroNIDAZOLE 500 MG Oral Tablet Take 1 Tablet by mouth in the morning and 1 Tablet before bedtime. Do all this for 7 days. For seven days.. 14 Tablet 0 04/23/2023 Active documented as of this encounter (statuses as of 04/23/2023) Active Problems Problem Noted Date ASCUS with [...] as of this encounter (statuses as of 04/23/2023) Resolved Problems Problem Noted Date Resolved Date [...] as of this encounter (statuses as of 04/23/2023) Immunizations Name Administration Dates Next Due COVID-19 mRNA, LNP-s, No Pre serve, 2-Dose Series (Moderna) 03/06/2021,02/06/2021 HepA Inact/HepB Recomb>=18yrs old 06/02/2012,,08/07/2011 Pneumococcal Conjugate Vacci ne, 20-valent ([id number]) 07/24/2022 Pneumococcal Polysaccharide PPV23 (Pneumovax) 07/29/2013 Seasonal [...] - Inhaled Oxygen Concentration - - Weight 147.8 kg (325 lb 12.8 oz) 04/23/2023 8:14 AM EDT Height - - Body Mass Index 51.01 04/16/2023 12:34 PM EDT documented in this [...] as of this encounter Progress Notes * Tremayne Lo MD - 04/23/2023 8:21 AM EDT SUBJECTIVE: Rody Jean Baptiste is a 47 year old female. 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 presents for recurrent vaginitis and vaginal itching States was found to have BV in february and has been through 2 doses of flagyl with minimal success BV swabs confirmed bv and wast started on prolonged treatment with flagyl and oral and vaginal insert States partner has no pcp and was homeless in the past so has very poor dentition States had ablation in the past for AUB and known hx of Clotting disorder on chronic coumadin treatment Had difficulty ambulating and neuro work up was essentially negative but improved on po itraconazole States has been fine since but would like some more incase symptoms return States was referred by pcp for recurrent vaginitis States periods absent since ablation Sexually active with men and women has had >3 partners in the past year Recent STD testing was negative Admits to labial itching and burning /vaginal itching/burning Denied any fevers chills chest pain or sob Admits to issues with weight issues with weight HEALTH MAINTENANCE Last pap : 2021 ascus hpv pos declined colp but agreeable to repeat pap today OB History 0 Para 0 Term 0 0 AB 0 Living 0 SAB 0 IAB 0 Ectopic 0 Multiple 0 Live Births Patient Active Problem List Diagnosis Code MTHFR mutation (methylenetetrahydrofolate reductase) Z15.89 Endometriosis N80.9 Anxiety F41.9 Asthma J45.909 Bipolar 2 disorder ([facility]) F31.81 Herpes genitalia A60.00 HPV (human papilloma virus) infection B97.7 Asthma flare J45.901 Bulimia nervosa F50.2 History of pulmonary embolism Z86.711 Mild single current episode of major depressive disorder ([facility]) F32.0 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 Trochanteric bursitis of both hips M70.61, M70.62 MERYL on CPAP G47.33, Z99.89 Cervical high risk human papillomavirus (HPV) DNA test positive R87.810 Chronic allergic rhinitis J30.9 Coagulation defect ([facility]) D68.9 Mild intermittent asthma without complication J45.20 Body mass index (BMI) of 50.0 to 59.9 in adult ([facility]) Z68.43 ASCUS with positive high risk HPV cervical R87.610, R87.810 Vaginal itching N89.8 Recurrent vaginitis N76.0 Current Outpatient Medications Medication Sig Dispense Refill Clobetasol Propionate 0.05 % External Cream (Temovate) Apply 1 Application Dosing Unit topically to affected area in the morning and 1 Application Dosing Unit before bedtime. To affected area forup to two weeks.. 30 g 1 metroNIDAZOLE 500 MG Oral Tablet Take 1 Tablet by mouth in the morning and 1 Tablet before bedtime. Do all this for 7 days. For seven days.. 14 Tablet 0 VITAMIN B-12 500 MCG PO TABS 2 tablets daily TRILEPTAL 300 MG PO TABS twice daily CELEXA 40 MG PO TABS 1 tab daily FOLIC ACID 1 MG PO TABS 800 mcg 30 Tab 11 Cholecalciferol (VITAMIN D3) 5000 UNITS Tablet Take 1 Capsule by mouth in the morning. buPROPion HCl ER (XL) 150 MG Oral Tablet Extended Release 24 Hour Take 1 Tablet by mouth in themorning. 30 Tab 5 lamoTRIgine 100 MG Oral [...] Fever.) 100 Tab 0 Nebulizers (NEBULIZER COMPRESSOR) MISC Inhale via nebulizer. Use as directed. 1 Each 1 albuterol-ipratropium (DUONEB) 2.5-0.5 MG/3ML nebulizer solution Inhale 3 mL via nebulizer 4 times a day. 360 Vial 0 loratadine (RA LORATADINE) 10 MG Tablet Take 1 Tab by mouth daily. 90 Tab 0 [place] Carbonate 300 MG Oral Capsule (Eskalith) Take 3 Capsules by mouth at bedtime. Pantoprazole Sodium 20 MG Oral Tablet Delayed Release (Protonix) TAKE ONE TABLET BY MOUTH DAILY. 90 Tablet 0 Diclofenac Sodium 1 % External Gel (Voltaren) Apply 1 g topically to affected area in the morning and 1 g at noon and 1 g before bedtime. 100 g 3 CPAP every night at bedtime. Albuterol Sulfate HFA 108 (90 Base) MCG/ACT Inhalation Aerosol Solution INHALE 2 PUFFS BY MOUTHAS NEEDED SHORT OF BREATH Strength: 108 (90 BASE) MCG/ACT 25.5 g 1 Acyclovir 400 MG Oral Tablet (Zovirax) Take 1 Tablet by mouth in the morning and 1 Tablet before bedtime. 180 Tablet 0 Warfarin Sodium 5 MG Oral Tablet (Coumadin) TAKE 2 TABLETS DAILY 180 Tablet 1 Spironolactone 50 MG Oral Tablet (Aldactone) 1 tablet twice daily w/food 180 Tablet 0 Levothyroxine Sodium 75 MCG Oral Tablet (Levoxyl) Take 1 Tablet by mouth daily first thing in the morning. on an empty stomach. 30 Tablet 5 SUMAtriptan Succinate 50 MG Oral Tablet (Imitrex) TAKE 2 TABLETS AT ONSET MIGRAINE MAY REPEAT 1TABLET IN 2 HOURS- MAX OF 5 IN 24 HOURS 9 Tablet 1 Clotrimazole 1 % Vaginal Cream Administer into the vagina at bedtime for 7 days. Use about 5g per dose. For 7 days. 45 g 0 metroNIDAZOLE 500 MG Oral Tablet (Flagyl) Take 1 Tablet by mouth in the morning and 1 Tablet before bedtime. Do all this for 7 days. 14 Tablet 0 metroNIDAZOLE 0.75 % Vaginal Gel (Metrogel-Vaginal) Insert applicator into the vagina and administer before bed. Use twice a week for 4-6 months. Start after oral metronidazole completed. 140 g 5 No current facility-administered medications for this visit. The patient's medication list was reviewed and updated as needed. Past Medical History: Diagnosis Date Anxiety Asthma flare Bipolar 2 disorder (HCC) Depression Endometriosis Gastroesophageal reflux disease without esophagitis 12/24/2016 Herpes genitalia HPV (human papilloma virus) infection Intention tremor MTHFR mutation on Warfarin Pulmonary embolism (HCC) 04/2013 Sleep apnea, obstructive Past Surgical History: Procedure Laterality Date ANORECTAL EXAM ,DIAG, REQUIRING ANESTHESIA N/A 08/18/2020 ANORECTAL EXAM UNDER ANESTHESIA performed by Moises Mcfarlane MD at [facility] ANORECTAL EXAM ,DIAG, REQUIRING ANESTHESIA N/A 09/19/2020 ANORECTAL EXAM UNDER ANESTHESIA performed by Moises Mcfarlane MD at [facility] D&C.EDU. 2002 HEMORRHOIDECTOMY, SIMPLE, 1 COLUMN N/A 08/18/2020 HEMORRHOIDECTOMY EXTERNAL AND INTERNAL SIMPLE performed by Moises Mcfarlane MD at [facility] HEMORRHOIDECTOMY, SIMPLE, 1 COLUMN N/A 09/19/2020 HEMORRHOIDECTOMY EXTERNAL AND INTERNAL SIMPLE performed by Moises Mcfarlane MD at [facility] LAP ABLATION UTERINE FIBROIDS W/INTRAOP US GUIDE 2014 LAPAROSCOPY;WITH BIOPSY 1996 endometreosis SACROILIAC JOINT INJECT W/GUIDANCE 08/06/2018 INJECTION SACROILIAC JOINT performed by Torito Orta DO at [facility] SACROILIAC JOINT INJECT W/GUIDANCE 10/15/2018 INJECTION SACROILIAC JOINT performed by Torito Orta DO at [facility] Social History Socioeconomic History Marital status: Single Tobacco Use Smoking status: Never Smokeless tobacco: Never Vaping Use Vaping Use: Some days Substances: THC Devices: Disposable Substance and Sexual Activity Alcohol use: No Comment: maybe once a year Drug use: Yes Frequency: 4.0 times per week Types: Marijuana Comment: MEDICIAL Sexual activity: Yes Partners: Male, Female 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[facility] Review of patient's allergies indicates: Allergen Reactions Aripiprazole Neuro complications (Please comment) Tardive dyskinesia [place] (Diagnostic) Other reaction(s): STRAWBERRIES/TOMATOES IN LARGE VOLUMES-ULCERS IIN MOUTH Tomato Family History Problem Relation Age of Onset Cervical Cancer Mother Stroke Mother Pulmonary embolism Mother multiple Blood Disorder Grandmother (Maternal) Arthritis Brother (Half) Ankylosis Spondylitis, half sib on maternal side Blood Disorder Cousin (Unspecified) MTHFR Breast Cancer No significant family history Family Status Relation Status Mo Alive multiple PE Fa Alive MGMA (Not Specified) HBRO Alive ankylosis spondlitis Cousin (Unsp (Not Specified) No history (Not Specified) REVIEW OF SYSTEMS CONSTITUTIONAL ROS: change in weight, No fevers, sweats, or chills CARDIOVASCULAR ROS: No chest pain, No shortness of breath, No dyspnea on exertion, No palpitations and No syncope BREAST ROS: No new breast lumps or masses, No severe breast pain, No nipple discharge, No recent change in shape/color and Performs self breast awareness GASTROINTESTINAL ROS: No abdominal pain, No change in bowel habits, No significant heartburn, No significant change in appetite, No nausea, vomiting, diarrhea, or constipation. GENITO-URINARY FEMALE ROS: No STDs, no dysuria, no frequency, no incontinence, no irregular menstruation, No urgency and some vaginal discharge MSK/EXTREMITIES ROS: No pain, redness or swelling on the joints OBJECTIVE: Wt (!) 147.8 kg (325 lb 12.8 oz) | BMI 51.01 kg/m | BSA 2.64 m PHYSICAL EXAM: General: alert, healthy, no distress and well developed Heart: regular rate & rhythm, no murmurs and no gallops Lungs: chest symmetric, no chest deformities noted, no chest wall tenderness, lungs clear to auscultation Abdomen: abdomen soft, non-tender, normal bowel sounds and no masses or organomegaly Extremities: no joint deformities, effusion, or inflammation, no edema, no clubbing, no cyanosis Exam (Female): external genitalia and vagina anatomy within normal limits, no vaginal discharge,cervix normal in appearance without lesions or purulent discharge, normal bimanual exam Limited due to body habitus 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 Name of marketing planning manager: Crystal parra student ASSESSMENT AND PLAN 1. ASCUS with positive high risk HPV cervical Advised repeat pap concern for cervical cancer may need colp if abnormal Patient agreeable to pap will consider colp - INSTRUCTOR PILOT PAP DIAGNOSTIC 2. Vaginal itching Advised likely recurrent BV advised due to partnbers poor dentition could be the source so partner treatment given Advised no alcohol with medication or can result in very bad reaction and hospital admission Advised start prolonged treatment and reassess in 3 months Advised labial itching may be due to another condition will try topical steroids in the interim andconsider biopsy if no relief to confirm pathology 3. Recurrent vaginitis As above I spent a total of 40-54 minutes (exact time 42 mins) on the date of service in preparation, delivery, and documentation of the care provided to Rody Jean Baptiste excluding any time spent in the performance of separately billed services. CC Visit to: PCP: [place] [address] [phone] Tremayne Lo MD documented in this encounter Nursing Notes * Yamilex Montemayor LPN - 04/23/2023 8:12 AM EDT Being seen for recurrent BV. Is currently using flagyl oral Has vaginal prescription documented in this encounter Plan of Treatment Upcoming Encounters Date Type Specialty Care Team Description 05/12/2023 Office Visit Ophthalmology Uri Quintana, DO [address] [place], [place] [phone] 05/15/2023 [facility] [address] [address] 06/10/2023 Office Visit Sleep Disorders Sherita Coelho, DO [address] [place] [address] 06/10/2023 Office Visit Internal Medicine Ginna Hester MD [address] [place] [address] 07/22/2023 Office Visit Neurology Mahendra Del Valle MD [address] [place], [place] [phone] 07/24/2023 Office Visit Gynecology Obstetrics Tremayne Lo MD [address] [place] [address] 07/25/2023 Office Visit Neurology Vannesa Crouch, DO [address] [place] [address] 01/07/2024 Imaging Radiology 01/19/2024 Telemedicine Sleep Disorders Lynsey aKm, DO [address] [place] [phone] Pending Results Name Type Priority Associated Diagnoses Date /Time INSTRUCTOR PILOT PAP DIAGNOSTIC Pathology Routine ASCUS with positive high risk HPV cervical 04/23/2023 9:04 AM EDT Health Maintenance Due Date Last [...] Panel 09/05/2026 09/05/2021, 06/2018, 12/07/2013 Pap Smear 12/17/2026 12/17/2021, 06/27, 12/27/2019, Additional history exists Hepatitis C Screening Completed 12/17/2021 , 07/13/2020, 07/07/2019, Additional history exists Influenza Vaccine (FLU shot) Completed , 09/05/2021, 09/05/2021, Additional history exists Pneumococcal Vaccine: Pediatrics (0 [...] as of this encounter Visit Diagnoses Diagnosis ASCUS with positive high risk HPV cervical- Primary Vaginal itching Pruritus of genital organs Recurrent [...] the patient have Health Care Power of Billiard Table Assembler? No Code Status History Code Status Date Activated Date Inactivated Comments Full Code 09/19/2020 9:51 AM 09/19/2020 10:03 AM Th is order reflects the patients wishes and were consensually agreed upon. Question Answer Comments Discussion of Advance Directives occurred with: Patient Does the patient have a Living Will? No Does the patient have Health Care Power of Billiard Table Assembler? No Full Code 08/18/2020 9:52 AM 08/18/2020 2:40 PM Thi s order reflects the patients wishes and were consensually agreed upon. Question Answer Comments Discussion of Advance Directives occurred with: Patient Does the patient have a Living Will? No Does the patient have Health Care Power of Billiard Table Assembler? No Care Teams Automotive Parts Salesperson Relationship Specialty Start Date End Date Ginna Hester MD [address] [place] [address] PCP - General Internal Medicine 09/05/21 documented as of this encounter"
--- OUTSIDE RECORDS SUMMARY | 2023-09-11 00:16 | External Medical Summary | Summary of Care ---
Author Name Unknown Organization [facility] Address [address] [place] [address] Phone [phone] Care Team Providers Care Waiter/Waitress Counter Name Role Phone Ginna Power MD Primary Care Provider [phone] Reason for Visit * Reason Onset Date Comments Forms Request 05/09/2023 Augustine Perez Phys ical Therapy Plan of Care Encounter Details Date Type Department Care Team Description 05/09/2023 Telephone Neurology, [place] [address] [place] [address] Specified, [place] No Resource [address] [place] [address] Forms Request (Augustine Perez Physical Therap... Allergies Active Allergy Reactions Severity Noted Date Comments Aripiprazole Neuro complications (Please comment) High 09/30/2019 Tardive dyskinesia [place] (Diagnostic) Low 03/10/2015 Other reaction(s): STRAWBERRIES/TOMATOE S [...] Active Additional Information Patient taking differently:1,000 mg [id number] PRN, Pain, Fever, Reported on 12/16/2022 Nebulizers (NEBULIZER COMPRESSOR) MIS Inhale via nebulizer. Use as directed. 1 Each 1 10/06/2018 Active albuterol-ipratrop ium (DUONEB) 2.5-0.5 MG/3ML nebulizer solution Inhale 3 mL via nebulizer 4 times a day. 360 Vial 0 04/16/2019 Active loratadine (RA LORATADINE) 10 MG TabletIndications: Chronic frontal sinusitis Take 1 Tab by mouth daily. 90 Tab 0 04/16/2019 Active [place] Carbonate 300 MG Oral Capsule (Eskalith) Take [...] old 06/02/2012,,08/07/2011 Pneumococcal Conjugate Vacci ne, 20-valent ([id number]) 07/24/2022 Pneumococcal Polysaccharide PPV23 (Pneumovax) 07/29/2013 Seasonal [...] Miscellaneous Notes * Telephone Encounter - MERYL Tucker - 05/12/2023 4:22 PM EDT Chris Physical Therapy Plan of Care signed and faxed to [phone] on 05/12/23. Scanned into patients chart. * Telephone Encounter - MERYL Wright - 05/09/2023 3:36 PM EDT Received Chris Physical Therapy Plan of Care from [facility] on 05.09.23. Placed in providers bin for signature. documented in this encounter Plan of Treatment Upcoming Encounters Date Type Specialty Care Team Description 05/19/2023 Anticoagulation Pharmacy [facility] [address] [place] [address] 06/10/2023 Office Visit Sleep Disorders Sherita Coelho DO [address] [place] [phone] 06/10/2023 Office Visit Internal Medicine Ginna Power MD [address] [address] 06/20/2023 Office Visit Family Medicine Connie Navarro MD [address] [place] [phone] 07/22/2023 Office Visit Neurology Mahendra Del Valle MD [address] [place] [address] 07/24/2023 Office Visit Gynecology Obstetrics Tremayne Lo MD [address] [place] [address] 07/25/2023 Office Visit Neurology Vannesa Crouch, DO [address] [place], [place] [phone] 08/11/2023 Office Visit Ophthalmology Uri Quintana, DO [address] [place] [address] 01/07/2024 Imaging Radiology 01/19/2024 Telemedicine Sleep Disorders Lynsey Kam, DO [address] [place] [address] Health Maintenance Due Date Last Done Comments [...] 08/0 06/2018, 12/07/2013 Pap Smear 04/23/2028 04/23/2023, 0210/2021, 07/13/2020, Additional history exists Hepatitis C Screening [...] the patient have Health Care Power of Humid System Operator? No Code Status History Code Status Date Activated Date Inactivated Comments Full Code 09/19/2020 9:51 AM 09/19/2020 10:03 AM Th is order reflects the patients wishes and were consensually agreed upon. Question Answer Comments Discussion of Advance Directives occurred with: Patient Does the patient have a Living Will? No Does the patient have Health Care Power of Humid System Operator? No Full Code 08/18/2020 9:52 AM 08/18/2020 2:40 PM Thi s order reflects the patients wishes and were consensually agreed upon. Question Answer Comments Discussion of Advance Directives occurred with: Patient Does the patient have a Living Will? No Does the patient have Health Care Power of Humid System Operator? No Care Teams Waiter/Waitress Counter Relationship Specialty Start Date End Date Ginna Power MD [address] [place] [address] PCP - General Internal Medicine 09/05/21 documented as of this encounter
--- OUTSIDE RECORDS SUMMARY | 2023-09-11 00:16 | External Medical Summary | Summary of Care ---
Author Name Unknown Organization [facility] Address [address] [place] [address] Phone [phone] Care Team Providers Care Incubator Operator Name Role Phone Ginna Power MD Primary Care Provider [phone] Reason for Visit * Reason Onset Date Comments Forms Request 05/09/2023 Augustine Perez Phys ical Therapy Plan of Care Encounter Details Date Type Department Care Team Description 05/09/2023 Telephone Neurology, [place] [address] [place] [address] Specified, [place] [facility] [address] [place] [address] Forms Request (Augustine Perez Physical Therap... Allergies Active Allergy Reactions Severity Noted Date Comments Aripiprazole Neuro complications (Please comment) High 09/30/2019 Tardive dyskinesia [place] (Diagnostic) Low 03/10/2015 Other reaction(s): STRAWBERRIES/TOMATOE S IN LARGE VOLUMES-ULCERS IIN MOUTH Tomato Low 09/30/2019 documented as of this encounter (statuses as of 05/09/2023) Medications Medication Sig Dispensed Refills Start Date [...] Active Additional Information Patient taking differently:1,000 mg [id number] PRN, Pain, Fever, Reported on 12/16/2022 Nebulizers (NEBULIZER COMPRESSOR) MIS Inhale via nebulizer. Use as directed. 1 Each 1 10/06/2018 Active albuterol-ipratrop ium (DUONEB) 2.5-0.5 MG/3ML nebulizer solution Inhale 3 mL via nebulizer 4 times a day. 360 Vial 0 04/16/2019 Active loratadine (RA LORATADINE) 10 MG TabletIndications: Chronic frontal sinusitis Take 1 Tab by mouth daily. 90 Tab 0 04/16/2019 Active [place] Carbonate 300 MG Oral Capsule (Eskalith) Take [...] as of this encounter (statuses as of 05/09/2023) Active Problems Problem Noted Date ASCUS with [...] as of this encounter (statuses as of 05/09/2023) Resolved Problems Problem Noted Date Resolved Date [...] as of this encounter (statuses as of 05/09/2023) Immunizations Name Administration Dates Next Due COVID-19 mRNA, LNP-s, No Pre serve, 2-Dose Series (Moderna) 03/06/2021,02/06/2021 HepA Inact/HepB Recomb>=18yrs old 06/02/2012,,08/07/2011 Pneumococcal Conjugate Vacci ne, 20-valent ([id number]) 07/24/2022 Pneumococcal Polysaccharide PPV23 (Pneumovax) 07/29/2013 Seasonal [...] Miscellaneous Notes * Telephone Encounter - MERYL Wright - 05/09/2023 3:36 PM EDT Received [facility] Plan of Care from [facility] on 05.09.23. Placed in providers bin for signature. documented in this encounter Plan of Treatment Upcoming Encounters Date Type Specialty Care Team Description 05/12/2023 Office Visit Ophthalmology Uri Quintana DO [address] [place], [place] [id number] 05/19/2023 Anticoagulation Pharmacy [facility] [address] [place] [address] 06/10/2023 Office Visit Sleep Disorders Sherita Coelho DO [address] [place] [address] 06/10/2023 Office Visit Internal Medicine Ginna Power MD [address] [place] [address] 06/20/2023 Office Visit Family Medicine Connie Navarro MD [address] [place] [address] 07/22/2023 Office Visit Neurology Mahendra Del Valle MD [address] [place] [address] 07/24/2023 Office Visit Gynecology Obstetrics Tremayne Lo MD [address] [facility], [place] [address] 07/25/2023 Office Visit Neurology Vannesa Crouch, [address] [place] [address] 01/07/2024 Imaging Radiology 01/19/2024 Telemedicine Sleep Disorders Lynsey Kam, DO [address] [place] [address] Health Maintenance Due Date Last Done Comments [...] the patient have Health Care Power of Color Making Supervisor? No Code Status History Code Status Date Activated Date Inactivated Comments Full Code 09/19/2020 9:51 AM 09/19/2020 10:03 AM Th is order reflects the patients wishes and were consensually agreed upon. Question Answer Comments Discussion of Advance Directives occurred with: Patient Does the patient have a Living Will? No Does the patient have Health Care Power of Color Making Supervisor? No Full Code 08/18/2020 9:52 AM 08/18/2020 2:40 PM Thi s order reflects the patients wishes and were consensually agreed upon. Question Answer Comments Discussion of Advance Directives occurred with: Patient Does the patient have a Living Will? No Does the patient have Health Care Power of Color Making Supervisor? No Care Teams Incubator Operator Relationship Specialty Start Date End Date Ginna Power MD [address] [place] [address] PCP - General Internal Medicine 09/05/21 documented as of this encounter
--- OUTSIDE RECORDS SUMMARY | 2023-09-11 00:16 | External Medical Summary ---
Author Name Unknown Address Unknown Organization : Laboratory Report Ordering Provider Test Date Status LORRI BARAHONA 05/05/2023 13:16:18 Final Therapeutic ranges for non-o perative patients:
Prophylaxsis/treatment of DVT: (Range:2.0-3.0)
Treatment of pulmonary embolism:(Range:2.0-3.0)
Prevention of systemic embolism from:
-tissue heart valves
-acute myocardial infarction
-valvular heart disease
-atrial fibrillation
(Range: 2.0-3.0)
Mechanical prosthetic valves: (Range: 2.5-3.5) Observation Date Value Abnormality Reference (Units ) Status INR in Capillary blood by Coagulation assay 05/05/2023 13:16:18 2.0 (INR) Final Performing Location
--- OUTSIDE RECORDS SUMMARY | 2023-09-11 00:17 | External Medical Summary ---
Author Name Unknown Address Unknown Organization [id number]:LABORATORY [place] [address] [facility] [address] Laboratory Report Ordering Provider Test Date Status LESTER VILLAGRAN 04/16/2023 13:27:56 Final Observation Date Value Abnormality Reference (Units ) Status More glabrata DNA [Presence] in Vaginal fluid by MARNI with probe detection 04/16/2023 13:27:56 Negative Negative Final More glabrata not detecte d by PCR. More albicans DNA [Presen ce] in Vaginal fluid by MARNI with probe detection 04/16/2023 13:27:56 Negative Negative Final More albicans not detecte d by PCR. Trichomonas vaginalis DNA [P resence] in Vaginal fluid by MARNI with probe detection 04/16/2023 13:27:56 Negative Negative Final Trichomonas vaginalis not de tected by PCR. Gardnerella vaginalis DNA [Presence] in Vaginal fluid by Probe with signal amplification 04/16/2023 13:27:56 Positive Abnormal Ne gative Final Gardnerella vaginalis detect ed by PCR.

Organism may be associated with colonization. Clinical correlation needed.
This test was developed and its performance characteristics determined by [facility]. It has not been cleared or approved by the U.S. Food and Drug Administration (FDA). FDA does not require this test to go through premarket FDA review. This test is used for clinical purposes. It should not be regarded as investigational or for research. This laboratory is certified under the Clinical Laboratory Improvement Amendments (CLIA) as qualified to perform high complexity clinical laboratory testing.

The validation of self-collected vaginal swabs for this assay was developed and performance characteristics determined by [facility]. The validation of alternate specimen types has not been cleared or approved by the U.S. Food and Drug Administration (FDA). It has been determined that such clearance or approval is not necessary.

null Performing Location LABORATORY [facility] - [facility] [address]. [facility] [address]
--- OUTSIDE RECORDS SUMMARY | 2023-09-11 00:17 | External Medical Summary | Summary of Care ---
Author Name Unknown Organization [facility] Address [address] [facility] [place] [address] Phone [phone] Care Team Providers Care Hydro Station Operator Name Role Phone Ginna Power MD Primary Care Provider [phone] Reason for Visit * Reason Onset Date Comments medication change 04/16/2023 Encounter Details Date Type Department Care Team Description 04/16/2023 Telephone Pharmacy [facility] [address] [place] [address] Maria R Romero[address] [address] medication change Allergies Active Allergy Reactions Severity Noted Date Comments Aripiprazole Neuro complications (Please comment) High 09/30/2019 Tardive dyskinesia [place] (Diagnostic) Low 03/10/2015 Other reaction(s): STRAWBERRIES/TOMATOE S IN LARGE VOLUMES-ULCERS IIN MOUTH Tomato Low 09/30/2019 documented as of this encounter (statuses as of 04/16/2023) Medications Medication Sig Dispensed Refills Start Date [...] Active Additional Information Patient taking differently:1,000 mg [id number] PRN, Pain, Fever, Reported on 12/16/2022 Nebulizers [...] mouth daily. 90 Tab 0 04/16/2019 Active [place] Carbonate 300 MG Oral Capsule (Eskalith) Take [...] 02/24/2023 Active Acyclovir 400 MG Oral Tablet (Zovirax)Indication s:Herpes genitalia Take 1 Tablet by mouth in the morning and 1 Tablet before bedtime. 180 Tablet 0 02/25/2023 Active Warfarin Sodium 5 MG Oral Tablet (Coumadin)Indicatio ns:MTHFR mutation (methylenetetrahydr ofolate reductase) TAKE 2 TABLETS DAILY 180 Tablet 1 02/25/2023 Active Spironolactone 50 MG Oral Tablet (Aldactone)Indicati ons:Hidradenitis 1 tablet twice daily w/food 180 Tablet 0 02/24/2023 Active Levothyroxine Sodium 75 MCG Oral Tablet (Levoxyl)Indication s:Hypothyroidism, unspecified type Take 1 Tablet by mouth daily first thing in the morning. on an empty stomach. 30 Tablet 5 02/24/2023 Active SUMAtriptan Succinate 50 MG Oral Tablet (Imitrex)Indication s:Migraine variant, intractable TAKE 2 TABLETS AT ONSET MIGRAINE MAY REPEAT 1 TABLET IN 2 HOURS- MAX OF 5 IN 24 HOURS 9 Tablet 1 03/26/2023 Active Itraconazole 100 MG Oral Capsule (Sporanox)Indicatio ns:Vaginal itching,Recurrent vaginitis Take 2 Capsules by mouth in the morning for 3 days. 6 Capsule 0 04/16/2023 04/19/2023 Active Clotrimazole 1 % Vaginal CreamIndications:Va ginal itching,Recurrent vaginitis Administer into the vagina at bedtime for 7 days. Use about 5g per dose. For 7 days. 45 g 0 04/16/2023 04/23/2023 Active documented as of this encounter (statuses as of 04/16/2023) Active Problems Problem Noted Date Body mass index (BMI) of 50.0 [...] as of this encounter (statuses as of 04/16/2023) Resolved Problems Problem Noted Date Resolved Date [...] as of this encounter (statuses as of 04/16/2023) Immunizations Name Administration Dates Next Due COVID-19 mRNA, LNP-s, No Pre serve, 2-Dose Series (Moderna) 03/06/2021,02/06/2021 HepA Inact/HepB Recomb>=18yrs old 06/02/2012,,08/07/2011 Pneumococcal Conjugate Vacci ne, 20-valent ([id number]) 07/24/2022 Pneumococcal Polysaccharide PPV23 (Pneumovax) 07/29/2013 Seasonal [...] encounter Miscellaneous Notes * Telephone Encounter - Maria R Romero brianna - 04/16/2023 4:31 PM EDT Images from the original note were not included. The following BPA was detected: Maria R Romero, PharmD, [facility] Clinical Pharmacist 04/16/2023, 4:31 PM documented in this encounter Plan of Treatment Upcoming Encounters Date Type Specialty Care Team Description 05/12/2023 Office Visit Ophthalmology Uri Quintana, DO [address] [place] [address] 05/15/2023 [facility] [address] [place] [address] 06/10/2023 Office Visit Sleep Disorders Sherita Coelho, DO [address] [place] [address] 06/10/2023 Office Visit Internal Medicine Ginna Power MD [address] [place] [address] 07/22/2023 Office Visit Neurology Mahendra Del Valle MD [address] [place] [address] 07/25/2023 Office Visit Neurology Vannesa Crouch DO [address] [place] [address] 01/07/2024 Imaging Radiology 01/19/2024 Telemedicine Sleep Disorders Lynsey Kam, DO [address] [place] [address] Health Maintenance Due Date Last Done Comments [...] 09/05/2026 09/05/2021, 08/0 06/2018, 12/07/2013 Pap Smear 12/17/2026 12/17/2021, 06/27, [...] the patient have Health Care Power of Director Of Publications? No Code Status History Code Status Date Activated Date Inactivated Comments Full Code 09/19/2020 9:51 AM 09/19/2020 10:03 AM Th is order reflects the patients wishes and were consensually agreed upon. Question Answer Comments Discussion of Advance Directives occurred with: Patient Does the patient have a Living Will? No Does the patient have Health Care Power of Director Of Publications? No Full Code 08/18/2020 9:52 AM 08/18/2020 2:40 PM Thi s order reflects the patients wishes and were consensually agreed upon. Question Answer Comments Discussion of Advance Directives occurred with: Patient Does the patient have a Living Will? No Does the patient have Health Care Power of Director Of Publications? No Care Teams Hydro Station Operator Relationship Specialty Start Date End Date Ginna Power MD [address] [place] [address] [place] [address] PCP - General Internal Medicine 09/05/21 documented as of this encounter
--- OUTSIDE RECORDS SUMMARY | 2023-09-11 00:17 | External Medical Summary | Summary of Care ---
Author Name Unknown Organization [facility] Address [address] [place] [address] Phone [phone] Care Team Providers Care Edge Grinder Machine Name Role Phone Ginan Power MD Primary Care Provider [phone] Reason for Visit * Reason Onset Date Comments Forms Request 01/06/2023 Willa Perez Phy sical Therapy POC Encounter Details Date Type Department Care Team Description 01/06/2023 Telephone Neurology, [place] [address] [place] [address] Vannesa Crouch, [address] [place] [address] Forms Request (Willa Perez Physical Thera... Allergies Active Allergy Reactions Severity Noted Date Comments Aripiprazole Neuro complications (Please comment) High 09/30/2019 Tardive dyskinesia [place] (Diagnostic) Low 03/10/2015 Other reaction(s): STRAWBERRIES/TOMATOE S IN LARGE VOLUMES-ULCERS IIN MOUTH Tomato Low 09/30/2019 documented as of this encounter (statuses as of 04/15/2023) Medications Medication Sig Dispensed Refills Start Date [...] Active Additional Information Patient taking differently:1,000 mg [id number] PRN, Pain, Fever, Reported on 12/16/2022 Nebulizers (NEBULIZER COMPRESSOR) [facility] Inhale via nebulizer. Use as directed. 1 Each 1 8 Active albuterol-ipratr opium (DUONEB) 2.5-0.5 MG/3ML nebulizer solution Inhale 3 mL via nebulizer 4 times a day. 360 Vial 0 9 Active loratadine (RA LORATADINE) 10 MG TabletIndication s:Chronic frontal sinusitis Take 1 Tab by mouth daily. 90 Tab 0 9 Active [place] Carbonate 300 MG Oral Capsule (Eskalith) Take 3 Capsules by mouth at bedtime. 0 2 Active Pantoprazole Sodium 20 MG Oral Tablet Delayed Release (Protonix) TAKE ONE TABLET BY MOUTH DAILY. 90 Tablet 0 2 Active Diclofenac Sodium 1 % External Gel (Voltaren) Apply 1 g topically to affected area in the morning and 1 g at noon and 1 g before bedtime. 100 g 3 3 Active Albuterol Sulfate HFA 108 (90 Base) MCG/ACT Inhalation Aerosol SolutionIndicati ons:Mild intermittent asthma without complication INHALE 2 PUFFS BY MOUTH NEEDED SHORT OF BREATH 25.5 g 1 1 02/25/20 23 Discontinued(Ref ill) Acyclovir 400 MG Oral Tablet (Zovirax)Indicat ions:Herpes genitalia TAKE ONE TABLET BY MOUTH 2 TIMES A DAY 180 Tablet 1 2 02/25/20 23 Discontinued(Ref ill) Spironolactone 50 MG Oral Tablet (Aldactone)Indic ations:Hidradeni tis 1 tablet twice daily w/food 180 Tablet 1 2 02/25/20 23 Discontinued(Ref ill) Warfarin Sodium 5 MG Oral Tablet (Coumadin)Indica tions:MTHFR mutation (methylenetetrah ydrofolate reductase) TAKE 2 TABLETS DAILY 180 Tablet 0 2 02/25/20 23 Discontinued(Ref ill) Levothyroxine Sodium 75 MCG Oral Tablet (Levoxyl)Indicat ions:Hypothyroid ism, unspecified type Take by mouth 1 Tablet in the morning. on an empty stomach.. 30 Tablet 5 2 02/25/20 23 Discontinued(Ref ill) SUMAtriptan Succinate 50 MG Oral Tablet (Imitrex)Indicat ions:Migraine variant, intractable TAKE 2 TABLETS AT ONSET MIGRAINE -MAY REPEAT 1 TABLET IN 2 HOURS -MAX OF 5 IN 24 HOURS 9 Tablet 3 2 03/26/20 23 Discontinued documented as of this encounter (statuses as of 04/15/2023) Active Problems Problem Noted Date Body mass [...] as of this encounter (statuses as of 04/15/2023) Resolved Problems Problem Noted Date Resolved Date [...] as of this encounter (statuses as of 04/15/2023) Immunizations Name Administration Dates Next Due COVID-19 mRNA, LNP-s, No Pre serve, 2-Dose Series (Moderna) 03/06/2021,02/06/2021 HepA Inact/HepB Recomb>=18yrs old 06/02/2012,,08/07/2011 Pneumococcal Conjugate Vacci ne, 20-valent ([id number]) 07/24/2022 Pneumococcal Polysaccharide PPV23 (Pneumovax) 07/29/2013 Seasonal [...] * Telephone Encounter - MERYL Tucker - 04/15/2023 10:11 AM EDT [facility] POC signed and faxed to [phone] on 04/15/23. Scanned into patients chart. * Telephone Encounter - MERYL Tucker - 04/10/2023 4:31 PM EDT [facility] on 04/10/23. Placed in providers bin for signature. * Telephone Encounter - MERYL Tucker - 04/03/2023 3:35 PM EDT [facility] POC signed and faxed to [phone] on 04/03/23. Scanned into patients chart. * Telephone Encounter - MERYL Tucker - 04/01/2023 4:30 PM EDT Received [facility] POC from [facility] on 04/01/23. Placed in providers bin for signature. * Telephone Encounter - MERYL Tucker - 03/25/2023 3:37 PM EDT [facility] POC signed and faxed to 03/25/23 on [phone]. Scanned into patients chart. * Telephone Encounter - MERYL Tucker - 03/20/2023 10:47 AM EDT [facility] on03/19/23. Placed in providers bin for signature. * Telephone Encounter - MERYL Tucker - 03/14/2023 2:40 PM EDT ReceivedChris Physical Therapy [facility]OCfrom [facility] on 03/14/23. Placed in providers bin for signature. * Telephone Encounter - Alejandra Taylor, MERYL - 02/04/2023 3:58 PM EDT [facility] POC signed and faxed to [phone] on 02/04/23. Scanned into patients chart. * Telephone Encounter - MERYL Tucker - 02/03/2023 3:50 PM EDT Received [facility] POC from [facility] on 01/31/23. Placed in providers bin for signature. * Telephone Encounter - MERYL Tucker - 01/10/2023 12:51 PM EDT [facility] POCsigned and faxed to [phone] on 01/10/23. Scanned into patients chart. * Telephone Encounter - MERYL Tucker - 01/10/2023 10:51 AM EDT Received [facility] POC from [facility] on 01/09/23. Placed in providers bin for signature. * Telephone Encounter - MERYL Tucker - 01/06/2023 3:02 PM EDT [facility] POC signed and faxed with most recent office notes to [phone] on 01/06/23. Scanned into patients chart. Placed a call to [facility] and relayed message from Dr Crouch that the referral was for imbalance and mild left hand hemiparesis so the patient will need evaluated for this. * Telephone Encounter - MERYL Tucker - 01/06/2023 12:26 PM EDT Received [facility] POC from [facility] on 01/03/23. Placed in providers bin for signature. documented in this encounter Plan of Treatment Upcoming Encounters Date Type Specialty Care Team Description 04/16/2023 Anticoagulation Pharmacy [facility] [address] [place], [place] [id number] 05/12/2023 Office Visit Ophthalmology Uri Quintana, DO [address] [place] [address] 06/10/2023 Office Visit Sleep Disorders Sherita Coelho, DO [address] [place] [address] 06/10/2023 Office Visit Internal Medicine Ginna Power MD [address] [place] [address] 07/22/2023 Office Visit Neurology Mahendra Del Valle MD [address] [place] [address] 07/25/2023 Office Visit Neurology Vannesa Crouch, DO [address] [place], [place] [phone] 01/07/2024 Imaging Radiology 01/19/2024 Telemedicine Sleep Disorders Lynsey Kam, DO [address] [place] [address] Health Maintenance Due Date Last Done Comments [...] the patient have Health Care Power of Diabetes Clinical Manager? No Code Status History Code Status Date Activated Date Inactivated Comments Full Code 09/19/2020 9:51 AM 09/19/2020 10:03 AM Th is order reflects the patients wishes and were consensually agreed upon. Question Answer Comments Discussion of Advance Directives occurred with: Patient Does the patient have a Living Will? No Does the patient have Health Care Power of Diabetes Clinical Manager? No Full Code 08/18/2020 9:52 AM 08/18/2020 2:40 PM Thi s order reflects the patients wishes and were consensually agreed upon. Question Answer Comments Discussion of Advance Directives occurred with: Patient Does the patient have a Living Will? No Does the patient have Health Care Power of Diabetes Clinical Manager? No Care Teams Edge Grinder Machine Relationship Specialty Start Date End Date Ginna Power MD [address] [place] [address] PCP - General Internal Medicine 09/05/21 documented as of this encounter
--- OUTSIDE RECORDS SUMMARY | 2023-09-11 00:17 | External Medical Summary ---
Author Name Unknown Address Unknown Organization K01:LABORATORY [facility] - [address] [place] [id number] Laboratory Report Ordering Provider Test Date Status LESTER VILLAGRAN 04/16/2023 13:27:56 Final Observation Date Value Abnormality Reference (Units) Status Bacteria identified in Unspecified specimen by Culture 04/16/2023 13:27:56 No significant growth Final Test: Culture, Urine, Quanti tative
Specimen Source: Urine, Clean Catch
Specimen Type: Urine
Specimen Date: 04/16/2023 1:27 PM
Result Date: 04/17/2023 4:07 PM
Result Status: Final result
Resulting Lab: LABORATORY [facility]
[address]
[place] [id number]

CULTURE

No significant growth

null Performing Location LABORATORY [facility] - [address] [facility] [address]
--- OUTSIDE RECORDS SUMMARY | 2023-09-11 00:17 | External Medical Summary ---
Author Name Unknown Address Unknown Organization K01:[facility] [place] [facility] [place] [address] Laboratory Report Ordering Provider Test Date Status LESTER VILLAGRAN 04/16/2023 13:38:26 Final Observation Date Value Abnormality Reference (Units ) Status Reagin Ab [Presence] in Serum by RPR 04/16/2023 13:38:26 Nonreactive Nonreactive Final Performing Location [facility] [place] [address] [place] [address]
--- OUTSIDE RECORDS SUMMARY | 2023-09-11 00:17 | External Medical Summary | Summary of Care ---
Author Name Unknown Organization [facility] Address [address] [facility] [place] [address] Phone [phone] Care Team Providers Care Livestock Showman Name Role Phone Ginna Hester MD Primary Care Provider [phone] Reason for Visit * Reason Comments Telephone Technician Return * Evaluate & Treat - Unlimited Visits (Within 10 days (routine)) - Authorized Specialty Diagnoses / Procedures Referred By Sheri martinez Referred To Contact Obstetrics/Gynecology / Gynecology Obstetrics Diagnoses Bacterial vaginosis Recurrent vaginitis Ivory Cobb PA-C [address] [place] [address] Referral ID Status Reason Start Date Expiration Date Visits Requested Visits Authorized [id number] Authorized Specialty Services Required 04/19/2023 999 [id number] Encounter Details Date Type Department Care Team Description 04/23/2023 Office Visit Gynecology/Obstetics [address] [id number] Tremayne Lo MD [address] [place] [address] ASCUS with positive high risk HPV cervical*; Vaginal itching; Recurrent vaginitis Allergies Active Allergy Reactions Severity Noted Date Comments Aripiprazole Neuro complications (Please comment) High 09/30/2019 Tardive dyskinesia [place] (Diagnostic) Low 03/10/2015 Other reaction(s): STRAWBERRIES/TOMATOE [...] Active Additional Information Patient taking differently:1,000 mg [id number] PRN, Pain, Fever, Reported on 12/16/2022 Nebulizers (NEBULIZER COMPRESSOR[place] [facility] [place] via nebulizer. Use as directed. 1 Each 1 10/06/2018 Active albuterol-ipratrop ium (DUONEB) 2.5-0.5 MG/3ML nebulizer solution Inhale 3 mL via nebulizer 4 times a day. 360 Vial 0 04/16/2019 Active loratadine (RA LORATADINE) 10 MG TabletIndications: Chronic frontal sinusitis Take 1 Tab by mouth daily. 90 Tab 0 04/16/2019 Active [place] Carbonate 300 MG Oral Capsule (Eskalith) Take [...] old 06/02/2012,,08/07/2011 Pneumococcal Conjugate Vacci ne, 20-valent ([id number]) 07/24/2022 Pneumococcal Polysaccharide PPV23 (Pneumovax) 07/29/2013 Seasonal [...] old female. 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 90 Tab 0 [place] Carbonate 300 MG Oral Capsule (Eskalith) Take [...] by Moises Mcfarlane MD at [facility] ANORECTAL EXAM ,DIAG, REQUIRING ANESTHESIA N/A 09/19/2020 ANORECTAL EXAM UNDER ANESTHESIA performed by Moises Mcfarlane MD at [facility] D&C.EDU. 2002 HEMORRHOIDECTOMY, SIMPLE, 1 COLUMN N/A 08/18/2020 HEMORRHOIDECTOMY EXTERNAL AND INTERNAL SIMPLE performed by Moises Mcfarlane MD at [facility] HEMORRHOIDECTOMY, SIMPLE, 1 COLUMN N/A 09/19/2020 HEMORRHOIDECTOMY EXTERNAL AND INTERNAL SIMPLE performed by Moises Mcfarlane MD at [facility] LAP ABLATION UTERINE FIBROIDS W/INTRAOP US GUIDE 2014 LAPAROSCOPY;WITH BIOPSY 1996 endometreosis SACROILIAC JOINT INJECT W/GUIDANCE 08/06/2018 INJECTION SACROILIAC JOINT performed by Torito Orta DO at [facility] SACROILIAC JOINT INJECT W/GUIDANCE 10/15/2018 INJECTION SACROILIAC JOINT performed by Torito Orta DO at [facility] Social History Socioeconomic History Marital status: Single Tobacco Use Smoking status: Never Smokeless tobacco: Never Vaping Use Vaping Use: Some days Substances: THC Devices: Disposable Substance and Sexual Activity Alcohol use: No Comment: maybe once a year Drug use: Yes Frequency: 4.0 times per week Types: Marijuana Comment: MEDICIAL Sexual activity: Yes Partners: Male, Female 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 Name of test analyst: Crystal parra student ASSESSMENT AND PLAN 1. ASCUS with positive high risk HPV cervical Advised repeat pap concern for cervical cancer may need colp if abnormal Patient agreeable to pap will consider colp - SPECIAL DISTRIBUTION CLERK PAP DIAGNOSTIC 2. Vaginal itching Advised likely [...] services. CC Visit to: PCP: [place] [address] [phone] Tremayne Lo MD documented in this encounter Nursing Notes * Yamilex Montemayor LPN - 04/23/2023 8:12 AM EDT Being seen for recurrent BV. Is currently using flagyl oral Has vaginal prescription documented in this encounter Plan of Treatment Upcoming Encounters Date Type Specialty Care Team Description 05/12/2023 Office Visit Ophthalmology Uri Quintana, DO [address] [place], [place] [phone] 05/15/2023 [facility] [address] [address] 06/10/2023 Office Visit Sleep Disorders Sherita Coelho, DO [address] [place] [address] 06/10/2023 Office Visit Internal Medicine Ginna Hester MD [address] [place] [address] 07/22/2023 Office Visit Neurology Mahendra Del Valle MD [address] [place], [place] [phone] 07/24/2023 Office Visit Gynecology Obstetrics Tremayne Lo MD [address] [place] [address] 07/25/2023 Office Visit Neurology Vannesa Crouch, DO [address] [place] [address] 01/07/2024 Imaging Radiology 01/19/2024 Telemedicine Sleep Disorders Lynsey Kam, DO [address] [place] [address] Pending Results Name Type Priority Associated Diagnoses Date /Time SPECIAL DISTRIBUTION CLERK PAP DIAGNOSTIC Pathology Routine ASCUS with positive [...] the patient have Health Care Power of Silk Screen Processor? No Code Status History Code Status Date Activated Date Inactivated Comments Full Code 09/19/2020 9:51 AM 09/19/2020 10:03 AM Th is order reflects the patients wishes and were consensually agreed upon. Question Answer Comments Discussion of Advance Directives occurred with: Patient Does the patient have a Living Will? No Does the patient have Health Care Power of Silk Screen Processor? No Full Code 08/18/2020 9:52 AM 08/18/2020 2:40 PM Thi s order reflects the patients wishes and were consensually agreed upon. Question Answer Comments Discussion of Advance Directives occurred with: Patient Does the patient have a Living Will? No Does the patient have Health Care Power of Silk Screen Processor? No Care Teams Livestock Showman Relationship Specialty Start Date End Date Ginna Hester MD [address] [place] [address] PCP - General Internal Medicine 09/05/21 documented as of this encounter"
--- OUTSIDE RECORDS SUMMARY | 2023-09-11 00:17 | External Medical Summary ---
Author Name Unknown Address Unknown Organization : Laboratory Report Ordering Provider Test Date Status LORRI BARAHONA 04/16/2023 11:58:00 Final Therapeutic ranges for non-o perative patients:
Prophylaxsis/treatment of DVT: (Range:2.0-3.0)
Treatment of pulmonary embolism:(Range:2.0-3.0)
Prevention of systemic embolism from:
-tissue heart valves
-acute myocardial infarction
-valvular heart disease
-atrial fibrillation
(Range: 2.0-3.0)
Mechanical prosthetic valves: (Range: 2.5-3.5) Observation Date Value Abnormality Reference (Units ) Status INR in Capillary blood by Coagulation assay 04/16/2023 11:58:00 2.8 (INR) Final Performing Location
--- OUTSIDE RECORDS SUMMARY | 2023-09-11 00:17 | External Medical Summary | Summary of Care ---
Author Name Unknown Organization [facility] Address [address] [place] [facility] [place] [place] [address] Phone [phone] Care Team Providers Care Audio/Visual Manager Name Role Phone Ginna Power MD Primary Care Provider [phone] Reason for Visit * Reason Onset Date Comments medication change 04/16/2023 Encounter Details Date Type Department Care Team Description 04/16/2023 Telephone Pharmacy [facility] [address] [place] [address] Maria R Romero[address] [address] medication change Allergies Active Allergy Reactions Severity Noted Date Comments Aripiprazole Neuro complications (Please comment) High 09/30/2019 Tardive dyskinesia [place] (Diagnostic) Low 03/10/2015 Other reaction(s): STRAWBERRIES/TOMATOE S IN LARGE VOLUMES-ULCERS IIN MOUTH Tomato Low 09/30/2019 documented as of this encounter (statuses as of 04/17/2023) Medications Medication Sig Dispensed Refills Start Date [...] Active Additional Information Patient taking differently:1,000 mg [id number] PRN, Pain, Fever, Reported on 12/16/2022 Nebulizers (NEBULIZER COMPRESSOR) [facility] Inhale via nebulizer. Use as directed. 1 Each 1 10/06/2018 Active albuterol-ipratropi um (DUONEB) 2.5-0.5 MG/3ML nebulizer solution Inhale 3 mL via nebulizer 4 times a day. 360 Vial 0 04/16/2019 Active loratadine (RA LORATADINE) 10 MG TabletIndications:C hronic frontal sinusitis Take 1 Tab by mouth daily. 90 Tab 0 04/16/2019 Active [place] Carbonate 300 MG Oral Capsule (Eskalith) Take [...] as of this encounter (statuses as of 04/17/2023) Active Problems Problem Noted Date Body mass [...] as of this encounter (statuses as of 04/17/2023) Resolved Problems Problem Noted Date Resolved Date [...] as of this encounter (statuses as of 04/17/2023) Immunizations Name Administration Dates Next Due COVID-19 mRNA, LNP-s, No Pre serve, 2-Dose Series (Moderna) 03/06/2021,02/06/2021 HepA Inact/HepB Recomb>=18yrs old 06/02/2012,,08/07/2011 Pneumococcal Conjugate Vacci ne, 20-valent ([id number]) 07/24/2022 Pneumococcal Polysaccharide PPV23 (Pneumovax) 07/29/2013 Seasonal [...] Notes * Telephone Encounter - Jennifer Chandler [facility] - 04/17/2023 10:35 AM EDT Yesterday patient was started on Itraconazole 200 mg BID for 3 days. Sent ChelaileG message to patient with dose reduction instructions. Anticoag tracker updated. Follow up as previously scheduled on 05/15/23. Jennifer Chandler PharmD Clinical Pharmacist Medication Therapy Disease Management 04/17/2023, 10:36 AM * Telephone Encounter - Maria R Romero [facility] - 04/16/2023 4:31 PM EDT Images from the original note were not included. The following BPA was detected: Maria R Romero PharmD, [facility] Clinical Pharmacist 04/16/2023, 4:31 PM documented in this encounter Plan of Treatment Upcoming Encounters Date Type Specialty Care Team Description 05/12/2023 Office Visit Ophthalmology Uri Quintana, DO [address] [place] [address] 05/15/2023 Anticoagulation Pharmacy [facility] [address] [place] [address] 06/10/2023 Office Visit Sleep Disorders Sherita Coelho, DO [address] [place] [address] 06/10/2023 Office Visit [facility] Medicine [facility] [address] [facility] [address] 07/22/2023 Office Visit Neurology Mahendra Del Valle MD [address] [place] [address] 07/25/2023 Office Visit Neu[facility] [address] [facility] [address] 01/07/2024 Imaging Radiology 01/19/2024 Telemedicine Sleep Disorders Lynsey Kam, DO [address] [place] [address] Health Maintenance Due Date Last Done Comments [...] the patient have Health Care Power of Cone Winder? No Code Status History Code Status Date Activated Date Inactivated Comments Full Code 09/19/2020 9:51 AM 09/19/2020 10:03 AM Th is order reflects the patients wishes and were consensually agreed upon. Question Answer Comments Discussion of Advance Directives occurred with: Patient Does the patient have a Living Will? No Does the patient have Health Care Power of Cone Winder? No Full Code 08/18/2020 9:52 AM 08/18/2020 2:40 PM Thi s order reflects the patients wishes and were consensually agreed upon. Question Answer Comments Discussion of Advance Directives occurred with: Patient Does the patient have a Living Will? No Does the patient have Health Care Power of Cone Winder? No Care Teams Audio/Visual Manager Relationship Specialty Start Date End Date Ginna Power MD [address] [place] [address] PCP - General Internal Medicine 09/05/21 documented as of this encounter
--- OUTSIDE RECORDS SUMMARY | 2023-09-11 00:17 | External Medical Summary | Summary of Care ---
Author Name Unknown Organization [facility] Address [address] [facility] [address] Phone [phone] Care Team Providers Care Child Care Attendant Name Role Phone Ginna Power MD Primary Care Provider [phone] Reason for Referral * Evaluate & Treat - Unlimited Visits (Within 10 days (routine)) - Authorized Specialty Diagnoses / Procedures Referred By Sheri martinez Referred To Contact Obstetrics/Gynecology / Gynecology Obstetrics Diagnoses Bacterial vaginosis Recurrent vaginitis Ivory Cobb PA-C [address] [place] [address] Referral ID Status Reason Start Date Expiration Date Visits Requested Visits Authorized [id number] Authorized Specialty Services Required 04/19/2023 999 999 Question Answer Referral Priority Within 10 days (routine) What condition is the patient being seen for? Other Comments Resistant bacterial vaginosis. Reason for Visit * Reason Onset Date Comments Medication Update 04/19/2023 Encounter Details Date Type Department Care Team Description [facility] [address] [place] [address] Ivory Cobb PA-C [address] [place] [address] Medication Update Allergies Active Allergy Reactions Severity Noted Date Comments Aripiprazole Neuro complications (Please comment) High 09/30/2019 Tardive dyskinesia [place] (Diagnostic) Low 03/10/2015 Other reaction(s): STRAWBERRIES/TOMATOE S IN LARGE VOLUMES-ULCERS IIN MOUTH Tomato Low 09/30/2019 documented as of this encounter (statuses as of 04/21/2023) Medications Medication Sig Dispensed Refills Start Date [...] Active Additional Information Patient taking differently:1,000 mg [id number] PRN, Pain, Fever, Reported on 12/16/2022 Nebulizers (NEBULIZER COMPRESSOR[place] [facility] [place] via nebulizer. Use as directed. 1 Each 1 10/06/2018 Active albuterol-ipratrop ium (DUONEB) 2.5-0.5 MG/3ML nebulizer solution Inhale 3 mL via nebulizer 4 times a day. 360 Vial 0 04/16/2019 Active loratadine (RA LORATADINE) 10 MG TabletIndications: Chronic frontal sinusitis Take 1 Tab by mouth daily. 90 Tab 0 04/16/2019 Active [place] Carbonate 300 MG Oral Capsule (Eskalith) Take [...] metronidazole completed. 140 g 5 04/19/2023 Active Itraconazole 100 MG Oral Capsule (Sporanox)Indicati ons:Vaginal itching,Recurrent vaginitis Take 2 Capsules by mouth in the morning for 3 days. 6 Capsule 0 04/16/2023 3 documented as of this encounter (statuses as of 04/21/2023) Active Problems Problem Noted Date Body mass [...] as of this encounter (statuses as of 04/21/2023) Resolved Problems Problem Noted Date Resolved Date [...] as of this encounter (statuses as of 04/21/2023) Immunizations Name Administration Dates Next Due COVID-19 mRNA, LNP-s, No Pre serve, 2-Dose Series (Moderna) 03/06/2021,02/06/2021 HepA Inact/HepB Recomb>=18yrs old 06/02/2012,,08/07/2011 Pneumococcal Conjugate Vacci ne, 20-valent ([id number]) 07/24/2022 Pneumococcal Polysaccharide PPV23 (Pneumovax) 07/29/2013 Seasonal [...] Telephone Encounter - Jennifer Chandler RPh - 04/21/2023 3:48 PM EDT Patient was started on Metronidazole 500 mg BID for 7 days. This is a re-order, so MyG message sent to patient for warfarin dosing while taking flagyl: 10 mg Mon, Wed, Fri and 5 mg all other days when taking flagyl Repeat INR as previously scheduled. Jennifer Chandler, PharmD Clinical Pharmacist Medication Therapy Disease Management 04/21/2023, 3:50 PM * Telephone Encounter - Ivory Cobb PA-C - 04/19/2023 12:03 PM EDT Confirmed patient Results relayed to patient. Due to recurrence, will give oral metronidazole and begin metronidazolegel twice weekly to help with maintenance. Patient to follow up with double needle operator lockstitch. Referral placed. Pharm wes due to effects on warfarin Patient expressed understanding. All questions answered. Agrees with Plan. documented in this encounter Plan of Treatment Upcoming Encounters Date Type Specialty Care Team Description 05/12/2023 Office Visit Ophthalmology Uri Quintana, DO [address] [place] [address] 05/15/2023 Anticoagulation Pharmacy [place] [id number] [place] [address] 06/10/2023 Office Visit Sleep Disorders Sherita Coelho, DO [address] [place] [address] 06/10/2023 Office Visit Internal Medicine Ginna Power MD [address] [place] [address] 07/22/2023 Office Visit Neurology Mahendra Del Valle MD [address] [place], [place] [phone] 07/25/2023 Office Visit Neurology Vannesa Crouch DO [address] [place], [place] [phone] 01/07/2024 Imaging Radiology 01/19/2024 Telemedicine Sleep Disorders Lynsey Kam, DO [address] [place] [address] Scheduled Referrals Name Type Priority Associated Diagnoses Orde r Schedule SCHOOL SOCIAL WORKER REFERRAL OP Referral Within 10 days (routine) Bacterial vaginosis Recurrent vaginitis Ordered: 04/19/2023 Health Maintenance Due Date Last Done Comments [...] as of this encounter Visit Diagnoses Diagnosis Bacterial vaginosis- Primary Vaginitis and vulvovaginitis, unspecified Recurrent vaginitis Vaginitis and vulvovaginitis, unspecified 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 No Code Status History Code Status Date Activated Date Inactivated Comments Full Code 09/19/2020 9:51 AM 09/19/2020 10:03 AM Th is order reflects the patients wishes and were consensually agreed upon. Question Answer Comments Discussion of Advance Directives occurred with: Patient Does the patient have a Living Will? No Does the patient have Health Care Power of Explosives Worker? No Full Code 08/18/2020 9:52 AM 08/18/2020 2:40 PM Thi s order reflects the patients wishes and were consensually agreed upon. Question Answer Comments Discussion of Advance Directives occurred with: Patient Does the patient have a Living Will? No Does the patient have Health Care Power of Explosives Worker? No Care Teams Child Care Attendant Relationship Specialty Start Date End Date Ginna Power MD [address] [facility] [place] [address] PCP - General Internal Medicine 09/05/21 documented as of this encounter
--- OUTSIDE RECORDS SUMMARY | 2023-09-11 00:17 | External Medical Summary ---
Author Name Unknown Address Unknown Organization [id number]:[facility] - [facility] [address] [facility] [address] Laboratory Report Ordering Provider Test Date Status LESTER VILLAGRAN 04/16/2023 13:38:26 Final Observation Date Value Abnormality Reference (Units ) Status HIV 1+2 Ab+HIV1 p24 Ag [Presence] in Serum or Plasma by Immunoassay 04/16/2023 13:38:26 Negative Negative Final Negative HIV-1/2 antigen and antibody screening tset results usually indicate the absence of HIV-1 and HIV-2 infection. However, such negative results do not rule-out acute HIV infection. If acute HIV-1 infection is highly suspected, it is recommended that a specimen be submitted for detection of HIV-1 RNA. Performing Location [facility] - [address] [facility] [address]
--- OUTSIDE RECORDS SUMMARY | 2023-09-11 00:17 | External Medical Summary | Summary of Care ---
Author Name Unknown Organization [facility] Address [address] [facility] [address] Phone [phone] Care Team Providers Care Salt Washer Name Role Phone Ginna Power MD Primary Care Provider [phone] Reason for Referral * Evaluate & Treat - Unlimited Visits (Within 3 days (urgent)) - Authorized Specialty Diagnoses / Procedures Referred By Sheri t Referred To Contact Obstetrics/Gynecology / Gynecology Obstetrics Diagnoses Vaginal itching Recurrent vaginitis Alexy Anna PA-C [address] [address] Referral ID Status Reason Start Date Expiration Date Visits Requested Visits Authorized [id number] Authorized Specialty Services Required 04/16/2023 999 999 Question Answer Referral Priority Within 3 days (urgent) What condition is the patient being seen for? Other Comments Recurrent vaginitis Reason for Visit * Reason Comments Vaginal Itching Encounter Details Date Type Department Care Team Description 04/16/2023 Convenient Care Visit [facility] [address] [address] Alexy Anna PA-C [address] [address] Recurrent vaginitis*; Vaginal itching; Routine screening for STI (sexually transmitted infection) Allergies Active Allergy Reactions Severity Noted Date Comments Aripiprazole Neuro complications (Please comment) High 09/30/2019 Tardive dyskinesia [place] (Diagnostic) Low 03/10/2015 Other reaction(s): STRAWBERRIES/TOMATOE S [...] Active Additional Information Patient taking differently:1,000 mg [id number] PRN, Pain, Fever, Reported on 12/16/2022 Nebulizers (NEBULIZER COMPRESSOR) MIS Inhale via nebulizer. Use as directed. 1 Each 1 10/06/2018 Active albuterol-ipratrop ium (DUONEB) 2.5-0.5 MG/3ML nebulizer solution Inhale 3 mL via nebulizer 4 times a day. 360 Vial 0 04/16/2019 Active loratadine (RA LORATADINE) 10 MG TabletIndications: Chronic frontal sinusitis Take 1 Tab by mouth daily. 90 Tab 0 04/16/2019 Active [place] Carbonate 300 MG Oral Capsule (Eskalith) Take [...] 03/26/2023 Active Itraconazole 100 MG Oral Capsule (Sporanox)Indicati ons:Vaginal itching,Recurrent vaginitis Take 2 Capsules by mouth in the morning for 3 days. 6 Capsule 0 04/16/2023 3 Active Clotrimazole 1 % Vaginal CreamIndications:V aginal itching,Recurrent vaginitis Administer into the vagina at bedtime for 7 days. Use about 5g per dose. For 7 days. 45 g 0 04/16/2023 3 Active metroNIDAZOLE 500 MG Oral Tablet (Flagyl)Indication s:Vaginal discharge Take 1 Tablet by mouth in the morning and 1 Tablet before bedtime. 14 Tablet 0 03/22/2023 3 Discontinue d(Patient preference/ discontinua tion) Nitrofurantoin Monohyd Macro 100 MG Oral Capsule (Macrobid) Take 1 Capsule by mouth in the morning and 1 Capsule before bedtime. Do all this for 7 days. With food until gone. 14 Capsule 0 04/09/2023 3 Discontinue d(Patient preference/ discontinua tion) documented as of this encounter (statuses as [...] old 06/02/2012,,08/07/2011 Pneumococcal Conjugate Vacci ne, 20-valent ([id number]) 07/24/2022 Pneumococcal Polysaccharide PPV23 (Pneumovax) 07/29/2013 Seasonal [...] Sign Reading Time Taken Comments Blood Pressure 142/84 04/16/2023 12:34 PM EDT Pulse 79 04/16/2023 12:34 PM EDT Temperature 36.4 C (97.5 F) 04/16/2023 1 2:34 PM EDT Respiratory Rate 22 04/16/2023 12:3 4 PM EDT Oxygen Saturation 99% 04/16/2023 12: 34 PM EDT Inhaled Oxygen Concentration - - Weight 146.4 kg (322 lb 12.8 oz) 2022 12:34 PM EDT Height 170.2 cm (5' 7.01") 04/16/2023 1 2:34 PM EDT Body Mass Index 50.54 04/16/2023 12:34 PM EDT documented in this [...] * Patient Instructions* Alexy Anna PA-C - 04/16/2023 1:30 PM EDT Itraconazole once daily for 3 days. Topical clotrimazole at bed time for a week. Can also use a little hydrocortisone vaginally at bed time for 3 days while things settle down. Lactobacillus probiotics Drink plenty of fluids and increase fluid intake over next 48-72 hours. We will notify you of your urine culture results. F/U with PCP with no improvement in 3-5 days. Go immediately to the ED with any change or worsening symptoms including chills, fevers, back pain. documented in this encounter Progress Notes * Alexy Anna PA-C - 04/16/2023 12:45 PM EDT Nursing Notes: Kayla Huizar LPN 04/16/23 1244 Signed Rody Jean Baptiste is a 47 year old female who presents to walk-in clinic today complaining of Chief Complaint Patient presents with Vaginal Itching Main Symptoms: vulva/perineal itching Cause: unknown How long: @ March 07 Tried: miconozole Just complete macrobid today Pt accompanied by: self Subjective Rody Jean Baptiste is a 47 year old female that presents for Vaginal Itching She was seen here on 03/22, treated with flagyl for a week for BV; testing confirmed BV and was negatiave for yeast, trich, GC/chlam. She was seen here again on 04/02, for vaginal itching. She was treated for yeast with diflucan x 2 doses. Per visit note from that day, if no improvement, would recommend further work-up/pelvic exam. She did not notice much improvement while on this. She was seen on 04/09 by telemedicine for uti symptoms. She was started empirically on macrobid. At that time, her urine culture grew staph saprophyticus, which was susceptible to macrobid. She notes that the dysuria improved, but the itching persists. She is back today due to continued vulvar and perineal itching. She reports continued vaginal itching, mostly on the L lower aspect of her vagina and labia. Denies dysuria, frequency, urgency. She denies hematuria, discharge, concerns for STIs or known exposures. Denies abn back/flank/low pelvic pain. Denies f/s/ch, n/v/d/c She is sexually active with men and women. No LMP recorded. Patient has had an ablation. Objective BP 142/84 | Pulse 79 | Temp 36.4 C (97.5 F) (Tympanic) | Resp 22 | Ht 1.702 m (5' 7.01") | Wt (!) 146.4 kg (322 lb 12.8 oz) | SpO2 99% | BMI 50.54 kg/m | BSA 2.63 m Body mass index is 50.54 kg/m. BP Readings from Last 3 Encounters: 04/16/23 142/84 04/02/23 156/80 03/22/23 136/90 Wt Readings from Last 3 Encounters: 04/16/23 (!) 146.4 kg (322 lb 12.8 oz) 04/02/23 (!) 146.4 kg (322 lb 12.8 oz) 02/14/23 (!) 150.2 kg (331 lb 3.2 oz) Physical Exam Vitals and nursing note reviewed. Exam conducted with a dry starch operator present. Constitutional: General: She is not in acute distress. Appearance: She is well-developed. She is not ill-appearing, toxic-appearing or diaphoretic. HENT: Head: Normocephalic and atraumatic. Right Ear: External ear normal. Left Ear: External ear normal. Nose: Nose normal. Mouth/Throat: Mouth: Mucous membranes are moist. Pharynx: Oropharynx is clear. Eyes: Extraocular Movements: Extraocular movements intact. Conjunctiva/sclera: Conjunctivae normal. Neck: Vascular: No JVD. Trachea: No tracheal [...] crepitus. Abdominal: General: Bowel sounds are normal. There is no distension. Palpations: Abdomen is soft. There is no hepatomegaly, splenomegaly or mass. Tenderness: There is no abdominal tenderness. There is no right CVA tenderness, left CVA tenderness, guarding or rebound. Hernia: No hernia is present. Genitourinary: General: Normal vulva. Labia: Right: No rash, tenderness, lesion or injury. Left: Tenderness present. No rash, lesion or injury. Vagina: No signs of injury and foreign body. Vaginal discharge (small amount of thick cottage cheese-like dc) and tenderness present. No erythema, bleeding or lesions. Cervix: Discharge (moderate amoutn of thin white discharge with small amounts of thick white cottage cheese like discharge) present. No friability, lesion, erythema or cervical bleeding. Musculoskeletal: General: Normal range of motion. Cervical back: Normal range of motion and neck supple. Right lower leg: No tenderness. No edema. Left lower leg: No tenderness. No edema. Skin: General: Skin is warm and dry. Capillary Refill: Capillary refill takes less than 2 seconds. Nails: There is no clubbing. Neurological: General: No focal deficit present. Mental Status: She is alert and oriented to person, place, and time. Psychiatric: Mood and Affect: Mood normal. Mood is not anxious. Behavior: Behavior normal. Behavior is not agitated. Thought Content: Thought content normal. Judgment: Judgment normal. Results for orders placed or performed in visit on 04/16/23 URINALYSIS, POINT OF CARE (ENTER/EDIT) Result Value Ref Range Color, Urine Yellow Yellow or Light Yellow Clarity, Urine Clear Clear Glucose, Urine Negative Negative mg/dL Bilirubin, Urine Negative Negative Ketone, Urine Negative Negative mg/dL Specific [place], Urine 1.020 1.003 - 1.030 Blood, Urine Small Negative pH, Urine 6.0 5.0 - 7.5 units Protein, Urine Negative Negative mg/dL Urobilinogen, Urine 0.2 0.2 - 1.0 mg/dL Nitrite, Urine Negative Negative Esterase, Urine Negative Negative *Note: Due to a large number of results and/or encounters for the requested time period, some results have not been displayed. A complete set of results can be found in Results Review. Assessment and plan 1. Vaginal itching - URINALYSIS, POINT OF CARE (ENTER/EDIT) - CULTURE, URINE, QUANTITATIVE - RPR - HIV ANTIGEN & ANTIBODY SCREEN W/ CONFIRMATION - VAGINOSIS PANEL, PCR - Itraconazole 100 MG Oral Capsule (Sporanox); Take 2 Capsules by mouth in the morning for 3 days. Dispense: 6 Capsule; Refill: 0 - Clotrimazole 1 % Vaginal Cream; Administer into the vagina at bedtime for 7 days. Use about 5g per dose. For 7 days. Dispense: 45 g; Refill: 0 - EVENT COORDINATOR MARKETING AND SALES REFERRAL OP 2. Routine screening for STI (sexually transmitted infection) - RPR - HIV ANTIGEN & ANTIBODY SCREEN W/ CONFIRMATION - VAGINOSIS PANEL, PCR - CHLAMYDIA TRACHOMATIS AND NEISSERIA GONORRHOEAE, AMPLIFIED PROBE 3. Recurrent vaginitis Suspect recurrent yeast. Patient has been treated for BV, yeast, a UTI, and now with yeast-like symptoms again. Will start empiric for recurrent yeast infection and follow testing. UA today was largely negative, just with small amount of blood. - Itraconazole 100 MG Oral Capsule (Sporanox); Take 2 Capsules by mouth in the morning for 3 days. Dispense: 6 Capsule; Refill: 0 - Clotrimazole 1 % Vaginal Cream; Administer into the vagina at bedtime for 7 days. Use about 5g per dose. For 7 days. Dispense: 45 g; Refill: 0 - EVENT COORDINATOR MARKETING AND SALES REFERRAL OP Follow up Itraconazole once daily for 3 days. Topical clotrimazole at bed time for a week. Can also use a little hydrocortisone vaginally at bed time for 3 days while things settle down. Lactobacillus probiotics Drink plenty of fluids and increase fluid intake over next 48-72 hours. We will notify you of your urine culture results. F/U with PCP with no improvement in 3-5 days. Go immediately to the ED with any change or worsening symptoms including chills, fevers, back pain. The above was discussed and understanding was expressed. Alexy Anna PA-C documented in this encounter Nursing Notes * Kayla Huizar LPN - 04/16/2023 12:34 PM EDT Rody Jean Baptiste is a 47 year old female who presents to walk-in clinic today complaining of Chief Complaint Patient presents with Vaginal Itching Main Symptoms: vulva/perineal itching Cause: unknown How long: @ March 07 Tried: miconozole Just complete macrobid today Pt accompanied by: self documented in this encounter Plan of Treatment Upcoming Encounters Date Type Specialty Care Team Description 05/12/2023 Office Visit Ophthalmology Uri Quintana, DO [address] [place] [address] 05/15/[address] [address] 06/10/2023 Office Visit Sleep Disorders Sherita Coelho, DO [address] [place] [address] 06/10/2023 Office Visit Internal Medicine Ginna Power MD [address] [place] [address] 07/22/2023 Office Visit Neurology Mahendra Del Valle MD [address] [place], [place] [phone] 07/25/2023 Office Visit Neurology Vannesa Crouch DO [address] [place] [address] 01/07/2024 Imaging Radiology 01/19/2024 Telemedicine Sleep Disorders Lynsey Kam, DO [address] [place] [address] Pending Results Name Type Priority Associated Diagnoses Date /Time CULTURE, URINE, QUANTITATIVE Lab STAT Vaginal itching 04/16/2023 1:27 PM EDT RPR Lab STAT Vaginal itching Routine screening for STI (sexually transmitted infection) 04/16/2023 1:38 PM EDT HIV ANTIGEN & ANTIBODY SCREEN W/ CONFIRMATION Lab STAT Vaginal itching Routine screening for STI (sexually transmitted infection) 04/16/2023 1:38 PM EDT VAGINOSIS PANEL, PCR Lab STAT Vaginal itching Routine screening for STI (sexually transmitted infection) 04/16/2023 1:27 PM EDT CHLAMYDIA TRACHOMATIS AND NEISSERIA GONORRHOEAE, AMPLIFIED PROBE Lab STAT Routine screening for STI (sexually transmitted infection) 04/16/2023 1:25 PM EDT Scheduled Referrals Name Type Priority Associated Diagnoses Orde r Schedule EVENT COORDINATOR MARKETING AND SALES REFERRAL OP Referral Within 3 days (urgent) Vaginal itching Recurrent vaginitis Ordered: 04/16/2023 Health Maintenance Due Date Last Done Comments [...] exists Lipid Panel 09/05/2026 09/05/2021, 08/06/2018, 12/07/2013 Pap Smear 12/17/2026 12/17/2021, 06/27, 12/27/2019, [...] Procedure Name Priority Date/Time Associated Diagnosis Comments URINALYSIS, POINT OF CARE (ENTER/EDIT) Routine 04/16/2023 Vaginal itching documented in this encounter Results * URINALYSIS, POINT OF CARE (ENTER/EDIT) (04/16/2023) Color, Urine Yellow Yellow or Light Yellow Clarity, Urine Clear Clear Glucose, Urine Negative Negative mg/dL Bilirubin, Urine Negative Negative Ketone, Urine Negative Negative mg/dL Specific [place], Urine 1.020 1.003 - 1.030 Blood, Urine Small Negative pH, Urine 6.0 5.0 - 7.5 units Protein, Urine Negative Negative mg/dL Urobilinogen, Urine 0.2 0.2 - 1.0 mg/dL Nitrite, Urine Negative Negative Esterase, Urine Negative Negative Urine 04/16/2023 Alexy Anna PA-C LAB POINT O F CARE TEST ENTER/EDIT ORDERABLES documented in this encounter Visit Diagnoses Diagnosis Recurrent vaginitis- Primary Vaginitis and vulvovaginitis, unspecified Vaginal itching Pruritus of genital organs Routine screening for STI (sexually transmitted infection) Screening examination for venereal disease documented in this encounter Advance Directives Latest [...] the patient have Health Care Power of Experimental Electronics Developer? No Code Status History Code Status Date Activated Date Inactivated Comments Full Code 09/19/2020 9:51 AM 09/19/2020 10:03 AM Th is order reflects the patients wishes and were consensually agreed upon. Question Answer Comments Discussion of Advance Directives occurred with: Patient Does the patient have a Living Will? No Does the patient have Health Care Power of Experimental Electronics Developer? No Full Code 08/18/2020 9:52 AM 08/18/2020 2:40 PM Thi s order reflects the patients wishes and were consensually agreed upon. Question Answer Comments Discussion of Advance Directives occurred with: Patient Does the patient have a Living Will? No Does the patient have Health Care Power of Experimental Electronics Developer? No Care Teams Salt Washer Relationship Specialty Start Date End Date Ginna Power MD [address] [place] [address] PCP - General Internal Medicine 09/05/21 documented as of this encounter
--- OUTSIDE RECORDS SUMMARY | 2023-09-11 00:17 | External Medical Summary | Summary of Care ---
Author Name Unknown Organization [facility] Address [address] [facility] [place] [address] Phone [phone] Care Team Providers Care Track Watchman Name Role Phone Ginna Power MD Primary Care Provider [phone] Reason for Visit * Reason Comments Dosage Adjustment In Person (Anticoag Cl inic) Encounter Details Date Type Department Care Team Description 04/16/2023 Anticoagulation Pharmacy, [place] [address] [place] [address] [facility] [address] [place] [address] MTHFR mutation (methylenetetrahydrof olate reductase)* Allergies Active Allergy Reactions Severity Noted Date Comments Aripiprazole Neuro complications (Please comment) High 09/30/2019 Tardive dyskinesia [place] (Diagnostic) Low 03/10/2015 Other reaction(s): STRAWBERRIES/TOMATOE S [...] Active Additional Information Patient taking differently:1,000 mg [id number] PRN, Pain, Fever, Reported on 12/16/2022 Nebulizers (NEBULIZER COMPRESSOR) MIS Inhale via nebulizer. Use as directed. 1 Each 1 10/06/2018 Active albuterol-ipratropi um (DUONEB) 2.5-0.5 MG/3ML nebulizer solution Inhale 3 mL via nebulizer 4 times a day. 360 Vial 0 04/16/2019 Active loratadine (RA LORATADINE) 10 MG TabletIndications:C hronic frontal sinusitis Take 1 Tab by mouth daily. 90 Tab 0 04/16/2019 Active [place] Carbonate 300 MG Oral Capsule (Eskalith) Take [...] stomach. 30 Tablet 5 02/24/2023 Active metroNIDAZOLE 500 MG Oral Tablet (Flagyl)Indications :Vaginal discharge Take 1 Tablet by mouth in the morning and 1 Tablet before bedtime. 14 Tablet 0 03/22/2023 Active SUMAtriptan Succinate 50 MG Oral Tablet (Imitrex)Indication s:Migraine variant, intractable TAKE 2 TABLETS AT ONSET MIGRAINE MAY REPEAT 1 TABLET IN 2 HOURS- MAX OF 5 IN 24 HOURS 9 Tablet 1 03/26/2023 Active Nitrofurantoin Monohyd Macro 100 MG Oral Capsule (Macrobid) Take 1 Capsule by mouth in the morning and 1 Capsule before bedtime. Do all this for 7 days. With food until gone. 14 Capsule 0 04/09/2023 04/16/2023 Active documented as of this encounter (statuses [...] old 06/02/2012,,08/07/2011 Pneumococcal Conjugate Vacci ne, 20-valent ([id number]) 07/24/2022 Pneumococcal Polysaccharide PPV23 (Pneumovax) 07/29/2013 Seasonal [...] Progress Notes * Jennifer Chandler RPh - 04/16/2023 11:55 AM EDT Medication Therapy Disease Management - Anticoagulation Patient: Rody Jean Baptiste : 1975 Current Warfarin Dose As of 04/16/2023 Warfarin maintenance plan: 10 mg (5 mg x 2) every day Patient-Reported Symptoms: Patient Findings Positives: Change in medications (on macrobid, UTI symptoms still ongoing, may need a different abx. aware [place] will send [employer] message with dose change) Negatives: Signs/symptoms of thrombosis, Signs/symptoms of bleeding, Change in health, Change in alcohol use, Change in activity, Upcoming invasive procedure, Missed doses, Extra doses, Change in diet/appetite, Bruising INR Result As of 04/16/2023 INR goal: 2.0-3.0 INR used for dosin.8 (04/16/2023) Warfarin Plan As of 04/16/2023 Full warfarin instructions: 10 mg every day No change documented: Jennifer Chandler RPh Next INR check: 05/15/2023 Additional Dosing Information: Repeat PT/INR in 4 week(s) Weekly dose: not changed Jennifer Chandler RPh Clinical Pharmacist 04/16/2023, 11:56 AM documented in this encounter Plan of Treatment Upcoming Encounters Date Type Specialty Care Team Description 04/16/2023 Convenient Care Visit Convenient Care Alexy Anna PA-C [address] [address] Arrived 05/12/2023 Office Visit Ophthalmology Uir Quintana, DO [address] [place] [address] 05/15/2023 Anticoagulation [facility]acy [facility] [address] [place] [address] [place] [address] 06/10/2023 Office Visit Sleep Disorders Sherita Coelho, DO [address] [place] [address] 06/10/2023 Office Visit Internal Medicine Ginna Power MD [address] [facility] [place] [address] 07/22/2023 Office Visit Neurology Mahendra Del Valle MD [address] [place] [address] 07/25/2023 Office Visit Neurology Vannesa Crouch DO [address] [place] [address] 01/07/2024 Imaging Radiology 01/19/2024 Telemedicine Sleep Disorders Lynsey Kam, DO [address] [place] [address] Health Maintenance Due Date Last Done Comments [...] Comments INR FINGERSTICK, POINT OF CARE STAT 04/16/2023 11:58 AM EDT MTHFR mutation (methylenetetrahydr ofolate reductase) documented in this encounter Results * INR FINGERSTICK, POINT OF CARE (04/16/2023 11:58 AM EDT) Fingerstick INR 2.8 INR 12:00 PM EDT LABORATORY [facility]-01 Blood 04/16/2023 11:5 8 AM EDT 04/16/2023 12:00 PM EDT [facility]ative [facility] - 04/16/2023 12:00 PM EDT Therapeutic ranges for non-operative patients: Prophylaxsis/treatment of DVT: (Range:2.0-3.0) Treatment of pulmonary embolism:(Range:2.0-3.0) Prevention of systemic embolism from: -tissue heart valves -acute myocardial infarction -valvular heart disease -atrial fibrillation (Range: 2.0-3.0) Mechanical prosthetic valves: (Range: 2.5-3.5) Thuan Barajas [facility] LAB POINT OF CAR E TEST DOCKED DEVICE UNSOLICITED RESULTS JAYDEN RODRIGUEZ [address] [place] [address] documented in this encounter Visit Diagnoses Diagnosis [...] patient have Health Care Power of Manager Entry? No Code Status History Code Status Date Activated Date Inactivated Comments Full Code 09/19/2020 9:51 AM 09/19/2020 10:03 AM Th is order reflects the patients wishes and were consensually agreed upon. Question Answer Comments Discussion of Advance Directives occurred with: Patient Does the patient have a Living Will? No Does the patient have Health Care Power of Manager Entry? No Full Code 08/18/2020 9:52 AM 08/18/2020 2:40 PM Thi s order reflects the patients wishes and were consensually agreed upon. Question Answer Comments Discussion of Advance Directives occurred with: Patient Does the patient have a Living Will? No Does the patient have Health Care Power of Manager Entry? No Care Teams Track Watchman Relationship Specialty Start Date End Date Ginna Power MD [address] [place] [address] PCP - General Internal Medicine 09/05/21 documented as of this encounter
--- OUTSIDE RECORDS SUMMARY | 2023-09-11 00:17 | External Medical Summary ---
Author Name Unknown Address Unknown Organization [id number]:[facility] [place] [facility] [address] [facility] [address] Laboratory Report Ordering Provider Test Date Status LESTER VILLAGRAN 04/16/2023 13:25:01 Final Observation Date Value Abnormality Reference (Units ) Status Chlamydia trachomatis rRNA [Presence] in Specimen by MARNI with probe detection 04/16/2023 13:25:01 Negative Negative Final No Chlamydia trachomatis det ected by customer development representative-mediated nucleic acid amplification. Neisseria gonorrhoeae rRNA [ Presence] in Unspecified specimen by MARNI with probe detection 04/16/2023 13:25:01 Negative Negative Final No Neisseria gonorrhoeae det ected by customer development representative-mediated nucleic acid amplification. Performing Location [facility] [place] [address] [facility] [address]
--- OUTSIDE RECORDS SUMMARY | 2023-09-11 00:17 | External Medical Summary ---
Author Name Unknown Address Unknown Organization K01:LABORATORY [place] [address] Laboratory Report Ordering Provider Test Date Status DESI LOPEZ 04/23/2023 09:04:00 Final Observation Date Value Abnormality Reference (Units ) Status Human papilloma virus E6+E7 mRNA [Presence] in Cervix by MARNI with probe detection 04/23/2023 09:04:00 Negative Not Applicable Final No high/intermediate-risk Hu man Papillomavirus (HPV E6/E7 messenger RNA) detected by nucleic acid amplification.

This assay looks for high/intermediate risk Human Papillomavirus (HPV E6/E7 messenger RNA) by nucleic acid amplification. This assay includes the qualitative detection of HPV types 16,18,31,33,35,39,45,51,52,56,58,59,66 and 68 from cervical specimens.
This assay has been FDA cleared for Thin prep collection vials.
This assay has not been approved for use as a primary screening test for HPV and should be tested in conjunction with a PAP screen.
If collected utilizing a Surepath vial, the collection and specimen preparation of this test was developed, and its performance characteristics determined by [employer]. It has not been cleared or approved by the U.S. Food and Drug Administration (FDA). The FDA has determined that such clearance or approval is not necessary.
This assay has been performed at [facility] Belly Ballot [facility], [address] [place] [address], [place]. [address]. Performing Location LABORATORY [address] [address]
--- OUTSIDE RECORDS SUMMARY | 2023-09-11 00:18 | External Medical Summary | Summary of Care ---
Author Name Unknown Organization [facility] Address [address] [facility] [place] [address] Phone [phone] Care Team Providers Care Clinical Specialist Name Role Phone Ginna Power MD Primary Care Provider [phone] Reason for Visit * Reason Comments Outpatient Testing Encounter Details Date Type Department Care Team Description 04/09/2023 Laboratory Laboratory, [place] [address] [place] [address] [place] [address] [place] [address] Dysuria; MTHFR mutation (methylenetetrahydrofol ate reductase); Pulmonary embolus (HCC) Allergies Active Allergy Reactions Severity Noted Date Comments Aripiprazole Neuro complications (Please comment) High 09/30/2019 Tardive dyskinesia [place] (Diagnostic) Low 03/10/2015 Other reaction(s): STRAWBERRIES/TOMATOE S IN LARGE VOLUMES-ULCERS IIN MOUTH Tomato Low 09/30/2019 documented as of this encounter (statuses as of 04/09/2023) Medications Medication Sig Dispensed Refills Start Date [...] Active Additional Information Patient taking differently:1,000 mg [id number] PRN, Pain, Fever, Reported on 12/16/2022 Nebulizers (NEBULIZER COMPRESSOR) M[facility] Inhale via nebulizer. Use as directed. 1 Each 1 10/06/2018 Active albuterol-ipratropi um (DUONEB) 2.5-0.5 MG/3ML nebulizer solution Inhale 3 mL via nebulizer 4 times a day. 360 Vial 0 04/16/2019 Active loratadine (RA LORATADINE) 10 MG TabletIndications:C hronic frontal sinusitis Take 1 Tab by mouth daily. 90 Tab 0 04/16/2019 Active [place] Carbonate 300 MG Oral Capsule (Eskalith) Take [...] as of this encounter (statuses as of 04/09/2023) Active Problems Problem Noted Date Body mass index (BMI) of 45.0 to 49.9 in adult 01/06/2023 Overview: Per Obesity protocol - - Chronic allergic [...] as of this encounter (statuses as of 04/09/2023) Resolved Problems Problem Noted Date Resolved Date Chondromalacia patellae, left knee 09/05/2021 04/09/2023 Other [...] as of this encounter (statuses as of 04/09/2023) Immunizations Name Administration Dates Next Due COVID-19 mRNA, LNP-s, No Pre serve, 2-Dose Series (Moderna) 03/06/2021,02/06/2021 HepA Inact/HepB Recomb>=18yrs old 06/02/2012,,08/07/2011 Pneumococcal Conjugate Vacci ne, 20-valent ([id number]) 07/24/2022 Pneumococcal Polysaccharide PPV23 (Pneumovax) 07/29/2013 Seasonal [...] Encounters Date Type Specialty Care Team Description 04/10/2023 Anticoagulation Pharmacy [facility] [address] [place] [address] 04/16/2023 Anticoagulation Pharmacy [facility] [address] [place] [address] 05/12/2023 Office Visit Ophthalmology Uri Quintana, DO [address] [place] [address] 06/10/2023 Office Visit Sleep Disorders Sherita Coelho, DO [address] [place] [address] 06/10/2023 Office Visit Internal Medicine Ginna Power MD [address] [place] [address] 07/22/2023 Office Visit Neurology Mahendra Del Valle MD [address] [place], [place] [id number] 07/25/2023 Office Visit Neurology Vannesa Crouch, DO [address] [place], [place] [id number] 01/07/2024 Imaging Radiology 01/19/2024 Telemedicine Sleep Disorders Lynsey Kam, DO [address] [place] [id number] Pending Results Name Type Priority Associated Diagnoses Date /Time URINALYSIS, REFLEX TO MICROSCOPIC Lab Routine Dysuria 04/09/2023 2:40 PM EDT PT INR Lab Routine MTHFR mutation (methylenetetrahydrofola te reductase) Pulmonary embolus (HCC) 04/09/2023 3:56 PM EDT Health Maintenance Due Date Last [...] as of this encounter Visit Diagnoses Diagnosis Dysuria 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 No Code Status History Code Status Date Activated Date Inactivated Comments Full Code 09/19/2020 9:51 AM 09/19/2020 10:03 AM Th is order reflects the patients wishes and were consensually agreed upon. Question Answer Comments Discussion of Advance Directives occurred with: Patient Does the patient have a Living Will? No Does the patient have Health Care Power of Learning And Development Administrator? No Full Code 08/18/2020 9:52 AM 08/18/2020 2:40 PM Thi s order reflects the patients wishes and were consensually agreed upon. Question Answer Comments Discussion of Advance Directives occurred with: Patient Does the patient have a Living Will? No Does the patient have Health Care Power of Learning And Development Administrator? No Care Teams Clinical Specialist Relationship Specialty Start Date End Date Ginna Power MD [address] [place] [address] PCP - General Internal Medicine 09/05/21 documented as of this encounter
--- OUTSIDE RECORDS SUMMARY | 2023-09-11 00:18 | External Medical Summary | Summary of Care ---
Author Name Unknown Organization [facility] Address [address] [place] [address] Phone [phone] Care Team Providers Care Data Technician Name Role Phone Ginna Power MD Primary Care Provider [phone] Reason for Visit * Reason Onset Date Comments Forms Request 01/06/2023 [facility] Ph[facility] sical Therapy POC Encounter Details Date Type Department Care Team Description 01/06/2023 Telephone Neurology, [place] [address] [place] [address] Vannesa Crouch, [address] [place] [address] Forms Request ([facility] Physical Thera... Allergies Active Allergy Reactions Severity Noted Date Comments Aripiprazole Neuro complications (Please comment) High 09/30/2019 Tardive dyskinesia [place] (Diagnostic) Low 03/10/2015 Other reaction(s): STRAWBERRIES/TOMATOE S [...] Active Additional Information Patient taking differently:1,000 mg [id number] PRN, Pain, Fever, Reported on 12/16/2022 Nebulizers (NEBULIZER COMPRESSOR) [facility] Inhale via nebulizer. Use as directed. 1 Each 1 8 Active albuterol-ipratr opium (DUONEB) 2.5-0.5 MG/3ML nebulizer solution Inhale 3 mL via nebulizer 4 times a day. 360 Vial 0 9 Active loratadine (RA LORATADINE) 10 MG TabletIndication s:Chronic frontal sinusitis Take 1 Tab by mouth daily. 90 Tab 0 9 Active [place] Carbonate 300 MG Oral Capsule (Eskalith) Take [...] old 06/02/2012,,08/07/2011 Pneumococcal Conjugate Vacci ne, 20-valent ([id number]) 07/24/2022 Pneumococcal Polysaccharide PPV23 (Pneumovax) 07/29/2013 Seasonal [...] Physical Therapy POC signed and faxed to [phone] on 04/15/23. Scanned into patients chart. * Telephone Encounter - MERYL Tucker - 04/10/2023 4:31 PM EDT [facility] on 04/10/23. Placed in providers bin for signature. * Telephone Encounter - MERYL Tucker - 04/03/2023 3:35 PM EDT [facility] Physical Therapy POC signed and faxed to [phone] on 04/03/23. Scanned into patients chart. * Telephone Encounter - MERYL Tucker - 04/01/2023 4:30 PM EDT Received Chris Physical Therapy POC from [facility] on 04/01/23. Placed in providers bin for signature. * Telephone Encounter - MERYL Tucker - 03/25/2023 3:37 PM EDT [facility] Physical Therapy POC signed and faxed to 03/25/23 on [phone]. Scanned into patients chart. * Telephone Encounter - MERYL Tucker - 03/20/2023 10:47 AM EDT ReceivedChris [facility]from [facility] on03/19/23. Placed in providers bin for signature. * Telephone Encounter - MERYL Tucker - 03/14/2023 2:40 PM EDT ReceivedChris Physical Therapy POCfrom [facility] on 03/14/23. Placed in providers bin for signature. * Telephone Encounter - Alejandra Taylor, MERYL - 02/04/2023 3:58 PM EDT Chris Physical Therapy POC signed and faxed to [phone] on 02/04/23. Scanned into patients chart. * Telephone Encounter - MERYL Tucker - 02/03/2023 3:50 PM EDT Received Chris Physical Therapy POC from [facility] on 01/31/23. Placed in providers bin for signature. * Telephone Encounter - MERYL Tucker - 01/10/2023 12:51 PM EDT [facility] Physical Therapy POCsigned and faxed to [phone] on 01/10/23. Scanned into patients chart. * Telephone Encounter - MERYL Tucker - 01/10/2023 10:51 AM EDT Received Chris Physical Therapy POC from [facility] on 01/09/23. Placed in providers bin for signature. * Telephone Encounter - MERYL Tucker - 01/06/2023 3:02 PM EDT [facility] Physical Therapy POC signed and faxed with most recent office notes to [phone] on 01/06/23. Scanned into patients chart. Placed a call to [facility] and relayed message from Dr Crouch that the referral was for imbalance and mild left hand hemiparesis so the patient will need evaluated for this. * Telephone Encounter - MERYL Tucker - 01/06/2023 12:26 PM EDT Received Chris Physical Therapy POC from [facility] on 01/03/23. Placed in providers bin for signature. documented in this encounter Plan of Treatment Upcoming Encounters Date Type Specialty Care Team Description 04/16/2023 Anticoagulation Pharmacy [facility] [address], [place] [phone] 05/12/2023 Office Visit Ophthalmology Uri Quintana, DO [address] [place] [address] 06/10/2023 Office Visit Sleep Disorders Sherita Coelho, DO [address] [place] [address] 06/10/2023 Office Visit Internal Medicine Ginna Power MD [address] [place] [address] 07/22/2023 Office Visit Neurology Mahendra Del Valle MD [address] [place] [address] 07/25/2023 Office Visit Neurology Vannesa Crouch, DO [address] [place], [place] [id number] 01/07/2024 Imaging Radiology 01/19/2024 Telemedicine Sleep Disorders Lynsey Kam, DO [address] [place] [address] Health Maintenance Due Date Last Done Comments [...] the patient have Health Care Power of Actuary Clerk? No Code Status History Code Status Date Activated Date Inactivated Comments Full Code 09/19/2020 9:51 AM 09/19/2020 10:03 AM Th is order reflects the patients wishes and were consensually agreed upon. Question Answer Comments Discussion of Advance Directives occurred with: Patient Does the patient have a Living Will? No Does the patient have Health Care Power of Actuary Clerk? No Full Code 08/18/2020 9:52 AM 08/18/2020 2:40 PM Thi s order reflects the patients wishes and were consensually agreed upon. Question Answer Comments Discussion of Advance Directives occurred with: Patient Does the patient have a Living Will? No Does the patient have Health Care Power of Actuary Clerk? No Care Teams Data Technician Relationship Specialty Start Date End Date Ginna Power MD [address] [place] [address] PCP - General Internal Medicine 09/05/21 documented as of this encounter
--- OUTSIDE RECORDS SUMMARY | 2023-09-11 00:18 | External Medical Summary | Summary of Care ---
Author Name Unknown Organization [facility] Address [address] [place] [address] Phone [phone] Care Team Providers Care Hogshead Head Matcher Name Role Phone Ginna Power MD Primary Care Provider [phone] Reason for Visit * Reason Onset Date Comments Forms Request 01/06/2023 [facility] Phy sical Therapy POC Encounter Details Date Type Department Care Team Description 01/06/2023 Telephone Neurology, [place] [address] [place] [address] Vannesa Crouch, [address] [place] [address] Forms Request ([facility] Physical Thera... Allergies Active Allergy Reactions Severity Noted Date Comments Aripiprazole Neuro complications (Please comment) High 09/30/2019 Tardive dyskinesia [place] (Diagnostic) Low 03/10/2015 Other reaction(s): STRAWBERRIES/TOMATOE S IN LARGE VOLUMES-ULCERS IIN MOUTH Tomato Low 09/30/2019 documented as of this encounter (statuses as of 04/10/2023) Medications Medication Sig Dispensed Refills Start Date [...] Active Additional Information Patient taking differently:1,000 mg [id number] PRN, Pain, Fever, Reported on 12/16/2022 Nebulizers (NEBULIZER COMPRESSOR) [facility] Inhale via nebulizer. Use as directed. 1 Each 1 8 Active albuterol-ipratr opium (DUONEB) 2.5-0.5 MG/3ML nebulizer solution Inhale 3 mL via nebulizer 4 times a day. 360 Vial 0 9 Active loratadine (RA LORATADINE) 10 MG TabletIndication s:Chronic frontal sinusitis Take 1 Tab by mouth daily. 90 Tab 0 9 Active [place] Carbonate 300 MG Oral Capsule (Eskalith) Take [...] as of this encounter (statuses as of 04/10/2023) Active Problems Problem Noted Date Body mass [...] as of this encounter (statuses as of 04/10/2023) Resolved Problems Problem Noted Date Resolved Date [...] as of this encounter (statuses as of 04/10/2023) Immunizations Name Administration Dates Next Due COVID-19 mRNA, LNP-s, No Pre serve, 2-Dose Series (Moderna) 03/06/2021,02/06/2021 HepA Inact/HepB Recomb>=18yrs old 06/02/2012,,08/07/2011 Pneumococcal Conjugate Vacci ne, 20-valent ([id number]) 07/24/2022 Pneumococcal Polysaccharide PPV23 (Pneumovax) 07/29/2013 Seasonal [...] MERYL Tucker - 04/10/2023 4:31 PM EDT ReceivedChris Physical Therapy POCfrom [facility] on 04/10/23. Placed in providers bin for signature. * Telephone Encounter - MERYL Tucker - 04/03/2023 3:35 PM EDT [facility] Physical Therapy POC signed and faxed to [phone] on 04/03/23. Scanned into patients chart. * Telephone Encounter - MERYL Tucker - 04/01/2023 4:30 PM EDT Received [facility] Physical Therapy POC from [facility] on 04/01/23. Placed in providers bin for signature. * Telephone Encounter - MERYL Tucker - 03/25/2023 3:37 PM EDT [facility] Physical Therapy POC signed and faxed to 03/25/23 on [phone]. Scanned into patients chart. * Telephone Encounter - MERYL Tucker - 03/20/2023 10:47 AM EDT ReceivedChris Physical Therapy POCfrom [facility] on03/19/23. Placed in providers bin for signature. * Telephone Encounter - MERYL Tucker - 03/14/2023 2:40 PM EDT Receivedayer Physical Therapy POCfrom [facility] on 03/14/23. Placed in providers bin for signature. * Telephone Encounter - MERYL Tucker - 02/04/2023 3:58 PM EDT [facility] Physical Therapy POC signed and faxed to [phone] on 02/04/23. Scanned into patients chart. * Telephone Encounter - MERYL Tucker - 02/03/2023 3:50 PM EDT Received Chris Physical Therapy POC from [facility] on 01/31/23. Placed in providers bin for signature. * Telephone Encounter - MERYL Tucker - 01/10/2023 12:51 PM EDT [facility] Physical Therapy POCsigned and faxed to [phone] on 01/10/23. Scanned into patients chart. * Telephone Encounter - MERYL Tucker - 01/10/2023 10:51 AM EDT Received [facility] Physical Therapy POC from [facility] on 01/09/23. Placed in providers bin for signature. * Telephone Encounter - MERYL Tucker - 01/06/2023 3:02 PM EDT [facility] Therapy POC signed and faxed with most recent office notes to [phone] on 01/06/23. Scanned into patients chart. Placed a call to [facility] and relayed message from Dr Crouch that the referral was for imbalance and mild left hand hemiparesis so the patient will need evaluated for this. * Telephone Encounter - MERYL Tucker - 01/06/2023 12:26 PM EDT Received Chris Physical Therapy POC from [facility] on 01/03/23. Placed in providers bin for signature. documented in this encounter Plan of Treatment Upcoming Encounters Date Type Specialty Care Team Description 04/16/2023 Anticoagulation Pharmacy [facility] [address] [place] [address] 05/12/2023 Office Visit Ophthalmology Uri Quintana, DO [address] [place] [address] 06/10/2023 Office Visit Sleep Disorders Sherita Coelho, DO [address] [place] [address] 06/10/2023 Office Visit Internal Medicine Ginna Power MD [address] [place] [address] 07/22/2023 Office Visit Neurology Mahendra Del Valle MD [address] [place] [address] 07/25/2023 Office Visit Neurology Vannesa Crouch, DO [address] [place], [place] [phone] 01/07/2024 Imaging Radiology 01/19/2024 Telemedicine Sleep Disorders Lynsey Kam, DO [address] [place] [address] Health Maintenance Due Date Last Done Comments [...] the patient have Health Care Power of Laborer [place]? No Code Status History Code Status Date Activated Date Inactivated Comments Full Code 09/19/2020 9:51 AM 09/19/2020 10:03 AM Th is order reflects the patients wishes and were consensually agreed upon. Question Answer Comments Discussion of Advance Directives occurred with: Patient Does the patient have a Living Will? No Does the patient have Health Care Power of Laborer [place] [place]? No Full Code 08/18/2020 9:52 AM 08/18/2020 2:40 PM Thi s order reflects the patients wishes and were consensually agreed upon. Question Answer Comments Discussion of Advance Directives occurred with: Patient Does the patient have a Living Will? No Does the patient have Health Care Power of Laborer [place] [place]? No Care Teams Hogshead Head Matcher Relationship Specialty Start Date End Date Ginna Power MD [address] [place] [address] PCP - General Internal Medicine 09/05/21 documented as of this encounter
--- OUTSIDE RECORDS SUMMARY | 2023-09-11 00:18 | External Medical Summary | Summary of Care ---
Author Name Unknown Organization [facility] Address [address] [facility] [address] Phone [phone] Care Team Providers Care Nurse Tech Name Role Phone Ginna Power MD Primary Care Provider [phone] Reason for Visit * Reason Comments Dosage Adjustment Via Phone (anticoag Cl inic) Encounter Details Date Type Department Care Team Description 04/10/2023 Anticoagulation Pharmacy, [place] [address] [place] [address] [facility] [address] [place] [address] MTHFR mutation (methylenetetrahydrof olate reductase)* Allergies Active Allergy Reactions Severity Noted Date Comments Aripiprazole Neuro complications (Please comment) High 09/30/2019 Tardive dyskinesia [place] (Diagnostic) Low 03/10/2015 Other reaction(s): STRAWBERRIES/TOMATOE S [...] Active Additional Information Patient taking differently:1,000 mg [id number] PRN, Pain, Fever, Reported on 12/16/2022 Nebulizers (NEBULIZER COMPRESSOR) [facility] Inhale via nebulizer. Use as directed. 1 Each 1 10/06/2018 Active albuterol-ipratropi um (DUONEB) 2.5-0.5 MG/3ML nebulizer solution Inhale 3 mL via nebulizer 4 times a day. 360 Vial 0 04/16/2019 Active loratadine (RA LORATADINE) 10 MG TabletIndications:C hronic frontal sinusitis Take 1 Tab by mouth daily. 90 Tab 0 04/16/2019 Active [place] Carbonate 300 MG Oral Capsule (Eskalith) Take [...] old 06/02/2012,,08/07/2011 Pneumococcal Conjugate Vacci ne, 20-valent ([id number]) 07/24/2022 Pneumococcal Polysaccharide PPV23 (Pneumovax) 07/29/2013 Seasonal [...] as of this encounter Progress Notes * Suzi Fields RPh - 04/10/2023 2:45 PM EDT Images from the original note were not included. Medication Therapy Disease Management - Anticoagulation Patient: Rody Jean Baptiste : 1975 Contacts Type Contact Phone/Fax 04/10/2023 02:48 PM EDT Phone (Outgoing) Rody Jean Baptiste (Self) [phone] (M) Left Message Current Warfarin Dose As of 04/10/2023 Warfarin maintenance plan: 10 mg (5 mg x 2) every day Patient-Reported Symptoms: Patient Findings Positives: Change in medications (Per chart review, metronidazole completed. Macrobid started) Negatives: Signs/symptoms of thrombosis, Signs/symptoms of bleeding, Change in health, Change in alcohol use, Change in activity, Upcoming invasive procedure, Missed doses, Extra doses, Change in diet/appetite, Bruising INR Result As of 04/10/2023 INR goal: 2.0-3.0 INR used for dosin.4 (04/09/2023) Warfarin Plan As of 04/10/2023 Full warfarin instructions: 04/10: 5 mg; Otherwise 10 mg every day Next INR check: 04/16/2023 Additional Dosing Information: Per chart review, metronidazole course complete. Patient recently started on Macrobid for UTI. No changes in warfarin dosing warranted. Will plan to have patient take decreased warfarin dose today since INR was elevated on 04/09. Left detailed message instructing to contact clinic with any questions or concerns, or if any of the above information is incorrect. Will keep f/u visit next week due to multiple med changes. Repeat PT/INR in 1 week(s) Weekly dose: not changed Suzi Fields RPh Clinical Pharmacist 04/10/2023, 2:45 PM documented in this encounter Plan of Treatment Upcoming Encounters Date Type Specialty Care Team Description 04/16/2023 Anticoagulation Pharmacy [facility] [address] [place] [address] 05/12/2023 Office Visit Ophthalmology Uri Quintana, DO [address] [place] [address] 06/10/2023 Office Visit Sleep Disorders Sherita Coelho, DO [address] [place] [address] 06/10/2023 Office Visit Internal Medicine Ginna Power MD [address] [place] [address] 07/22/2023 Office Visit Neurology Mahendra Del Valle MD [address] [place], [place] [address] 07/25/2023 Office Visit Neurology Vannesa Crouch, DO [address] [place] [address] 01/07/2024 Imaging Radiology 01/19/2024 Telemedicine Sleep Disorders Lynsey Kam, DO [address] [place] [address] Health Maintenance Due Date Last Done Comments [...] the patient have Health Care Power of Vice Provost? No Code Status History Code Status Date Activated Date Inactivated Comments Full Code 09/19/2020 9:51 AM 09/19/2020 10:03 AM Th is order reflects the patients wishes and were consensually agreed upon. Question Answer Comments Discussion of Advance Directives occurred with: Patient Does the patient have a Living Will? No Does the patient have Health Care Power of Vice Provost? No Full Code 08/18/2020 9:52 AM 08/18/2020 2:40 PM Thi s order reflects the patients wishes and were consensually agreed upon. Question Answer Comments Discussion of Advance Directives occurred with: Patient Does the patient have a Living Will? No Does the patient have Health Care Power of Vice Provost? No Care Teams Nurse Tech Relationship Specialty Start Date End Date Ginna Power MD [address] [facility] [place] [address] PCP - General Internal Medicine 09/05/21 documented as of this encounter
--- OUTSIDE RECORDS SUMMARY | 2023-09-11 00:18 | External Medical Summary | Summary of Care ---
Author Name Unknown Organization [facility] Address [address] [facility] [place] [address] Phone [phone] Care Team Providers Care Filters Assembler Name Role Phone Ginna Power MD Primary Care Provider [phone] Reason for Visit * Reason Onset Date Comments Order Request 04/09/2023 Encounter Details Date Type Department Care Team Description 04/09/2023 Telephone Pharmacy, [place] [address] [place] [address] [facility] [address] [place] [address] Order Request Allergies Active Allergy Reactions Severity Noted Date Comments Aripiprazole Neuro complications (Please comment) High 09/30/2019 Tardive dyskinesia [place] (Diagnostic) Low 03/10/2015 Other reaction(s): STRAWBERRIES/TOMATOE S [...] Active Additional Information Patient taking differently:1,000 mg [id number] PRN, Pain, Fever, Reported on 12/16/2022 Nebulizers (NEBULIZER COMPRESSOR) [facility] [place] via nebulizer. Use as directed. 1 Each 1 10/06/2018 Active albuterol-ipratropi um (DUONEB) 2.5-0.5 MG/3ML nebulizer solution Inhale 3 mL via nebulizer 4 times a day. 360 Vial 0 04/16/2019 Active loratadine (RA LORATADINE) 10 MG TabletIndications:C hronic frontal sinusitis Take 1 Tab by mouth daily. 90 Tab 0 04/16/2019 Active [place] Carbonate 300 MG Oral Capsule (Eskalith) Take [...] old 06/02/2012,,08/07/2011 Pneumococcal Conjugate Vacci ne, 20-valent ([id number]) 07/24/2022 Pneumococcal Polysaccharide PPV23 (Pneumovax) 07/29/2013 Seasonal [...] encounter Miscellaneous Notes * Addendum Note - Brooklyn Blackmon, [facility] - 04/09/2023 5:08 PM EDTAddended by: BROOKLYN BLACKMON on: 04/09/2023 05:08 PM Modules accepted: Orders, SmartSet * Telephone Encounter - Brooklyn Blackmon RP - 04/09/2023 5:08 PM EDT Appears PT-INR already in process. Ordered standing PT-INR for future. Brooklyn Blackmon PharmD, [facility] Sprigger Clinical Pharmacist 04/09/2023, 5:08 PM * Telephone Encounter - JORDAN Ambrosio Tech - 04/09/2023 2:52 PM EDT Please sign pt inr order in lab * Telephone Encounter - Akila Leon MA - 04/09/2023 2:36 PM EDT Please sign order, patient in lab now, will be starting an antibiotic today, thank you. documented in this encounter Plan of Treatment Upcoming Encounters Date Type Specialty Care Team Description 04/10/2023 Anticoagulation Pharmacy [facility] [address] [place] [address] 04/16/[address] [facility] [address] [place] [address] 05/12/2023 Office Visit Ophthalmology Uri Quintana, DO [address] [facility] [place] [address] 06/10/2023 Office Visit Sleep Disorders Sherita Coelho, DO [address] [place] [address] 06/10/2023 Office Visit Internal Medicine Ginna Power MD [address] [place] [place] [address] 07/22/2023 Office Visit Neurology Mahendra Del Valle MD [address] [place] [address] 07/25/2023 Office Visit Neurology Vannesa Crouch DO [address] [place] [address] 01/07/2024 Imaging Radiology 01/19/2024 Telemedicine Sleep Disorders Lynsey Kam, DO [address] [place] [phone] Pending Results Name Type Priority Associated Diagnoses Date /Time PT INR Lab Routine MTHFR mutation (methylenetetrahydrofolate reductase) Pulmonary embolus (HCC) 04/09/2023 3:56 PM EDT Scheduled Orders Name Type Priority Associated Diagnoses Orde r Schedule PT INR Lab Routine MTHFR mutation (methylenetetrahydro folate reductase) Pulmonary embolus (HCC) Expected: 04/09/2023, Expires: 04/09/2024 PT INR Lab Routine MTHFR mutation (methylenetetrahydro folate reductase) 26 Occurrences starting 04/09/2023 until 04/08/2024 INR [place], POINT OF CARE Point of Care Testing - Unsolicited Results STAT MTHFR mutation (methylenetetrahydro folate reductase) Every 2 Weeks for 26 Occurrences starting 04/09/2023 until 04/09/2024 Health Maintenance Due Date Last Done Comments [...] reductase)- Primary Disturbances of sulphur-bearing amino-acid metabolism Pulmonary embolus (HCC) Other pulmonary embolism and infarction Anticoagulation management encounter Encounter for therapeutic drug monitoring intermediate manager current use of anticoagulant therapy documented in this encounter Advance Directives Latest [...] the patient have Health Care Power of Rubber Off? No Code Status History Code Status Date Activated Date Inactivated Comments Full Code 09/19/2020 9:51 AM 09/19/2020 10:03 AM Th is order reflects the patients wishes and were consensually agreed upon. Question Answer Comments Discussion of Advance Directives occurred with: Patient Does the patient have a Living Will? No Does the patient have Health Care Power of Rubber Off? No Full Code 08/18/2020 9:52 AM 08/18/2020 2:40 PM Thi s order reflects the patients wishes and were consensually agreed upon. Question Answer Comments Discussion of Advance Directives occurred with: Patient Does the patient have a Living Will? No Does the patient have Health Care Power of Rubber Off? No Care Teams Filters Assembler Relationship Specialty Start Date End Date Ginna Power MD [address] [place] [address], [place] [address] PCP - General Internal Medicine 09/05/21 documented as of this encounter
--- OUTSIDE RECORDS SUMMARY | 2023-09-11 00:18 | External Medical Summary | Summary of Care ---
Author Name Unknown Organization [facility] Address [address] [facility] [address] Phone [phone] Care Team Providers Care Greenhouse Superintendent Name Role Phone Ginna Power MD Primary Care Provider [phone] Reason for Visit * Reason Onset Date Comments Order Request 04/09/2023 Encounter Details Date Type Department Care Team Description 04/09/2023 Telephone Pharmacy, [place] [address] [place] [address] [facility] [address] [place] [address] Order Request Allergies Active Allergy Reactions Severity Noted Date Comments Aripiprazole Neuro complications (Please comment) High 09/30/2019 Tardive dyskinesia [place] (Diagnostic) Low 03/10/2015 Other reaction(s): STRAWBERRIES/TOMATOE S [...] Active Additional Information Patient taking differently:1,000 mg [id number] PRN, Pain, Fever, Reported on 12/16/2022 Nebulizers [...] mouth daily. 90 Tab 0 04/16/2019 Active [place] Carbonate 300 MG Oral Capsule (Eskalith) Take [...] old 06/02/2012,,08/07/2011 Pneumococcal Conjugate Vacci ne, 20-valent ([id number]) 07/24/2022 Pneumococcal Polysaccharide PPV23 (Pneumovax) 07/29/2013 Seasonal [...] encounter Miscellaneous Notes * Telephone Encounter - Karla Cantu, drink waiter - 04/09/2023 2:52 PM EDT Please sign pt inr order in lab * Telephone Encounter - Akila Leon MA - 04/09/2023 2:36 PM EDT Please sign order, patient in lab now, will be starting an antibiotic today, thank you. documented in this encounter Plan of Treatment Upcoming Encounters Date Type Specialty Care Team Description 04/10/2023 Anticoagulation Pharmacy [facility] [address] [place] [address] 04/16/2023 Anticoagulation Pharmacy [facility] [address] [place] [address] 05/12/2023 Office Visit Ophthalmology Uri Quintana, DO [address] [place] [address] 06/10/2023 Office Visit Sleep Disorders Sherita Coelho, DO [address] [facility] [address] 06/10/2023 Office Visit Internal Medicine Ginna Power MD [address] [place] [address] 07/22/2023 Office Visit Neurology Mahendra Del Valle MD [address] [place], [place] [id number] 07/25/2023 Office Visit Neurology Vannesa Crouch, DO [address] [place] [address] 01/07/2024 Imaging Radiology 01/19/2024 Telemedicine Sleep Disorders Lynsey Kam, DO [address] [place] [phone] Pending Results Name Type Priority Associated Diagnoses Date /Time PT INR Lab Routine MTHFR mutation (methylenetetrahydrofolate reductase) Pulmonary embolus (HCC) 04/09/2023 3:56 PM EDT Scheduled Orders Name Type Priority Associated Diagnoses Orde r Schedule PT INR Lab Routine MTHFR mutation (methylenetetrahydrofolate reductase) Pulmonary embolus (HCC) Expected: 04/09/2023, Expires: 04/09/2024 Health Maintenance Due Date Last Done [...] the patient have Health Care Power of Assembler Liquid Center? No Code Status History Code Status Date Activated Date Inactivated Comments Full Code 09/19/2020 9:51 AM 09/19/2020 10:03 AM Th is order reflects the patients wishes and were consensually agreed upon. Question Answer Comments Discussion of Advance Directives occurred with: Patient Does the patient have a Living Will? No Does the patient have Health Care Power of Assembler Liquid Center? No Full Code 08/18/2020 9:52 AM 08/18/2020 2:40 PM Thi s order reflects the patients wishes and were consensually agreed upon. Question Answer Comments Discussion of Advance Directives occurred with: Patient Does the patient have a Living Will? No Does the patient have Health Care Power of Assembler Liquid Center? No Care Teams Greenhouse Superintendent Relationship Specialty Start Date End Date Ginna Power MD [address] [place] [address] PCP - General Internal Medicine 09/05/21 documented as of this encounter
--- OUTSIDE RECORDS SUMMARY | 2023-09-11 00:19 | External Medical Summary | Summary of Care ---
Author Name Unknown Organization [facility] Address [address] [facility] [place] [address] Phone [phone] Care Team Providers Care Medical Field Representative Name Role Phone Ginna Power MD Primary Care Provider [phone] Reason for Visit * Reason Comments Outpatient Testing Encounter Details Date Type Department Care Team Description 04/09/2023 Laboratory Laboratory, [place] [address] [place] [address] [place] [address] [place] [address] Dysuria Allergies Active Allergy Reactions Severity Noted Date Comments Aripiprazole Neuro complications (Please comment) High 09/30/2019 Tardive dyskinesia [place] (Diagnostic) Low 03/10/2015 Other reaction(s): STRAWBERRIES/TOMATOE S [...] Active Additional Information Patient taking differently:1,000 mg [id number] PRN, Pain, Fever, Reported on 12/16/2022 Nebulizers (NEBULIZER COMPRESSOR) [facility] Inhale via nebulizer. Use as directed. 1 Each 1 10/06/2018 Active albuterol-ipratropi um (DUONEB) 2.5-0.5 MG/3ML nebulizer solution Inhale 3 mL via nebulizer 4 times a day. 360 Vial 0 04/16/2019 Active loratadine (RA LORATADINE) 10 MG TabletIndications:C hronic frontal sinusitis Take 1 Tab by mouth daily. 90 Tab 0 04/16/2019 Active [place] Carbonate 300 MG Oral Capsule (Eskalith) Take [...] old 06/02/2012,,08/07/2011 Pneumococcal Conjugate Vacci ne, 20-valent ([id number]) 07/24/2022 Pneumococcal Polysaccharide PPV23 (Pneumovax) 07/29/2013 Seasonal [...] Specialty Care Team Description 04/10/2023 Anticoagulation Pharmacy [facility] [address] [place] [address] 04/16/2023 [facility] [place], [facility] [address] [place] [address] 05/12/2023 Office Visit Ophthalmology Uri Quintana, DO [address] [place] [address] 06/10/2023 Office Visit Sleep Disorders Sherita Coelho, DO [address] [place] [address] 06/10/2023 Office Visit Internal Medicine Ginna Power MD [address] [place] [address] 07/22/2023 Office Visit Neurology Mahendra Del Valle MD [address] [place] [address] 07/25/2023 Office Visit Neurology Vannesa Crouch, DO [address] [place] [address] 01/07/2024 Imaging Radiology 01/19/2024 Telemedicine Sleep Disorders Lynsey Kam, DO [address] [place] [address] Pending Results Name Type Priority Associated Diagnoses Date /Time URINALYSIS, REFLEX TO MICROSCOPIC Lab Routine Dysuria 04/09/2023 2:40 PM EDT Health Maintenance Due Date Last [...] of this encounter Visit Diagnoses Diagnosis Dysuria documented in this encounter Advance Directives Latest [...] the patient have Health Care Power of Conference Interpreter? No Code Status History Code Status Date Activated Date Inactivated Comments Full Code 09/19/2020 9:51 AM 09/19/2020 10:03 AM Th is order reflects the patients wishes and were consensually agreed upon. Question Answer Comments Discussion of Advance Directives occurred with: Patient Does the patient have a Living Will? No Does the patient have Health Care Power of Conference Interpreter? No Full Code 08/18/2020 9:52 AM 08/18/2020 2:40 PM Thi s order reflects the patients wishes and were consensually agreed upon. Question Answer Comments Discussion of Advance Directives occurred with: Patient Does the patient have a Living Will? No Does the patient have Health Care Power of Conference Interpreter? No Care Teams Medical Field Representative Relationship Specialty Start Date End Date Ginna Power MD [address] [place] [address] PCP - General Internal Medicine 09/05/21 documented as of this encounter
--- OUTSIDE RECORDS SUMMARY | 2023-09-11 00:19 | External Medical Summary ---
Author Name Unknown Address Unknown Organization [id number]:LABORATORY [facility] - [address] [facility] [address] [place] [id number] Laboratory Report Ordering Provider Test Date Status ADIN DESAI 04/09/2023 14:40:45 Final Observation Date Value Abnormality Reference (Units) Status Bacteria identified in Unspecified specimen by Culture 04/09/2023 14:40:45 [id number]^STAPHYLOCOC CUS, COAGULASE NEGATIVE, NOT S. SAPROPHYTICUS Abnormal Final >100,000 colonies/mL Staphyl ococcus, coagulase negative, not S. saprophyticus Performing Location LAB[facility] - [address] [facility] [address] Ordering Provider Test Date Status ADIN DESAI 04/09/2023 14:40:45 Final Observation Date Value Abnormality Reference (Units ) Status Nitrofurantoin susceptibility 04/09/2023 14:40:45 <=16 Susceptible Final Oxacillinsusceptibility 04/09/2023 14:40:45 <=0.25 Susceptible Final Penicillin susceptibility 04/09/2023 14:40:45 <=0.03 Resistant Final Tetracyclinesusceptibility 04/09/2023 14:40:45 <=1 Susceptible Final TMP-SMZ susceptibility 04/09/2023 14:40:45 <=10 Susceptible Final Vancomycinsusceptibility 04/09/2023 14:40:45 1 Susceptible Final Test: Culture, Urine, Quanti tative
Specimen Source: Urine, Unspecified
Specimen Type: Urine
Specimen Date: 04/09/2023 2:40 PM
Result Date: 04/12/2023 10:21 AM
Result Status: Final result
Abnormal: Yes
Resulting Lab: [facility]
[address]
[place] [address]

CULTURE

>100,000 colonies/mL Staphylococcus, coagulase negative, not S. saprophyticus
(Abnormal)

SUSCEPTIBILITY

Staphylococcus,
coagulase negative,
not S.
saprophyticus
METHOD MICROBROTH
DILUTIONS

NITROFURANTOIN <=16 Susceptible
OXACILLIN <=0.25 Susceptible
PENICILLIN G <=0.03 Resistant
TETRACYCLINE <=1 Susceptible
TRIMETH/SULFAMETHOXAZOLE <=10 Susceptible
VANCOMYCIN 1 Susceptible

[facility] Performing Location LABORATORY [facility] - [address] [facility] [address]
--- OUTSIDE RECORDS SUMMARY | 2023-09-11 00:19 | External Medical Summary ---
Author Name Unknown Address Unknown Organization [id number]:LABORATORY [facility] [place] - [address] [facility] [address] Laboratory Report Ordering Provider Test Date Status NAUN LOPEZ 04/09/2023 15:56:55 Final Warfarin Therapy
INR: 2 .0-3.0 conventional anticoagulation
INR: 2.5- 3.5 high intensity anticoagulation Observation Date Value Abnormality Reference (Units ) Status PT 04/09/2023 15:56:55 34.4 Above high normal 11 .6-15.2 (seconds) Final INR 04/09/2023 15:56:55 3.4 Above high normal 0. 8-1.2 Final Performing Location LAB[facility]ORY [facility] [address] [facility] [address]
--- OUTSIDE RECORDS SUMMARY | 2023-09-11 00:19 | External Medical Summary ---
Author Name Unknown Address Unknown Organization K01:LABORATORY [facility] - [address] [facility] [place] [address] Laboratory Report Ordering Provider Test Date Status ADIN DESAI 04/09/2023 14:40:45 Final Observation Date Value Abnormality Reference (Units ) Status Color of Urine by Auto 04/09/2023 14:40:45 Light Yellow Colorless, Light Yellow, Yellow, Dark Yellow Final Clarity, Urine 04/09/2023 14:40:45 Slightly Cloudy Abnormal Clear Final Glucose [Mass/volume] in Urine by Automated test strip 04/09/2023 14:40:45 Negative Negative (mg/dL) Final Bilirubin.total [Presence] in Urine by Automated test strip 04/09/2023 14:40:45 Negative Negative Final Ketones [Mass/volume] in Urine by Automated test strip 04/09/2023 14:40:45 Negative Negative (mg/dL) Final Specific gravity, Urine 04/09/2023 14:40:45 1.013 1.003-1.030 Final Hemoglobin [Presence] in Urine by Automated test strip 04/09/2023 14:40:45 Small Abnormal Negative Final pH, Urine 04/09/2023 14:40:45 7.0 5.0-7.5 (Units) Final Protein [Mass/volume] in Urine by Automated test strip 04/09/2023 14:40:45 Negative Negative (mg/dL) Final Urobilinogen [Mass/volume] in Urine by Automated test strip 04/09/2023 14:40:45 Normal Normal (mg/dL) Final Nitrite [Presence] in Urine by Automated test strip 04/09/2023 14:40:45 Negative Negative Final Leukocyte esterase [Presence] in Urine by Automated test strip 04/09/2023 14:40:45 Large Abnormal Negative Final RBC, Urine 04/09/2023 14:40:45 3-5 Abnormal 0-2 (/HPF) Final WBC, Urine 04/09/2023 14:40:45 50+ Abnormal 0-2 (/HPF) Final Bacteria [#/area] in Urine sediment by Microscopy high power field 04/09/2023 14:40:45 101-150 Abnormal 0-25 (/HPF) Final Transitional cells [#/area] in Urine sediment by Microscopy high power field 04/09/2023 14:40:45 1-4 Abnormal None (/HPF) Final Performing Location [facility] [place] [address] [facility] [address]
--- OUTSIDE RECORDS SUMMARY | 2023-09-11 00:19 | External Medical Summary | Summary of Care ---
Author Name Unknown Organization [facility] Address [address] [facility] [place] [address] Phone [phone] Care Team Providers Care Core Analysis Operator Name Role Phone Ginna Power MD Primary Care Provider [phone] Reason for Visit * Reason Comments Outpatient Testing Encounter Details Date Type Department Care Team Description 04/09/2023 Laboratory Laboratory, [place] [address] [place] [address] [place], [facility] [address] [place] [address] Dysuria Allergies Active Allergy Reactions Severity Noted Date Comments Aripiprazole Neuro complications (Please comment) High 09/30/2019 Tardive dyskinesia [place] (Diagnostic) Low 03/10/2015 Other reaction(s): STRAWBERRIES/TOMATOE [...] Active Additional Information Patient taking differently:1,000 mg [id number] PRN, Pain, Fever, Reported on 12/16/2022 Nebulizers (NEBULIZER COMPRESSOR) [facility] Inhale via nebulizer. Use as directed. 1 Each 1 10/06/2018 Active albuterol-ipratropi um (DUONEB) 2.5-0.5 MG/3ML nebulizer solution Inhale 3 mL via nebulizer 4 times a day. 360 Vial 0 04/16/2019 Active loratadine (RA LORATADINE) 10 MG TabletIndications:C hronic frontal sinusitis Take 1 Tab by mouth daily. 90 Tab 0 04/16/2019 Active [place] Carbonate 300 MG Oral Capsule (Eskalith) Take [...] old 06/02/2012,,08/07/2011 Pneumococcal Conjugate Vacci ne, 20-valent ([id number]) 07/24/2022 Pneumococcal Polysaccharide PPV23 (Pneumovax) 07/29/2013 Seasonal [...] Care Team Description 04/10/2023 Anticoagulation Pharmacy [facility] [address] [place] [facility] [place] [address] 04/16/2023 [facility] [place], [facility] [address] [place] [address] 05/12/2023 Office Visit Ophthalmology Uri Quintana, DO [address] [place] [address] 06/10/2023 Office Visit Sleep Disorders Sherita Coelho, DO [address] [place] [address] 06/10/2023 Office Visit Internal Medicine Ginna Power MD [address] [facility] [address] 07/22/2023 Office Visit Neurology Mahendra Del Valle MD [address] [place] [address] 07/25/2023 Office Visit Neurology Vannesa Crouch, DO [address] [place] [address] 01/07/2024 Imaging Radiology 01/19/2024 Telemedicine Sleep Disorders Lynsey Kam, DO [address] [place] [address] Pending Results Name Type Priority Associated Diagnoses [...] patient have Health Care Power of Waste Cotton Cleaner? No Code Status History Code Status Date Activated Date Inactivated Comments Full Code 09/19/2020 9:51 AM 09/19/2020 10:03 AM Th is order reflects the patients wishes and were consensually agreed upon. Question Answer Comments Discussion of Advance Directives occurred with: Patient Does the patient have a Living Will? No Does the patient have Health Care Power of Waste Cotton Cleaner? No Full Code 08/18/2020 9:52 AM 08/18/2020 2:40 PM Thi s order reflects the patients wishes and were consensually agreed upon. Question Answer Comments Discussion of Advance Directives occurred with: Patient Does the patient have a Living Will? No Does the patient have Health Care Power of Waste Cotton Cleaner? No Care Teams Core Analysis Operator Relationship Specialty Start Date End Date Ginna Power MD [address] [place] [address] PCP - General Internal Medicine 09/05/21 documented as of this encounter
--- OUTSIDE RECORDS SUMMARY | 2023-09-11 00:19 | External Medical Summary | Summary of Care ---
Author Name Unknown Organization [facility] Address [address] [facility] [place] [address] Phone [phone] Care Team Providers Care Instructional Aide Name Role Phone Ginna Power MD Primary Care Provider [phone] Reason for Visit * Reason Comments Outpatient Testing Encounter Details Date Type Department Care Team Description 04/09/2023 Laboratory Laboratory, [place] [address] [place] [address] [place] [address] [place] [address] Dysuria Allergies Active Allergy Reactions Severity Noted Date Comments Aripiprazole Neuro complications (Please comment) High 09/30/2019 Tardive dyskinesia [place] (Diagnostic) Low 03/10/2015 Other reaction(s): STRAWBERRIES/TOMATOE S [...] Active Additional Information Patient taking differently:1,000 mg [id number] PRN, Pain, Fever, Reported on 12/16/2022 Nebulizers [...] mouth daily. 90 Tab 0 04/16/2019 Active [place] Carbonate 300 MG Oral Capsule (Eskalith) Take [...] old 06/02/2012,,08/07/2011 Pneumococcal Conjugate Vacci ne, 20-valent ([id number]) 07/24/2022 Pneumococcal Polysaccharide PPV23 (Pneumovax) 07/29/2013 Seasonal [...] Care Team Description 04/10/2023 Anticoagulation Pharmacy [facility] [address] [place] [facility] [place] [address] 04/16/2023 [facility] [place], [facility] [address] [place] [address] 05/12/2023 Office Visit Ophthalmology Uri Quintana, DO [address] [place] [address] 06/10/2023 Office Visit Sleep Disorders Sherita Coelho, DO [address] [place] [address] 06/10/2023 Office Visit Internal Medicine Ginna Power MD [address] [place] [address] 07/22/2023 Office Visit Neurology Mahendra Del Valle MD [address] [place] [address] 07/25/2023 Office Visit Neurology Vannesa Crouch, DO [address] [place] [address] 01/07/2024 Imaging Radiology 01/19/2024 Telemedicine Sleep Disorders Lynsey Kam, DO [address] [place] [address] Pending Results Name Type Priority Associated Diagnoses [...] the patient have Health Care Power of Supervisor Agency Appointments? No Code Status History Code Status Date Activated Date Inactivated Comments Full Code 09/19/2020 9:51 AM 09/19/2020 10:03 AM Th is order reflects the patients wishes and were consensually agreed upon. Question Answer Comments Discussion of Advance Directives occurred with: Patient Does the patient have a Living Will? No Does the patient have Health Care Power of Supervisor Agency Appointments? No Full Code 08/18/2020 9:52 AM 08/18/2020 2:40 PM Thi s order reflects the patients wishes and were consensually agreed upon. Question Answer Comments Discussion of Advance Directives occurred with: Patient Does the patient have a Living Will? No Does the patient have Health Care Power of Supervisor Agency Appointments? No Care Teams Instructional Aide Relationship Specialty Start Date End Date Ginna Power MD [address] [place] [address] PCP - General Internal Medicine 09/05/21 documented as of this encounter
--- OUTSIDE RECORDS SUMMARY | 2023-09-11 00:19 | External Medical Summary | Summary of Care ---
Author Name Unknown Organization [facility] Address [address] [place] [facility] [place] [facility] [place] [address] Phone [phone] Care Team Providers Care Brake Lining Curer Name Role Phone Ginna Power MD Primary Care Provider [phone] Reason for Visit * Reason Comments Outpatient Testing Encounter Details Date Type Department Care Team Description 04/09/2023 Laboratory Laboratory, [place] [address] [place] [address] [place], [facility] [address] [place] [address] Dysuria Allergies Active Allergy Reactions Severity Noted Date Comments Aripiprazole Neuro complications (Please comment) High 09/30/2019 Tardive dyskinesia [place] (Diagnostic) Low 03/10/2015 Other reaction(s): STRAWBERRIES/TOMATOE S [...] Active Additional Information Patient taking differently:1,000 mg [id number] PRN, Pain, Fever, Reported on 12/16/2022 Nebulizers [...] mouth daily. 90 Tab 0 04/16/2019 Active [place] Carbonate 300 MG Oral Capsule (Eskalith) Take [...] old 06/02/2012,,08/07/2011 Pneumococcal Conjugate Vacci ne, 20-valent ([id number]) 07/24/2022 Pneumococcal Polysaccharide PPV23 (Pneumovax) 07/29/2013 Seasonal [...] Care Team Description 04/10/2023 Anticoagulation Pharmacy [facility] [address] [facility] [place] [address] 04/16/2023 [facility] [place], [facility] [address] [place] [address] 05/12/2023 Office Visit Ophthalmology Uri Quintana, DO [address] [place] [address] 06/10/2023 Office Visit Sleep Disorders Sherita Coelho, DO [address] [place] [address] 06/10/2023 Office Visit Internal Medicine Ginna Power MD [address] [place] [address] 07/22/2023 Office Visit Neurology Mahendra Del Valle MD [address] [place] [address] 07/25/2023 Office Visit Neurology Vannesa Crouch, DO [address] [place] [address] 01/07/2024 Imaging Radiology 01/19/2024 Telemedicine Sleep Disorders Lynsey Kam, DO [address] [place] [address] Pending Results Name Type Priority Associated Diagnoses [...] the patient have Health Care Power of Wharf Labourer? No Code Status History Code Status Date Activated Date Inactivated Comments Full Code 09/19/2020 9:51 AM 09/19/2020 10:03 AM Th is order reflects the patients wishes and were consensually agreed upon. Question Answer Comments Discussion of Advance Directives occurred with: Patient Does the patient have a Living Will? No Does the patient have Health Care Power of Wharf Labourer? No Full Code 08/18/2020 9:52 AM 08/18/2020 2:40 PM Thi s order reflects the patients wishes and were consensually agreed upon. Question Answer Comments Discussion of Advance Directives occurred with: Patient Does the patient have a Living Will? No Does the patient have Health Care Power of Wharf Labourer? No Care Teams Brake Lining Curer Relationship Specialty Start Date End Date Ginna Power MD [address] [place] [address] PCP - General Internal Medicine 09/05/21 documented as of this encounter
--- OUTSIDE RECORDS SUMMARY | 2023-09-11 00:19 | External Medical Summary | Summary of Care ---
Author Name Unknown Organization [facility] Address [address] [facility] [place] [address] Phone [phone] Care Team Providers Care Automatic Pattern Edger Name Role Phone Ginna Power MD Primary Care Provider [phone] Reason for Visit * Reason Comments Outpatient Testing Encounter Details Date Type Department Care Team Description 04/09/2023 Laboratory Laboratory, [place] [address] [place] [address] [place], [facility] [address] [place] [address] Dysuria Allergies Active Allergy Reactions Severity Noted Date Comments Aripiprazole Neuro complications (Please comment) High 09/30/2019 Tardive dyskinesia [place] (Diagnostic) Low 03/10/2015 Other reaction(s): STRAWBERRIES/TOMATOE S [...] Active Additional Information Patient taking differently:1,000 mg [id number] PRN, Pain, Fever, Reported on 12/16/2022 Nebulizers (NEBULIZER COMPRESSOR) [facility] Inhale via nebulizer. Use as directed. 1 Each 1 10/06/2018 Active albuterol-ipratropi um (DUONEB) 2.5-0.5 MG/3ML nebulizer solution Inhale 3 mL via nebulizer 4 times a day. 360 Vial 0 04/16/2019 Active loratadine (RA LORATADINE) 10 MG TabletIndications:C hronic frontal sinusitis Take 1 Tab by mouth daily. 90 Tab 0 04/16/2019 Active [place] Carbonate 300 MG Oral Capsule (Eskalith) Take [...] old 06/02/2012,,08/07/2011 Pneumococcal Conjugate Vacci ne, 20-valent ([id number]) 07/24/2022 Pneumococcal Polysaccharide PPV23 (Pneumovax) 07/29/2013 Seasonal [...] Care Team Description 04/10/2023 Anticoagulation Pharmacy [facility] [address] [place] [facility] [place] [address] 04/16/2023 [facility] [place], [facility] [address] [place] [address] 05/12/2023 Office Visit Ophthalmology Uri Quintana, DO [address] [place] [address] 06/10/2023 Office Visit Sleep Disorders Sherita Coelho, DO [address] [place] [address] 06/10/2023 Office Visit Internal Medicine Ginna Power MD [address] [place] [address] 07/22/2023 Office Visit Neurology Mahendra Del Valle MD [address] [place] [address] 07/25/2023 Office Visit Neurology Vannesa Crouch, DO [address] [place] [address] 01/07/2024 Imaging Radiology 01/19/2024 Telemedicine Sleep Disorders Lynsey Kam, DO [address] [place] [address] Pending Results Name Type Priority Associated Diagnoses [...] the patient have Health Care Power of Clothes Model? No Code Status History Code Status Date Activated Date Inactivated Comments Full Code 09/19/2020 9:51 AM 09/19/2020 10:03 AM Th is order reflects the patients wishes and were consensually agreed upon. Question Answer Comments Discussion of Advance Directives occurred with: Patient Does the patient have a Living Will? No Does the patient have Health Care Power of Clothes Model? No Full Code 08/18/2020 9:52 AM 08/18/2020 2:40 PM Thi s order reflects the patients wishes and were consensually agreed upon. Question Answer Comments Discussion of Advance Directives occurred with: Patient Does the patient have a Living Will? No Does the patient have Health Care Power of Clothes Model? No Care Teams Automatic Pattern Edger Relationship Specialty Start Date End Date Ginna Power MD [address] [place] [address] PCP - General Internal Medicine 09/05/21 documented as of this encounter
--- OUTSIDE RECORDS SUMMARY | 2023-09-11 00:19 | External Medical Summary | Summary of Care ---
Author Name Unknown Organization [facility] Address [address] [place] [facility] [place] [address] Phone [phone] Care Team Providers Care Propagator Laborer Name Role Phone Ginna Power MD Primary Care Provider [phone] Reason for Visit * Reason Comments Outpatient Testing Encounter Details Date Type Department Care Team Description 04/09/2023 Laboratory Laboratory, [place] [address] [place] [address] [place], [facility] [address] [place] [address] Dysuria Allergies Active Allergy Reactions Severity Noted Date Comments Aripiprazole Neuro complications (Please comment) High 09/30/2019 Tardive dyskinesia [place] (Diagnostic) Low 03/10/2015 Other reaction(s): STRAWBERRIES/TOMATOE S [...] Active Additional Information Patient taking differently:1,000 mg [id number] PRN, Pain, Fever, Reported on 12/16/2022 Nebulizers (NEBULIZER COMPRESSOR) [facility] Inhale via nebulizer. Use as directed. 1 Each 1 10/06/2018 Active albuterol-ipratropi um (DUONEB) 2.5-0.5 MG/3ML nebulizer solution Inhale 3 mL via nebulizer 4 times a day. 360 Vial 0 04/16/2019 Active loratadine (RA LORATADINE) 10 MG TabletIndications:C hronic frontal sinusitis Take 1 Tab by mouth daily. 90 Tab 0 04/16/2019 Active [place] Carbonate 300 MG Oral Capsule (Eskalith) Take [...] old 06/02/2012,,08/07/2011 Pneumococcal Conjugate Vacci ne, 20-valent ([id number]) 07/24/2022 Pneumococcal Polysaccharide PPV23 (Pneumovax) 07/29/2013 Seasonal [...] Care Team Description 04/10/2023 Anticoagulation Pharmacy [facility] [address] [place] [facility] [place] [address] 04/16/2023 [facility] [place], [facility] [address] [place] [address] 05/12/2023 Office Visit Ophthalmology Uri Quintana, DO [address] [place] [address] 06/10/2023 Office Visit Sleep Disorders Sherita Coelho, DO [address] [place] [address] 06/10/2023 Office Visit Internal Medicine Ginna Power MD [address] [place] [address] 07/22/2023 Office Visit Neurology Mahendra Del Valle MD [address] [place] [address] 07/25/2023 Office Visit Neurology Vannesa Crouch, DO [address] [place] [address] 01/07/2024 Imaging Radiology 01/19/2024 Telemedicine Sleep Disorders Lynsey Kam, DO [address] [place] [address] Pending Results Name Type Priority Associated Diagnoses [...] the patient have Health Care Power of Glass Edger? No Code Status History Code Status Date Activated Date Inactivated Comments Full Code 09/19/2020 9:51 AM 09/19/2020 10:03 AM Th is order reflects the patients wishes and were consensually agreed upon. Question Answer Comments Discussion of Advance Directives occurred with: Patient Does the patient have a Living Will? No Does the patient have Health Care Power of Glass Edger? No Full Code 08/18/2020 9:52 AM 08/18/2020 2:40 PM Thi s order reflects the patients wishes and were consensually agreed upon. Question Answer Comments Discussion of Advance Directives occurred with: Patient Does the patient have a Living Will? No Does the patient have Health Care Power of Glass Edger? No Care Teams Propagator Laborer Relationship Specialty Start Date End Date Ginna Power MD [address] [place] [address] PCP - General Internal Medicine 09/05/21 documented as of this encounter
--- OUTSIDE RECORDS SUMMARY | 2023-09-11 00:19 | External Medical Summary | Summary of Care ---
Author Name Unknown Organization [facility] Address [address] [place] [place] [address] Phone [phone] Care Team Providers Care Knuckle Strap Sewer Name Role Phone Ginna Power MD Primary Care Provider [phone] Reason for Visit * Reason Comments Outpatient Testing Encounter Details Date Type Department Care Team Description 04/09/2023 Laboratory Laboratory, [place] [address] [place] [address] [place], [facility] [address] [place] [address] Dysuria Allergies Active Allergy Reactions Severity Noted Date Comments Aripiprazole Neuro complications (Please comment) High 09/30/2019 Tardive dyskinesia [place] (Diagnostic) Low 03/10/2015 Other reaction(s): STRAWBERRIES/TOMATOE S [...] Active Additional Information Patient taking differently:1,000 mg [id number] PRN, Pain, Fever, Reported on 12/16/2022 Nebulizers (NEBULIZER COMPRESSOR) [facility] Inhale via nebulizer. Use as directed. 1 Each 1 10/06/2018 Active albuterol-ipratropi um (DUONEB) 2.5-0.5 MG/3ML nebulizer solution Inhale 3 mL via nebulizer 4 times a day. 360 Vial 0 04/16/2019 Active loratadine (RA LORATADINE) 10 MG TabletIndications:C hronic frontal sinusitis Take 1 Tab by mouth daily. 90 Tab 0 04/16/2019 Active [place] Carbonate 300 MG Oral Capsule (Eskalith) Take [...] old 06/02/2012,,08/07/2011 Pneumococcal Conjugate Vacci ne, 20-valent ([id number]) 07/24/2022 Pneumococcal Polysaccharide PPV23 (Pneumovax) 07/29/2013 Seasonal [...] Care Team Description 04/10/2023 Anticoagulation Pharmacy [facility] [address] [place] [facility] [place] [place] [address] 04/16/2023 [facility] [place], [facility] [address] [place] [address] 05/12/2023 Office Visit Ophthalmology Uri Quintana, DO [address] [place] [address] 06/10/2023 Office Visit Sleep Disorders Sherita Coelho, DO [address] [place] [address] 06/10/2023 Office Visit Internal Medicine Ginna Power MD [address] [facility] [address] 07/22/2023 Office Visit Neurology Mahnedra Del Valle MD [address] [place] [address] 07/25/2023 Office Visit Neurology Vannesa Crouch, DO [address] [place] [address] 01/07/2024 Imaging Radiology 01/19/2024 Telemedicine Sleep Disorders Lynsey Kam, DO [address] [place] [address] Pending Results Name Type Priority Associated Diagnoses [...] the patient have Health Care Power of Comic Writer? No Code Status History Code Status Date Activated Date Inactivated Comments Full Code 09/19/2020 9:51 AM 09/19/2020 10:03 AM Th is order reflects the patients wishes and were consensually agreed upon. Question Answer Comments Discussion of Advance Directives occurred with: Patient Does the patient have a Living Will? No Does the patient have Health Care Power of Comic Writer? No Full Code 08/18/2020 9:52 AM 08/18/2020 2:40 PM Thi s order reflects the patients wishes and were consensually agreed upon. Question Answer Comments Discussion of Advance Directives occurred with: Patient Does the patient have a Living Will? No Does the patient have Health Care Power of Comic Writer? No Care Teams Knuckle Strap Sewer Relationship Specialty Start Date End Date Ginna Power MD [address] [place] [address] PCP - General Internal Medicine 09/05/21 documented as of this encounter
--- OUTSIDE RECORDS SUMMARY | 2023-09-11 00:19 | External Medical Summary | Summary of Care ---
Author Name Unknown Organization [facility] Address [address] [facility] [place] [address] Phone [phone] Care Team Providers Care Lawyer Name Role Phone Ginna Power MD Primary Care Provider [phone] Encounter Details Date Type Department Care Team Description 04/09/2023 [facility] [address] [place] [address] Annetta Elise PA-C [address] [place] [address] Dysuria* Allergies Active Allergy Reactions Severity Noted Date Comments Aripiprazole Neuro complications (Please comment) High 09/30/2019 Tardive dyskinesia [place] (Diagnostic) Low 03/10/2015 Other reaction(s): STRAWBERRIES/TOMATOE S [...] Active Additional Information Patient taking differently:1,000 mg [id number] PRN, Pain, Fever, Reported on 12/16/2022 Nebulizers (NEBULIZER COMPRESSOR) [facility] Inhale via nebulizer. Use as directed. 1 Each 1 10/06/2018 Active albuterol-ipratropi um (DUONEB) 2.5-0.5 MG/3ML nebulizer solution Inhale 3 mL via nebulizer 4 times a day. 360 Vial 0 04/16/2019 Active loratadine (RA LORATADINE) 10 MG TabletIndications:C hronic frontal sinusitis Take 1 Tab by mouth daily. 90 Tab 0 04/16/2019 Active [place] Carbonate 300 MG Oral Capsule (Eskalith) Take [...] old 06/02/2012,,08/07/2011 Pneumococcal Conjugate Vacci ne, 20-valent ([id number]) 07/24/2022 Pneumococcal Polysaccharide PPV23 (Pneumovax) 07/29/2013 Seasonal [...] as of this encounter Progress Notes * Annetta Elise PA-C - 04/09/2023 12:52 PM EDT Patient location: HOME. I was in a hospital or clinic location. After connecting through [employer],patient was verified with two unique identifiers. Patient (or authorized legal fuels sales representative) was then informed that this was a Telemedicine visit and being conducted confidentially over secure lines. Methods to assure confidentiality were taken. Patient acknowledged consent and understanding of pr ivacy and security of the Telemedicine visit. The patient agreed to participate. Subjective: Rody Jean Baptiste is a 47 year old female. No chief complaint on file. HPI: Patient presents for burning with urination, urine frequency. Sx for the past few days. denies any flank pain, fever, chills, abd pain. Has had utis in the past and sx feel simialr per pt. 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 Trochanteric bursitis of both hips M70.61, M70.62 Chondromalacia patellae, 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 Do all this for 7 days. With food until gone. 14 Capsule 0 VITAMIN B-12 500 MCG PO TABS [...] Tab by mouth daily. 90 Tab 0 [place] Carbonate 300 MG Oral Capsule (Eskalith) Take [...] an empty stomach. 30 Tablet 5 metroNIDAZOLE 500 MG Oral Tablet (Flagyl) Take 1 Tablet by mouth in the morning and 1 Tablet before bedtime. 14 Tablet 0 SUMAtriptan Succinate 50 MG Oral Tablet (Imitrex) TAKE 2 TABLETS AT ONSET MIGRAINE MAY REPEAT 1TABLET IN 2 HOURS- MAX OF 5 IN 24 HOURS 9 Tablet 1 No current facility-administered medications for [...] ANESTHESIA performed by Moises Mcfarlane MD at [facility] ANORECTAL EXAM ,DIAG, REQUIRING ANESTHESIA N/A 09/19/2020 ANORECTAL EXAM UNDER ANESTHESIA performed by Moises Mcfarlane MD at [facility] D&C.[facility]. 2002 HEMORRHOIDECTOMY, SIMPLE, 1 COLUMN N/A 08/18/2020 HEMORRHOIDECTOMY EXTERNAL AND INTERNAL SIMPLE performed by Moises Mcfarlane MD at [facility] HEMORRHOIDECTOMY, SIMPLE, 1 COLUMN N/A 09/19/2020 HEMORRHOIDECTOMY EXTERNAL AND INTERNAL SIMPLE performed by Moises Mcfarlane MD at [facility] LAP ABLATION UTERINE FIBROIDS W/INTRAOP US GUIDE 2014 LAPAROSCOPY;WITH BIOPSY 1996 endometreosis SACROILIAC JOINT INJECT W/GUIDANCE 08/06/2018 INJECTION SACROILIAC JOINT performed by Torito Orta DO at [facility] SACROILIAC JOINT INJECT W/GUIDANCE 10/15/2018 INJECTION SACROILIAC JOINT performed by Torito Orta DO at [facility] Review of patient's allergies indicates: Allergen Reactions Aripiprazole Neuro complications (Please comment) Tardive dyskinesia [place] (Diagnostic) Other reaction(s): STRAWBERRIES/TOMATOES IN LARGE VOLUMES-ULCERS [...] (Unsp (Not Specified) No history (Not Specified) Social History Socioeconomic History Marital status: Single Spouse name: Not on file Number of children: Not on file Years of education: Not on file Highest education level: Not on file Occupational History Not on file Tobacco Use Smoking status: Never Smokeless tobacco: Never Vaping Use Vaping Use: Some days Substances: THC Devices: Disposable Substance and Sexual Activity Alcohol use: No Comment: maybe once a year Drug use: Yes Frequency: 4.0 times per week Types: Marijuana Comment: MEDICIAL Sexual activity: Yes Partners: Male, Female Other Topics Concern Not on file 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 [employer] Social Determinants of Health Financial Resource Strain: Not on file Food Insecurity: Not on file Transportation Needs: Not on file Physical Activity: Not on file Stress: Not on file Social Connections: Not on file Intimate Partner Violence: Not on file Housing Stability: Not on file Review of Systems: Constitutional ROS: No fevers, sweats, or chills Eye ROS: No eye pain, redness, discharge and No diplopia Pulmonary ROS: No cough, sputum, or hemoptysis, No wheezing, No shortness of breath and No recent change in breathing Cardiovascular ROS: No chest pain, No shortness of breath, No dyspnea on exertion, No edema, No palpitations and No syncope Gastrointestinal ROS: No abdominal pain, No change in bowel habits, No significant change in appetite, No nausea, vomiting, diarrhea, or constipation, No blood in stools : urinary sx as per hpi Skin/Integumentary ROS: No edema, No rash and No itching Neurologic ROS: Normal balance, No headaches OBJECTIVE: Physical Exam: There were no vitals taken for this visit. No vitals as pt does not have equipment General: alert, healthy, no distress, well nourished and well developed Head: Normocephalic, No masses, lesions Eye Exam: EOMI, sclera clear Neuro Exam: alert & oriented x 3 with fluent speech Assessment/Plan: Dysuria (Primary) ua and cx ordered Will give specimen and then start med Will notify pt with results - URINALYSIS, REFLEX TO MICROSCOPIC; Future; Expected date: 04/09/2023 - CULTURE, URINE, QUANTITATIVE Other orders - Nitrofurantoin Monohyd Macro 100 MG Oral Capsule (Macrobid); Take 1 Capsule by mouth in the morning and 1 Capsule before bedtime. Do all this for 7 days. With food until gone. Annetta Elise PA-C [facility] [place] [address] [place] [address] documented in this encounter Plan of Treatment Upcoming Encounters Date Type Specialty Care Team Description 04/16/[address] [address] 05/12/2023 Office Visit Ophthalmology Uri Quintana, DO [address] [place] [address] 06/10/2023 Office Visit Sleep Disorders Sherita Coelho, DO [address] [place] [address] 06/10/2023 Office Visit Internal Medicine Ginna Power MD [address] [place] [facility] [place] [address] 07/22/2023 Office Visit Neurology Mahendra Del Valle MD [address] [place], [place] [id number] 07/25/2023 Office Visit Neurology Vannesa Crouch, DO [address] [place], [place] [id number] 01/07/2024 Imaging Radiology 01/19/2024 Telemedicine Sleep Disorders Lynsey Kam, DO [address] [place] [address] Scheduled Orders Name Type Priority Associated Diagnoses Orde r Schedule URINALYSIS, REFLEX TO MICROSCOPIC Lab Routine Dysuria Expected: 04/09/2023, Expires: 04/09/2024 CULTURE, URINE, QUANTITATIVE Lab Routine Dysuria Ordered: 04/09/2023 Health Maintenance Due Date Last Done Comments [...] as of this encounter Visit Diagnoses Diagnosis Dysuria- Primary documented in this encounter Advance Directives [...] the patient have Health Care Power of Air Analysis Engineering Technician? No Code Status History Code Status Date Activated Date Inactivated Comments Full Code 09/19/2020 9:51 AM 09/19/2020 10:03 AM Th is order reflects the patients wishes and were consensually agreed upon. Question Answer Comments Discussion of Advance Directives occurred with: Patient Does the patient have a Living Will? No Does the patient have Health Care Power of Air Analysis Engineering Technician? No Full Code 08/18/2020 9:52 AM 08/18/2020 2:40 PM Thi s order reflects the patients wishes and were consensually agreed upon. Question Answer Comments Discussion of Advance Directives occurred with: Patient Does the patient have a Living Will? No Does the patient have Health Care Power of Air Analysis Engineering Technician? No Care Teams Lawyer Relationship Specialty Start Date End Date Ginna Power MD [address] [place] [address] PCP - General Internal Medicine 09/05/21 documented as of this encounter
--- OUTSIDE RECORDS SUMMARY | 2023-09-11 00:19 | External Medical Summary | Summary of Care ---
Author Name Unknown Organization [facility] Address [address] [place] [facility] [place] [address] Phone [phone] Care Team Providers Care Gaming Surveillance Observer Name Role Phone Ginna Power MD Primary Care Provider Reason for Visit * Reason Comments Outpatient Testing Encounter Details Date Type Department Care Team Description 04/09/2023 [facility], [place] [address] [place] [address] [place] [address] [place] [address] Dysuria Allergies Active Allergy Reactions Severity Noted Date Comments Aripiprazole Neuro complications (Please comment) High 09/30/2019 Tardive dyskinesia [place] (Diagnostic) Low 03/10/2015 Other reaction(s): STRAWBERRIES/TOMATOE S [...] Active Additional Information Patient taking differently:1,000 mg [id number] PRN, Pain, Fever, Reported on 12/16/2022 Nebulizers (NEBULIZER COMPRESSOR) [facility] Inhale via nebulizer. Use as directed. 1 Each 1 10/06/2018 Active albuterol-ipratropi um (DUONEB) 2.5-0.5 MG/3ML nebulizer solution Inhale 3 mL via nebulizer 4 times a day. 360 Vial 0 04/16/2019 Active loratadine (RA LORATADINE) 10 MG TabletIndications:C hronic frontal sinusitis Take 1 Tab by mouth daily. 90 Tab 0 04/16/2019 Active [place] Carbonate 300 MG Oral Capsule (Eskalith) Take [...] old 06/02/2012,,08/07/2011 Pneumococcal Conjugate Vacci ne, 20-valent ([id number]) 07/24/2022 Pneumococcal Polysaccharide PPV23 (Pneumovax) 07/29/2013 Seasonal [...] Care Team Description 04/10/2023 Anticoagulation Pharmacy [facility] [address] [place] [facility] [place] [address] 04/16/2023 Pending Sale To [facility] [place] [address] [place] [address] 05/12/2023 Office Visit Ophthalmology Uri Quintana, DO [address] [place] [address] 06/10/2023 Office Visit Sleep Disorders Sherita Coelho, DO [address] [place] [address] 06/10/2023 Office Visit Internal Medicine Ginna Power MD [address] [facility] [place] [address] 07/22/2023 Office Visit Neurology Mahendra Del Valle MD [address] [place] [address] 07/25/2023 Office Visit Neurology Vannesa Crouch, DO [address] [place] [address] 01/07/2024 Imaging Radiology 01/19/2024 Telemedicine Sleep Disorders Lynsey Kam, DO [address] [place] [address] Pending Results Name Type Priority Associated Diagnoses [...] the patient have Health Care Power of Building Mechanic? No Code Status History Code Status Date Activated Date Inactivated Comments Full Code 09/19/2020 9:51 AM 09/19/2020 10:03 AM Th is order reflects the patients wishes and were consensually agreed upon. Question Answer Comments Discussion of Advance Directives occurred with: Patient Does the patient have a Living Will? No Does the patient have Health Care Power of Building Mechanic? No Full Code 08/18/2020 9:52 AM 08/18/2020 2:40 PM Thi s order reflects the patients wishes and were consensually agreed upon. Question Answer Comments Discussion of Advance Directives occurred with: Patient Does the patient have a Living Will? No Does the patient have Health Care Power of Building Mechanic? No Care Teams Gaming Surveillance Observer Relationship Specialty Start Date End Date Ginna Power MD [address] [place] [address] PCP - General Internal Medicine 09/05/21 documented as of this encounter
--- OUTSIDE RECORDS SUMMARY | 2023-09-11 00:19 | External Medical Summary | Summary of Care ---
Author Name Unknown Organization [facility] Address [address] [facility] [place] [address] Phone [phone] Care Team Providers Care Power Superintendent Name Role Phone Ginna Power MD Primary Care Provider [phone] Reason for Visit * Reason Onset Date Comments Encounter Created in Error 03/22/2023 Encounter Details Date Type Department Care Team Description [facility] [place] [place] [address] [place] [address] Ivory Cobb PA-C [address] [place] [address] Encounter Created in Error Allergies Active Allergy Reactions Severity Noted Date Comments Aripiprazole Neuro complications (Please comment) High 09/30/2019 Tardive dyskinesia [place] (Diagnostic) Low 03/10/2015 Other reaction(s): STRAWBERRIES/TOMATOE S [...] Active Additional Information Patient taking differently:1,000 mg [id number] PRN, Pain, Fever, Reported on 12/16/2022 Nebulizers (NEBULIZER COMPRESSOR) [facility] Inhale via nebulizer. Use as directed. 1 Each 1 10/06/2018 Active albuterol-ipratropi um (DUONEB) 2.5-0.5 MG/3ML nebulizer solution Inhale 3 mL via nebulizer 4 times a day. 360 Vial 0 04/16/2019 Active loratadine (RA LORATADINE) 10 MG TabletIndications:C hronic frontal sinusitis Take 1 Tab by mouth daily. 90 Tab 0 04/16/2019 Active [place] Carbonate 300 MG Oral Capsule (Eskalith) Take [...] before bedtime. 14 Tablet 0 03/22/2023 Active documented as of this encounter (statuses [...] and with ASCUS pap 11/2021 Needs colposcopy. Chondromalacia patellae, left knee 09/05 Other fracture of shaft of r ight fibula, initial encounter for closed fracture 09/05/2021 MERYL on CPAP 09/05/2021 Sacroiliac joint disease 09/02/2018 Trochanteric bursitis of both hips 09/02 Mild single current episode of major dep ressive disorder 09/19/2017 History of pulmonary embolism 07/24/2017 Gastroesophageal reflux disease without esophagitis 12/24/2016 Bulimia nervosa 11/06/2014 MTHFR mutation (methylenetetrahydrofolat e reductase) 06/03/2013 Endometriosis Anxiety Asthma Bipolar 2 disorder Herpes genitalia HPV (human papilloma virus) infection Asthma flare documented as of this encounter (statuses as of 04/09/2023) Resolved Problems Problem Noted Date Resolved Date Morbid obesity with BMI of 50.0-59.9, adult 05/201801/08/2023 Overview: Per Obesity protocol #1 - Body mass index (BMI) of 40.0 to 44.9 in adult 1 08/10/2018 Overview: Per Obesity protocol #1 TMJ (dislocation of temporomandibular joint) 11/21/2022 Pulmonary embolus (HCC) (aka PULMONARY EMBOLUS ( HCC)) 06/07/2015 07/24/2017 Pulmonary embolism 05/25/2013 07/24/2017 Pulmonary embolism 07/29/2013 Depression 09/19/2017 documented as of this encounter (statuses as of 04/09/2023) Immunizations Name Administration Dates Next Due COVID-19 mRNA, LNP-s, No Pre serve, 2-Dose Series (Moderna) 03/06/2021,02/06/2021 HepA Inact/HepB Recomb>=18yrs old 06/02/2012,,08/07/2011 Pneumococcal Conjugate Vacci ne, 20-valent ([id number]) 07/24/2022 Pneumococcal Polysaccharide PPV23 (Pneumovax) 07/29/2013 Seasonal [...] Date Type Specialty Care Team Description 04/16/2023 [facility] [address] [place] [address] 05/12/2023 Office Visit [facility]hthalmology [facility] Quintana, DO [address] [facility] [place] [address] 06/10/2023 Office Visit Sleep Disorders Sherita Coelho, DO [address] [place] [address] 06/10/2023 Office Visit Internal Medicine Ginna Power MD [address] [place] [address] 07/22/2023 Office Visit Neurology Mahendra Del Valle MD [address] [place] [address] 07/25/2023 Office Visit Neurology Vannesa Crouch DO [address] [place] [address] 01/07/2024 Imaging Radiology 01/19/2024 Telemedicine Sleep Disorders Lynsey Kam, DO [address] [place] [address] Health Maintenance Due Date Last Done Comments [...] the patient have Health Care Power of Union Contract Representative? No Code Status History Code Status Date Activated Date Inactivated Comments Full Code 09/19/2020 9:51 AM 09/19/2020 10:03 AM Th is order reflects the patients wishes and were consensually agreed upon. Question Answer Comments Discussion of Advance Directives occurred with: Patient Does the patient have a Living Will? No Does the patient have Health Care Power of Union Contract Representative? No Full Code 08/18/2020 9:52 AM 08/18/2020 2:40 PM Thi s order reflects the patients wishes and were consensually agreed upon. Question Answer Comments Discussion of Advance Directives occurred with: Patient Does the patient have a Living Will? No Does the patient have Health Care Power of Union Contract Representative? No Care Teams Power Superintendent Relationship Specialty Start Date End Date Ginna Power MD [address] [place] [address] [place] [address] PCP - General Internal Medicine 09/05/21 documented as of this encounter
--- OUTSIDE RECORDS SUMMARY | 2023-09-11 00:20 | External Medical Summary | Summary of Care ---
Author Name Unknown Organization [facility] Address [address] [facility] [address] Phone [phone] Care Team Providers Care Charging Crane Operator Name Role Phone Ginna Power MD Primary Care Provider [phone] Reason for Visit * Reason Comments Left Without Being Seen Encounter Details Date Type Department Care Team Description 04/02/[facility] [address] [place] [address] Alexy Anna PA-C [address] [place] [address] [address] Patient left without being seen* Allergies Active Allergy Reactions Severity Noted Date Comments Aripiprazole Neuro complications (Please comment) High 09/30/2019 Tardive dyskinesia [place] (Diagnostic) Low 03/10/2015 Other reaction(s): STRAWBERRIES/TOMATOE S IN LARGE VOLUMES-ULCERS IIN MOUTH [place] Low 09/30/2019 documented as of this encounter (statuses as of 04/02/2023) Medications Medication Sig Dispensed Refills Start Date [...] Active Additional Information Patient taking differently:1,000 mg [id number] PRN, Pain, Fever, Reported on 12/16/2022 Nebulizers (NEBULIZER COMPRESSOR) [facility] Inhale via nebulizer. Use as directed. 1 Each 1 10/06/2018 Active albuterol-ipratropi um (DUONEB) 2.5-0.5 MG/3ML nebulizer solution Inhale 3 mL via nebulizer 4 times a day. 360 Vial 0 04/16/2019 Active loratadine (RA LORATADINE) 10 MG TabletIndications:C hronic frontal sinusitis Take 1 Tab by mouth daily. 90 Tab 0 04/16/2019 Active [place] Carbonate 300 MG Oral Capsule (Eskalith) Take [...] 24 HOURS 9 Tablet 1 03/26/2023 Active documented as of this encounter (statuses as of 04/02/2023) Active Problems Problem Noted Date Body mass [...] as of this encounter (statuses as of 04/02/2023) Resolved Problems Problem Noted Date Resolved Date Morbid obesity with BMI of 50.0-59.9, adult 10/05/201801/08/2023 Overview: Per Obesity protocol #1 - Body mass index (BMI) of 40.0 to 44.9 in adult 1 08/10/2018 Overview: Per Obesity protocol #1 TMJ (dislocation of temporomandibular joint) 11/21/2022 Pulmonary embolus (HCC) (aka PULMONARY EMBOLUS ( HCC)) 06/07/2015 07/24/2017 Pulmonary embolism 05/25/2013 07/24/2017 Pulmonary embolism 07/29/2013 Depression 09/19/2017 documented as of this encounter (statuses as of 04/02/2023) Immunizations Name Administration Dates Next Due COVID-19 mRNA, LNP-s, No Pre serve, 2-Dose Series (Moderna) 03/06/2021,02/06/2021 HepA Inact/HepB Recomb>=18yrs old 06/02/2012,,08/07/2011 Pneumococcal Conjugate Vacci ne, 20-valent ([id number]) 07/24/2022 Pneumococcal Polysaccharide PPV23 (Pneumovax) 07/29/2013 Seasonal [...] as of this encounter Progress Notes * TAWANNA Em - 04/02/2023 11:00 AM EDT The patient left without being seen by the provider. 04/02/2023, 11:11 AM, TAWANNA Em documented in this encounter Plan of Treatment Upcoming Encounters Date Type Specialty Care Team Description 04/16/2023 Anticoagulation Pharmacy [facility] [address] [place] [address] 05/12/2023 Office Visit Ophthalmology Uri Quintana, DO [address] [place] [address] 06/10/2023 Office Visit Sleep Disorders Sherita Coelho, DO [address] [place] [address] 06/10/2023 Office Visit Internal Medicine Ginna Power MD [address] [place] [address], [place] [address] 07/22/2023 Office Visit Neurology Mahnedra Del Valle MD [address] [place], [place] [phone] 07/25/2023 Office Visit Neurology Vannesa Crouch, DO [address] [place] [address] 01/07/2024 Imaging Radiology 01/19/2024 Telemedicine Sleep Disorders Lynsey Kam, DO [address] [place] [address] Health Maintenance Due Date Last Done Comments Cologuard 2020 Colonoscopy 2020 Colorectal Cancer Screening 2020 Fecal Occult Blood Test 2020 Sigmoidoscopy 2020 COVID-19 Vaccine (3 - Booster for Moderna series) 05/01/2021 03/06/2021, 02/06/2021 *SPIROMETRY ONCE [...] as of this encounter Visit Diagnoses Diagnosis Patient left without being seen- Primary Surgical or other procedure not carried out because of patient's decision documented in this encounter Advance Directives Latest [...] the patient have Health Care Power of Extrusion Manager? No Code Status History Code Status Date Activated Date Inactivated Comments Full Code 09/19/2020 9:51 AM 09/19/2020 10:03 AM Th is order reflects the patients wishes and were consensually agreed upon. Question Answer Comments Discussion of Advance Directives occurred with: Patient Does the patient have a Living Will? No Does the patient have Health Care Power of Extrusion Manager? No Full Code 08/18/2020 9:52 AM 08/18/2020 2:40 PM Thi s order reflects the patients wishes and were consensually agreed upon. Question Answer Comments Discussion of Advance Directives occurred with: Patient Does the patient have a Living Will? No Does the patient have Health Care Power of Extrusion Manager? No Care Teams Charging Crane Operator Relationship Specialty Start Date End Date Ginna Power MD [address] [place] [address] PCP - General Internal Medicine 09/05/21 documented as of this encounter
--- OUTSIDE RECORDS SUMMARY | 2023-09-11 00:20 | External Medical Summary | Summary of Care ---
Author Name Unknown Organization [facility] Address [address] [place] [address] Phone [phone] Care Team Providers Care Post Form Remover Name Role Phone Ginna Power MD Primary Care Provider [phone] Reason for Visit * Reason Onset Date Comments Forms Request 01/06/2023 Willa [facility] Phy sical Therapy POC Encounter Details Date Type Department Care Team Description 01/06/2023 Telephone Neurology, [place] [address] [place] [address] Vannesa Crouch, [address] [place] [address] Forms Request (Willa Perez Physical Thera... Allergies Active Allergy Reactions Severity Noted Date Comments Aripiprazole Neuro complications (Please comment) High 09/30/2019 Tardive dyskinesia [place] (Diagnostic) Low 03/10/2015 Other reaction(s): STRAWBERRIES/TOMATOE S IN LARGE VOLUMES-ULCERS IIN MOUTH Tomato Low 09/30/2019 documented as of this encounter (statuses as of 04/01/2023) Medications Medication Sig Dispensed Refills Start Date [...] Active Additional Information Patient taking differently:1,000 mg [id number] PRN, Pain, Fever, Reported on 12/16/2022 Nebulizers (NEBULIZER COMPRESSOR) [facility] Inhale via nebulizer. Use as directed. 1 Each 1 8 Active albuterol-ipratr opium (DUONEB) 2.5-0.5 MG/3ML nebulizer solution Inhale 3 mL via nebulizer 4 times a day. 360 Vial 0 9 Active loratadine (RA LORATADINE) 10 MG TabletIndication s:Chronic frontal sinusitis Take 1 Tab by mouth daily. 90 Tab 0 9 Active [place] Carbonate 300 MG Oral Capsule (Eskalith) Take [...] as of this encounter (statuses as of 04/01/2023) Active Problems Problem Noted Date Body mass [...] as of this encounter (statuses as of 04/01/2023) Resolved Problems Problem Noted Date Resolved Date [...] as of this encounter (statuses as of 04/01/2023) Immunizations Name Administration Dates Next Due COVID-19 mRNA, LNP-s, No Pre serve, 2-Dose Series (Moderna) 03/06/2021,02/06/2021 HepA Inact/HepB Recomb>=18yrs old 06/02/2012,,08/07/2011 Pneumococcal Conjugate Vacci ne, 20-valent ([id number]) 07/24/2022 Pneumococcal Polysaccharide PPV23 (Pneumovax) 07/29/2013 Seasonal Influenza Virus Vac cine, Unspecified Formulation 09/05/2021,07/28/2020,07/19/2019,06/27,06/25/2018,07/27/2017,06/25/2017 ,07/25/2016,07/21/2014,07/29/2013 Seasonal Influenza, Quadriva lent, No Preserve, 6 Mons & Above, IM 07/24/2022,09/05/2021,07/28/2020 Seasonal Influenza, Quadriva lent, No Preserve, IM 07/19/2019,06/25/2018,07/25/2016,10/22 /2015 Seasonal Influenza, Split, I IV3, With Preserve, [...] EDT Received [facility] from [facility] on 04/01/23. Placed in providers bin for signature. * Telephone Encounter - MERYL Tucker - 03/25/2023 3:37 PM EDT [facility] signed and faxed to 03/25/23 on [phone]. Scanned into patients chart. * Telephone Encounter - MERYL Tucker - 03/20/2023 10:47 AM EDT [facility] on03/19/23. Placed in providers bin for signature. * Telephone Encounter - MERYL Tucker - 03/14/2023 2:40 PM EDT [facility] on 03/14/23. Placed in providers bin for signature. * Telephone Encounter - MERYL Tucker - 02/04/2023 3:58 PM EDT [facility] signed and faxed to [phone] on 02/04/23. Scanned into patients chart. * Telephone Encounter - MERYL Tucker - 02/03/2023 3:50 PM EDT Received [facility] from [facility] on 01/31/23. Placed in providers bin for signature. * Telephone Encounter - MERYL Tucker - 01/10/2023 12:51 PM EDT [facility] POCsigned and faxed to [phone] on 01/10/23. Scanned into patients chart. * Telephone Encounter - MERYL Tucker - 01/10/2023 10:51 AM EDT Received [facility] from [facility] on 01/09/23. Placed in providers bin for signature. * Telephone Encounter - MERYL Tucker - 01/06/2023 3:02 PM EDT [facility] signed and faxed with most recent office notes to [phone] on 01/06/23. Scanned into patients chart. Placed a call to [facility] and relayed message from Dr Crouch that the referral was for imbalance and mild left hand hemiparesis so the patient will need evaluated for this. * Telephone Encounter - MERYL Tucker - 01/06/2023 12:26 PM EDT Received [facility] from [facility] on 01/03/23. Placed in providers bin for signature. documented in this encounter Plan of Treatment Upcoming Encounters Date Type Specialty Care Team Description 04/16/2023 Anticoagulation Pharmacy [facility] [address] [place] [address] 05/12/2023 Office Visit Ophthal[facility] [address] [facility] [address] 06/10/2023 Office Visit Sleep Disorders Sherita Coelho, DO [address] [place] [address] 06/10/2023 Office Visit [facility] [address] 07/22/2023 Office Visit Neurology Mahendra Del Valle MD [address] [place] [address] 07/25/2023 Office Visit Neurology Vannesa Crouch, [address] [place] [address] 01/07/2024 Imaging Radiology 01/19/2024 Telemedicine Sleep Disorders Lynsey Kam, DO [address] [place] [address] Health Maintenance Due Date Last Done Comments [...] the patient have Health Care Power of Program Control Analyst? No Code Status History Code Status Date Activated Date Inactivated Comments Full Code 09/19/2020 9:51 AM 09/19/2020 10:03 AM Th is order reflects the patients wishes and were consensually agreed upon. Question Answer Comments Discussion of Advance Directives occurred with: Patient Does the patient have a Living Will? No Does the patient have Health Care Power of Program Control Analyst? No Full Code 08/18/2020 9:52 AM 08/18/2020 2:40 PM Thi s order reflects the patients wishes and were consensually agreed upon. Question Answer Comments Discussion of Advance Directives occurred with: Patient Does the patient have a Living Will? No Does the patient have Health Care Power of Program Control Analyst? No Care Teams Post Form Remover Relationship Specialty Start Date End Date Ginna Power MD [address] [facility] [place] [address] PCP - General Internal Medicine 09/05/21 documented as of this encounter
--- OUTSIDE RECORDS SUMMARY | 2023-09-11 00:20 | External Medical Summary | Summary of Care ---
Author Name Unknown Organization [facility] Address [address] [place] [address] Phone [phone] Care Team Providers Care Fret Saw Operator Name Role Phone Ginna Power MD Primary Care Provider [phone] Reason for Visit * Reason Onset Date Comments Medication Update 03/23/2023 Encounter Details Date Type Department Care Team Description 03/23/2023 Telephone Pharmacy, [place] [address] [place] [address] [facility] [address] [place] [address] Medication Update Allergies Active Allergy Reactions Severity Noted Date Comments Aripiprazole Neuro complications (Please comment) High 09/30/2019 Tardive dyskinesia [place] (Diagnostic) Low 03/10/2015 Other reaction(s): STRAWBERRIES/TOMATOE S IN LARGE VOLUMES-ULCERS IIN MOUTH Tomato Low 09/30/2019 documented as of this encounter (statuses as of 03/25/2023) Medications Medication Sig Dispensed Refills Start Date [...] Active Additional Information Patient taking differently:1,000 mg [id number] PRN, Pain, Fever, Reported on 12/16/2022 Nebulizers [...] mouth daily. 90 Tab 0 04/16/2019 Active [place] Carbonate 300 MG Oral Capsule (Eskalith) Take 3 Capsules by mouth at bedtime. 0 12/16/2021 Active SUMAtriptan Succinate 50 MG Oral Tablet (Imitrex)Indication s:Migraine variant, intractable TAKE 2 TABLETS AT ONSET MIGRAINE -MAY REPEAT 1 TABLET IN 2 HOURS -MAX OF 5 IN 24 HOURS 9 Tablet 3 08/20/2022 Active Pantoprazole Sodium 20 MG Oral Tablet [...] as of this encounter (statuses as of 03/25/2023) Active Problems Problem Noted Date Body mass [...] as of this encounter (statuses as of 03/25/2023) Resolved Problems Problem Noted Date Resolved Date [...] as of this encounter (statuses as of 03/25/2023) Immunizations Name Administration Dates Next Due COVID-19 mRNA, LNP-s, No Pre serve, 2-Dose Series (Moderna) 03/06/2021,02/06/2021 HepA Inact/HepB Recomb>=18yrs old 06/02/2012,,08/07/2011 Pneumococcal Conjugate Vacci ne, 20-valent ([id number]) 07/24/2022 Pneumococcal Polysaccharide PPV23 (Pneumovax) 07/29/2013 Seasonal [...] Miscellaneous Notes * Telephone Encounter - Jennifer Chandler, [facility] - 03/25/2023 8:56 AM EDT Images from the original note were not included. Patient was started on Metronidazole 500 mg BID for 7 days. Called patient and spoke to patient providing the above dosage instructions. Patient will skip her dose today. Patient will resume usual dose when they finish course of antibiotic. Patient will contact [facility] if they experience any issues with unusual bruising or bleeding, or if they have any N/V/D while taking the antibiotic. Repeat INR in 2 weeks on 04/16. [employer] message also sent. Jennifer Chandler, BasiliaD Clinical Pharmacist Medication Therapy Disease Management 03/25/2023, 9:04 AM * Telephone Encounter - Alana Price RP - 03/23/2023 8:40 PM EDT Date User Actions Taken Triggers Comment 03/22/23 0941 Ivory Cobb PA-C [[id number]] Send In Basket Message Sign Orders 0 METRONIDAZOLE 500 MG OR TABS [29427] 0 WARFARIN SODIUM 5 MG OR TABS [[id number]] documented in this encounter Plan of Treatment Upcoming Encounters Date Type Specialty Care Team Description 04/01/2023 Anticoagulation Pharmacy [facility] [address] [place] [address] 04/16/2023 Anticoagulation Pharmacy [facility] [address] [place] [address] 05/12/2023 Office Visit Ophthalmology Uri Quintana DO [address] [place], [place] [phone] 06/10/2023 Office Visit Sleep Disorders Sherita Coelho, DO [address] [facility] [place] [address] 06/10/2023 Office Visit Internal Medicine Ginna Power MD [address] [place] [address] 07/22/2023 Office Visit Neurology Mahendra Del Valle MD [address] [place] [address] 07/25/2023 Office Visit Neurology Vannesa Crouch, DO [address] [place] [address] 01/07/2024 Imaging Radiology 01/19/2024 Telemedicine Sleep Disorders Lynsey Kam, DO [address] [place] [address] Health Maintenance Due Date Last Done Comments [...] the patient have Health Care Power of Editor School Photograph? No Code Status History Code Status Date Activated Date Inactivated Comments Full Code 09/19/2020 9:51 AM 09/19/2020 10:03 AM Th is order reflects the patients wishes and were consensually agreed upon. Question Answer Comments Discussion of Advance Directives occurred with: Patient Does the patient have a Living Will? No Does the patient have Health Care Power of Editor School Photograph? No Full Code 08/18/2020 9:52 AM 08/18/2020 2:40 PM Thi s order reflects the patients wishes and were consensually agreed upon. Question Answer Comments Discussion of Advance Directives occurred with: Patient Does the patient have a Living Will? No Does the patient have Health Care Power of Editor School Photograph? No Care Teams Fret Saw Operator Relationship Specialty Start Date End Date Ginna Power MD [address] [place] [address] PCP - General Internal Medicine 09/05/21 documented as of this encounter
--- OUTSIDE RECORDS SUMMARY | 2023-09-11 00:20 | External Medical Summary | Summary of Care ---
Author Name Unknown Organization [facility] Address [address] [facility] [place] [address] Phone [phone] Care Team Providers Care Livestock Judging Coach Name Role Phone Ginna Power MD Primary Care Provider [phone] Reason for Visit * Reason Comments eRx-Medication Refill Encounter Details Date Type Department Care Team Description 03/25/2023 Refill General Internal Medicine [facility] [address] [facility] [place] [id number] Ginna Power MD [address] [place] [address] Migraine variant, intractable Allergies Active Allergy Reactions Severity Noted Date Comments Aripiprazole Neuro complications (Please comment) High 09/30/2019 Tardive dyskinesia [place] (Diagnostic) Low 03/10/2015 Other reaction(s): STRAWBERRIES/TOMATOE S IN LARGE VOLUMES-ULCERS IIN MOUTH Tomato Low 09/30/2019 documented as of this encounter (statuses as of 03/26/2023) Medications Medication Sig Dispensed Refills Start Date [...] Active Additional Information Patient taking differently:1,000 mg [id number] PRN, Pain, Fever, Reported on 12/16/2022 Nebulizers [...] mouth daily. 90 Tab 0 04/16/2019 Active [place] Carbonate 300 MG Oral Capsule (Eskalith) Take [...] 02/24/2023 Active Acyclovir 400 MG Oral Tablet (Zovirax)Indicati ons:Herpes genitalia Take 1 Tablet by mouth in the morning and 1 Tablet before bedtime. 180 Tablet 0 02/25/2023 Active Warfarin Sodium 5 MG Oral Tablet (Coumadin)Indicat ions:MTHFR mutation (methylenetetrahy drofolate reductase) TAKE 2 TABLETS DAILY 180 Tablet 1 02/25/2023 Active Spironolactone 50 MG Oral Tablet (Aldactone)Indica tions:Hidradeniti s 1 tablet twice daily w/food 180 Tablet 0 02/24/2023 Active Levothyroxine Sodium 75 MCG Oral Tablet (Levoxyl)Indicati ons:Hypothyroidis m, unspecified type Take 1 Tablet by mouth daily first thing in the morning. on an empty stomach. 30 Tablet 5 02/24/2023 Active metroNIDAZOLE 500 MG Oral Tablet (Flagyl)Indicatio ns:Vaginal discharge Take 1 Tablet by mouth in the morning and 1 Tablet before bedtime. 14 Tablet 0 03/22/2023 Active SUMAtriptan Succinate 50 MG Oral Tablet (Imitrex)Indicati ons:Migraine variant, intractable TAKE 2 TABLETS AT ONSET MIGRAINE MAY REPEAT 1 TABLET IN 2 HOURS- MAX OF 5 IN 24 HOURS 9 Tablet 1 03/26/2023 Active SUMAtriptan Succinate 50 MG Oral Tablet (Imitrex)Indicati ons:Migraine variant, intractable TAKE 2 TABLETS AT ONSET MIGRAINE -MAY REPEAT 1 TABLET IN 2 HOURS -MAX OF 5 IN 24 HOURS 9 Tablet 3 08/20/2022 03/26/20 23 Discontinued documented as of this encounter (statuses as of 03/26/2023) Active Problems Problem Noted Date Body mass [...] as of this encounter (statuses as of 03/26/2023) Resolved Problems Problem Noted Date Resolved Date [...] as of this encounter (statuses as of 03/26/2023) Immunizations Name Administration Dates Next Due COVID-19 mRNA, LNP-s, No Pre serve, 2-Dose Series (Moderna) 03/06/2021,02/06/2021 HepA Inact/HepB Recomb>=18yrs old 06/02/2012,,08/07/2011 Pneumococcal Conjugate Vacci ne, 20-valent ([id number]) 07/24/2022 Pneumococcal Polysaccharide PPV23 (Pneumovax) 07/29/2013 Seasonal [...] encounter Miscellaneous Notes * Telephone Encounter - Jenn Bell, [facility] - 03/26/2023 11:09 AM EDTSigned Prescriptions: Disp Refills SUMAtriptan Succinate 50 MG Oral Tablet (I*9 Tabl*1 Sig: TAKE 2 TABLETS AT ONSET MIGRAINE MAY REPEAT 1 TABLET IN 2 HOURS- MAX OF 5 IN 24 HOURSAuthorizing Provider: Lilian POWER User: JENN BELL documented in this encounter Plan of Treatment Upcoming Encounters Date Type Specialty Care Team Description 04/01/2023 Anticoagulation Pharmacy [facility] [address] [place] [address] 04/16/2023 Anticoagulation Pharmacy [facility] [address] [place] [address] 05/12/2023 Office Visit Ophthalmology Uri Quintana, DO [address] [place], [place] [phone] 06/10/2023 Office Visit Sleep Disorders Sherita Coelho, DO [address] [place] [address] 06/10/2023 Office Visit Internal Medicine Ginna Power MD [address] [place] [address] 07/22/2023 Office Visit Neurology Mahendra Del Valle MD [address] [place] [address] 07/25/2023 Office Visit Neurology Vannesa Crouch, DO [address] [place] [address] 01/07/2024 Imaging Radiology 01/19/2024 Telemedicine Sleep Disorders Lynsey Kam, DO [address] [place] [address] Health Maintenance Due Date Last Done Comments [...] patient have Health Care Power of Bundle Person? No Code Status History Code Status Date Activated Date Inactivated Comments Full Code 09/19/2020 9:51 AM 09/19/2020 10:03 AM Th is order reflects the patients wishes and were consensually agreed upon. Question Answer Comments Discussion of Advance Directives occurred with: Patient Does the patient have a Living Will? No Does the patient have Health Care Power of Bundle Person? No Full Code 08/18/2020 9:52 AM 08/18/2020 2:40 PM Thi s order reflects the patients wishes and were consensually agreed upon. Question Answer Comments Discussion of Advance Directives occurred with: Patient Does the patient have a Living Will? No Does the patient have Health Care Power of Bundle Person? No Care Teams Livestock Judging Coach Relationship Specialty Start Date End Date Ginna Power MD [address] [facility] [place] [address] PCP - General Internal Medicine 09/05/21 documented as of this encounter
--- OUTSIDE RECORDS SUMMARY | 2023-09-11 00:20 | External Medical Summary | Summary of Care ---
Author Name Unknown Organization [facility] Address [address] [facility] [place] [address] Phone [phone] Care Team Providers Care C Winforms Developer Name Role Phone Ginna Power MD Primary Care Provider [phone] Encounter Details Date Type Department Care Team Description 03/23/2023 Telephone Pharmacy, [place] [address] [place] [address] [facility] [address] [place] [address] Allergies Active Allergy Reactions Severity Noted Date Comments Aripiprazole Neuro complications (Please comment) High 09/30/2019 Tardive dyskinesia [place] (Diagnostic) Low 03/10/2015 Other reaction(s): STRAWBERRIES/TOMATOE S IN LARGE VOLUMES-ULCERS IIN MOUTH Tomato Low 09/30/2019 documented as of this encounter (statuses as of 03/23/2023) Medications Medication Sig Dispensed Refills Start Date [...] Active Additional Information Patient taking differently:1,000 mg [id number] PRN, Pain, Fever, Reported on 12/16/2022 Nebulizers (NEBULIZER COMPRESSOR) [facility] Inhale via nebulizer. Use as directed. 1 Each 1 10/06/2018 Active albuterol-ipratropi um (DUONEB) 2.5-0.5 MG/3ML nebulizer solution Inhale 3 mL via nebulizer 4 times a day. 360 Vial 0 04/16/2019 Active loratadine (RA LORATADINE) 10 MG TabletIndications:C hronic frontal sinusitis Take 1 Tab by mouth daily. 90 Tab 0 04/16/2019 Active [place] Carbonate 300 MG Oral Capsule (Eskalith) Take [...] as of this encounter (statuses as of 03/23/2023) Active Problems Problem Noted Date Body mass [...] as of this encounter (statuses as of 03/23/2023) Resolved Problems Problem Noted Date Resolved Date [...] as of this encounter (statuses as of 03/23/2023) Immunizations Name Administration Dates Next Due COVID-19 mRNA, LNP-s, No Pre serve, 2-Dose Series (Moderna) 03/06/2021,02/06/2021 HepA Inact/HepB Recomb>=18yrs old 06/02/2012,,08/07/2011 Pneumococcal Conjugate Vacci ne, 20-valent ([id number]) 07/24/2022 Pneumococcal Polysaccharide PPV23 (Pneumovax) 07/29/2013 Seasonal [...] encounter Miscellaneous Notes * Telephone Encounter - Alana Price RPh - 03/23/2023 8:40 PM EDT Date User Actions Taken Triggers Comment 03/22/23940 Ivory Cobb PA-C [[id number]] Send In Basket Message Sign Orders 0 METRONIDAZOLE 500 MG OR TABS [[id number]] 0 WARFARIN SODIUM 5 MG OR TABS [[id number]] documented in this encounter Plan of Treatment Upcoming Encounters Date Type Specialty Care Team Description 04/01/2023 Anticoagulation Pharmacy [facility] [address] [place] [address] 05/12/2023 Office Visit Ophthalmology Uri Quintana, DO [address] [facility], [place] [phone] 06/10/2023 Office Visit Sleep Disorders Sherita Coelho, DO [address] [place] [address] 06/10/2023 Office Visit Internal Medicine Ginna Power MD [address] [place] [address] 07/22/2023 Office Visit Neurology Mahendra Del Valle MD [address] [place], [place] [phone] 07/25/2023 Office Visit Neurology Vannesa Crouch, DO [address] [facility], [place] [phone] 01/07/2024 Imaging Radiology 01/19/2024 Telemedicine Sleep Disorders Lynsey Kam, DO [address] [place] [address] Health Maintenance Due Date Last Done Comments [...] the patient have Health Care Power of Well Digger? No Code Status History Code Status Date Activated Date Inactivated Comments Full Code 09/19/2020 9:51 AM 09/19/2020 10:03 AM Th is order reflects the patients wishes and were consensually agreed upon. Question Answer Comments Discussion of Advance Directives occurred with: Patient Does the patient have a Living Will? No Does the patient have Health Care Power of Well Digger? No Full Code 08/18/2020 9:52 AM 08/18/2020 2:40 PM Thi s order reflects the patients wishes and were consensually agreed upon. Question Answer Comments Discussion of Advance Directives occurred with: Patient Does the patient have a Living Will? No Does the patient have Health Care Power of Well Digger? No Care Teams C Winforms Developer Relationship Specialty Start Date End Date Ginna Power MD [address] [place] [address] PCP - General Internal Medicine 09/05/21 documented as of this encounter
--- OUTSIDE RECORDS SUMMARY | 2023-09-11 00:20 | External Medical Summary | Summary of Care ---
Author Name Unknown Organization [facility] Address [address] [facility] [place] [address] Phone [phone] Care Team Providers Care Speedboat Operator Name Role Phone Ginna Power MD Primary Care Provider [phone] Reason for Visit * Reason Onset Date Comments Vaginal Itching Urinary Tract Infection Symptoms 04/02/2023 Encounter Details Date Type Department Care Team Description 04/02/2023 [facility] [place] [address] Alexy Anna PA-C [address] [place] [address] Vaginal itching* Allergies Active Allergy Reactions Severity Noted Date Comments Aripiprazole Neuro complications (Please comment) High 09/30/2019 Tardive dyskinesia [place] (Diagnostic) Low 03/10/2015 Other reaction(s): STRAWBERRIES/TOMATOE S [...] Active Additional Information Patient taking differently:1,000 mg [id number] PRN, Pain, Fever, Reported on 12/16/2022 Nebulizers (NEBULIZER COMPRESSOR) MISC Inhale via nebulizer. Use as directed. 1 Each 1 10/06/2018 Active albuterol-ipratropi um (DUONEB) 2.5-0.5 MG/3ML nebulizer solution Inhale 3 mL via nebulizer 4 times a day. 360 Vial 0 04/16/2019 Active loratadine (RA LORATADINE) 10 MG TabletIndications:C hronic frontal sinusitis Take 1 Tab by mouth daily. 90 Tab 0 04/16/2019 Active [place] Carbonate 300 MG Oral Capsule (Eskalith) Take [...] 24 HOURS 9 Tablet 1 03/26/2023 Active Fluconazole 150 MG Oral Tablet (Diflucan)Indicatio ns:Vaginal itching Take 1 Tablet by mouth once for 1 dose. 1 Tablet 1 04/02/2023 04/02/2023 Active documented as of this encounter (statuses [...] old 06/02/2012,,08/07/2011 Pneumococcal Conjugate Vacci ne, 20-valent ([id number]) 07/24/2022 Pneumococcal Polysaccharide PPV23 (Pneumovax) 07/29/2013 Seasonal [...] Sign Reading Time Taken Comments Blood Pressure 156/80 04/02/2023 2:47 PM EDT Pulse 88 04/02/2023 2:47 PM EDT Temperature 36.7 C (98.1 F) 04/02/2023 2:47 PM ED T Respiratory Rate 18 04/02/2023 2:47 PM EDT Oxygen Saturation 98% 04/02/2023 2:47 PM EDT Inhaled Oxygen Concentration - - Weight 146.4 kg (322 lb 12.8 oz) 04/02/2023 2:47 PM EDT Height 170.2 cm (5' 7.01") 04/02/2023 2:47 PM ED T Body Mass Index 50.55 04/02/2023 2:47 PM EDT documented in this encounter Functional [...] * Patient Instructions* Alexy Anna PA-C - 04/02/2023 3:15 PM EDT Diflucan once today. Can repeat in 3 days if itching persists. Diflucan may make your warfarin work too well. If any bleeding occurs or if falls/hit head, make sure to be evaluated HEATHER. Follow-up with PCP or return if no improvement in 3 days. Sooner if worsens. ER if acutely worsens documented in this encounter Progress Notes * Alexy Anna PA-C - 04/02/2023 3:00 PM EDT Nursing Notes: Akilah Sanderson, MED ASSIST 04/02/23 1450 Signed Rody Jean Baptiste is a 47 year old female who presents to walk-in clinic today complaining of Chief Complaint Patient presents with Vaginal Itching Pt dx with BV 03/22 and prescribed and completed metronidazole. Pt states the odor and discharge has resolved but the itchiness has not How lon days Tried: metronidazole Pt accompanied by: self CONVENIENT CARE PROGRESS NOTE Rody Jean Baptiste is a 47 year old female With a PMH of MTHFR mutation, asthma, MERYL on CPAP, chronic allergic rhinitis, obesity, GERD, genital herpes, HPV, coagulation defect, BPD2, anxiety, endometriosis, h/o PE, MDD, h/o bulemia nervosa who presents with vaginal itching x 4 days Patient was accompanied by Self. HPI: Severity of Symptoms: Moderate Modifying Factors (what was done since onset of Symptoms): flagyl Timing (How often does it occur): constant Quality (Feels Like): itching She was seen here on 03/22, treated for BV with flagyl. Testing confirmed BV, and was negative for yeast, trich, GC/Chlam. She is here today due to improvement of odor/dc, but itching remains. Denies lesions, pain, bleeding. Denies frequency, urgency, dysuria, f/s/ch, n/v/d/c. ROS: See HPI HISTORY: Past Medical History: Diagnosis Date Anxiety Asthma [...] by Moises Mcfarlane MD at [facility] ANORECTAL EXAM ,DIAG, REQUIRING ANESTHESIA N/A 09/19/2020 ANORECTAL EXAM UNDER ANESTHESIA performed by Moises Mcfarlane MD at [facility] D&C.[facility]. 2002 HEMORRHOIDECTOMY, SIMPLE, 1 COLUMN N/A 08/18/2020 HEMORRHOIDECTOMY EXTERNAL AND INTERNAL SIMPLE performed by Moises Mcfarlane MD at [facility] HEMORRHOIDECTOMY, SIMPLE, 1 COLUMN N/A 09/19/2020 HEMORRHOIDECTOMY EXTERNAL AND INTERNAL SIMPLE performed by Moises Mcfarlane MD at [facility] LAP ABLATION UTERINE FIBROIDS W/INTRAOP US GUIDE 2014 LAPAROSCOPY;WITH BIOPSY 1996 endometreosis SACROILIAC JOINT INJECT W/GUIDANCE 08/06/2018 INJECTION SACROILIAC JOINT performed by Torito Orta DO at [facility] SACROILIAC JOINT INJECT W/GUIDANCE 10/15/2018 INJECTION SACROILIAC JOINT performed by Torito Orta DO at [facility] Social History Socioeconomic History Marital status: [...] Concern Not on file 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 90 Tab 0 [place] Carbonate 300 MG Oral Capsule (Eskalith) Take [...] 5 IN 24 HOURS 9 Tablet 1 Fluconazole 150 MG Oral Tablet (Diflucan) Take 1 Tablet by mouth once for 1 dose. 1 Tablet 1 No current facility-administered medications for this visit. Review of patient's allergies indicates: Allergen Reactions Aripiprazole Neuro complications (Please comment) Tardive dyskinesia [place] (Diagnostic) Other reaction(s): STRAWBERRIES/TOMATOES IN LARGE VOLUMES-ULCERS IIN MOUTH Tomato Family History Problem Relation Age of Onset Cervical Cancer Mother Stroke Mother Pulmonary embolism Mother multiple Blood Disorder Grandmother (Maternal) Arthritis Brother (Half) Ankylosis Spondylitis, half sib on maternal side Blood Disorder Cousin (Unspecified) MTHFR Breast Cancer No significant family history OBJECTIVE: BP 156/80 | Pulse 88 | Temp 36.7 C (98.1 F) (Tympanic) | Resp 18 | Ht 1.702 m (5' 7.01") | Wt (!) 146.4 kg (322 lb 12.8 oz) | SpO2 98% | BMI 50.55 kg/m | BSA 2.63 m Wt Readings from Last 1 Encounters: 04/02/23 (!) 146.4 kg (322 lb 12.8 oz) General appearance: awake, alert, no apparent distress Abdominal Exam: back: no CVA tenderness and abd: no suprapubic tenderness to palpation, no R/R/G, +BS Respiratory: clear to auscultation, no rhonchi, no wheezes and no crackles Heart: regular rate, regular rhythm, no murmurs , no rubs and no gallops Skin/Integumentary: warm, dry, : deferred at this time, but will do if no improvement Results for orders placed or performed in visit on 03/22/23 VAGINOSIS PANEL, PCR Result Value Ref Range Elysia Glabrata PCR Result Negative Negative Elysia Albicans PCR Result Negative Negative Trichomonas Vaginalis PCR Result Negative Negative Gardnerella Vaginalis PCR Result Positive (A) Negative CHLAMYDIA TRACHOMATIS AND NEISSERIA GONORRHOEAE, AMPLIFIED PROBE Result Value Ref Range Chlamydia Trachomatis Result Negative Negative Neisseria Gonorrhoeae Result Negative Negative *Note: Due to a large number of results and/or encounters for the requested time period, some results have not been displayed. A complete set of results can be found in Results Review. Patient Instructions Diflucan once today. Can repeat in 3 days if itching persists. Diflucan may make your warfarin work too well. If any bleeding occurs or if falls/hit head, make sure to be evaluated HEATHER. Follow-up with PCP or return if no improvement in 3 days. Sooner if worsens. ER if acutely worsens Assessment: Vaginal itching (Primary) - Fluconazole 150 MG Oral Tablet (Diflucan); Take 1 Tablet by mouth once for 1 dose. Highly suspicious for elysia vaginitis after recent abx use. Will treat empirically Per chart review, low suspicion for STI as trich, GC/chlam neg and BV treatment improved symptoms. If no improvement, or if symptoms worsen, would recommend further work-up and pelvic exam Follow Up: Return for Patient to follow up with Primary Care Provider as directed. | For: Patient to follow up with Primary Care Provider as directed Patient goals for plan of care were discussed Alexy Anna PA-C [address] [address] documented in this encounter Nursing Notes * Akilah Sanderson, MED ASSIST - 04/02/2023 2:43 PM EDT Rody Jean Baptiste is a 47 year old female who presents to walk-in clinic today complaining of Chief Complaint Patient presents with Vaginal Itching Pt dx with BV 03/22 and prescribed and completed metronidazole. Pt states the odor and discharge has resolved but the itchiness has not How lon days Tried: metronidazole Pt accompanied by: self documented in this encounter Plan of Treatment Upcoming Encounters Date Type Specialty Care Team Description 04/16/2023 Anticoagulation Pharmacy [facility] [address] [place] [address] 05/12/2023 Office Visit Ophthalmology Uri Quintana, DO [address] [place] [address] 06/10/2023 Office Visit Sleep Disorders Sherita Coelho, DO [address] [place] [address] 06/10/2023 Office Visit Internal Medicine Ginna Power MD [address] [place] [address] 07/22/2023 Office Visit Neurology Mahendra Del Valle MD [address] [place], [place] [id number] 07/25/2023 Office Visit Neurology Vannesa Crouch, DO [address] [place], [place] [id number] 01/07/2024 Imaging Radiology 01/19/2024 Telemedicine Sleep Disorders Lynsey Kam, DO [address] [place] [address] Health Maintenance Due Date Last Done Comments [...] of this encounter Visit Diagnoses Diagnosis Vaginal itching- Primary Pruritus of genital organs documented in this [...] the patient have Health Care Power of Licensed Physical Therapy Assistant? No Code Status History Code Status Date Activated Date Inactivated Comments Full Code 09/19/2020 9:51 AM 09/19/2020 10:03 AM Th is order reflects the patients wishes and were consensually agreed upon. Question Answer Comments Discussion of Advance Directives occurred with: Patient Does the patient have a Living Will? No Does the patient have Health Care Power of Licensed Physical Therapy Assistant? No Full Code 08/18/2020 9:52 AM 08/18/2020 2:40 PM Thi s order reflects the patients wishes and were consensually agreed upon. Question Answer Comments Discussion of Advance Directives occurred with: Patient Does the patient have a Living Will? No Does the patient have Health Care Power of Licensed Physical Therapy Assistant? No Care Teams Speedboat Operator Relationship Specialty Start Date End Date Ginna Power MD [address] [place] [address] PCP - General Internal Medicine 09/05/21 documented as of this encounter
--- OUTSIDE RECORDS SUMMARY | 2023-09-11 00:20 | External Medical Summary | Summary of Care ---
Author Name Unknown Organization [facility] Address [address] [place] [address] Phone [phone] Care Team Providers Care Pilot Plant Supervisor Name Role Phone Ginna Power MD Primary Care Provider [phone] Reason for Visit * Reason Onset Date Comments Forms Request 01/06/2023 W[facility] Perez Phy sical Therapy POC Encounter Details Date Type Department Care Team Description 01/06/2023 Telephone Neurology, [place] [address] [place] [address] Vannesa Crouch, [address] [place] [address] Forms Request (Willa Perez Physical Thera... Allergies Active Allergy Reactions Severity Noted Date Comments Aripiprazole Neuro complications (Please comment) High 09/30/2019 Tardive dyskinesia [place] (Diagnostic) Low 03/10/2015 Other reaction(s): STRAWBERRIES/TOMATOE S [...] Active Additional Information Patient taking differently:1,000 mg [id number] PRN, Pain, Fever, Reported on 12/16/2022 Nebulizers (NEBULIZER COMPRESSOR) MISC Inhale via nebulizer. Use as directed. 1 Each 1 10/06/2018 Active albuterol-ipratrop ium (DUONEB) 2.5-0.5 MG/3ML nebulizer solution Inhale 3 mL via nebulizer 4 times a day. 360 Vial 0 04/16/2019 Active loratadine (RA LORATADINE) 10 MG TabletIndications: Chronic frontal sinusitis Take 1 Tab by mouth daily. 90 Tab 0 04/16/2019 Active [place] Carbonate 300 MG Oral Capsule (Eskalith) Take [...] before bedtime. 100 g 3 11/21/2022 Active Albuterol Sulfate HFA 108 (90 Base) MCG/ACT Inhalation Aerosol SolutionIndication s:Mild intermittent asthma without complication INHALE 2 PUFFS BY MOUTH NEEDED SHORT OF BREATH 25.5 g 1 09/17/2021 3 Discontinue d(Refill) Acyclovir 400 MG Oral Tablet (Zovirax)Indicatio ns:Herpes genitalia TAKE ONE TABLET BY MOUTH 2 TIMES A DAY 180 Tablet 1 03/15/2022 3 Discontinue d(Refill) Spironolactone 50 MG Oral Tablet (Aldactone)Indicat ions:Hidradenitis 1 tablet twice daily w/food 180 Tablet 1 06/03/2022 3 Discontinue d(Refill) Warfarin Sodium 5 MG Oral Tablet (Coumadin)Indicati ons:MTHFR mutation (methylenetetrahyd rofolate reductase) TAKE 2 TABLETS DAILY 180 Tablet 0 06/05/2022 3 Discontinue d(Refill) Levothyroxine Sodium 75 MCG Oral Tablet (Levoxyl)Indicatio ns:Hypothyroidism, unspecified type Take by mouth 1 Tablet in the morning. on an empty stomach.. 30 Tablet 5 07/25/2022 3 Discontinue d(Refill) documented as of this encounter (statuses as [...] old 06/02/2012,,08/07/2011 Pneumococcal Conjugate Vacci ne, 20-valent ([id number]) 07/24/2022 Pneumococcal Polysaccharide PPV23 (Pneumovax) 07/29/2013 Seasonal [...] POC signed and faxed to 03/25/23 on [phone]. Scanned into patients chart. * Telephone Encounter - MERYL Tucker - 03/20/2023 10:47 AM EDT ReceivedChris [facility]from [facility] on03/19/23. Placed in providers bin for signature. * Telephone Encounter - MERYL Tucker - 03/14/2023 2:40 PM EDT ReceivedChris Physical Therapy POCfrom [facility] on 03/14/23. Placed in providers bin for signature. * Telephone Encounter - MERYL Tucker - 02/04/2023 3:58 PM EDT [facility] POC signed and faxed to [phone] on 02/04/23. Scanned into patients chart. * Telephone Encounter - MERYL Tucker - 02/03/2023 3:50 PM EDT Received [facility] POC from [facility] on 01/31/23. Placed in providers bin for signature. * Telephone Encounter - MERYL Tucker - 01/10/2023 12:51 PM EDT Chris Physical Therapy POCsigned and faxed to [phone] on 01/10/23. Scanned into patients chart. * Telephone Encounter - MERYL Tucker - 01/10/2023 10:51 AM EDT Received [facility] POC from [facility] on 01/09/23. Placed in providers bin for signature. * Telephone Encounter - MERYL Tucker - 01/06/2023 3:02 PM EDT [facility] POC signed and faxed with most recent office notes to [phone] on 01/06/23. Scanned into patients chart. Placed a call to Chris [facility] and relayed message from Dr Crouch that the referral was for imbalance and mild left hand hemiparesis so the patient will need evaluated for this. * Telephone Encounter - MERYL Tucker - 01/06/2023 12:26 PM EDT Received [facility] POC from [facility] on 01/03/23. Placed in providers bin for signature. documented in this encounter Plan of Treatment Upcoming Encounters Date Type Specialty Care Team Description 04/01/2023 Anticoagulation Pharmacy [facility] [address] [place] [address] 04/16/2023 Anticoagulation Pharmacy [facility] [address] [place] [address] 05/12/2023 Office Visit Ophthalmology Uri Quintana DO [address] [place], [place] [phone] 06/10/2023 Office Visit Sleep Disorders Sherita Coelho, DO [address] [place] [address] 06/10/2023 Office Visit Internal Medicine Ginna Power MD [address] [facility] [place] [address] 07/22/2023 Office Visit Neurology Mahendra Del Valle MD [address] [place] [address] 07/25/2023 Office Visit Neurology Vannesa Crouch Erum, DO [address] [facility] [place] [address] 01/07/2024 Imaging Radiology 01/19/2024 Telemedicine Sleep Disorders Lynsey Kam, DO [address] [place] [address] Health Maintenance Due Date Last Done Comments [...] the patient have Health Care Power of Bulb Planter? No Code Status History Code Status Date Activated Date Inactivated Comments Full Code 09/19/2020 9:51 AM 09/19/2020 10:03 AM Th is order reflects the patients wishes and were consensually agreed upon. Question Answer Comments Discussion of Advance Directives occurred with: Patient Does the patient have a Living Will? No Does the patient have Health Care Power of Bulb Planter? No Full Code 08/18/2020 9:52 AM 08/18/2020 2:40 PM Thi s order reflects the patients wishes and were consensually agreed upon. Question Answer Comments Discussion of Advance Directives occurred with: Patient Does the patient have a Living Will? No Does the patient have Health Care Power of Bulb Planter? No Care Teams Pilot Plant Supervisor Relationship Specialty Start Date End Date Ginna Power MD [address] [place] [id number] PCP - General Internal Medicine 09/05/21 documented as of this encounter
--- OUTSIDE RECORDS SUMMARY | 2023-09-11 00:20 | External Medical Summary | Summary of Care ---
Author Name Unknown Organization [facility] Address [address] [place] [address] Phone [phone] Care Team Providers Care Launch Commander [employer] Name Role Phone Ginna Power MD Primary Care Provider [phone] Reason for Visit * Reason Onset Date Comments Forms Request 01/06/2023 [facility] Phy sical Therapy POC Encounter Details Date Type Department Care Team Description 01/06/2023 Telephone Neurology, [place] [address] [place] [address] Vannesa Crouch, [address] [place] [address] Forms Request (Willa Perez Physical Thera... Allergies Active Allergy Reactions Severity Noted Date Comments Aripiprazole Neuro complications (Please comment) High 09/30/2019 Tardive dyskinesia [place] (Diagnostic) Low 03/10/2015 Other reaction(s): STRAWBERRIES/TOMATOE S IN LARGE VOLUMES-ULCERS IIN MOUTH Tomato Low 09/30/2019 documented as of this encounter (statuses as of 04/03/2023) Medications Medication Sig Dispensed Refills Start Date [...] Active Additional Information Patient taking differently:1,000 mg [id number] PRN, Pain, Fever, Reported on 12/16/2022 Nebulizers (NEBULIZER COMPRESSOR) [facility] Inhale via nebulizer. Use as directed. 1 Each 1 8 Active albuterol-ipratr opium (DUONEB) 2.5-0.5 MG/3ML nebulizer solution Inhale 3 mL via nebulizer 4 times a day. 360 Vial 0 9 Active loratadine (RA LORATADINE) 10 MG TabletIndication s:Chronic frontal sinusitis Take 1 Tab by mouth daily. 90 Tab 0 9 Active [place] Carbonate 300 MG Oral Capsule (Eskalith) [...] as of this encounter (statuses as of 04/03/2023) Active Problems Problem Noted Date Body mass [...] as of this encounter (statuses as of 04/03/2023) Resolved Problems Problem Noted Date Resolved Date [...] as of this encounter (statuses as of 04/03/2023) Immunizations Name Administration Dates Next Due COVID-19 mRNA, LNP-s, No Pre serve, 2-Dose Series (Moderna) 03/06/2021,02/06/2021 HepA Inact/HepB Recomb>=18yrs old 06/02/2012,,08/07/2011 Pneumococcal Conjugate Vacci ne, 20-valent ([id number]) 07/24/2022 Pneumococcal Polysaccharide PPV23 (Pneumovax) 07/29/2013 Seasonal [...] Physical Therapy POC signed and faxed to [phone] on 04/03/23. Scanned into patients chart. * Telephone Encounter - MERYL Tucker - 04/01/2023 4:30 PM EDT Received [facility] POC from [facility] on 04/01/23. Placed in providers bin for signature. * Telephone Encounter - MERYL Tucker - 03/25/2023 3:37 PM EDT [facility] Therapy POC signed and faxed to 03/25/23 on [phone]. Scanned into patients chart. * Telephone Encounter - MERLY Tucker - 03/20/2023 10:47 AM EDT ReceivedChris [facility] Therapy [facility]OCfrom [facility] on03/19/23. Placed in providers bin for signature. * Telephone Encounter - MREYL Tucker - 03/14/2023 2:40 PM EDT ReceivedChris Physical Therapy POCfrom [facility] on 03/14/23. Placed in providers bin for signature. * Telephone Encounter - MERYL Tucker - 02/04/2023 3:58 PM EDT [facility] Therapy POC signed and faxed to [phone] on 02/04/23. Scanned into patients chart. * Telephone Encounter - MERYL Tucker - 02/03/2023 3:50 PM EDT Received [facility] POC from [facility] on 01/31/23. Placed in providers bin for signature. * Telephone Encounter - MERYL Tucker - 01/10/2023 12:51 PM EDT Chris Physical Therapy POCsigned and faxed to [phone] on 01/10/23. Scanned into patients chart. * Telephone Encounter - MERYL Tucker - 01/10/2023 10:51 AM EDT Received [facility] POC from [facility] on 01/09/23. Placed in providers bin for signature. * Telephone Encounter - MERYL Tucker - 01/06/2023 3:02 PM EDT [facility] Therapy POC signed and faxed with most recent office notes to [phone] on 01/06/23. Scanned into patients chart. Placed a call to [facility] clinic and relayed message from Dr Crouch that the referral was for imbalance and mild left hand hemiparesis so the patient will need evaluated for this. * Telephone Encounter - MERYL Tucker - 01/06/2023 12:26 PM EDT Received [facility] Therapy POC from [facility] on 01/03/23. Placed in providers bin for signature. documented in this encounter Plan of Treatment Upcoming Encounters Date Type Specialty Care Team Description 04/16/2023 Anticoagulation Pharmacy [place] [address] [place] [address] 05/12/2023 Office Visit Ophthalmology Uri Quintana, DO [address] [place] [address] 06/10/2023 Office Visit Sleep Disorders Sherita Coelho, DO [address] [place] [address] 06/10/2023 Office Visit Internal Medicine Ginna Power MD [address] [facility] [place] [address] 07/22/2023 Office Visit Neurology Mahendra Del Valle MD [address] [place] [address] 07/25/2023 Office Visit Neurology Vannesa Crouch DO [address] [place] [address] 01/07/2024 Imaging Radiology 01/19/2024 Telemedicine Sleep Disorders Lynsey Kam, DO [address] [place] [address] Health Maintenance Due Date Last Done Comments [...] the patient have Health Care Power of Equity Manager? No Code Status History Code Status Date Activated Date Inactivated Comments Full Code 09/19/2020 9:51 AM 09/19/2020 10:03 AM Th is order reflects the patients wishes and were consensually agreed upon. Question Answer Comments Discussion of Advance Directives occurred with: Patient Does the patient have a Living Will? No Does the patient have Health Care Power of Equity Manager? No Full Code 08/18/2020 9:52 AM 08/18/2020 2:40 PM Thi s order reflects the patients wishes and were consensually agreed upon. Question Answer Comments Discussion of Advance Directives occurred with: Patient Does the patient have a Living Will? No Does the patient have Health Care Power of Equity Manager? No Care Teams Launch Commander [employer] Relationship Specialty Start Date End Date Ginna Power MD [address] [place] [address], [place] [address] PCP - General Internal Medicine 09/05/21 documented as of this encounter
--- OUTSIDE RECORDS SUMMARY | 2023-09-11 00:20 | External Medical Summary | Summary of Care ---
Author Name Unknown Organization [facility] Address [address] [facility] [place] [address] Phone [phone] Care Team Providers Care Sales Designer Name Role Phone Ginna Power MD Primary Care Provider [phone] Reason for Visit * Reason Comments Ear Pain Yeast Infection Encounter Details Date Type Department Care Team Description 03/22/2023 [facility] [place] [address] [facility] [place] [address] Ivory Cobb PA-C [address] [place] [address] Vaginal discharge*; Acute otalgia, right Allergies Active Allergy Reactions Severity Noted Date Comments Aripiprazole Neuro complications (Please comment) High 09/30/2019 Tardive dyskinesia [place] (Diagnostic) Low 03/10/2015 Other reaction(s): STRAWBERRIES/TOMATOE S IN LARGE VOLUMES-ULCERS IIN MOUTH Tomato Low 09/30/2019 documented as of this encounter (statuses as of 03/22/2023) Medications Medication Sig Dispensed Refills Start Date [...] Active Additional Information Patient taking differently:1,000 mg [id number] PRN, Pain, Fever, Reported on 12/16/2022 Nebulizers (NEBULIZER COMPRESSOR) MIS Inhale via nebulizer. Use as directed. 1 Each 1 10/06/2018 Active albuterol-ipratro pium (DUONEB) 2.5-0.5 MG/3ML nebulizer solution Inhale 3 mL via nebulizer 4 times a day. 360 Vial 0 04/16/2019 Active loratadine (RA LORATADINE) 10 MG TabletIndications :Chronic frontal sinusitis Take 1 Tab by mouth daily. 90 Tab 0 04/16/2019 Active Kevin Carbonate 300 MG Oral Capsule (Eskalith) Take [...] before bedtime. 14 Tablet 0 03/22/2023 Active metroNIDAZOLE 500 MG Oral Tablet (Flagyl) Take 1 Tablet by mouth in the morning and 1 Tablet before bedtime. Do all this for 7 days. 14 Tablet 0 03/22/2023 03/22/20 23 Discontinued documented as of this encounter (statuses as of 03/22/2023) Active Problems Problem Noted Date Body mass [...] as of this encounter (statuses as of 03/22/2023) Resolved Problems Problem Noted Date Resolved Date [...] as of this encounter (statuses as of 03/22/2023) Immunizations Name Administration Dates Next Due COVID-19 mRNA, LNP-s, No Pre serve, 2-Dose Series (Moderna) 03/06/2021,02/06/2021 HepA Inact/HepB Recomb>=18yrs old 06/02/2012,,08/07/2011 Pneumococcal Conjugate Vacci ne, 20-valent ([id number]) 07/24/2022 Pneumococcal Polysaccharide PPV23 (Pneumovax) 07/29/2013 Seasonal [...] Sign Reading Time Taken Comments Blood Pressure 136/90 03/22/2023 8:53 AM EDT Pulse 88 03/22/2023 8:53 AM EDT Temperature 36.3 C (97.3 F) 03/22/2023 8:53 AM ED T Respiratory Rate - - Oxygen Saturation 100% 03/22/2023 8:53 AM EDT Inhaled Oxygen Concentration - - Weight - - Height - - Body Mass Index - - documented in this encounter Functional Status Functional [...] this encounter Patient Instructions * Patient Instructions* Ivory Cobb PA-C - 03/22/2023 9:41 AM EDT No alcohol with metronidazole. Please hold off on any sex until after 1 week after completion of antibiotics. Please let pharmacy know that you had metronidazole. Drink plenty of fluids, increase intake over next 48-72 hours. Take all medications as prescribed, even if you are feeling better sooner. We will notify you of your culture results. F/U with PCP with no improvement in 3-5 days. Go immediately to the ED with any change or worsening symptoms including chills, fevers, back pain. documented in this encounter Progress Notes * Ivory Cobb PA-C - 03/22/2023 9:01 AM EDT CONVENIENT CARE PROGRESS NOTE Rody Jean Baptiste is a 47 year old female who presents with itchy smelly runny vaginal discharge. "itsmells like bv not like yeast". Patient was accompanied by Self. Denies any dysuria, urinary frequency Reports no hx of UTIs in the past ( last UTI years ago). denies hx of kidney stones. denies blood in urine. denies fever, chills, upper back pain. denies chance of . denies new sexual partners or concern for STD's. denies genital bleeding. Constitutional: no fever, chills, sweats, or fatigue Patient also c/o right ear pain Patient was accompanied by Self. HPI Signs and Symptoms include: patient notes that she had right condyle pain and was unable to open her jaw for months. She is currently seeing a specialist for workup. She has noted that at that same time, she has had the right ear pain. Denies any respiratory symptoms. Notes that care team thinks that it has to do with her jaw, but maxillofacial surgeon says it is nothing to do with jaw. Severity of Symptoms: Moderate Timing (how often does it occur): Constant Modifying Factors (what was done since onset of symptoms): singular 4 mo ago, jaw exercise. Notes that she is on chronic loratidine Constitutional: denies fevers, chills, sweats, fatigue Last test for COVID was not recent Patient is vaccinated against COVID ROS All others negative other than those noted in HPI Recent illnesses in household: No Nursing Notes: Susanna LaidrSUMAYA 03/22/23 0901 Signed Rody Jean Baptiste is a 47 year old female who presents to walk-in clinic today complaining of Chief Complaint Patient presents with Ear Pain Yeast Infection Main Symptoms: thinks she has BV, foul smell and is itchy as well, does have discharge as well; didwear tight fitting leggings; swollen lymph nodes and shooting pain in her ear on the R side and pain in her R side of her jaw Cause: unknown How long: week and a half Tried: singular, Monistat one which did not help Pt accompanied by: Self ROS: All others negative other than those noted in HPI HISTORY: Past Medical History: Diagnosis Date [...] ANESTHESIA performed by Moises Mcfarlane MD at [facility] ANORECTAL EXAM ,DIAG, REQUIRING ANESTHESIA N/A 09/19/2020 ANORECTAL EXAM UNDER ANESTHESIA performed by Moises Mcfarlane MD at [facility] D&C.EDU. 2002 HEMORRHOIDECTOMY, SIMPLE, 1 COLUMN N/A 08/18/2020 HEMORRHOIDECTOMY EXTERNAL AND INTERNAL SIMPLE performed by Moises Mcfarlane MD at [facility] HEMORRHOIDECTOMY, SIMPLE, 1 COLUMN N/A 09/19/2020 HEMORRHOIDECTOMY EXTERNAL AND INTERNAL SIMPLE performed by Moises Mcfarlane MD at [facility] LAP ABLATION UTERINE FIBROIDS W/INTRAOP US GUIDE 2014 LAPAROSCOPY;WITH BIOPSY 1996 endometreosis SACROILIAC JOINT INJECT W/GUIDANCE 08/06/2018 INJECTION SACROILIAC JOINT performed by Torito Orta DO at [facility] SACROILIAC JOINT INJECT W/GUIDANCE 10/15/2018 INJECTION SACROILIAC JOINT performed by Torito Orta, at [facility] Social History Socioeconomic History Marital status: Single [...] Concern Not on file 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 90 Tab 0 Kevin Carbonate 300 MG Oral Capsule (Eskalith) Take 3 Capsules by mouth at bedtime. SUMAtriptan Succinate 50 MG Oral Tablet (Imitrex) TAKE 2 TABLETS AT ONSET MIGRAINE -MAY REPEAT 1 TABLET IN 2 HOURS -MAX OF 5 IN 24 HOURS 9 Tablet 3 Pantoprazole Sodium 20 MG Oral Tablet Delayed [...] 1 Tablet before bedtime. 14 Tablet 0 No current facility-administered medications for this visit. Review of patient's allergies indicates: Allergen Reactions Aripiprazole Neuro complications (Please comment) Tardive dyskinesia [place] (Diagnostic) Other reaction(s): STRAWBERRIES/TOMATOES IN LARGE VOLUMES-ULCERS IIN MOUTH Tomato Family History Problem Relation Age of Onset Cervical Cancer Mother Stroke Mother Pulmonary embolism Mother multiple Blood Disorder Grandmother (Maternal) Arthritis Brother (Half) Ankylosis Spondylitis, half sib on maternal side Blood Disorder Cousin (Unspecified) MTHFR Breast Cancer No significant family history OBJECTIVE: BP 136/90 | Pulse 88 | Temp 36.3 C (97.3 F) (Tympanic) | SpO2 100% Wt Readings from Last 1 Encounters: 02/14/23 (!) 150.2 kg (331 lb 3.2 oz) General appearance: awake, alert, no apparent distress Ear canals clear bilaterally with clear tms without fluid posteriorly. No erythema. Abdominal Exam: back: no CVA tenderness and abd: +suprapubic tenderness to palpation, no R/R/G, +BS Respiratory: clear to auscultation, no rhonchi, no wheezes, and no crackles Heart: regular rate, regular rhythm, no murmurs , no rubs, and no gallops Skin/Integumentary: Exposed skin without rashes or lesions. Vulva: nancy stage 5 without rash. Vagina with white discharge Results for orders placed or performed in visit on 02/18/23 TSH Result Value Ref Range TSH 3.78 0.27 - 4.20 uIU/mL Patient Instructions No alcohol with metronidazole. Please hold off on any sex until after 1 week after completion of antibiotics. Please let pharmacy know that you had metronidazole. Drink plenty of fluids, increase intake over next 48-72 hours. Take all medications as prescribed, even if you are feeling better sooner. We will notify you of your culture results. F/U with PCP with no improvement in 3-5 days. Go immediately to the ED with any change or worsening symptoms including chills, fevers, back pain. Assessment: Vaginal discharge (Primary) - CHLAMYDIA TRACHOMATIS AND NEISSERIA GONORRHOEAE, AMPLIFIED PROBE; Future; Expected date: 03/22/2023 - VAGINOSIS PANEL, PCR; Future; Expected date: 03/22/2023 - VAGINOSIS PANEL, PCR - CHLAMYDIA TRACHOMATIS AND NEISSERIA GONORRHOEAE, AMPLIFIED PROBE - metroNIDAZOLE 500 MG Oral Tablet (Flagyl); Take 1 Tablet by mouth in the morning and 1 Tablet before bedtime. Acute otalgia, right Discharge: Will treat for symptoms of BV. To get culture guide therapy. Pharmacy made aware due to warfarin prescription. Will contact with culture results. Spoke about preventative measures. Ear: normal ear exam. Without obvious cause of symptoms. Recommend follow up with MRI as recommended by previous care team. Patient defers neuro testing at this time. Care instructions given. Additional instructions per patient instructions attached. Follow up with PCP in 3-5 days if symptoms persist. Reasons to go to ED discussed with patient including but not limited to development of acute or severe symptoms. Patient agrees with the plan and demonstrates verbal understanding. Patient stable at the time of discharge. Patient goals for plan of care were discussed I spent a total of 48 minutes on the date of service in preparation, delivery, and documentation ofthe care provided to Rody Jean Baptiste excluding any time spent in the performance of separately billed services. Ivory Cobb PA-C [address] [address] documented in this encounter Nursing Notes * Susanna Laird LPN - 03/22/2023 8:50 AM EDT Rody Jean Baptiste is a 47 year old female who presents to walk-in clinic today complaining of Chief Complaint Patient presents with Ear Pain Yeast Infection Main Symptoms: thinks she has BV, foul smell and is itchy as well, does have discharge as well; didwear tight fitting leggings; swollen lymph nodes and shooting pain in her ear on the R side and pain in her R side of her jaw Cause: unknown How long: week and a half Tried: singular, Monistat one which did not help Pt accompanied by: Self documented in this encounter Plan of Treatment Upcoming Encounters Date Type Specialty Care Team Description 04/01/2023 Anticoagulation Pharmacy [facility] [address] [place] [address] 05/12/2023 Office Visit Ophthalmology [facility] Quintana, DO [address] [facility] [address] 06/10/2023 Office Visit Sleep Disorders Sherita Coelho, DO [address] [place] [address] 06/10/2023 Office Visit Internal [facility] [address] [facility] [address] 07/22/2023 Office Visit Neurology Mahendra Del Valle MD [address] [place], [place] [id number] 07/25/2023 Office Visit Neurology Tahmina Crouchsvenkristina ErumDO jyothi [address] [facility] [place] [address] 01/07/2024 Imaging Radiology 01/19/2024 Telemedicine Sleep Disorders Negin Lynsey Troy, DO [address] [place] [address] Pending Results Name Type Priority Associated Diagnoses Date /Time CHLAMYDIA TRACHOMATIS AND NEISSERIA GONORRHOEAE, AMPLIFIED PROBE Lab Routine Vaginal discharge 03/22/2023 9:35 AM EDT VAGINOSIS PANEL, PCR Lab Routine Vaginal discharge 03/22/2023 9:34 AM EDT Scheduled Orders Name Type Priority Associated Diagnoses Orde r Schedule CHLAMYDIA TRACHOMATIS AND NEISSERIA GONORRHOEAE, AMPLIFIED PROBE Lab Routine Vaginal discharge Expected: 03/22/2023, Expires: 03/22/2024 VAGINOSIS PANEL, PCR Lab Routine Vaginal discharge Expected: 03/22/2023, Expires: 03/22/2024 Health Maintenance Due Date Last Done Comments [...] of this encounter Visit Diagnoses Diagnosis Vaginal discharge- Primary Leukorrhea, not specified as infective Acute otalgia, right documented in this encounter Advance Directives Latest [...] the patient have Health Care Power of Overhead Crane Technician? No Code Status History Code Status Date Activated Date Inactivated Comments Full Code 09/19/2020 9:51 AM 09/19/2020 10:03 AM Th is order reflects the patients wishes and were consensually agreed upon. Question Answer Comments Discussion of Advance Directives occurred with: Patient Does the patient have a Living Will? No Does the patient have Health Care Power of Overhead Crane Technician? No Full Code 08/18/2020 9:52 AM 08/18/2020 2:40 PM Thi s order reflects the patients wishes and were consensually agreed upon. Question Answer Comments Discussion of Advance Directives occurred with: Patient Does the patient have a Living Will? No Does the patient have Health Care Power of Overhead Crane Technician? No Care Teams Sales Designer Relationship Specialty Start Date End Date Ginna Power MD [address] [place] [address] PCP - General Internal Medicine 09/05/21 documented as of this encounter
--- OUTSIDE RECORDS SUMMARY | 2023-09-11 00:21 | External Medical Summary ---
Author Name Unknown Address Unknown Organization K01:LABORATORY [facility] [place] - [address] [facility] [address] Laboratory Report Ordering Provider Test Date Status LEVI CONCEPCION 03/22/2023 09:35:10 Final Observation Date Value Abnormality Reference (Units ) Status Chlamydia trachomatis rRNA [Presence] in Specimen by MARNI with probe detection 03/22/2023 09:35:10 Negative Negative Final No Chlamydia trachomatis det ected by book illustrator-mediated nucleic acid amplification. Neisseria gonorrhoeae rRNA [ Presence] in Unspecified specimen by MARNI with probe detection 03/22/2023 09:35:10 Negative Negative Final No Neisseria gonorrhoeae det ected by book illustrator-mediated nucleic acid amplification. Performing Location LABORATORY [facility] [place] - [address] [facility] [address]
--- OUTSIDE RECORDS SUMMARY | 2023-09-11 00:21 | External Medical Summary | Summary of Care ---
Author Name Unknown Organization [facility] Address [address] [place] [address] Phone [phone] Care Team Providers Care Fingerprint Classifier Name Role Phone Ginna Power MD Primary Care Provider [phone] Reason for Visit * Reason Onset Date Comments Forms Request 01/06/2023 [facility] Phy sical Therapy POC Encounter Details Date Type Department Care Team Description 01/06/2023 Telephone Neurology, [place] [address] [place] [address] Vannesa Crouch, [address] [place] [address] Forms Request (Willa Perez Physical Thera... Allergies Active Allergy Reactions Severity Noted Date Comments Aripiprazole Neuro complications (Please comment) High 09/30/2019 Tardive dyskinesia [place] (Diagnostic) Low 03/10/2015 Other reaction(s): STRAWBERRIES/TOMATOE S IN LARGE VOLUMES-ULCERS IIN MOUTH Tomato Low 09/30/2019 documented as of this encounter (statuses as of 03/20/2023) Medications Medication Sig Dispensed Refills Start Date [...] Active Additional Information Patient taking differently:1,000 mg [id number] PRN, Pain, Fever, Reported on 12/16/2022 Nebulizers (NEBULIZER COMPRESSOR) MISC Inhale via nebulizer. Use as directed. 1 Each 1 10/06/2018 Active albuterol-ipratrop ium (DUONEB) 2.5-0.5 MG/3ML nebulizer solution Inhale 3 mL via nebulizer 4 times a day. 360 Vial 0 04/16/2019 Active loratadine (RA LORATADINE) 10 MG TabletIndications: Chronic frontal sinusitis Take 1 Tab by mouth daily. 90 Tab 0 04/16/2019 Active [place] Carbonate 300 MG Oral Capsule (Eskalith) [...] as of this encounter (statuses as of 03/20/2023) Active Problems Problem Noted Date Body mass [...] as of this encounter (statuses as of 03/20/2023) Resolved Problems Problem Noted Date Resolved Date [...] as of this encounter (statuses as of 03/20/2023) Immunizations Name Administration Dates Next Due COVID-19 mRNA, LNP-s, No Pre serve, 2-Dose Series (Moderna) 03/06/2021,02/06/2021 HepA Inact/HepB Recomb>=18yrs old 06/02/2012,,08/07/2011 Pneumococcal Conjugate Vacci ne, 20-valent ([id number]) 07/24/2022 Pneumococcal Polysaccharide PPV23 (Pneumovax) 07/29/2013 Seasonal [...] MERYL Tucker - 03/20/2023 10:47 AM EDT [facility] on[facility]/19/23. Placed in providers bin for signature. * Telephone Encounter - MERYL Tucker - 03/14/2023 2:40 PM EDT [facility] on 03/14/23. Placed in providers bin for signature. * Telephone Encounter - Alejandra Taylor, MERYL - 02/04/2023 3:58 PM EDT [facility] P[facility] signed and faxed to [phone] on 02/04/23. Scanned into patients chart. * Telephone Encounter - MERYL Tucker - 02/03/2023 3:50 PM EDT Received [facility] from [facility] on 01/31/23. Placed in providers bin for signature. * Telephone Encounter - MERYL Tucker - 01/10/2023 12:51 PM EDT [facility] POCsigned and faxed to [phone] on 01/10/23. Scanned into patients chart. * Telephone Encounter - MERYL Tucker - 01/10/2023 10:51 AM EDT Received [facility]OC from [facility] on 01/09/23. Placed in providers bin for signature. * Telephone Encounter - MERYL Tucker - 01/06/2023 3:02 PM EDT [facility] signed and faxed with most recent office notes to [phone] on 01/06/23. Scanned into patients chart. Placed a call to [facility] and relayed message from Dr Crouch that the referral was for imbalance and mild left hand hemiparesis so the patient will need evaluated for this. * Telephone Encounter - MERYL Tucker - 01/06/2023 12:26 PM EDT Received [facility] POC from [facility] on 01/03/23. Placed in providers bin for signature. documented in this encounter Plan of Treatment Upcoming Encounters Date Type Specialty Care Team Description 04/01/2023 Anticoagulation Pharmacy [facility] [address] [place] [address] 05/12/2023 Office Visit Ophthalmology Uri Quintana, DO [address] [place], [place] [id number] 06/10/2023 Office Visit Sleep Disorders Sherita Coelho, DO [address] [place] [address] 06/10/2023 Office Visit Internal Medicine Ginna Power MD [address] [place] [address] 07/22/2023 Office Visit Neurology Mahendra Del Valle MD [address] [place] [address] 07/25/2023 Office Visit Neurology Vannesa Crouch, DO [address], [place] [id number] 01/07/2024 Imaging Radiology 01/19/2024 Telemedicine Sleep Disorders Lynsey Kam, DO [address] [place] [address] Health Maintenance Due Date Last Done Comments [...] the patient have Health Care Power of Weapons Electrical Engineering Officer? No Code Status History Code Status Date Activated Date Inactivated Comments Full Code 09/19/2020 9:51 AM 09/19/2020 10:03 AM Th is order reflects the patients wishes and were consensually agreed upon. Question Answer Comments Discussion of Advance Directives occurred with: Patient Does the patient have a Living Will? No Does the patient have Health Care Power of Weapons Electrical Engineering Officer? No Full Code 08/18/2020 9:52 AM 08/18/2020 2:40 PM Thi s order reflects the patients wishes and were consensually agreed upon. Question Answer Comments Discussion of Advance Directives occurred with: Patient Does the patient have a Living Will? No Does the patient have Health Care Power of Weapons Electrical Engineering Officer? No Care Teams Fingerprint Classifier Relationship Specialty Start Date End Date Ginna Power MD [address] [place] [address] PCP - General Internal Medicine 09/05/21 documented as of this encounter
--- OUTSIDE RECORDS SUMMARY | 2023-09-11 00:21 | External Medical Summary ---
Author Name Unknown Address Unknown Organization K01:[facility] [place] [address] [facility] [address] Laboratory Report Ordering Provider Test Date Status LEVI CONCEPCION 03/22/2023 09:34:58 Final Observation Date Value Abnormality Reference (Units ) Status More glabrata DNA [Presence] in Vaginal fluid by MARNI with probe detection 03/22/2023 09:34:58 Negative Negative Final More glabrata not detecte d by PCR. More albicans DNA [Presen ce] in Vaginal fluid by MARNI with probe detection 03/22/2023 09:34:58 Negative Negative Final More albicans not detecte d by PCR. Trichomonas vaginalis DNA [P resence] in Vaginal fluid by MARNI with probe detection 03/22/2023 09:34:58 Negative Negative Final Trichomonas vaginalis not de tected by PCR. Gardnerella vaginalis DNA [Presence] in Vaginal fluid by Probe with signal amplification 03/22/2023 09:34:58 Positive Abnormal Ne gative Final Gardnerella vaginalis detect ed by PCR.

Organism may be associated with colonization. Clinical correlation needed.
This test was developed and its performance characteristics determined by [facility]. It has not been cleared or approved [...] was developed and performance characteristics determined by [facility]. The validation of alternate specimen types has not been cleared or approved by the U.S. Food and Drug Administration (FDA). It has been determined that such clearance or approval is not necessary.

null Performing Location LAB[facility]ATORY [facility] [place] - [address] [facility] [address]
--- OUTSIDE RECORDS SUMMARY | 2023-09-11 00:21 | External Medical Summary | Summary of Care ---
Author Name Unknown Organization [facility] Address [address] [place] [address] Phone [phone] Care Team Providers Care Bolt Threader Name Role Phone Ginna Power MD Primary Care Provider [phone] Reason for Visit * Reason Onset Date Comments Forms Request 01/06/2023 [facility] POC Encounter Details Date Type Department Care Team Description 01/06/2023 Telephone Neurology, [place] [address] [place] [address] Vannesa Crouch, [address] [place] [address] Forms Request ([facility] Physical Thera... Allergies Active Allergy Reactions Severity Noted Date Comments Aripiprazole Neuro complications (Please comment) High 09/30/2019 Tardive dyskinesia [place] (Diagnostic) Low 03/10/2015 Other reaction(s): STRAWBERRIES/TOMATOE S IN LARGE VOLUMES-ULCERS IIN MOUTH Tomato Low 09/30/2019 documented as of this encounter (statuses as of 03/14/2023) Medications Medication Sig Dispensed Refills Start Date [...] Active Additional Information Patient taking differently:1,000 mg [id number] PRN, Pain, Fever, Reported on 12/16/2022 Nebulizers [...] as of this encounter (statuses as of 03/14/2023) Active Problems Problem Noted Date Body mass [...] as of this encounter (statuses as of 03/14/2023) Resolved Problems Problem Noted Date Resolved Date [...] as of this encounter (statuses as of 03/14/2023) Immunizations Name Administration Dates Next Due COVID-19 mRNA, LNP-s, No Pre serve, 2-Dose Series (Moderna) 03/06/2021,02/06/2021 HepA Inact/HepB Recomb>=18yrs old 06/02/2012,,08/07/2011 Pneumococcal Conjugate Vacci ne, 20-valent ([id number]) 07/24/2022 Pneumococcal Polysaccharide PPV23 (Pneumovax) 07/29/2013 Seasonal [...] MERYL Tucker - 03/14/2023 2:40 PM EDT [facility]14/23. Placed in providers bin for signature. * Telephone Encounter - MERYL Tucker - 02/04/2023 3:58 PM EDT [facility] signed and faxed to [phone] on 02/04/23. Scanned into patients chart. * Telephone Encounter - MERYL Tucker - 02/03/2023 3:50 PM EDT Received [facility] from [facility] on 01/31/23. Placed in providers bin for signature. * Telephone Encounter - MERYL Tucker - 01/10/2023 12:51 PM EDT [facility] POCsigned and faxed to [phone] on 01/10/23. Scanned into patients chart. * Telephone Encounter - MERYL Tucker - 01/10/2023 10:51 AM EDT Received [facility] from [facility] on 01/09/23. Placed in providers bin for signature. * Telephone Encounter - MERYL Tucker - 01/06/2023 3:02 PM EDT [facility] signed and faxed with most recent office notes to [phone] on 01/06/23. Scanned into patients chart. Placed a call to [facility] and relayed message from Dr Crouch that the referral was for imbalance and mild left hand hemiparesis so the patient will need evaluated for this. * Telephone Encounter - MERYL Tucker - 01/06/2023 12:26 PM EDT Received [facility] from [facility] on 01/03/23. Placed in providers bin for signature. documented in this encounter Plan of Treatment Upcoming Encounters Date Type Specialty Care Team Description 04/01/2023 Anticoagulation Pharmacy [facility] [address] [place] [address] 05/12/2023 Office Visit Ophthalmology Uri Quintana, DO [address] [place] [address] 06/10/2023 Office Visit Internal Medicine Ginna Power MD [address] [place] [address] 07/22/2023 Office Visit Neurology Mahendra Del Valle MD [address], [place] [id number] 07/25/2023 Office Visit Neurology Vannesa Crouch, DO [address] [place] [address] 01/07/2024 Imaging Radiology 01/19/2024 Telemedicine Sleep Disorders Lynsey Kam, DO [address] [place] [id number] Health Maintenance Due Date Last Done Comments [...] 01/06/2023, 10/27, 11/07/2020, Additional history exists TSH FOR THYROID MEDICATION MONITORING YEARLY 02/19/2024 02/18/2023, 08/07/2022, 07/24/2022, Additional history exists Diabetes Screening 08/07/2025 [...] the patient have Health Care Power of Trophy Assembler? No Code Status History Code Status Date Activated Date Inactivated Comments Full Code 09/19/2020 9:51 AM 09/19/2020 10:03 AM Th is order reflects the patients wishes and were consensually agreed upon. Question Answer Comments Discussion of Advance Directives occurred with: Patient Does the patient have a Living Will? No Does the patient have Health Care Power of Trophy Assembler? No Full Code 08/18/2020 9:52 AM 08/18/2020 2:40 PM Thi s order reflects the patients wishes and were consensually agreed upon. Question Answer Comments Discussion of Advance Directives occurred with: Patient Does the patient have a Living Will? No Does the patient have Health Care Power of Trophy Assembler? No Care Teams Bolt Threader Relationship Specialty Start Date End Date Ginna Power MD [address] [facility] [place] [address] PCP - General Internal Medicine 09/05/21 documented as of this encounter
[2023-09-12] MEDS ORDERED: WARFARIN SOD 10 MG TAB PO SCH (16:00)
[2023-09-13] MEDS ORDERED: WARFARIN SOD 5 MG TAB PO SCH (16:00)
== END 2023-09-10 14:29 | disposition home or self-care (01) | DRG 178 ==
LOC: ED 23:34 → EDINP 09-09 02:36 → 2W 09-09 19:51
DX: E72.12 Methylenetetrahydrofolate reductase deficiency; I48.92 Unspecified atrial flutter; F31.81 Bipolar II disorder; Z86.711 Personal history of pulmonary embolism; Z83.3 Family history of diabetes mellitus; J45.20 Mild intermittent asthma, uncomplicated; Z79.01 Long term (current) use of anticoagulants; G47.33 Obstructive sleep apnea (adult) (pediatric); J69.0 Pneumonitis due to inhalation of food and vomit; Z98.890 Other specified postprocedural states; K21.9 Gastro-esophageal reflux disease without esophagitis; Y84.8 Other medical procedures as the cause of abnormal reaction of the patient, or of later complication, without mention of misadventure at the time of the procedure